=== PATIENT | male | born 1960 | race Two or more races ===

== ENCOUNTER 2017-04-07 15:37 | Inpatient (IN) | payer SELFPAY ==
[~2017-04-07] VITALS: Ht 165.1 cm; Wt 78.7 kg
[2017-04-07] MEDS ORDERED: SODIUM CHLORIDE 0.9% 1,000 ML IVB ONE (15:40)
[2017-04-07 16:29] LABS: Basophils # (auto) 0 uL; Basophils % (auto) 0.5 % (0.0-2.0); Eosinophils # (auto) 0 uL; Eosinophils % (auto) 0.2 % (0.0-7.0); Hematocrit 45.6 % (41.0-53.0); Hemoglobin 15.2 g/dL (13.5-17.5); Lymphocytes # (auto) 3.2 uL; Mean Corpuscular Hemoglobin 31.9 pg (28.0-32.0); Mean Corpuscular Hgb Conc. 33.4 g/dL (32.0-36.0); Mean Corpuscular Volume 95.6 fL (80.0-100.0); Mean Platelet Volume 10.3 fL (6.9-10.8); Monocytes # (auto) 0.3 uL; Monocytes % (auto) 2.8 % (0.0-12.0); Neutrophils # (auto) 6.4 uL; Neutrophils % (auto) 64.5 % (37.0-80.0); Nucleated Red Blood Cells % 0.2 %; Platelet Count (auto) 170 10^3/uL (140-450); Red Cell Distribution Width 13.2 % (11.8-14.3); White Blood Cell 9.9 10^3/uL (4.4-10.8)
[2017-04-07 16:44] LABS: Albumin 3.9 g/dL (3.4-5.0); Anion Gap 19 (5-15); Aspartate Aminotransferase 22 U/L (15-37); BUN/Creatinine Ratio 10.1; Blood Urea Nitrogen 13 mg/dL (7-18); Calcium 8.1 mg/dL (8.5-10.1); Carbon Dioxide 15 mmol/L (21-32); Chloride 108 mmol/L (98-107); GFR African American 76 mL/min; GFR Non-African American 63 mL/min; Glucose 200 mg/dL (74-106); INR 1.05 (0.9-1.15); Magnesium 2.7 mg/dL (1.6-2.6); Partial Thromboplastin Time 26.1 sec (22.64-33.71); Potassium 4.4 mmol/L (3.5-5.1); Prothrombin Time 11.4 sec (9.37-12.3); Sodium 142 mmol/L (136-145)
[2017-04-07 16:47] LABS: Alkaline Phosphatase 78 U/L (45-117); Bilirubin, Total 0.2 mg/dL (0.2-1.0); Total Protein 7.5 g/dL (6.4-8.2)
[2017-04-07] MEDS ORDERED: LORazepam 2MG/ML-1ML VIAL ONE (16:52)
[2017-04-07] MEDS ORDERED: LORazepam 2MG/ML-1ML VIAL IV ONE (17:00)
[2017-04-07] MEDS ORDERED: FAMOTIDINE (10MG/ML) 2ML VL IV ONE (18:45)
[2017-04-07] MEDS ORDERED: NITROGLYCERIN 0.4 MG SL TAB SL PRN (18:45)
[2017-04-07] MEDS ORDERED: ONDANSETRON HCL 4 MG/2 ML VIAL IV PRN (18:45)
[2017-04-07] MEDS ORDERED: MORPHINE SULF INJ 2 MG/ML SYRINGE 1ML IV PRN ×2 (18:45)
[2017-04-07] MEDS ORDERED: PANTOPRAZOLE 40 MG/10 ML VIAL IV ONE (18:45)
[2017-04-07] MEDS ORDERED: LORazepam 2MG/ML-1ML VIAL IV PRN (19:00)
[2017-04-07] MEDS ORDERED: DEXTROSE (50%) 50ML SYRG IV PRN (19:00)
[2017-04-07 19:04] LABS: Urine Bilirubin Negative (Negative); Urine Blood Negative /uL (Negative); Urine Glucose 1+ mg/dL (Normal); Urine Hyaline Cast FEW /lpf (0 - 2); Urine Ketone TRACE (Negative); Urine Nitrite Negative (Negative); Urine RBC 8 /hpf (0 - 3); Urine Urobilinogen Normal (Negative)
[2017-04-07 19:06] LABS: Urine Color Straw (Yellow)
[2017-04-07] MEDS: SODIUM CHLORIDE 0.9% 1,000 ML IV SCH (19:25)
[2017-04-07 19:47] LABS: B-Type Natriuretic Peptide 82.49 pg/mL (0-100)
[2017-04-07 20:00] LABS: Temperature: 22.2 C (20.0-25.0)
[2017-04-08] MEDS: ACCU-CHEK COMFORT CURVE STRIP VI SCH ×5 (00:07→23:09)
[2017-04-08] MEDS: SODIUM CHLORIDE 0.9% 1,000 ML IV SCH ×3 (05:08→19:40)
[2017-04-08] MEDS: InsuLIN REG 1unit/0.01ml Soln (100units/ml) SC SCH ×5 (06:00→23:09)
[2017-04-08 06:27] LABS: Basophils # (auto) 0 uL; Basophils % (auto) 0.2 % (0.0-2.0); Eosinophils # (auto) 0 uL; Hematocrit 42.6 % (41.0-53.0); Hemoglobin 14.7 g/dL (13.5-17.5); Lymphocytes # (auto) 1.3 uL; Lymphocytes % (auto) 12.1 % (10.0-50.0); Mean Corpuscular Hemoglobin 31.7 pg (28.0-32.0); Mean Corpuscular Hgb Conc. 34.6 g/dL (32.0-36.0); Mean Corpuscular Volume 91.6 fL (80.0-100.0); Mean Platelet Volume 10.2 fL (6.9-10.8); Monocytes % (auto) 9.3 % (0.0-12.0); Neutrophils # (auto) 8.7 uL; Neutrophils % (auto) 78.4 % (37.0-80.0); Platelet Count (auto) 146 10^3/uL (140-450); Red Cell Distribution Width 13.3 % (11.8-14.3); White Blood Cell 11.1 10^3/uL (4.4-10.8)
[2017-04-08 06:57] LABS: BUN/Creatinine Ratio 11.1; Bilirubin, Total 0.8 mg/dL (0.2-1.0); Calcium 8.8 mg/dL (8.5-10.1); Potassium 3.4 mmol/L (3.5-5.1); Total Protein 7.5 g/dL (6.4-8.2)
[2017-04-08] MEDS: FAMOTIDINE (10MG/ML) 2ML VL IV SCH (10:23)
[2017-04-08] MEDS: PANTOPRAZOLE 40 MG/10 ML VIAL IV SCH (10:23)
[2017-04-08] MEDS ORDERED: POTASSIUM CHL 10 Meq TABLET PO ONE (13:15)
[2017-04-08 17:51] VITALS: BP 113/68
[2017-04-08 21:35] VITALS: BP 113/59
[2017-04-09] MEDS: SODIUM CHLORIDE 0.9% 1,000 ML IV SCH ×3 (04:00→22:33)
[2017-04-09 05:01] VITALS: BP 120/66
[2017-04-09] MEDS: InsuLIN REG 1unit/0.01ml Soln (100units/ml) SC SCH ×3 (05:05→17:49)
[2017-04-09] MEDS: ACCU-CHEK COMFORT CURVE STRIP VI SCH ×3 (05:06→17:50)
[2017-04-09 07:08] LABS: Basophils # (auto) 0 uL; Basophils % (auto) 0.4 % (0.0-2.0); Eosinophils # (auto) 0.1 uL; Eosinophils % (auto) 0.7 % (0.0-7.0); Hematocrit 43.1 % (41.0-53.0); Hemoglobin 14.9 g/dL (13.5-17.5); Lymphocytes # (auto) 2.5 uL; Lymphocytes % (auto) 33.2 % (10.0-50.0); Mean Corpuscular Hemoglobin 31.8 pg (28.0-32.0); Mean Corpuscular Hgb Conc. 34.5 g/dL (32.0-36.0); Mean Corpuscular Volume 92.1 fL (80.0-100.0); Mean Platelet Volume 10.4 fL (6.9-10.8); Monocytes # (auto) 0.6 uL; Monocytes % (auto) 7.7 % (0.0-12.0); Neutrophils # (auto) 4.4 uL; Nucleated Red Blood Cells % 0.1 %; Platelet Count (auto) 154 10^3/uL (140-450); Red Cell Distribution Width 13.5 % (11.8-14.3); White Blood Cell 7.6 10^3/uL (4.4-10.8)
[2017-04-09 07:14] LABS: Calcium 9.4 mg/dL (8.5-10.1); Potassium 3.4 mmol/L (3.5-5.1)
[2017-04-09 07:17] LABS: BUN/Creatinine Ratio 14.9
[2017-04-09 07:22] LABS: Total Protein 7.7 g/dL (6.4-8.2)
[2017-04-09 09:00] VITALS: BP 124/66
[2017-04-09] MEDS ORDERED: POTASSIUM CHL 10 Meq TABLET PO ONE (10:15)
[2017-04-09 10:51] LABS: Cholesterol 171 mg/dL (< 200); HDL Cholesterol 63 mg/dL (40-59); LDL Cholesterol 104 mg/dL (< 100); Triglycerides 66 mg/dL (< 150)
[2017-04-09] MEDS: ASPirin-EC 81 mg tab PO SCH (10:54)
[2017-04-09] MEDS: PANTOPRAZOLE 40 MG/10 ML VIAL IV SCH (10:54)
[2017-04-09] MEDS: FAMOTIDINE (10MG/ML) 2ML VL IV SCH (10:54)
[2017-04-09 13:00] VITALS: BP 110/68
[2017-04-09 17:00] VITALS: BP 105/67
[2017-04-09 22:10] VITALS: BP 114/70
[2017-04-09] MEDS: ATORVASTATIN 20 MG TAB PO SCH (22:30)
[2017-04-09] MEDS: PHENYTOIN SODIUM 100 MG CAP PO SCH (22:30)
[2017-04-10 05:08] VITALS: BP 115/72
[2017-04-10] MEDS: InsuLIN REG 1unit/0.01ml Soln (100units/ml) SC SCH ×4 (06:00→18:00)
[2017-04-10] MEDS: ACCU-CHEK COMFORT CURVE STRIP VI SCH ×4 (06:18→17:31)
[2017-04-10] MEDS: SODIUM CHLORIDE 0.9% 1,000 ML IV SCH ×3 (06:19→21:53)
[2017-04-10 06:30] LABS: Basophils # (auto) 0 uL; Basophils % (auto) 0.4 % (0.0-2.0); Eosinophils # (auto) 0.1 uL; Hematocrit 43.6 % (41.0-53.0); Lymphocytes % (auto) 36.6 % (10.0-50.0); Mean Corpuscular Hemoglobin 31.9 pg (28.0-32.0); Mean Corpuscular Hgb Conc. 34.4 g/dL (32.0-36.0); Mean Corpuscular Volume 92.6 fL (80.0-100.0); Mean Platelet Volume 10.4 fL (6.9-10.8); Monocytes # (auto) 0.5 uL; Monocytes % (auto) 8.4 % (0.0-12.0); Neutrophils # (auto) 2.9 uL; Neutrophils % (auto) 53.6 % (37.0-80.0); Nucleated Red Blood Cells % 0.1 %; Platelet Count (auto) 144 10^3/uL (140-450); White Blood Cell 5.4 10^3/uL (4.4-10.8)
[2017-04-10 06:58] LABS: Albumin 3.9 g/dL (3.4-5.0); BUN/Creatinine Ratio 18.2; Bilirubin, Total 0.7 mg/dL (0.2-1.0); Potassium 3.8 mmol/L (3.5-5.1); Total Protein 7.4 g/dL (6.4-8.2)
[2017-04-10 08:10] LABS: Thyroxine (T4) 6.9 ug/dL (4.5-12.0)
[2017-04-10 08:41] VITALS: BP 98/52
[2017-04-10] MEDS: FAMOTIDINE (10MG/ML) 2ML VL IV SCH (10:00)
[2017-04-10] MEDS: ASPirin-EC 81 mg tab PO SCH (12:10)
[2017-04-10] MEDS: PANTOPRAZOLE 40 MG/10 ML VIAL IV SCH (12:10)
[2017-04-10 13:00] VITALS: BP 115/67
[2017-04-10 16:58] VITALS: BP 111/60
[2017-04-10] MEDS: ATORVASTATIN 20 MG TAB PO SCH (21:48)
[2017-04-10] MEDS: PHENYTOIN SODIUM 100 MG CAP PO SCH (21:48)
[2017-04-10 22:51] VITALS: BP 120/71
[2017-04-11 05:22] VITALS: BP 112/56
[2017-04-11] MEDS: InsuLIN REG 1unit/0.01ml Soln (100units/ml) SC SCH ×3 (06:00→12:00)
[2017-04-11] MEDS: SODIUM CHLORIDE 0.9% 1,000 ML IV SCH (06:18)
[2017-04-11] MEDS: ACCU-CHEK COMFORT CURVE STRIP VI SCH ×3 (06:20→11:33)
[2017-04-11 06:28] LABS: Basophils # (auto) 0 uL; Basophils % (auto) 0.5 % (0.0-2.0); Eosinophils # (auto) 0 uL; Eosinophils % (auto) 0.8 % (0.0-7.0); Hematocrit 44.1 % (41.0-53.0); Hemoglobin 15.2 g/dL (13.5-17.5); Lymphocytes # (auto) 1.9 uL; Lymphocytes % (auto) 32.7 % (10.0-50.0); Mean Corpuscular Hemoglobin 31.7 pg (28.0-32.0); Mean Corpuscular Hgb Conc. 34.4 g/dL (32.0-36.0); Mean Corpuscular Volume 92.3 fL (80.0-100.0); Mean Platelet Volume 10.4 fL (6.9-10.8); Monocytes # (auto) 0.5 uL; Monocytes % (auto) 8.2 % (0.0-12.0); Neutrophils # (auto) 3.3 uL; Neutrophils % (auto) 57.8 % (37.0-80.0); Nucleated Red Blood Cells % 0.1 %; Platelet Count (auto) 154 10^3/uL (140-450); Red Cell Distribution Width 13.3 % (11.8-14.3); White Blood Cell 5.8 10^3/uL (4.4-10.8)
[2017-04-11 07:05] LABS: BUN/Creatinine Ratio 12.4; Bilirubin, Total 0.7 mg/dL (0.2-1.0); Calcium 9.1 mg/dL (8.5-10.1); Potassium 3.6 mmol/L (3.5-5.1); Total Protein 7.6 g/dL (6.4-8.2)
[2017-04-11 09:12] VITALS: BP 118/76
[2017-04-11] MEDS: FAMOTIDINE (10MG/ML) 2ML VL IV SCH (10:00)
[2017-04-11] MEDS: PANTOPRAZOLE 40 MG/10 ML VIAL IV SCH (10:20)
[2017-04-11] MEDS: ASPirin-EC 81 mg tab PO SCH (10:20)
[2017-04-11 14:52] VITALS: BP 126/62
[2017-04-11] MEDS ORDERED: METOPROLOL TARTRATE 50 MG TAB PO ONE (15:30)
[2017-04-11] MEDS ORDERED: metFORMIN HYDROCHLORIDE 500 MG TAB PO SCH (18:00)
[2017-04-11] MEDS ORDERED: ATORVASTATIN 20 MG TAB PO SCH (22:00)
[2017-04-12] MEDS ORDERED: METOPROLOL TARTRATE 50 MG TAB PO SCH (10:00)
[2017-04-12 11:07] LABS: Anticardiolipin IgM Antibody <9 MPL U/mL (0-12); Protein S Antigen Free 117 % (57-157); Proten S Antigen Total 77 % (60-150)
== END 2017-04-11 15:38 | disposition home or self-care (01) | DRG 101 ==
LOC: ER 15:46 → EDBD 15:47 → OVERFLOW 15:47 → TELE-EAST 04-08 17:50
PROVIDERS: ADMIT Internal Medicine; ATTEND Internal Medicine Pulmonary Disease
DX: G40.401 Other generalized epilepsy and epileptic syndromes, not intractable, with status epilepticus (principal); D68.69 Other thrombophilia; E11.21 Type 2 diabetes mellitus with diabetic nephropathy; D68.59 Other primary thrombophilia; E11.22 Type 2 diabetes mellitus with diabetic chronic kidney disease; E87.2 Acidosis; I48.92 Unspecified atrial flutter; E83.41 Hypermagnesemia; I48.91 Unspecified atrial fibrillation; E83.51 Hypocalcemia; E87.6 Hypokalemia; I12.9 Hypertensive chronic kidney disease with stage 1 through stage 4 chronic kidney disease, or unspecified chronic kidney disease; N18.2 Chronic kidney disease, stage 2 (mild); Z79.82 Long term (current) use of aspirin; Z79.899 Other long term (current) drug therapy; Z86.73 Personal history of transient ischemic attack (TIA), and cerebral infarction without residual deficits
CPT/HCPCS: 36415; 51702; 70450; 70551; 71010; 80053; 80061; 80307; 80320; 81001; 81241; 82962; 83036; 83090; 83735; 83880; 84443; 84484; 85025; 85301; 85302; 85303; 85305; 85306; 85610; 85613; 85670; 85705; 85730; 85732; 86147; 87086; 92610; 93306; 93886; 94761; 95819; 96361; 96374; C9113; G0378; J3490

== ENCOUNTER 2024-12-13 09:51 | Inpatient (IN) | payer MEDICAID, OTHER ==
[~2024-12-13] VITALS: Ht 165.1 cm; Wt 67.1 kg
--- NOTE | 2024-12-13 10:39 | ED.PDOC ---
Altered Mental Status HPI Comments 63 y/o M, brought in by neighbor, with known medical history of Parkinson's disease, DM , and HTN presents to the ED for CC of ALOC. Patient was brought in by neighbor d/t patient displaying decreased alertness sudden onset, today (12/13/24). Upon arrival to the ED, patient was visibly altered and unable to answer questions appropriately. Patient's blood sugar read low at 41 and 56 on glucometer. During exam patient is A&Ox2 to person and place only; patient is able to recall past medical history and is answering some questions appropriately. No other symptoms or modifiers are obtainable at this time. Chief Complaint: ALOC Time Seen by MD: 10:05 Primary Care Provider: UNK Reviewed Notes: Nurses Notes, Medications, Allergies Allergies: Coded Allergies: NO KNOWN ALLERGIES (Unverified , 04/07/17) Home Meds Unable to Obtain Active Prescriptions or Reported Meds Information Source: Patient, Friend Mode of Arrival: Wheelchair Severity: Moderate Timing: Hours Duration: Since onset Prehospital treatment: None Quality: Decreased Alertness Recent: None History of: CVA, Diabetes Associated Signs and Symptoms: None Past Medical History PAST MEDICAL HISTORY: CVA, DM, HTN Surgical History: Unobtainable Family History Family History: Pt Confused Social History Smoker: Unobtainable Alcohol: Unobtainable Drugs: Unobtainable Lives In: Home Unable to Obtain due to: Altered Mental Status Physical Exam General Appearance: Moderate Distress HEENT: Normal ENT Inspection, Pharynx Normal, TMs Normal Neck: Full Range of Motion, Non-Tender, Normal, Normal Inspection Respiratory: Other (Coarse breath sounds) Cardiovascular: No Edema, No JVD, No Murmur, No Gallop, Normal Peripheral Pulses, Regular Rate/Rhythm Breast Exam: Deferred Gastrointestinal: No Organomegaly, Non Tender, No Pulsatile Mass, Normal Bowel Sounds, Soft Genitalia: Deferred Pelvic: Deferred Rectal: Deferred Extremities: Decreased range of motion, Other (Despite ENT BT in the two) Musculoskeletal : Apperance: Normal Neurologic: Disoriented Cerebellar Function: NOT DONE Reflexes: NOT DONE Skin: Pallor Peripheral Pulses: 3+ Radial (R), 3+ Radial (L) Lymphatic: No Adenopathy Was a procedure done? Was a procedure done?: No Differential Diagnosis (ALOC) Differential Diagnosis: Dehydration, Hypoglycemia, Sepsis, CVA X-Ray, Labs, Meds, VS Vital Signs Date Time Temp Pulse Resp B/P (MAP) Pulse Ox O2 Delivery O2 Flow Rate FiO2 12/13/24 10:20 Room Air* 0 21 12/13/24 10:06 97.7 105 20 104/71 92 97.7 12/13/24 09:59 143 Lab Test 12/13/24 11:30 12/13/24 11:05 12/13/24 09:59 Range/Units Urine Color Pending Urine Clarity Pending Urine pH Pending Urine Specific [place] Pending Urine Protein Pending Urine Ketones Pending Urine Blood Pending Urine Nitrite Pending Urine Bilirubin Pending Urine Urobilinogen Pending Urine Leukocyte Esterase Pending Urine RBC Pending Urine Microscopic WBC Pending Urine Squamous Epithelial Cells Pending Urine Bacteria Pending Urine Glucose Pending White Blood Count 10.1 4.4-10.8 10^3/uL Red Blood Count 5.12 4.5-5.90 10^6/uL Hemoglobin 14.9 13.5-17.5 g/dL Hematocrit 45.6 41.0-53.0 % Mean Corpuscular Volume 89.2 80.0-100.0 fL Mean Corpuscular Hemoglobin 29.1 28.0-32.0 pg Mean Corpuscular Hemoglobin Concent 32.6 32.0-36.0 g/dL Red Cell Distribution Width 19.6 H 11.8-14.3 % Platelet Count 105 L 140-450 10^3/uL Mean Platelet Volume 10.7 6.9-10.8 fL Neutrophils (%) (Auto) 85.8 H 37.0-80.0 % Lymphocytes (%) (Auto) 2.8 L 10.0-50.0 % Monocytes (%) (Auto) 11.1 0.0-12.0 % Eosinophils (%) (Auto) 0.1 0.0-7.0 % Basophils (%) (Auto) 0.2 0.0-2.0 % Neutrophils # (Auto) 8.7 H 1.6-8.6 10 ^3/uL Lymphocytes # (Auto) 0.3 L 0.4-5.4 10 ^3/uL Monocytes # (Auto) 1.1 0-1.3 10 ^3/uL Eosinophils # (Auto) 0 0-0.8 10 ^3/uL Basophils # (Auto) 0 0-0.2 10 ^3/uL Nucleated Red Blood Cells 0.1 % Prothrombin Time 33.7 H 9.3-11.8 sec Prothrombin Time INR 3.61 H 0.9-1.15 Activated Partial Thromboplast Time 36.9 H 24.5-34.5 SEC Sodium Level 136 136-145 mmol/L Potassium Level 5.8 *H 3.5-5.1 mmol/L Chloride Level 103 98-107 mmol/L Carbon Dioxide Level 14 L 20-31 mmol/L Anion Gap 19 H 5-15 Blood Urea Nitrogen 56 H 9-23 mg/dL Creatinine 2.73 H 0.700-1.30 mg/dL Glomerular Filtration Rate Calc 26 >90 mL/min BUN/Creatinine Ratio 20.5 H 10.0-20.0 Serum Glucose 155 H 74-106 mg/dL Lactic Acid Level 7.2 *H 0.4-2.0 mmol/L Calcium Level 9.5 8.7-10.4 mg/dL Total Bilirubin 4.0 H 0.2-1.0 mg/dL Aspartate Amino Transferase (AST) 4520 H 13-40 U/L Alanine Aminotransferase (ALT) 2306 H 7-40 U/L Alkaline Phosphatase 81 46-116 U/L Total Protein 6.1 5.7-8.2 g/dL Albumin 4.2 3.2-4.8 g/dL POC Glucose 56 L 70-106 mg/dl Current Medications Medications (Trade) Dose Ordered Sig/Diane Route Start Time Stop Time Status Last Admin Dextrose 50 ml ONCE ONCE IV 12/13/24 10:45 12/13/24 10:46 DC 12/13/24 10:54 Sodium Chloride 1,000 ml @ 1,000 mls/hr Q1H ONCE IV 12/13/24 11:00 12/13/24 11:59 DC 12/13/24 10:53 Vancomycin HCl 250 ml @ 250 mls/hr ONCE ONCE IV 12/13/24 11:00 12/13/24 11:59 DC 12/13/24 11:18 Cefepime HCl 50 ml @ 50 mls/hr ONCE ONCE IV 12/13/24 11:15 12/13/24 12:14 DC 12/13/24 11:52 [facility] [id number] [place] [id number] Ph: [phone] DIAGNOSTIC IMAGING Diagnostic Imaging Report : [id number] Signed PATIENT: DEMETRIUS RUST ACCT: [id number] UNIT: [id number] : 1960 LOC: ER ROOM / BED: / AGE / SEX: 63 / M ADM STATUS: REG ER SERVICE 1048 ORDERING PHYSICIAN: JEFF LU MD PROCEDURE(s): CXRP - CHEST PORTABLE REASON: sob ORDER NUMBER(s): [id number], ACCESSION NUMBER(s): [id number] CHEST RADIOGRAPH Indication: sob Technique: XY CHEST PORTABLE COMPARISON: None FINDINGS: The cardiac silhouette is enlarged. The lungs demonstrate bilateral patchy airspace opacities. The pulmonary vasculature is prominent. Small bilateral pleural effusions, [id number]-swek-left. There is no pneumothorax. Left chest dual lead cardiac pacer device. IMPRESSION: Cardiomegaly with pulmonary vascular congestion and bilateral patchy airspace opacities. Small bilateral pleural effusions, myqqt-wiahvod-bysh-left. ATED BY: CARLIE RESTREPO MD DICTATED DATE/TIME: 12/13/241206 SIGNED BY: CARLIE RESTREPO MD SIGNED DATE/TIME: 12/13/241206 CC: Patient unable to answer all questions. Chronic condition. Chest x-ray reviewed does show CHF with possible pneumonia. Answers his name. Possible sepsis. Potassium is elevated. Hyperkalemia treatment. Liver profile elevated. Possibly from alcohol versus gallbladder. WBC within normal limits. Unknown whether he has a gallbladder. Workup for cholecystitis. Waiting for family. Continue to monitor. Time of 1ST Reevaluation: 10:35 Reevaluation 1ST: Unchanged Patient Education/Counseling: Diagnosis, Treatment Family Education/Counseling: No Family Present SEPSIS Sepsis Screen Date sepsis recognized/suspect: Dec 13, 2024 Time Sepsis recognized/suspect: 1000 Recent Procedure: No On Antibiotic Therapy: No Respiratory Rate >20: No Heart Rate >90: Yes Temp<36 C (96.8 F) or >38.3 C: No SBP <90 or MAP <65 mmHG: No New Acute Mental Status Change: No Is the patient on CPAP, BIPAP,: No Physician Orders Electrocardigram (12/13/24 10:06) Electrocardigram (12/13/24 11:06) Urinalysis (12/13/24 10:48) Chest Portable (12/13/24 10:48) Accucheck (12/13/24 10:48) Blood Culture (12/13/24 10:48) Notify Md If Map <65 Or Bp<90 (12/13/24 10:48) If Map<65 Start Vasopressor (12/13/24 10:48) Sepsis Reassesment After Fluid (12/13/24 11:48) Sodium Chloride 0.9% (12/13/24 11:00) Calcium Gluc 1,000mg/50ml-Ns (12/13/24 12:30) Cefepime 1gm/ 50ml (Maxipime 1gm/50ml) (12/14/24 10:00) Vital Signs Date Time Temp Pulse Resp B/P (MAP) Pulse Ox O2 Delivery O2 Flow Rate FiO2 12/13/24 10:20 Room Air* 0 21 12/13/24 10:06 97.7 105 20 104/71 92 97.7 12/13/24 09:59 143 Laboratory Tests Test 12/13/24 11:05 Lactic Acid Level 7.2 mmol/L (0.4-2.0) *H White Blood Count 10.1 10^3/uL (4.4-10.8) Medications Medications Dose Ordered Sig/Diane Route Start Time Stop Time Status Last Admin Dose Admin Cefepime HCl 50 ml @ 50 mls/hr ONCE ONCE IV 12/13/24 11:15 12/13/24 12:14 DC 12/13/24 11:52 Dextrose 50 ml ONCE ONCE IV 12/13/24 10:45 12/13/24 10:46 DC 12/13/24 10:54 Sodium Chloride 1,000 ml @ 1,000 mls/hr Q1H ONCE IV 12/13/24 11:00 12/13/24 11:59 DC 12/13/24 10:53 Vancomycin HCl 250 ml @ 250 mls/hr ONCE ONCE IV 12/13/24 11:00 12/13/24 11:59 DC 12/13/24 11:18 Departure 1 Departure Time of Disposition: 12:51 Impression: Primary Impression: Metabolic encephalopathy Additional Impressions: Sepsis Qualified Codes: A41.9 - Sepsis, unspecified organism Hyperkalemia Disposition: ADMITTED INPATIENT Admit to: ICU Condition: Guarded e-Prescriptions Unable to Obtain Active Prescriptions or Reported Meds Critical Care Note Critical Care Time?: Yes (90 min-critical care time only) Stability Stability form required: No Heart Score Heart Score: Heart Score Response (Comments) Value History Slightly Suspicious 0 EKG Normal 0 Age 45-64 1 Risk Factors >3 or Hx ASHD 2 Troponin Normal limit 0 Total 3 I personally scribed for JEFF LU MD ([email or web address]) on 12/13/24 at 10:39. Electronically submitted by Tatyana Mak ([email or web address]). I personally scribed for JEFF LU MD ([email or web address]) on 12/13/24 at 12:30. Electronically submitted by Tatyana Mak ([email or web address]). JEFF LU MD Dec 13, 2024 10:39
[2024-12-13] MEDS: SODIUM CHLORIDE 0.9% 1,000 ML IV ONE ×2 (10:53→13:02)
[2024-12-13] MEDS: DEXTROSE (50%) 50ML SYRG IV ONE ×2 (10:54→12:50)
[2024-12-13] MEDS ORDERED: VANCOMYCIN 1GM/200ML PM 200 ML IV ONE ×2 (11:00)
[2024-12-13] MEDS: VANCOMYCIN 1GM/250ML KIT 250 ML IV ONE (11:18)
[2024-12-13 11:24] LABS: Hematocrit 45.6 % (41.0-53.0); Hemoglobin 14.9 g/dL (13.5-17.5); Mean Corpuscular Hemoglobin 29.1 pg (28.0-32.0); Mean Corpuscular Volume 89.2 fL (80.0-100.0); Nucleated Red Blood Cells % 0.1 %
[2024-12-13 11:46] LABS: INR 3.61 (0.9-1.15); Partial Thromboplastin Time 36.9 SEC (24.5-34.5); Prothrombin Time 33.7 sec (9.3-11.8)
[2024-12-13 11:49] LABS: Lactic Acid w/Reflex 7.2 mmol/L (0.4-2.0)
[2024-12-13] MEDS: CEFEPIME 1GM/ 50ML 50 ML IV ONE (11:52)
--- NOTE | 2024-12-13 12:07 | DVH ---
CHEST RADIOGRAPH Indication: sob Technique: XY CHEST PORTABLE COMPARISON: None FINDINGS: The cardiac silhouette is enlarged. The lungs demonstrate bilateral patchy airspace opacities. The pu lmonary vasculature is prominent. Small bilateral pleural effusions, hequj-xdwipzl-mzvj-left. There i s no pneumothorax. Left chest dual lead cardiac pacer device. IMPRESSION: Cardiomegaly with pulmonary vascular congestion and bilateral patchy airspace opacities. Small bilateral pleural effusions, [id number]-farpiqb-njjg-left.
[2024-12-13 12:12] LABS: Albumin 4.2 g/dL (3.2-4.8); Alkaline Phosphatase 81 U/L (46-116); Anion Gap 19 (5-15); BUN/Creatinine Ratio 20.5 (10.0-20.0); Calcium 9.5 mg/dL (8.7-10.4); Chloride 103 mmol/L (98-107); Sodium 136 mmol/L (136-145); Total Protein 6.1 g/dL (5.7-8.2)
[2024-12-13 12:23] LABS: Alanine Aminotransferase 2306 U/L (7-40); Bilirubin, Total 4.0 mg/dL (0.2-1.0)
[2024-12-13 12:28] LABS: Blood Urea Nitrogen 56 mg/dL (9-23); Carbon Dioxide 14 mmol/L (20-31); Glucose 155 mg/dL (74-106); Potassium 5.8 mmol/L (3.5-5.1)
[2024-12-13] MEDS: SODIUM ZIRCONIUM CYCL 10 GM PAK PO ONE ×2 (12:49→20:56)
[2024-12-13] MEDS: FUROSEMIDE 20 MG/2 ML VIAL IV ONE (12:49)
[2024-12-13] MEDS: SODIUM BICARB 8.4% 50Meq/50ml SYR INJ IV ONE (12:50)
[2024-12-13] MEDS: InsuLIN REG 1unit/0.01ml Soln (100units/ml) IV ONE (12:52)
[2024-12-13 12:54] LABS: Urine Protein, UAD 1+ (Negative)
[2024-12-13] MEDS: CALCIUM GLUC 1,000mg/50ml-NS 50 ML IV ONE (12:59)
--- NOTE | 2024-12-13 13:42 | DVH ---
CT HEAD WITHOUT CONTRAST Indication: cva EXAM DATE: 12/13/2024 01:10 PM COMPARISON: None TECHNIQUE: CT of the head without intravenous contrast. RADIATION DOSE: CTDIvol: 64.4 mGy, DLP: 1140 mGy*cm FINDINGS: There is no intracranial hemorrhage. There is no extra-axial fluid, mass, mass effect or midline shif t. The ventricles are midline and normal in size. Basilar cisterns are patent. Xpna-hp-lefsgvsk periv entricular and subcortical white matter chronic microvascular ischemic changes. Left frontal, pariet al and temporal encephalomalacia most pronounced in the left temporal lobe. Imio-jr-maycixhi global c erebral volume loss. Old bilateral batista radiata infarcts. Right frontotemporal scalp, right facial region soft tissue emphysema. Right facial region delusion. Imaged portion of the orbits are unremarkable. IMPRESSION: No intracranial hemorrhage or mass effect. Cerebral encephalomalacia as described most pronounced within the left temporal lobe. Right frontal scalp, right facial region soft tissue emphysema. Correlate for traumatic and other et iologies. Right facial region contusion.
--- NOTE | 2024-12-13 13:56 | DVH ---
Exam: CT CT AB PEL WO CON-NO ORAL OR IV History: livergallbladder Comparison Study: None Technique: Multidetector spiral CT of the abdomen was performed from lung bases to pubic symphysis. Imaging was performed without IV contrast. Axial, coronal and sagittal multiplanar reformats were ob tained from the axial data set by the technologist. Radiation Dose : 1. Abdomen/Pelvis: CTDIvol 16.4 mGy, DLP 3.35 mGy*cm. Findings: Evaluation of solid organs is limited due to lack of intravenous contrast use. Lung Bases: Right lower lobe pneumonia. Moderate right pleural effusion Liver: The liver is normal in size. No focal lesions. Gallbladder and Biliary Tree: Unremarkable Spleen: Unremarkable Pancreas: The pancreas is grossly normal in appearance. Adrenal Glands: Unremarkable Kidneys: Kidneys are grossly normal without calculi or hydronephrosis. Bladder: Sears catheter in place . Soft tissue density is seen in the left posterior bladder measuri ng up to 3.1 cm Bowel: The stomach is grossly normal in appearance. Small bowel and colon are normal in caliber and d istribution. The appendix is not visualized; however, no secondary findings of acute appendicitis id entified. Ascites: Trace abdominopelvic ascites. Lymphadenopathy: No mesenteric, retroperitoneal or periportal lymphadenopathy. Abdominal Wall and Mesentery: Unremarkable. Vasculature: The visualized abdominal aorta is normal in size and caliber. Evaluation of abdominal a nd pelvic vessels is limited due to lack of intravenous contrast. Pelvic Organs: Unremarkable Musculoskeletal: No aggressive focal bony lesions, acute fractures or dislocation. IMPRESSION: 1. Right lower lobe pneumonia. 2. Moderate right pleural effusion 3. Soft tissue density is seen in the left posterior bladder measuring 3.1 cm, possibly reflecting he matoma or mass. Consider correlation with CT urogram. Radiation optimization: All CT scans at this facility use at least one of these dose optimization bonita hniques: automated exposure control mA and/or kV adjustment per patient size (includes targeted exam s where dose is matched to clinical indication) or iterative reconstruction.
[2024-12-13] MEDS: AMIODARONE BOLUS KIT 100 ML IV ONE (14:37)
[2024-12-13] MEDS: AMIODARONE 360mg/200mL PREMIX 200 ML IV ONE (14:54)
[2024-12-13] MEDS ORDERED: SODIUM CHLORIDE 0.9% 1,000 ML IV SCH (19:15)
[2024-12-13] MEDS ORDERED: VANCOMYCIN PER PHARMACY 0 MG IV SCH (19:15)
[2024-12-13] MEDS ORDERED: ONDANSETRON HCL 4 MG/2 ML VIAL IV PRN (19:15)
[2024-12-13] MEDS ORDERED: MORPHINE SULFATE INJ 2 MG/ml SYRG IV PRN (19:15)
[2024-12-13] MEDS ORDERED: NITROGLYCERIN 0.4 MG SL TAB SL PRN (19:15)
[2024-12-13] MEDS ORDERED: ACETAMINOPHEN 325 MG TAB PO PRN (19:15)
[2024-12-13] MEDS ORDERED: DEXTROSE (50%) 50ML SYRG IV PRN (19:30)
[2024-12-13] MEDS ORDERED: METOPROLOL TARTRATE 1MG/1ML-5ML VIAL IV PRN (19:45)
--- NOTE | 2024-12-13 19:56 | DVHHP2 ---
History of Present Illness History of Present Illness 63-year-old male brought in by a neighbor with a past history of hypertension, CVA, type 2 diabetes, hypertension for altered level of consciousness. Patient is alert x2 upon arrival to the emergency room blood sugar read low. Patient is unable to answer any questions. Review of Systems Other unable to obtain Allergies: Coded Allergies: NO KNOWN ALLERGIES (Unverified , 04/07/17) Medications Current Medications Medications Dose Ordered Sig/Diane Route Start Time Stop Time Status Last Admin Dose Admin Cefepime HCl 50 ml @ 12.5 mls/hr DAILY IV 12/14/24 10:00 Acetaminophen/ Hydrocodone Bitart 1 tab Q4HP PRN PO 12/13/24 19:15 Ondansetron HCl 4 mg Q4HP PRN IV 12/13/24 19:15 Enoxaparin Sodium 40 mg DAILY SC 12/14/24 10:00 UNV Acetaminophen 650 mg Q6HP PRN PO 12/13/24 19:15 Nitroglycerin 0.4 mg Q5MINP PRN SL 12/13/24 19:15 Morphine Sulfate 2 mg Q30M PRN IV 12/13/24 19:15 Piperacillin Sod/ Tazobactam Sod 100 ml @ 25 mls/hr Q12H IV 12/13/24 22:00 Vancomycin HCl 0 ml @ 0 mls/hr UD IV 12/13/24 19:15 UNV Albuterol 2.5 mg Q4HPRN PRN NEB 12/13/24 19:30 Ipratropium [place] 0.5 mg Q4HWA NEB 12/13/24 22:00 Diagnostic Test (Pha) 1 strip ACHS 12/13/24 22:00 Insulin Human Regular ACHS SC 12/13/24 22:00 Dextrose 50 ml UD PRN IV 12/13/24 19:30 Carbidopa/Levodopa 1 tab TID PO 12/13/24 22:00 Sodium Chloride 1,000 ml @ 50 mls/hr Q20H IV 12/13/24 19:30 Lactulose 30 ml Q8HR PO 12/13/24 22:00 Metoprolol Tartrate 2.5 mg Q6HPRN PRN IV 12/13/24 19:45 UNV Exam Vital Signs Vital Signs Date Time Temp Pulse Resp B/P (MAP) Pulse Ox O2 Delivery O2 Flow Rate FiO2 12/13/24 18:00 133 92/64 (73) 12/13/24 16:00 18 98 12/13/24 12:00 98.2 98.2 12/13/24 10:20 Room Air* 0 21 General Appearance: Alert, Oriented X3, Cooperative Respiratory: Clear to auscultation, Normal air movement Cardiovascular: Regular rate, Normal S1, Normal S2, No murmurs Abdominal: Normal bowel sounds, Soft, No tenderness, No hepatospenomegaly Labs/Xrays Labs Test 12/13/24 19:15 12/13/24 13:31 12/13/24 12:46 12/13/24 11:30 Range/Units Lactic Acid Level 2.5 *H 0.4-2.0 mmol/L POC Glucose 133 H 70-106 mg/dl Urine Color Dark-yellow Yellow Urine Clarity Ex.turbid Clear Urine pH 5.5 5.0-9.0 Urine Specific [place] 1.018 1.001-1.035 Urine Protein 1+ H Negative Urine Ketones 1+ H Negative Urine Blood 3+ H Negative /uL Urine Nitrite Negative Negative Urine Bilirubin Negative Negative Urine Urobilinogen 2 H Negative mg/dL Urine Leukocyte Esterase Negative Negative /uL Urine RBC 171 0 - 3 /hpf Urine Microscopic WBC 58 H 0-3 /HPF Urine Squamous Epithelial Cells Few <5 /hpf Urine Bacteria Few H None Seen /hpf Urine Hyaline Casts Mod 0 - 2 /lpf Urine Mucus Few None Seen Urine Sperm Present None Seen /hpf Urine Glucose Normal Normal mg/dL Test 12/13/24 11:05 Range/Units White Blood Count 10.1 4.4-10.8 10^3/uL Red Blood Count 5.12 4.5-5.90 10^6/uL Hemoglobin 14.9 13.5-17.5 g/dL Hematocrit 45.6 41.0-53.0 % Mean Corpuscular Volume 89.2 80.0-100.0 fL Mean Corpuscular Hemoglobin 29.1 28.0-32.0 pg Mean Corpuscular Hemoglobin Concent 32.6 32.0-36.0 g/dL Red Cell Distribution Width 19.6 H 11.8-14.3 % Platelet Count 105 L 140-450 10^3/uL Mean Platelet Volume 10.7 6.9-10.8 fL Neutrophils (%) (Auto) 85.8 H 37.0-80.0 % Lymphocytes (%) (Auto) 2.8 L 10.0-50.0 % Monocytes (%) (Auto) 11.1 0.0-12.0 % Eosinophils (%) (Auto) 0.1 0.0-7.0 % Basophils (%) (Auto) 0.2 0.0-2.0 % Neutrophils # (Auto) 8.7 H 1.6-8.6 10 ^3/uL Lymphocytes # (Auto) 0.3 L 0.4-5.4 10 ^3/uL Monocytes # (Auto) 1.1 0-1.3 10 ^3/uL Eosinophils # (Auto) 0 0-0.8 10 ^3/uL Basophils # (Auto) 0 0-0.2 10 ^3/uL Nucleated Red Blood Cells 0.1 % Prothrombin Time 33.7 H 9.3-11.8 sec Prothrombin Time INR 3.61 H 0.9-1.15 Activated Partial Thromboplast Time 36.9 H 24.5-34.5 SEC Sodium Level 136 136-145 mmol/L Chloride Level 103 98-107 mmol/L Carbon Dioxide Level 14 L 20-31 mmol/L Anion Gap 19 H 5-15 Blood Urea Nitrogen 56 H 9-23 mg/dL Creatinine 2.73 H 0.700-1.30 mg/dL Glomerular Filtration Rate Calc 26 >90 mL/min BUN/Creatinine Ratio 20.5 H 10.0-20.0 Serum Glucose 155 H 74-106 mg/dL Calcium Level 9.5 8.7-10.4 mg/dL Total Bilirubin 4.0 H 0.2-1.0 mg/dL Aspartate Amino Transferase (AST) 4520 H 13-40 U/L Alanine Aminotransferase (ALT) 2306 H 7-40 U/L Alkaline Phosphatase 81 46-116 U/L Total Protein 6.1 5.7-8.2 g/dL Albumin 4.2 3.2-4.8 g/dL SEPSIS Sepsis Screen Date sepsis recognized/suspect: Dec 13, 2024 Time Sepsis recognized/suspect: 1000 Recent Procedure: No On Antibiotic Therapy: No Respiratory Rate >20: No Heart Rate >90: Yes Temp<36 C (96.8 F) or >38.3 C: No SBP <90 or MAP <65 mmHG: No New Acute Mental Status Change: No Is the patient on CPAP, BIPAP,: No Physician Orders Ct Ab Pel Wo Con-No Oral Or Iv (12/13/24 12:53) Head Without Contrast (12/13/24 12:53) *Dr. [facility]err[facility] (12/13/24 12:54) Amiodarone 360mg/200ml Premix (Nexterone (12/13/24 14:45) Admit (12/13/24 19:05) Allergies (12/13/24 19:05) Code Status (12/13/24 19:05) 2 Gm Sodium Diet (12/14/24 Breakfast) Hydrocodone-Acet 5/325mg Tab ([place] 5/32 (12/13/24 19:15) Ondansetron Hcl (Zofran) (12/13/24 19:15) Condition: Fair (12/13/24 19:05) Acetaminophen Tablet (Tylenol Tablet) (12/13/24 19:15) Nitroglycerin Sublingual (Ntrostat Subli (12/13/24 19:15) Morphine Sulfate Injection (12/13/24 19:15) Stat Ekg For Chest Pain (12/13/24 19:05) Notify Md Of Changes From Base (12/13/24 19:05) Cost Reduction Engineer For 24 Hours (12/13/24 19:05) Emergency Dysrhythmia Protocol (12/13/24 19:05) Rhythm Strips Once Every Shift (12/13/24 19:05) Oxygen By Nasal Cannula (12/13/24 19:05) Acute Hepatitis Panel (12/13/24 19:05) Ammonia (12/13/24 19:05) Respiratory Culture W/ Gs (12/13/24 19:09) *Consult / (12/13/24 19:09) Piperacillin-Tazob 3.375gm (Zosyn 3.375g (12/13/24 22:00) Vancomycin Per Pharmacy (12/13/24 19:15) * Neurology Consult (12/13/24 19:10) *Consult Dr. Mary De Jesus (12/13/24 19:11) Phytonadione (Vitamin K) (12/13/24 19:15) * Cardiology Consult (12/13/24 19:13) *Consult Dr. Knapp (12/13/24 19:13) Potassium (12/13/24 19:14) Complete Blood Count (12/14/24 05:00) Comprehensive Metabolic Panel (12/14/24 05:00) Albuterol Medneb (Ventolin Medneb) (12/13/24 19:30) Ipratropium Medneb (Atrovent Medneb) (12/13/24 22:00) Urine Bacterial Culture (12/13/24 19:17) Drug Screen (12/13/24 19:17) Glucose Blood (Accu-Chek Comfort Curve T (12/13/24 22:00) Insulin R (Human) (Insulin R) (12/13/24 22:00) Dextrose 50% Syringe (12/13/24 19:30) Carbidopa W Levodopa 25/100mg (Sinemet 2 (12/13/24 22:00) B-Type Natriuretic Peptide (12/13/24 19:21) Echo 2d Mode Cardiac Dop (12/13/24 19:21) Sodium Chloride 0.9% (12/13/24 19:30) Lactulose Oral (12/13/24 22:00) Metoprolol Inj (Lopressor) (12/13/24 19:45) Vital Signs Date Time Temp Pulse Resp B/P (MAP) Pulse Ox O2 Delivery O2 Flow Rate FiO2 12/13/24 18:00 133 92/64 (73) 12/13/24 16:00 113 18 90/66 (74) 98 12/13/24 14:00 129 17 107/85 (92) 98 12/13/24 12:49 110/86 12/13/24 12:01 138 12/13/24 12:00 98.2 136 17 112/83 (93) 94 98.2 Laboratory Tests Test 12/13/24 11:05 12/13/24 13:31 Lactic Acid Level 7.2 mmol/L (0.4-2.0) *H 2.5 mmol/L (0.4-2.0) *H White Blood Count 10.1 10^3/uL (4.4-10.8) Medications Medications Dose Ordered Sig/Diane Route Start Time Stop Time Status Last Admin Dose Admin Amiodarone HCl 100 ml @ 600 mls/hr ONCE ONCE IV 12/13/24 14:45 12/13/24 14:54 DC 12/13/24 14:37 600 MLS/HR Calcium Gluconate/ Sodium Chloride 50 ml @ 120 mls/hr ONCE ONCE IV 12/13/24 12:30 12/13/24 12:54 DC 12/13/24 12:59 120 MLS/HR Cefepime HCl 50 ml @ 50 mls/hr ONCE ONCE IV 12/13/24 11:15 12/13/24 12:14 DC 12/13/24 11:52 50 MLS/HR Dextrose 50 ml ONCE ONCE IV 12/13/24 10:45 12/13/24 10:46 DC 12/13/24 10:54 50 ML Dextrose 50 ml ONCE ONCE IV 12/13/24 12:30 12/13/24 12:32 DC 12/13/24 12:50 50 ML Furosemide 20 mg ONCE ONCE IV 12/13/24 12:30 12/13/24 12:32 DC 12/13/24 12:49 20 MG Insulin Human Regular 10 units ONCE ONCE IV 12/13/24 12:30 12/13/24 12:32 DC 12/13/24 12:52 10 UNITS Sodium Bicarbonate 50 ml ONCE ONCE IV 12/13/24 12:30 12/13/24 12:32 DC 12/13/24 12:50 50 ML Sodium Chloride 1,000 ml @ 150 mls/hr Q6H40M ONCE IV 12/13/24 11:00 12/13/24 17:39 DC 12/13/24 13:02 150 MLS/HR Sodium Chloride 1,000 ml @ 1,000 mls/hr Q1H ONCE IV 12/13/24 11:00 12/13/24 11:59 DC 12/13/24 10:53 1,000 MLS/HR Vancomycin HCl 250 ml @ 250 mls/hr ONCE ONCE IV 12/13/24 11:00 12/13/24 11:59 DC 12/13/24 11:18 250 MLS/HR Zirconium Oxide 10 gm ONCE ONCE PO 12/13/24 12:30 12/13/24 12:32 DC 12/13/24 12:49 10 GM Assessment/Plan Assessment/Plan Acute metabolic encephalopathy Assessment: Patient presents with ALOC, brought in by a neighbor. Blood glucose levels in the emergency room were critically low at 41 and 56 mg/dL, indicating severe hypoglycemia. Patient is alert times 2 but unable to answer questions for review of systems. The ALOC is likely multifactorial, potentially due to hypoglycemia, acute kidney injury (JEFFERY), and possible acute hepatitis. Plan: - Obtain ammonia level - Consult neurology for acute metabolic encephalopathy - Start IV fluids - Initiate insulin sliding scale for diabetes management Acute Kidney Injury (JEFFERY) Assessment: Patient presents with JEFFERY, likely due to vasomotor nephropathy. Laboratory findings show hyperkalemia (potassium 5.8 mEq/L), elevated creatinine (2.73 mg/dL), and BUN (56 mg/dL). Plan: - Hold blood pressure medications - Continue IV fluid administration - Monitor renal function and electrolytes Acute Hepatitis Assessment: Patient shows signs of acute hepatitis with significantly elevated liver enzymes (AST 4520 U/L, ALT 2306 U/L) and elevated INR (3.61). Plan: - Check ammonia level - Monitor liver function tests - Hold anticoagulation due to elevated INR Right Lower Lobe Pneumonia with Right Pleural Effusion Assessment: CT abdomen revealed moderate right pleural effusion and right lower lobe pneumonia. The pneumonia is likely gram-negative or gram-positive in origin. Plan: - Start vancomycin and Zosyn (piperacillin/tazobactam) - Obtain sputum culture - Consult pulmonary for possible thoracentesis Acute Cystitis with Hematuria Assessment: Patient presents with acute cystitis accompanied by hematuria. Plan: - Start IV antibiotics Type 2 Diabetes Mellitus Assessment: Patient has a history of type 2 diabetes and presented with severe hypoglycemia (blood glucose 41 and 56 mg/dL) in the emergency room. Plan: - Initiate insulin sliding scale Hypertension Assessment: Patient has a history of hypertension. Plan: - Hold blood pressure medications at this time Parkinson's Disease Assessment: Patient has a known history of Parkinson's disease. Plan: - Continue home medications for Parkinson's disease History of Stroke Assessment: Patient has a history of stroke. Plan: - Monitor neurological status Possible Atrial Fibrillation with Rapid Ventricular Response (AFib with RVR) Assessment: Patient has possible atrial fibrillation with rapid ventricular response. INR is elevated at 3.61. Plan: - Hold anticoagulation due to elevated INR - Monitor cardiac rhythm -Consult cardiology Hyperkalemia Assessment: Patient presents with significant hyperkalemia (potassium 5.8 mEq/L). Plan: - Implement hyperkalemia protocol - Consult nephrology - Monitor electrolyte levels closely Pacemaker in place -cardiology consult Plan discussed with: Other (rn) My Orders Orders - OLVIN BAI Procedure Category Date Status Time Admit ADMIT 12/13/24 Transmitted 19:05 Allergies ANI 12/13/24 In Process 19:05 Code Status CODE 12/13/24 Transmitted 19:05 2 Gm Sodium Diet DIET 12/14/24 Transmitted Breakfast Hydrocodone-Acet PHA 12/13/24 In Process 5/325mg Tab ([place] 19:15 Ondansetron Hcl PHA 12/13/24 In Process (Zofran) 19:15 Condition: Fair ANI 12/13/24 In Process 19:05 Acetaminophen Tablet PHA 12/13/24 In Process (Tylenol Tablet) 19:15 Nitroglycerin PHA 12/13/24 In Process Sublingual (Ntrostat 19:15 Morphine Sulfate PHA 12/13/24 In Process Injection 19:15 Stat Ekg For Chest ANI 12/13/24 In Process Pain 19:05 Notify Md Of Changes ANI 12/13/24 In Process From Base 19:05 Cost Reduction Engineer For ANI 12/13/24 In Process 24 Hours 19:05 Emergency Dysrhythmia ANI 12/13/24 In Process Protocol 19:05 Rhythm Strips Once ANI 12/13/24 In Process Every Shift 19:05 Oxygen By Nasal RT 12/13/24 Transmitted Cannula 19:05 Acute Hepatitis Panel LAB 12/13/24 In Process 19:05 Ammonia LAB 12/13/24 In Process 19:05 Respiratory Culture EMELY 12/13/24 Logged W/ Gs 19:09 *Consult CONS 12/13/24 Transmitted / 19:09 Piperacillin-Tazob PHA 12/13/24 In Process 3.375gm (Zosyn 3.375g 22:00 Vancomycin Per PHA 12/13/24 Pending Pharmacy 19:15 * Neurology Consult CONS 12/13/24 Transmitted 19:10 *Consult Dr. Hernandez CONS 12/13/24 Transmitted [place] 19:11 Phytonadione (Vitamin PHA 12/13/24 Pending K) 19:15 * Cardiology Consult CONS 12/13/24 Transmitted 19:13 *Consult Dr. Knapp CONS 12/13/24 Transmitted 19:13 Potassium LAB 12/13/24 In Process 19:14 Complete Blood Count LAB 12/14/24 Verified 05:00 Comprehensive LAB 12/14/24 Verified Metabolic Panel 05:00 Albuterol Medneb PHA 12/13/24 In Process (Ventolin Medneb) 19:30 Ipratropium Medneb PHA 12/13/24 In Process (Atrovent Medneb) 22:00 Urine Bacterial EMELY 12/13/24 In Process Culture 19:17 Drug Screen LAB 12/13/24 In Process 19:17 Glucose Blood PHA 12/13/24 In Process (Accu-Chek Comfort 22:00 Insulin R (Human) PHA 12/13/24 In Process (Insulin R) 22:00 Dextrose 50% Syringe PHA 12/13/24 In Process 19:30 Carbidopa W Levodopa PHA 12/13/24 In Process 25/100mg (Sinemet 2 22:00 B-Type Natriuretic LAB 12/13/24 In Process Peptide 19:21 Echo 2d Mode Cardiac US 12/13/24 Logged DOP 19:21 Sodium Chloride 0.9% PHA 12/13/24 In Process 19:30 Lactulose Oral PHA 12/13/24 In Process 22:00 Metoprolol Inj PHA 12/13/24 Logged (Lopressor) 19:45 Date of Service: Dec 13, 2024 Billing Provider: MANGO SALDANA MD Common Visit Codes: 38856-[id number] INP/OBS CARE (MOD) OLVIN BAI SYSTEM ADMINISTRATION MANAGER Dec 13, 2024 19:56
[2024-12-13] MEDS: SODIUM CHLORIDE 0.9% 1,000 ML IV SCH (19:58)
[2024-12-13] MEDS: PIPERACILLIN-TAZOB 3.375GM 100 ML IV SCH (20:22)
[2024-12-13] MEDS: InsuLIN REG 1unit/0.01ml Soln (100units/ml) SC SCH (20:26)
[2024-12-13 20:46] LABS: Amphetamine Screen, Urine Neg (NEGATIVE); Barbiturate Scree,Urine Neg (NEGATIVE); Benzodiazephine Screen, Urine Neg (NEGATIVE); Cannabinoid Screen, Urine Neg (NEGATIVE); Cocaine Screen, Urine Neg (NEGATIVE); Opiate Scree,Urine Neg (NEGATIVE); Phencyclidine Screen, Urine Neg (NEGATIVE)
[2024-12-13] MEDS: SODIUM CHLORIDE 0.9% 500 ML IV ONE (20:56)
[2024-12-13] MEDS: ACCU-CHEK COMFORT CURVE STRIP VI SCH (21:53)
[2024-12-13] MEDS ORDERED: IPRATROPIUM BROM 0.5 MG/2.5ML INH SOL NEB SCH (22:00)
[2024-12-13] MEDS: LACTULOSE 20Gm/30ML SOLN PO SCH (22:04)
[2024-12-13] MEDS: CARBIDOPA W LEVODOPA 25/100mg TABLET PO SCH (22:05)
[2024-12-14 01:46] VITALS: BP 102/71; PULSE 121; RESP 20; TEMP 97.9; O2SAT 97
[2024-12-14] MEDS: AMIODARONE 360mg/200mL PREMIX 200 ML IV SCH (02:45)
[2024-12-14 05:17] LABS: Hematocrit 44.6 % (41.0-53.0); Hemoglobin 15.1 g/dL (13.5-17.5); Mean Corpuscular Hemoglobin 29.4 pg (28.0-32.0); Mean Corpuscular Volume 86.7 fL (80.0-100.0); Nucleated Red Blood Cells % 0.1 %
[2024-12-14 05:23] LABS: Albumin 3.5 g/dL (3.2-4.8); Alkaline Phosphatase 76 U/L (46-116); Anion Gap 17 (5-15); BUN/Creatinine Ratio 30.5 (10.0-20.0); Chloride 106 mmol/L (98-107); Potassium 5.0 mmol/L (3.5-5.1); Sodium 139 mmol/L (136-145)
[2024-12-14 05:35] LABS: Alanine Aminotransferase 2598 U/L (7-40); Bilirubin, Total 3.1 mg/dL (0.2-1.0); Calcium 8.2 mg/dL (8.7-10.4); Carbon Dioxide 16 mmol/L (20-31); Glucose 135 mg/dL (74-106); Total Protein 5.3 g/dL (5.7-8.2)
[2024-12-14 05:37] LABS: Blood Urea Nitrogen 80 mg/dL (9-23)
[2024-12-14 06:09] VITALS: O2SAT 95
[2024-12-14] MEDS ORDERED: PHYTONADIONE (VIT K)10 MG/ML 1ML VIAL SUBCUT ONE (07:45)
[2024-12-14] MEDS: PHYTONADIONE (VIT K)10 MG/ML 1ML VIAL SUBCUT ONE (07:52)
[2024-12-14 08:30] VITALS: PULSE 123; RESP 20; O2SAT 96
[2024-12-14 08:36] LABS: INR 3.81 (0.9-1.15); Prothrombin Time 35.4 sec (9.3-11.8)
[2024-12-14] MEDS: SODIUM CHLORIDE 0.9% 1,000 ML IV ONE (09:48)
[2024-12-14] MEDS ORDERED: ENOXAPARIN SOD 40 MG/0.4 ML SYRINGE SC SCH (10:00)
[2024-12-14] MEDS ORDERED: CEFEPIME 1GM/ 50ML 50 ML IV SCH (10:00)
[2024-12-14] MEDS: NOREPINEPHRINE 8 MG/250ML KIT 250 ML IV SCH (10:00)
--- NOTE | 2024-12-14 10:05 | DVHINCON2 ---
Date of service: Dec 14, [address] Obrien Reason for Consultation JEFFERY History of Present Illness 63 YEAR OLD MALE unable to obtain history because he is alerted. In chart there is referral for eval from [facility] due to sudden onset leg swelling and afib RVR. In ER patient alerted somnolent. Labs show abnormal renal function. He was in Afib RVR. Nephrology called for JEFFERY management Allergies: Coded Allergies: NO KNOWN ALLERGIES (Unverified , 04/07/17) Home Meds Unable to Obtain Active Prescriptions or Reported Meds Current Medications Current Medications Medications (Trade) Dose Ordered Sig/Diane Route PRN Reason Start Time Stop Time Status Last Admin Cefepime HCl 50 ml @ 12.5 mls/hr DAILY IV 12/14/24 10:00 Hold Acetaminophen/ Hydrocodone Bitart ([place] 5/325MG Tab) 1 tab Q4HP PRN PO MODERATE PAIN (4-6 PAIN SCALE) 12/13/24 19:15 Ondansetron HCl (Zofran) 4 mg Q4HP PRN IV NAUSEA / VOMITING 12/13/24 19:15 Enoxaparin Sodium (Lovenox) 40 mg DAILY SC 12/14/24 10:00 UNV Acetaminophen (Tylenol Tablet) 650 mg Q6HP PRN PO PAIN SCALE 1-3 OR TEMP>100.4 12/13/24 19:15 Nitroglycerin (Ntrostat Sublingual) 0.4 mg Q5MINP PRN SL FOR CHEST PAIN 12/13/24 19:15 Morphine Sulfate 2 mg Q30M PRN IV FOR CHEST PAIN 12/13/24 19:15 Piperacillin Sod/ Tazobactam Sod 100 ml @ 25 mls/hr Q12H IV 12/13/24 22:00 12/14/24 11:45 Vancomycin HCl 0 ml @ 0 mls/hr UD IV 12/13/24 19:15 Sodium Chloride 1,000 ml @ 75 mls/hr [id number] IV 12/13/24 19:15 12/13/24 19:26 DC Albuterol (Ventolin Medneb) 2.5 mg Q4HPRN PRN NEB SHORTNESS OF BREATH 12/13/24 19:30 Ipratropium [place] (Atrovent Medneb) 0.5 mg Q4HWA NEB 12/13/24 22:00 12/13/24 20:28 DC Diagnostic Test (Pha) (Accu-Chek Comfort Curve T) 1 strip ACHS 12/13/24 22:00 12/14/24 11:45 Insulin Human Regular (InsuLIN R) ACHS SC 12/13/24 22:00 Dextrose 50 ml UD PRN IV Blood Sugar LESS THAN 60 12/13/24 19:30 Carbidopa/Levodopa (Sinemet 25/ 100MG) 1 tab TID PO 12/13/24 22:00 12/13/24 22:05 Sodium Chloride 1,000 ml @ 50 mls/hr Q20H IV 12/13/24 19:30 12/14/24 09:56 DC 12/13/24 19:58 Lactulose 30 ml Q8HR PO 12/13/24 22:00 12/13/24 22:04 Metoprolol Tartrate (Lopressor) 2.5 mg Q6HPRN PRN IV HEART RATE GREATER THAN 140 12/13/24 19:45 Hold Ipratropium [place] (Atrovent Medneb) 0.5 mg Q4HPRN PRN NEB SHORTNESS OF BREATH 12/13/24 22:00 Norepinephrine Bitartrate 250 ml @ 3.75 mls/hr Q24H IV 12/14/24 10:00 Family History: Patient reports no known family medical history. Review of Systems unable to obtain due to AMS H&P Exam Vital Signs/I&O Vital Sign Date Time Temp Pulse Resp B/P (MAP) Pulse Ox O2 Delivery O2 Flow Rate FiO2 12/14/24 11:44 103/83 12/14/24 10:45 98.2 134 10 98 98.2 12/14/24 06:09 Room Air 0.0 12/14/24 06:09 21 Intake and Output 12/13/24 12/14/24 19:00 07:00 Intake Total 416.64 ml Balance 416.64 ml Intake IV Total 416.64 ml Physical Exam elderly male lethargic not in respiratory distress afib , irregular irregular 1+ ankle edema [place] b/l rales Labs/Diagnostic Data Labs/Diagnostic Data Laboratory Tests Test 12/14/24 10:29 12/14/24 10:05 12/14/24 09:59 12/14/24 06:38 Range/Units Troponin I High Sensitivity 65 *H </=54 ng/L Random Vancomycin Level < 3.0 L 5-10 ug/mL Blood Gas Specimen Type Arterial Blood Gas Sample Site Right radial Blood Gas Patient Temperature 37.0 Arterial Blood Date Drawn [id number] Arterial Blood pH 7.439 7.350-7.450 Arterial Blood Partial Pressure CO2 24.5 L 35.0-48.0 mmHg Arterial Blood Partial Pressure O2 79.8 L 83.0-108.0 mmHg Arterial Blood HCO3 16.2 L 21.0-28.0 mmol/L Arterial Blood Oxygen Saturation 94.6 94.0-98.0 % Arterial Blood Base Excess -5.9 L -2.0-3.0 mmol/L Arterial Blood Oxyhemoglobin 93.4 L 94.0-98.0 % Arterial Blood Carboxyhemoglobin 0.7 0.5-1.5 % Arterial Blood Methemoglobin 0.6 0.0-1.5 % Marcus Test Yes Blood Gas Total Hemoglobin 15.10 13.5-17.5 g/dL Blood Gas Modality Room air FiO2 % 21.0 Urine Creatinine 172.50 H 30.0-125.0 mg/dL Urine Protein/Creatinine Ratio 1.02 Urine Total Protein 175.6 H 1-14 mg/dL POC Glucose 138 H 70-106 mg/dl Test 12/14/24 04:51 12/13/24 19:15 12/13/24 13:31 12/13/24 12:46 Range/Units White Blood Count 9.7 4.4-10.8 10^3/uL Red Blood Count 5.15 4.5-5.90 10^6/uL Hemoglobin 15.1 13.5-17.5 g/dL Hematocrit 44.6 41.0-53.0 % Mean Corpuscular Volume 86.7 80.0-100.0 fL Mean Corpuscular Hemoglobin 29.4 28.0-32.0 pg Mean Corpuscular Hemoglobin Concent 33.9 32.0-36.0 g/dL Red Cell Distribution Width 19.0 H 11.8-14.3 % Platelet Count 77 L 140-450 10^3/uL Mean Platelet Volume 10.8 6.9-10.8 fL Neutrophils (%) (Auto) 87.4 H 37.0-80.0 % Lymphocytes (%) (Auto) 3.2 L 10.0-50.0 % Monocytes (%) (Auto) 9.3 0.0-12.0 % Eosinophils (%) (Auto) 0.0 0.0-7.0 % Basophils (%) (Auto) 0.1 0.0-2.0 % Neutrophils # (Auto) 8.4 1.6-8.6 10 ^3/uL Lymphocytes # (Auto) 0.3 L 0.4-5.4 10 ^3/uL Monocytes # (Auto) 0.9 0-1.3 10 ^3/uL Eosinophils # (Auto) 0 0-0.8 10 ^3/uL Basophils # (Auto) 0 0-0.2 10 ^3/uL Nucleated Red Blood Cells 0.1 % Prothrombin Time 35.4 H 9.3-11.8 sec Prothrombin Time INR 3.81 H 0.9-1.15 D-Dimer, Quantitative 21.40 H 0.0-0.49 mg/L FEU Sodium Level 139 136-145 mmol/L Potassium Level 5.0 5.8 *H 3.5-5.1 mmol/L Chloride Level 106 98-107 mmol/L Carbon Dioxide Level 16 L 20-31 mmol/L Anion Gap 17 H 5-15 Blood Urea Nitrogen 80 #*H 9-23 mg/dL Creatinine 2.62 H 0.700-1.30 mg/dL Glomerular Filtration Rate Calc 27 >90 mL/min BUN/Creatinine Ratio 30.5 H 10.0-20.0 Serum Glucose 135 H 74-106 mg/dL Calcium Level 8.2 L 8.7-10.4 mg/dL Phosphorus Level 6.7 H 2.4-5.1 mg/dL Total Bilirubin 3.1 H 0.2-1.0 mg/dL Aspartate Amino Transferase (AST) 4549 H 13-40 U/L Alanine Aminotransferase (ALT) 2598 H 7-40 U/L Alkaline Phosphatase 76 46-116 U/L Troponin I High Sensitivity 191 *H </=54 ng/L Total Protein 5.3 L 5.7-8.2 g/dL Albumin 3.5 3.2-4.8 g/dL Ammonia 32 11-32 umol/L Hepatitis A IgM Antibody Negative Hepatitis B Surface Antigen Negative Negative Hepatitis B Core IgM Antibody Negative Negative Hepatitis C Antibody Negative Negative Lactic Acid Level 2.5 *H 0.4-2.0 mmol/L POC Glucose 133 H 70-106 mg/dl Test 12/13/24 11:30 12/13/24 11:05 12/13/24 09:59 Range/Units Urine Color Dark-yellow Yellow Urine Clarity Ex.turbid Clear Urine pH 5.5 5.0-9.0 Urine Specific [place] 1.018 1.001-1.035 Urine Protein 1+ H Negative Urine Ketones 1+ H Negative Urine Blood 3+ H Negative /uL Urine Nitrite Negative Negative Urine Bilirubin Negative Negative Urine Urobilinogen 2 H Negative mg/dL Urine Leukocyte Esterase Negative Negative /uL Urine RBC 171 0 - 3 /hpf Urine Microscopic WBC 58 H 0-3 /HPF Urine Squamous Epithelial Cells Few <5 /hpf Urine Bacteria Few H None Seen /hpf Urine Hyaline Casts Mod 0 - 2 /lpf Urine Mucus Few None Seen Urine Sperm Present None Seen /hpf Urine Glucose Normal Normal mg/dL Urine Opiates Screen Neg NEGATIVE Urine Fentanyl Screen Neg NEGATIVE Urine Barbiturates Screen Neg NEGATIVE Urine Phencyclidine Screen Neg NEGATIVE Urine Amphetamines Screen Neg NEGATIVE Urine Benzodiazepines Screen Neg NEGATIVE Urine Cocaine Screen Neg NEGATIVE Urine Cannabinoids Screen Neg NEGATIVE White Blood Count 10.1 4.4-10.8 10^3/uL Red Blood Count 5.12 4.5-5.90 10^6/uL Hemoglobin 14.9 13.5-17.5 g/dL Hematocrit 45.6 41.0-53.0 % Mean Corpuscular Volume 89.2 80.0-100.0 fL Mean Corpuscular Hemoglobin 29.1 28.0-32.0 pg Mean Corpuscular Hemoglobin Concent 32.6 32.0-36.0 g/dL Red Cell Distribution Width 19.6 H 11.8-14.3 % Platelet Count 105 L 140-450 10^3/uL Mean Platelet Volume 10.7 6.9-10.8 fL Neutrophils (%) (Auto) 85.8 H 37.0-80.0 % Lymphocytes (%) (Auto) 2.8 L 10.0-50.0 % Monocytes (%) (Auto) 11.1 0.0-12.0 % Eosinophils (%) (Auto) 0.1 0.0-7.0 % Basophils (%) (Auto) 0.2 0.0-2.0 % Neutrophils # (Auto) 8.7 H 1.6-8.6 10 ^3/uL Lymphocytes # (Auto) 0.3 L 0.4-5.4 10 ^3/uL Monocytes # (Auto) 1.1 0-1.3 10 ^3/uL Eosinophils # (Auto) 0 0-0.8 10 ^3/uL Basophils # (Auto) 0 0-0.2 10 ^3/uL Nucleated Red Blood Cells 0.1 % Prothrombin Time 33.7 H 9.3-11.8 sec Prothrombin Time INR 3.61 H 0.9-1.15 Activated Partial Thromboplast Time 36.9 H 24.5-34.5 SEC Sodium Level 136 136-145 mmol/L Potassium Level 5.8 *H 3.5-5.1 mmol/L Chloride Level 103 98-107 mmol/L Carbon Dioxide Level 14 L 20-31 mmol/L Anion Gap 19 H 5-15 Blood Urea Nitrogen 56 H 9-23 mg/dL Creatinine 2.73 H 0.700-1.30 mg/dL Glomerular Filtration Rate Calc 26 >90 mL/min BUN/Creatinine Ratio 20.5 H 10.0-20.0 Serum Glucose 155 H 74-106 mg/dL Lactic Acid Level 7.2 *H 0.4-2.0 mmol/L Calcium Level 9.5 8.7-10.4 mg/dL Total Bilirubin 4.0 H 0.2-1.0 mg/dL Aspartate Amino Transferase (AST) 4520 H 13-40 U/L Alanine Aminotransferase (ALT) 2306 H 7-40 U/L Alkaline Phosphatase 81 46-116 U/L B-Type Natriuretic Peptide 2031.22 0-100 pg/mL Total Protein 6.1 5.7-8.2 g/dL Albumin 4.2 3.2-4.8 g/dL POC Glucose 56 L 70-106 mg/dl Assessment 63 year male presented with b/l leg swelling but was admitted for renal failure and altered mental state No bacground information available on admission outside hx Parkinsonism and afib Acute kidney injury ckd unspecified hypotension & afib RVR metabolic acidosis CHF proteinuria metabolic acidosis AMS bladder mass on CT elevated AST/ALT bilirubin thrombocytopenia elevated INR Keep MAP > 65, levophed PRN albumin ,lasix IV cardiology rate control GI eval for high transaminates and elebated INR low PLTs has bladder mass on CT , Urology f/u. [place] in place rec keep in place for I/O sodium bicarbonate IV seriologies guarded prognosis due to multiple medical conditions care time 55 mins critically ill Plan discussed with: Other MELI CASSIDY MD Dec 14, 2024 10:05
[2024-12-14 10:09] LABS: Base Excess -5.9 mmol/L (-2.0-3.0)
--- NOTE | 2024-12-14 10:14 | ECG ---
[facility] Test Date: 2024-12-14 Test Time: 09:19:17 Pat Name: DEMETRIUS ARGUELLOADONAYDepartment: [facility] ED Room: [address] [place] [address] Gender: M [employer] Officer: CELESTINA : 1960 Requested By: JEFF LU Order Number: [id number] Reading MD: Jesus Morris Measurements Intervals [place] Rate: 118 P: 0 AL: 0 QRS: 157 QRSD: 82 T: 0 QT: 394 QTc: 553 Interpretive Statements Atrial fibrillation Ventricular premature complex Left posterior fascicular block Low voltage, extremity leads Consider anterior infarct Prolonged QT interval Electronically Signed On 12-14-2024 23:02:26 PDT by Jesus Morris Please click the below link to view image of tracing.
[2024-12-14 10:22] LABS: Hepatitis B Surface Antigen Negative (Negative); Hepatitis C Antibody Negative (Negative)
--- NOTE | 2024-12-14 10:22 | DVHINCON2 ---
Date of service: Dec 14, [address] Cardona Reason for Consultation bladder mass History of Present Illness History Source: RN Notes, Old Records Exam Limitations: Clinical condition HPI 63 yo male PMH seizures, AFIB, pacemaker, HTN and CVA brought in for ALOC. During prior admission at [facility] (2019) he was found to have a mass in the bladder. No known follow up. CT here today shows similar findings. There is also air within the bladder. pt is seen in ER bed 7. He is sleeping soundly. clayton with clear urine Home Meds Unable to Obtain Active Prescriptions or Reported Meds Past Medical History Cardiac: AFIB, HTN Central Nervous System: CVA Renal/: CKD Patient Family History: Patient reports no known family medical history. Review of Systems Comments unable to obtain H&P Exam Vital Signs Vital Signs Date Time Temp Pulse Resp B/P (MAP) Pulse Ox O2 Delivery O2 Flow Rate FiO2 12/14/24 09:00 118 15 93/69 (77) 97 12/14/24 07:45 97.9 97.9 12/14/24 06:09 Room Air 0.0 12/14/24 06:09 21 General Appeara: Well developed, Well nourished, Normal Appearance Pulmonary/Respiratory: Normal inspection Cardiovascular/Chest: Tachycardia Abdominal Exam: Soft Skin Exam: Normal inspection, Normal color, Warm/dry Labs/Xrays [place] [address] Ph: [phone] DIAGNOSTIC IMAGING Diagnostic Imaging Report : [id number] Signed PATIENT: DEMETRIUS RUST ACCT: [id number] UNIT: [id number] : 1960 LOC: ER ROOM / BED: / AGE / SEX: 63 / M ADM STATUS: REG ER SERVICE 1253 ORDERING PHYSICIAN: JEFF LU MD PROCEDURE(s): ABPL - CT AB PEL WO CON-NO ORAL OR IV REASON: livergallbladder ORDER NUMBER(s): [id number], ACCESSION NUMBER(s): [id number] Exam: CT CT AB PEL WO CON-NO ORAL OR IV History: livergallbladder Comparison Study: None Technique: Multidetector spiral CT of the abdomen was performed from lung bases to pubic symphysis. Imaging was performed without IV contrast. Axial, coronal and sagittal multiplanar reformats were obtained from the axial data set by the technologist. Radiation Dose : 1. Abdomen/Pelvis: CTDIvol 16.4 mGy, DLP 3.35 mGy*cm. Findings: Evaluation of solid organs is limited due to lack of intravenous contrast use. Lung Bases: Right lower lobe pneumonia. Moderate right pleural effusion Liver: The liver is normal in size. No focal lesions. Gallbladder and Biliary Tree: Unremarkable Spleen: Unremarkable Pancreas: The pancreas is grossly normal in appearance. Adrenal Glands: Unremarkable Kidneys: Kidneys are grossly normal without calculi or hydronephrosis. Bladder: Clayton catheter in place . Soft tissue density is seen in the left posterior bladder measuring up to 3.1 cm Bowel: The stomach is grossly normal in appearance. Small bowel and colon are normal in caliber and distribution. The appendix is not visualized; however, no secondary findings of acute appendicitis identified. Ascites: Trace abdominopelvic ascites. Lymphadenopathy: No mesenteric, retroperitoneal or periportal lymphadenopathy. Abdominal Wall and Mesentery: Unremarkable. Vasculature: The visualized abdominal aorta is normal in size and caliber. Evaluation of abdominal and pelvic vessels is limited due to lack of intravenous contrast. Pelvic Organs: Unremarkable Musculoskeletal: No aggressive focal bony lesions, acute fractures or dislocation. IMPRESSION: 1. Right lower lobe pneumonia. 2. Moderate right pleural effusion 3. Soft tissue density is seen in the left posterior bladder measuring 3.1 cm, possibly reflecting hematoma or mass. Consider correlation with CT urogram. Radiation optimization: All CT scans at this facility use at least one of these dose optimization techniques: automated exposure control mA and/or kV adjustment per patient size (includes targeted exams where dose is matched to clinical indication) or iterative reconstruction. ATED BY: AMBREEN SAM MD DICTATED DATE/TIME: 12/13/24 1356 SIGNED BY: AMBREEN SAM MD SIGNED DATE/TIME: 12/13/24 1350 CC: Labs Test 12/14/24 06:38 12/14/24 04:51 12/13/24 19:15 12/13/24 13:31 Range/Units POC Glucose 138 H 70-106 mg/dl White Blood Count 9.7 4.4-10.8 10^3/uL Red Blood Count 5.15 4.5-5.90 10^6/uL Hemoglobin 15.1 13.5-17.5 g/dL Hematocrit 44.6 41.0-53.0 % Mean Corpuscular Volume 86.7 80.0-100.0 fL Mean Corpuscular Hemoglobin 29.4 28.0-32.0 pg Mean Corpuscular Hemoglobin Concent 33.9 32.0-36.0 g/dL Red Cell Distribution Width 19.0 H 11.8-14.3 % Platelet Count 77 L 140-450 10^3/uL Mean Platelet Volume 10.8 6.9-10.8 fL Neutrophils (%) (Auto) 87.4 H 37.0-80.0 % Lymphocytes (%) (Auto) 3.2 L 10.0-50.0 % Monocytes (%) (Auto) 9.3 0.0-12.0 % Eosinophils (%) (Auto) 0.0 0.0-7.0 % Basophils (%) (Auto) 0.1 0.0-2.0 % Neutrophils # (Auto) 8.4 1.6-8.6 10 ^3/uL Lymphocytes # (Auto) 0.3 L 0.4-5.4 10 ^3/uL Monocytes # (Auto) 0.9 0-1.3 10 ^3/uL Eosinophils # (Auto) 0 0-0.8 10 ^3/uL Basophils # (Auto) 0 0-0.2 10 ^3/uL Nucleated Red Blood Cells 0.1 % Prothrombin Time 35.4 H 9.3-11.8 sec Prothrombin Time INR 3.81 H 0.9-1.15 Sodium Level 139 136-145 mmol/L Potassium Level 5.0 3.5-5.1 mmol/L Chloride Level 106 98-107 mmol/L Carbon Dioxide Level 16 L 20-31 mmol/L Anion Gap 17 H 5-15 Blood Urea Nitrogen 80 #*H 9-23 mg/dL Creatinine 2.62 H 0.700-1.30 mg/dL Glomerular Filtration Rate Calc 27 >90 mL/min BUN/Creatinine Ratio 30.5 H 10.0-20.0 Serum Glucose 135 H 74-106 mg/dL Calcium Level 8.2 L 8.7-10.4 mg/dL Total Bilirubin 3.1 H 0.2-1.0 mg/dL Aspartate Amino Transferase (AST) 4549 H 13-40 U/L Alanine Aminotransferase (ALT) 2598 H 7-40 U/L Alkaline Phosphatase 76 46-116 U/L Total Protein 5.3 L 5.7-8.2 g/dL Albumin 3.5 3.2-4.8 g/dL Ammonia 32 11-32 umol/L Lactic Acid Level 2.5 *H 0.4-2.0 mmol/L Test 12/13/24 11:30 12/13/24 11:05 Range/Units Urine Color Dark-yellow Yellow Urine Clarity Ex.turbid Clear Urine pH 5.5 5.0-9.0 Urine Specific [place] 1.018 1.001-1.035 Urine Protein 1+ H Negative Urine Ketones 1+ H Negative Urine Blood 3+ H Negative /uL Urine Nitrite Negative Negative Urine Bilirubin Negative Negative Urine Urobilinogen 2 H Negative mg/dL Urine Leukocyte Esterase Negative Negative /uL Urine RBC 171 0 - 3 /hpf Urine Microscopic WBC 58 H 0-3 /HPF Urine Squamous Epithelial Cells Few <5 /hpf Urine Bacteria Few H None Seen /hpf Urine Hyaline Casts Mod 0 - 2 /lpf Urine Mucus Few None Seen Urine Sperm Present None Seen /hpf Urine Glucose Normal Normal mg/dL Urine Opiates Screen Neg NEGATIVE Urine Fentanyl Screen Neg NEGATIVE Urine Barbiturates Screen Neg NEGATIVE Urine Phencyclidine Screen Neg NEGATIVE Urine Amphetamines Screen Neg NEGATIVE Urine Benzodiazepines Screen Neg NEGATIVE Urine Cocaine Screen Neg NEGATIVE Urine Cannabinoids Screen Neg NEGATIVE Activated Partial Thromboplast Time 36.9 H 24.5-34.5 SEC B-Type Natriuretic Peptide 2031.22 0-100 pg/mL Assessment/Plan Problem List: (1) Hepatic dysfunction (2) Emphysematous cystitis (3) Bladder mass (4) Hematuria (5) Acute kidney injury superimposed on CKD (6) Coagulopathy (7) Altered mental status (8) Hypoglycemia (9) Diabetes (10) HTN (hypertension) (11) Hyperkalemia (12) Sepsis (13) Metabolic encephalopathy Plan clayton catheter to gravity drainage urine culture broad spectrum IV abx medical stabilization - correct coagulopathy, optimize platelets prior to any intervention CT urogram not recommended at this time due to elevated creatinine/low GFR outpatient cystoscopy and TURBT nephrology consult Plan discussed with: XIAO Cha NP Dec 14, 2024 10:22
[2024-12-14] MEDS: ALBUMIN 25% 100 ML IV ONE (10:27)
[2024-12-14 10:34] LABS: Protein, Urine 175.6 mg/dL (1-14)
--- NOTE | 2024-12-14 10:34 | DVHINCON2 ---
Date of service: Dec 14, 2024 History of Present Illness HPI Patient is a 63-year-old gentleman who originally was brought by the neighbor for altered level of consciousness. Patient is poor historian and noncommunicative and can not provide information. Information was obtained by reviewing the chart and communicating with staff. Reportedly, the patient's blood sugar was 41/56 on arrival and the patient was managed for metabolic encephalopathy. There is no report of chest pain. Cardiology is involved for cardiac aspects of care. It seems that since arrival, the patient was in atrial fibrillation and has been kept on amiodarone drip by the primary team. Patient does have a pacemaker implanted to the left side of the chest also. There is no previous information in the chart. I reached out to the available contact numbers on the patient's face sheet and also reviewed outside records available in [facility]. Contact numbers are disconnected/mistaken or no response. It seems that the patient has history of old atrial fibrillation. Patient's outside medications are not available to review. It seems that the patient does have history of old CVA/seizure disorder/Parkinson's disease/ diabetes and hypertension. There is question about previous history of bladder mass. Home Meds Unable to Obtain Active Prescriptions or Reported Meds Past Medical History Others Reported past medical history includes hypertension, diabetes mellitus, old history of CVA, parkinsonism, seizure disorder, atrial fib and also history of pacemaker (Biotronik: review of the its image) implantation. Patient Family History: Patient reports no known family medical history. Review of Systems All Other Systems Patient is confused and cannot provide SH/FH/EDEN... H&P Exam Vital Signs Vital Signs Date Time Temp Pulse Resp B/P (MAP) Pulse Ox O2 Delivery O2 Flow Rate FiO2 12/14/24 09:00 118 15 93/69 (77) 97 12/14/24 07:45 97.9 97.9 12/14/24 06:09 Room Air 0.0 12/14/24 06:09 21 Mouth: Normal Inspection Pulmonary/Respiratory: Rhonci Cardiovascular/Chest: Edema (right more than left), Systolic murmur, Irregularly irregular Peripheral Pulses: 2+ carotid (R), 2+ carotid (L), 2+ femoral (R), 2+ femoral (L) Labs/Xrays Labs Test 12/14/24 10:05 12/14/24 09:59 12/14/24 06:38 12/14/24 04:51 Range/Units Blood Gas Specimen Type Arterial Blood Gas Sample Site Right radial Blood Gas Patient Temperature 37.0 Arterial Blood Date Drawn [id number] Arterial Blood pH 7.439 7.350-7.450 Arterial Blood Partial Pressure CO2 24.5 L 35.0-48.0 mmHg Arterial Blood Partial Pressure O2 79.8 L 83.0-108.0 mmHg Arterial Blood HCO3 16.2 L 21.0-28.0 mmol/L Arterial Blood Oxygen Saturation 94.6 94.0-98.0 % Arterial Blood Base Excess -5.9 L -2.0-3.0 mmol/L Arterial Blood Oxyhemoglobin 93.4 L 94.0-98.0 % Arterial Blood Carboxyhemoglobin 0.7 0.5-1.5 % Arterial Blood Methemoglobin 0.6 0.0-1.5 % Marcus Test Yes Blood Gas Total Hemoglobin 15.10 13.5-17.5 g/dL Blood Gas Modality Room air FiO2 % 21.0 POC Glucose 138 H 70-106 mg/dl White Blood Count 9.7 4.4-10.8 10^3/uL Red Blood Count 5.15 4.5-5.90 10^6/uL Hemoglobin 15.1 13.5-17.5 g/dL Hematocrit 44.6 41.0-53.0 % Mean Corpuscular Volume 86.7 80.0-100.0 fL Mean Corpuscular Hemoglobin 29.4 28.0-32.0 pg Mean Corpuscular Hemoglobin Concent 33.9 32.0-36.0 g/dL Red Cell Distribution Width 19.0 H 11.8-14.3 % Platelet Count 77 L 140-450 10^3/uL Mean Platelet Volume 10.8 6.9-10.8 fL Neutrophils (%) (Auto) 87.4 H 37.0-80.0 % Lymphocytes (%) (Auto) 3.2 L 10.0-50.0 % Monocytes (%) (Auto) 9.3 0.0-12.0 % Eosinophils (%) (Auto) 0.0 0.0-7.0 % Basophils (%) (Auto) 0.1 0.0-2.0 % Neutrophils # (Auto) 8.4 1.6-8.6 10 ^3/uL Lymphocytes # (Auto) 0.3 L 0.4-5.4 10 ^3/uL Monocytes # (Auto) 0.9 0-1.3 10 ^3/uL Eosinophils # (Auto) 0 0-0.8 10 ^3/uL Basophils # (Auto) 0 0-0.2 10 ^3/uL Nucleated Red Blood Cells 0.1 % Prothrombin Time 35.4 H 9.3-11.8 sec Prothrombin Time INR 3.81 H 0.9-1.15 Sodium Level 139 136-145 mmol/L Potassium Level 5.0 3.5-5.1 mmol/L Chloride Level 106 98-107 mmol/L Carbon Dioxide Level 16 L 20-31 mmol/L Anion Gap 17 H 5-15 Blood Urea Nitrogen 80 #*H 9-23 mg/dL Creatinine 2.62 H 0.700-1.30 mg/dL Glomerular Filtration Rate Calc 27 >90 mL/min BUN/Creatinine Ratio 30.5 H 10.0-20.0 Serum Glucose 135 H 74-106 mg/dL Calcium Level 8.2 L 8.7-10.4 mg/dL Total Bilirubin 3.1 H 0.2-1.0 mg/dL Aspartate Amino Transferase (AST) 4549 H 13-40 U/L Alanine Aminotransferase (ALT) 2598 H 7-40 U/L Alkaline Phosphatase 76 46-116 U/L Troponin I High Sensitivity 191 *H </=54 ng/L Total Protein 5.3 L 5.7-8.2 g/dL Albumin 3.5 3.2-4.8 g/dL Test 12/13/24 19:15 12/13/24 13:31 12/13/24 11:30 12/13/24 11:05 Range/Units Ammonia 32 11-32 umol/L Lactic Acid Level 2.5 *H 0.4-2.0 mmol/L Urine Color Dark-yellow Yellow Urine Clarity Ex.turbid Clear Urine pH 5.5 5.0-9.0 Urine Specific [place] 1.018 1.001-1.035 Urine Protein 1+ H Negative Urine Ketones 1+ H Negative Urine Blood 3+ H Negative /uL Urine Nitrite Negative Negative Urine Bilirubin Negative Negative Urine Urobilinogen 2 H Negative mg/dL Urine Leukocyte Esterase Negative Negative /uL Urine RBC 171 0 - 3 /hpf Urine Microscopic WBC 58 H 0-3 /HPF Urine Squamous Epithelial Cells Few <5 /hpf Urine Bacteria Few H None Seen /hpf Urine Hyaline Casts Mod 0 - 2 /lpf Urine Mucus Few None Seen Urine Sperm Present None Seen /hpf Urine Glucose Normal Normal mg/dL Urine Opiates Screen Neg NEGATIVE Urine Fentanyl Screen Neg NEGATIVE Urine Barbiturates Screen Neg NEGATIVE Urine Phencyclidine Screen Neg NEGATIVE Urine Amphetamines Screen Neg NEGATIVE Urine Benzodiazepines Screen Neg NEGATIVE Urine Cocaine Screen Neg NEGATIVE Urine Cannabinoids Screen Neg NEGATIVE Activated Partial Thromboplast Time 36.9 H 24.5-34.5 SEC B-Type Natriuretic Peptide 2031.22 0-100 pg/mL Assessment/Plan Plan Patient is a 63-year-old gentleman who originally was brought by the neighbor for altered level of consciousness. Patient is poor historian and noncommunicative and can not provide information. Information was obtained by reviewing the chart and communicating with staff. Reportedly, the patient's blood sugar was 41/56 on arrival and the patient was managed for metabolic encephalopathy. There is no report of chest pain. Cardiology is involved for cardiac aspects of care. It seems that since arrival, the patient was in atrial fibrillation and has been kept on amiodarone drip by the primary team. Patient does have a pacemaker implanted to the left side of the chest also. There is no previous information in the chart. I reached out to the available contact numbers on the patient's face sheet and also reviewed outside records available in [facility]. Contact numbers are disconnected/mistaken or no response. It seems that the patient has history of old atrial fibrillation. P atient's outside medications are not available to review. It seems that the patient does have history of old CVA/seizure disorder/Parkinson's disease/diabetes and hypertension. There is question about previous history of bladder mass. Noncommunicative. Lying flat in bed. No gross JVD. Mucosa is pink. No carotid bruit. Lung examination reveals scattered rhonchi. There is no rales. Cardiac: Irregular, no thrill. Systolic murmur 2/6 in the apex is heard. Abdomen is soft. Right upper and lower extremities are edematous. Patient is uncooperative and can not be fully examined Reported past medical history includes hypertension, diabetes mellitus, old history of CVA, parkinsonism, seizure disorder, atrial fib and also history of pacemaker (Biotronik: review of the its image) implantation. WBC: 10.1 -9.7 with shift to the left Creatinine: 2.73 - 2.62 Potassium: 5.8 - 5.8 - 5.0 Lactic acid: 7.2 - 2.5 AST/ALT: 4520/2306 - 4549/2598 BNP: 2031.22 Ammonia: 32 BNP: 1.22 Trop (high sensitive): 191 Urine toxicology: Nonrevealing Chest x-ray revealed: IMPRESSION: Cardiomegaly with pulmonary vascular con gestion and bilateral patchy airspace opacities. Small bilateral pleural effusions, [id number]-left. CT of the abdomen and pelvis reported: IMPRESSION: 1. Right lower lobe pneumonia. 2. Moderate right pleural effusion 3. Soft tissue density is seen in the left posterior bladder measuring 3.1 cm, possibly reflecting hematoma or mass. Consider correlation with CT urogram. CT of the head reported: IMPRESSION: No intracranial hemorrhage or mass effect. Cerebral encephalomalacia as described most pronounced within the left temporal lobe. Right frontal scalp, right facial region soft tissue emphysema. Correlate for traumatic and other etiologies. Right facial region contusion. EKG revealed atrial fibrillation with RVR Tele reveals atrial fibrillation with RVR Patient is a 63-year-old gentleman who was brought by neighbor reportedly for altered level of consciousness. On arrival, the patient was hypoglycemic. LFTs have been abnormal. Lactic acid on arrival was elevated. Kidney function was not normal and the patient had shift to the left in leukocyte count. CT of the head questioned soft tissue problem and questionable trauma? Presentation is more in favor of metabolic problems. It seems that the patient does have history of atrial fibrillation and also pacemaker implantation from before. Detailed information of previous cardiac history is not available. It is unknown if patient has been compliant with medications and the type of m edications. Minimal increase in troponin most likely reflects demand physiology. Serial troponin is justified. Patient does have right-sided extremity edema. Could this be reflective of old CVA and hemiparesis or can not be DVTs?. Encephalopathy, metabolic? Multiorgan involvement Acute renal failure Abnormal LFT Atrial fibrillation with RVR Status post pacemaker implantation (Biotronik? ) Right-sided edema Bladder mass UTI? Pneumonia Right pleural effusion Cardiac suggestion for management: Fluid resuscitation Follow-up electrolytes and kidney function tests and correct abnormalities Amiodarone drip can be justified Repeat CT of the head If no active bleeding, heparin drip (full anticoagulation) can be justified Echocardiogram Serial troponin Request for interrogation of the Biotronik pacemaker Venous Doppler of upper and lower extremities D-dimer Neurology evaluation Urology evaluation Pulmonary evaluation GI evaluation for abdominal LFT Treatment of pneumonia/UTI as per primary team/Pulmonary Attempt to get prior medical records and information Further evaluation and management depends on the above and clinical course Thank you for consultation A total of 75 minutes was spent reviewing the patient record, examining the patient, making a diagnostic and therapeutic plan, discussing this plan with medical personnel, following up on diagnostic studies and following the patient for clinical stability excluding any and all procedures. At least 50% of this time was spent in direct, sojq-oq-sjel contact. Thank you for allowing me to participate in this patient's care. Further recommendations will depend on patient's clinical course. Please do not hesitate to contact me if you have any questions or concerns. This medical document was created using electronic medical record system with [employer] computerized dictation system. Although this document has been carefully reviewed, there may still be some phonetic and typographical errors. These areas are purely typographical due to the imperfection of the software programs, and do not reflect any compromise in the patient's medical care. Plan discussed with: Other (nurse) JAMES CULLEN MD Dec 14, 2024 10:34
[2024-12-14] MEDS: SODIUM BICARB 8.4% 50Meq/50ml SYR Vial IV ONE (10:42)
--- NOTE | 2024-12-14 11:43 | DVH ---
Bilateral lower extremity venous duplex Clinical History: edema Comparison: None Findings: Duplex Doppler evaluation of the deep venous systems of both lower extremities from the common femora l veins to the popliteal veins including color Doppler and spectral/pulsed waveform analysis was perf ormed. RIGHT SIDE: The common femoral vein demonstrates appropriate compressibility and waveform variability. There is compressibility/patency of the great saphenous vein at the proximal thigh. The femoral vein demonstrates appropriate compressibility and waveform variability. The deep femoral vein demonstrates appropriate compressibility and waveform variability. The popliteal vein demonstrates appropriate compressibility and waveform variability. There is normal compressibility at the tibioperoneal trunk. LEFT SIDE: The common femoral vein demonstrates appropriate compressibility and waveform variability. There is compressibility/patency of the great saphenous vein at the proximal thigh. The femoral vein demonstrates appropriate compressibility and waveform variability. The deep femoral vein demonstrates appropriate compressibility and waveform variability. The popliteal vein demonstrates appropriate compressibility and waveform variability. There is normal compressibility at the tibioperoneal trunk. IMPRESSION: No right or left femoropopliteal venous thrombosis. 5cm right lower extremity bakers cyst. END IMPRESSION: If clinical concern/symptoms persist or worsen, short-interval follow-up study is suggested.
[2024-12-14] MEDS: FUROSEMIDE 100 MG/10ML VIAL IV ONE (11:44)
--- NOTE | 2024-12-14 12:21 | DVH ---
EXAM: CT HEAD WITHOUT CONTRAST INDICATION: change in aloc EXAM DATE: 12/14/2024 10:43 AM COMPARISON: CT HEAD WITHOUT CONTRAST on DOS: 12/13/24 TECHNIQUE: CT of the head without intravenous contrast. Radiation Dose Information: CTDI volume is 25 mGy. Dose-length product is 250 mGy*cm FINDINGS: There is no evidence of acute intracranial hemorrhage, extra-axial collection, mass effect, midline s hift, herniation or hydrocephalus. The ventricles, sulci and cisterns are age appropriate. The koenig-w jared differentiation is intact. The visualized paranasal sinuses and mastoid air cells are clear. The surrounding soft tissues and osseous structures are unremarkable. Left frontal, parietal and temporal encephalomalacia most pronounced in the left temporal lobe. Mild- to-moderate global cerebral volume loss. IMPRESSION: No evidence of acute intracranial hemorrhage, mass effect or hydrocephalus. Left frontal, parietal and temporal encephalomalacia most pronounced in the left temporal lobe. Mild- to-moderate global cerebral volume loss. END IMPRESSION:
--- NOTE | 2024-12-14 13:16 | DVH ---
Indication: doctor's request Technique: CT axial images of the chest are obtained without contrast. Coronal and sagittal reformats were obtained. Radiation Dose Information: CTDI volume is 17.3 mGy. Dose-length product is 2075 mGy*cm Comparison: None FINDINGS: There is limited interpretation of the abdomen and pelvis without administration of intravenous contr ast. The trachea is patent. No pneumothorax. Moderate right and small left pleural effusions. Right upper, middle and lower lobe airspace consolidation, ground-glass disease most pronounced within the right lower lobe. Left lower lobe consolidation/atelectasis. Heart enlarged. Coronary artery calcification disease. Fluid within the superior pericardial recess. Upper abdomen demonstrates small amount of ascites fluid. Mesenteric edema. Gallbladder hyperdensity /sludge. Gastric wall thickening. Colonic diverticula. Soft tissue edema/anasarca. Left chest dual lead cardiac pacing device. IMPRESSION: Limited evaluation without contrast. Moderate right and small left pleural effusions. Bilateral consolidation/ atelectasis and ground-glass disease, vhlvw-aagiknw-urod-left which can be s econdary to combination of infection, edema, hypoventilatory changes. Upper abdomen demonstrates small amount of ascites fluid, Mesenteric edema. Gallbladder hyperdensity/ sludge which can be further characterized with abdominal ultrasound. Colonic diverticular disease. Cardiomegaly, coronary artery calcification disease. Other findings as described
[2024-12-14] MEDS: VANCOMYCIN 1GM/250ML KIT 250 ML IV ONE (13:19)
[2024-12-14 14:19] LABS: INR 3.75 (0.9-1.15); Prothrombin Time 34.9 sec (9.3-11.8)
[2024-12-14] MEDS: HEPARIN DRIP/D5W 100UNITS/ML 250 ML IV SCH ×2 (15:41→23:45)
--- NOTE | 2024-12-14 15:44 | DVHPN2 ---
Progress Note - Dictate Date Seen: Dec 14, 2024 Medical Necessity Reason Pt with a Central, PICC or Fol: No vital signs Vital Sign Date Time Temp Pulse Resp B/P (MAP) Pulse Ox O2 Delivery O2 Flow Rate FiO2 12/14/24 13:30 98.8 121 15 101/81 (88) 92 98.8 12/14/24 08:30 Room Air* 0 21 Total Intake and Output 12/13/24 12/13/24 12/14/24 14:59 22:59 06:59 Intake Total 366.64 ml Balance 366.64 ml medications Current Medications Medications Dose Ordered Sig/Diane Route Start Time Stop Time Status Last Admin Dose Admin Cefepime HCl 50 ml @ 12.5 mls/hr DAILY IV 12/14/24 10:00 Hold Acetaminophen/ Hydrocodone Bitart 1 tab Q4HP PRN PO 12/13/24 19:15 Ondansetron HCl 4 mg Q4HP PRN IV 12/13/24 19:15 Enoxaparin Sodium 40 mg DAILY SC 12/14/24 10:00 UNV Acetaminophen 650 mg Q6HP PRN PO 12/13/24 19:15 Nitroglycerin 0.4 mg Q5MINP PRN SL 12/13/24 19:15 Morphine Sulfate 2 mg Q30M PRN IV 12/13/24 19:15 Piperacillin Sod/ Tazobactam Sod 100 ml @ 25 mls/hr Q12H IV 12/13/24 22:00 12/14/24 11:45 25 MLS/HR Vancomycin HCl 0 ml @ 0 mls/hr UD IV 12/13/24 19:15 Albuterol 2.5 mg Q4HPRN PRN NEB 12/13/24 19:30 Diagnostic Test (Pha) 1 strip ACHS 12/13/24 22:00 12/14/24 11:45 1 STRIP Insulin Human Regular ACHS SC 12/13/24 22:00 Dextrose 50 ml UD PRN IV 12/13/24 19:30 Carbidopa/Levodopa 1 tab TID PO 12/13/24 22:00 12/13/24 22:05 1 TAB Lactulose 30 ml Q8HR PO 12/13/24 22:00 12/13/24 22:04 30 ML Metoprolol Tartrate 2.5 mg Q6HPRN PRN IV 12/13/24 19:45 Hold Ipratropium [place] 0.5 mg Q4HPRN PRN NEB 12/13/24 22:00 Norepinephrine Bitartrate 250 ml @ 3.75 mls/hr Q24H IV 12/14/24 10:00 Heparin Sodium/ Dextrose 250 ml @ 9 mls/hr Q24H IV 12/14/24 14:30 objective General Appearance: alert, no distress HEENT: EOMI, PERRLA, normal external inspect of ears, no icterus, no nasal drainage Neck: no carotid bruit, no jugular venous distention (JVD), no lymphadenopathy Chest: normal thorax Respiratory: clear to auscultation, normal air movement Cardiovascular: regular rate and rhythm, no diastolic murmur, no jugular venous distention (JVD), no rub, no systolic murmur Abdominal: soft, no hepatomegaly, no mass, no splenomegaly, no tenderness Genitourinary: grossly normal external Musculoskeletal: no joint tenderness, no swelling Extremities: normal pulses, no calf tenderness, no clubbing, no cyanosis, no edema Skin: no bruising, no jaundice, no rash Neurological: alert, No focal deficit laboratory and microbiology Laboratory Tests 12/14/24 04:51 Test 12/14/24 04:51 Range/Units Serum Glucose 135 H 74-106 mg/dL Problem List Acute metabolic encephalopathy Assessment: Patient presents with ALOC, brought in by a neighbor. Blood glucose levels in the emergency room were critically low at 41 and 56 mg/dL, indicating severe hypoglycemia. Patient is alert times 2 but unable to answer questions for review of systems. The ALOC is likely multifactorial, potentially due to hypoglycemia, acute kidney injury (JEFFERY), and possible acute hepatitis. Plan: - Obtain ammonia level - Consult neurology for acute metabolic encephalopathy - Start IV fluids - Initiate insulin sliding scale for diabetes management Acute Kidney Injury (JEFFERY) Assessment: Patient presents with JEFFERY, likely due to vasomotor nephropathy. Laboratory findings show hyperkalemia (potassium 5.8 mEq/L), elevated creatinine (2.73 mg/dL), and BUN (56 mg/dL). Plan: - Hold blood pressure medications - Continue IV fluid administration - Monitor renal function and electrolytes Acute Hepatitis Assessment: Patient shows signs of acute hepatitis with significantly elevated liver enzymes (AST 4520 U/L, ALT 2306 U/L) and elevated INR (3.61). Plan: - Check ammonia level - Monitor liver function tests - Hold anticoagulation due to elevated INR Right Lower Lobe Pneumonia with Right Pleural Effusion Assessment: CT abdomen revealed moderate right pleural effusion and right lower lobe pneumonia. The pneumonia is likely gram-negative or gram-positive in origin. Plan: - Start vancomycin and Zosyn (piperacillin/tazobactam) - Obtain sputum culture - Consult pulmonary for possible thoracentesis Acute Cystitis with Hematuria Assessment: Patient presents with acute cystitis accompanied by hematuria. Plan: - Start IV antibiotics Type 2 Diabetes Mellitus Assessment: Patient has a history of type 2 diabetes and presented with severe hypoglycemia (blood glucose 41 and 56 mg/dL) in the emergency room. Plan: - Initiate insulin sliding scale Hypertension Assessment: Patient has a history of hypertension. Plan: - Hold blood pressure medications at this time Parkinson's Disease Assessment: Patient has a known history of Parkinson's disease. Plan: - Continue home medications for Parkinson's disease History of Stroke Assessment: Patient has a history of stroke. Plan: - Monitor neurological status Possible Atrial Fibrillation with Rapid Ventricular Response (AFib with RVR) Assessment: Patient has possible atrial fibrillation with rapid ventricular response. INR is elevated at 3.61. Plan: - Hold anticoagulation due to elevated INR - Monitor cardiac rhythm -Consult cardiology Hyperkalemia Assessment: Patient presents with significant hyperkalemia (potassium 5.8 mEq/L). Plan: - Implement hyperkalemia protocol - Consult nephrology - Monitor electrolyte levels closely Pacemaker in place -cardiology consult Assessment/Plan Subjective: Patient is awake and alert. Objective: Patient was admitted for metabolic encephalopathy related to sepsis and pneumonia. Patient has possible JEFFERY; Nephrology has been consulted. Repeat labs have been ordered. CT imaging shows possible cystitis. Hyperkalemia has resolved. GI has been consulted for hepatitis; ammonia levels are normal. Patient was seen by Urology for bladder mass; urogram is unable to be performed at this time due to JEFFERY. Plan: Continue antibiotics with vancomycin and Zosyn. GI recommendations appreciated. Continue antibiotics for sepsis. Monitor neurostatus and monitor I&O. Plan discussed with: Patient, Other JOHN GREWAL NP Dec 14, 2024 15:44
--- NOTE | 2024-12-14 16:15 | CONS ---
Pharmacy Clinical Information: HEPARIN PER PHARMACY SPOKE TO LETTY Martin REGARDING new heparin drip order CURRENT aPTT: 43.2 on 12/14/24 at 13:52 Per LETTY aMrtin: aware low platelet count (77) and okayed to start heparin drip BOLUS: no per MD (Per LETTY Martin) Initial heparin drip rate: 900 units/hr Date and time heparin drip started at 1541 on 12/14/2024 Next aPTT: 12/14/2024 at 2145 LETTY Martin READ BACK NEW DOSE: 900 UNITS/HR ESSENCE Toth Dec 14, 2024 16:15
--- NOTE | 2024-12-14 18:12 | DVHINCON2 ---
Date of service: Dec 13, [address] yadav Reason for Consultation resp failure History of Present Illness HPI pt is a 63 yo male, multiple problems, DM, HTN, h/o CVA, presented with altered mental status and hypoxemia. Seen in ER. CXR shows bilateral infiltrates and pulm congestion. ABG on 15 lpm NRB pH 7.44, c02=24, P02=79 Home Meds Unable to Obtain Active Prescriptions or Reported Meds Past Medical History Cardiac: HTN Pulmonary: No pertinent Hx, Pneumonia Central Nervous System: CVA GI: No pertinent Hx Hemotology/Oncology: No pertinent Hx Hepatobiliary: No pertinent Hx Psychiatric: No pertinent Hx Musculoskeletal: No pertinent Hx Rheumotologic: No pertinent Hx Infectious Disease: No peritnent Hx ENT: No pertinent Hx Renal/: No pertinent Hx Endocrine: No pertinent Hx Dermatology: No pertinent Hx Others Reported past medical history includes hypertension, diabetes mellitus, old history of CVA, parkinsonism, seizure disorder, atrial fib and also history of pacemaker (Biotronik: review of the its image) implantation. Past Surgical History: No pertinent Hx Patient Family History: Patient reports no known family medical history. Review of Systems Comments altered H&P Exam Vital Signs Vital Signs Date Time Temp Pulse Resp B/P (MAP) Pulse Ox O2 Delivery O2 Flow Rate FiO2 12/14/24 17:15 98.4 112 20 125/79 (94) 96 98.4 12/14/24 08:30 Room Air* 0 21 General Appeara: Normal Appearance Head Exam: Normal inspection Neck Exam: Normal inspection, Non-tender, Normal alignment Eye Exam: bilateral eye Normal inspection, bilateral eye PERRL, bilateral eye EOMI Ear Exam: bilateral ear Auricle normal, bilateral ear Canal normal, bilateral ear TM normal Nasal Exam: Normal inspection Mouth: Normal Inspection Pulmonary/Respiratory: Normal inspection, Normal breath sounds, Chest non- tender Cardiovascular/Chest: Normal inspection Peripheral Pulses: 4+ carotid (R), 4+ carotid (L) Labs/Xrays Labs Test 12/14/24 17:11 12/14/24 13:52 12/14/24 10:29 12/14/24 10:05 Range/Units POC Glucose 130 H 70-106 mg/dl Prothrombin Time 34.9 H 9.3-11.8 sec Prothrombin Time INR 3.75 H 0.9-1.15 Activated Partial Thromboplast Time 43.2 H 24.5-34.5 SEC Troponin I High Sensitivity 156 *H </=54 ng/L Random Vancomycin Level < 3.0 L 5-10 ug/mL Blood Gas Specimen Type Arterial Blood Gas Sample Site Right radial Blood Gas Patient Temperature 37.0 Arterial Blood Date Drawn [id number] Arterial Blood pH 7.439 7.350-7.450 Arterial Blood Partial Pressure CO2 24.5 L 35.0-48.0 mmHg Arterial Blood Partial Pressure O2 79.8 L 83.0-108.0 mmHg Arterial Blood HCO3 16.2 L 21.0-28.0 mmol/L Arterial Blood Oxygen Saturation 94.6 94.0-98.0 % Arterial Blood Base Excess -5.9 L -2.0-3.0 mmol/L Arterial Blood Oxyhemoglobin 93.4 L 94.0-98.0 % Arterial Blood Carboxyhemoglobin 0.7 0.5-1.5 % Arterial Blood Methemoglobin 0.6 0.0-1.5 % Marcus Test Yes Blood Gas Total Hemoglobin 15.10 13.5-17.5 g/dL Blood Gas Modality Room air FiO2 % 21.0 Test 12/14/24 09:59 12/14/24 04:51 12/13/24 19:15 12/13/24 13:31 Range/Units Urine Creatinine 172.50 H 30.0-125.0 mg/dL Urine Protein/Creatinine Ratio 1.02 Urine Total Protein 175.6 H 1-14 mg/dL White Blood Count 9.7 4.4-10.8 10^3/uL Red Blood Count 5.15 4.5-5.90 10^6/uL Hemoglobin 15.1 13.5-17.5 g/dL Hematocrit 44.6 41.0-53.0 % Mean Corpuscular Volume 86.7 80.0-100.0 fL Mean Corpuscular Hemoglobin 29.4 28.0-32.0 pg Mean Corpuscular Hemoglobin Concent 33.9 32.0-36.0 g/dL Red Cell Distribution Width 19.0 H 11.8-14.3 % Platelet Count 77 L 140-450 10^3/uL Mean Platelet Volume 10.8 6.9-10.8 fL Neutrophils (%) (Auto) 87.4 H 37.0-80.0 % Lymphocytes (%) (Auto) 3.2 L 10.0-50.0 % Monocytes (%) (Auto) 9.3 0.0-12.0 % Eosinophils (%) (Auto) 0.0 0.0-7.0 % Basophils (%) (Auto) 0.1 0.0-2.0 % Neutrophils # (Auto) 8.4 1.6-8.6 10 ^3/uL Lymphocytes # (Auto) 0.3 L 0.4-5.4 10 ^3/uL Monocytes # (Auto) 0.9 0-1.3 10 ^3/uL Eosinophils # (Auto) 0 0-0.8 10 ^3/uL Basophils # (Auto) 0 0-0.2 10 ^3/uL Nucleated Red Blood Cells 0.1 % D-Dimer, Quantitative 21.40 H 0.0-0.49 mg/L FEU Sodium Level 139 136-145 mmol/L Potassium Level 5.0 3.5-5.1 mmol/L Chloride Level 106 98-107 mmol/L Carbon Dioxide Level 16 L 20-31 mmol/L Anion Gap 17 H 5-15 Blood Urea Nitrogen 80 #*H 9-23 mg/dL Creatinine 2.62 H 0.700-1.30 mg/dL Glomerular Filtration Rate Calc 27 >90 mL/min BUN/Creatinine Ratio 30.5 H 10.0-20.0 Serum Glucose 135 H 74-106 mg/dL Calcium Level 8.2 L 8.7-10.4 mg/dL Phosphorus Level 6.7 H 2.4-5.1 mg/dL Total Bilirubin 3.1 H 0.2-1.0 mg/dL Aspartate Amino Transferase (AST) 4549 H 13-40 U/L Alanine Aminotransferase (ALT) 2598 H 7-40 U/L Alkaline Phosphatase 76 46-116 U/L Ammonia 32 11-32 umol/L Hepatitis A IgM Antibody Negative Hepatitis B Surface Antigen Negative Negative Hepatitis B Core IgM Antibody Negative Negative Hepatitis C Antibody Negative Negative Lactic Acid Level 2.5 *H 0.4-2.0 mmol/L Test 12/13/24 11:30 12/13/24 11:05 Range/Units Urine Color Dark-yellow Yellow Urine Clarity Ex.turbid Clear Urine pH 5.5 5.0-9.0 Urine Specific [place] 1.018 1.001-1.035 Urine Protein 1+ H Negative Urine Ketones 1+ H Negative Urine Blood 3+ H Negative /uL Urine Nitrite Negative Negative Urine Bilirubin Negative Negative Urine Urobilinogen 2 H Negative mg/dL Urine Leukocyte Esterase Negative Negative /uL Urine RBC 171 0 - 3 /hpf Urine Microscopic WBC 58 H 0-3 /HPF Urine Squamous Epithelial Cells Few <5 /hpf Urine Bacteria Few H None Seen /hpf Urine Hyaline Casts Mod 0 - 2 /lpf Urine Mucus Few None Seen Urine Sperm Present None Seen /hpf Urine Glucose Normal Normal mg/dL Urine Opiates Screen Neg NEGATIVE Urine Fentanyl Screen Neg NEGATIVE Urine Barbiturates Screen Neg NEGATIVE Urine Phencyclidine Screen Neg NEGATIVE Urine Amphetamines Screen Neg NEGATIVE Urine Benzodiazepines Screen Neg NEGATIVE Urine Cocaine Screen Neg NEGATIVE Urine Cannabinoids Screen Neg NEGATIVE B-Type Natriuretic Peptide 2031.22 0-100 pg/mL Microbiology Date/Time Source Procedure Growth Status 12/13/24 11:30 Urine - [place] Urine Culture - Preliminary Resulted 12/13/24 11:05 Blood Blood Culture - Preliminary NO GROWTH AFTER 24 HOURS OF INCUBATION. Resulted Assessment/Plan Plan acute hypoxemic resp failure pneumonia pulmonary congestion elevated troponins JEFFERY liver injury CT chest pl effusion atelectases congestion management plan abx for pneumonia obt cx bronchodilators continue work up for altered mental status Plan discussed with: Other (rn) PAOLA AQUINO MD Dec 14, 2024 18:12
--- NOTE | 2024-12-14 18:15 | DVHPN2 ---
Progress Note - Dictate Date Seen: Dec 14, 2024 Has the PT tested + for MRSA If YES, has PT been informed?: No Medical Necessity Reason Pt with a Central, PICC or Fol: No vital signs Vital Sign Date Time Temp Pulse Resp B/P (MAP) Pulse Ox O2 Delivery O2 Flow Rate FiO2 12/14/24 17:15 98.4 112 20 125/79 (94) 96 98.4 12/14/24 08:30 Room Air* 0 21 Total Intake and Output 12/13/24 12/13/24 12/14/24 15:00 23:00 07:00 Intake Total 416.64 ml Balance 416.64 ml medications Current Medications Medications Dose Ordered Sig/Diane Route Start Time Stop Time Status Last Admin Dose Admin Acetaminophen/ Hydrocodone Bitart 1 tab Q4HP PRN PO 12/13/24 19:15 Ondansetron HCl 4 mg Q4HP PRN IV 12/13/24 19:15 Enoxaparin Sodium 40 mg DAILY SC 12/14/24 10:00 UNV Acetaminophen 650 mg Q6HP PRN PO 12/13/24 19:15 Nitroglycerin 0.4 mg Q5MINP PRN SL 12/13/24 19:15 Morphine Sulfate 2 mg Q30M PRN IV 12/13/24 19:15 Piperacillin Sod/ Tazobactam Sod 100 ml @ 25 mls/hr Q12H IV 12/13/24 22:00 12/14/24 11:45 25 MLS/HR Vancomycin HCl 0 ml @ 0 mls/hr UD IV 12/13/24 19:15 Albuterol 2.5 mg Q4HPRN PRN NEB 12/13/24 19:30 Diagnostic Test (Pha) 1 strip ACHS 12/13/24 22:00 12/14/24 17:10 1 STRIP Insulin Human Regular ACHS SC 12/13/24 22:00 Dextrose 50 ml UD PRN IV 12/13/24 19:30 Carbidopa/Levodopa 1 tab TID PO 12/13/24 22:00 12/13/24 22:05 1 TAB Lactulose 30 ml Q8HR PO 12/13/24 22:00 12/13/24 22:04 30 ML Metoprolol Tartrate 2.5 mg Q6HPRN PRN IV 12/13/24 19:45 Hold Ipratropium [place] 0.5 mg Q4HPRN PRN NEB 12/13/24 22:00 Norepinephrine Bitartrate 250 ml @ 3.75 mls/hr Q24H IV 12/14/24 10:00 Heparin Sodium/ Dextrose 250 ml @ 9 mls/hr Q24H IV 12/14/24 14:30 12/14/24 15:41 9 MLS/HR Furosemide 60 mg DAILY IV 12/15/24 10:00 laboratory and microbiology Laboratory Tests 12/14/24 04:51 Test 12/14/24 04:51 Range/Units Serum Glucose 135 H 74-106 mg/dL Assessment/Plan pneumonia pl effusions CHF JEFFERY acute liver injury elevated d-dimer (21) CT head: extensive encephalomalacia management plan iv heparin drip US legs neg've cont abx aspiration precautions AST/ALT elevated ?rhabdo Plan discussed with: Other (rn) PAOLA AQUINO MD Dec 14, 2024 18:15
[2024-12-14 18:19] VITALS: PULSE 120; RESP 12; O2SAT 96
[2024-12-14] MEDS: IPRATROPIUM BROM 0.5 MG/2.5ML INH SOL NEB PRN (18:19)
[2024-12-14 18:27] VITALS: PULSE 132; RESP 16; O2SAT 94
[2024-12-14] MEDS: ALBUTEROL SULF 2.5 MG/0.5ML(0.5%) NEB SOLN NEB PRN (19:12)
[2024-12-14 19:30] VITALS: PULSE 106; RESP 14; O2SAT 96
[2024-12-14 23:22] LABS: INR 3.52 (0.9-1.15); Prothrombin Time 32.9 sec (9.3-11.8)
[2024-12-14 23:25] LABS: Partial Thromboplastin Time 78.1 SEC (24.5-34.5)
[2024-12-15] VITALS (94 sets, daily range): BP systolic 72–152; BP diastolic 28–98; PULSE 83–244; RESP 10–24; TEMP 97.5–98.4; O2SAT 92–100
[2024-12-15 06:03] LABS: Potassium 3.6 mmol/L (3.5-5.1)
[2024-12-15 06:04] LABS: Anion Gap 13 (5-15); Carbon Dioxide 27 mmol/L (20-31)
[2024-12-15 06:09] LABS: BUN/Creatinine Ratio 40.7 (10.0-20.0)
[2024-12-15 06:10] LABS: Blood Urea Nitrogen 77 mg/dL (9-23); Calcium 8.4 mg/dL (8.7-10.4); Chloride 108 mmol/L (98-107); Glucose 114 mg/dL (74-106); Sodium 148 mmol/L (136-145)
--- NOTE | 2024-12-15 07:33 | DVHPN2 ---
Progress Note - Dictate Date Seen: Dec 15, 2024 Has the PT tested + for MRSA If YES, has PT been informed?: No Medical Necessity Reason Pt with a Central, PICC or Fol: No vital signs Vital Sign Date Time Temp Pulse Resp B/P (MAP) Pulse Ox O2 Delivery O2 Flow Rate FiO2 12/15/24 06:41 100 Room Air 0.0 12/15/24 06:41 21 12/15/24 06:30 124 19 152/98 (116) 12/15/24 04:00 97.7 97.7 Total Intake and Output 12/14/24 12/14/24 12/15/24 15:00 23:00 07:00 Intake Total 208.28 ml 202.62 ml 285.28 ml Output Total 2500 ml 2000 ml 1100 ml Balance -2291.72 ml -1797.38 ml -814.72 ml medications Current Medications Medications Dose Ordered Sig/Diane Route Start Time Stop Time Status Last Admin Dose Admin Acetaminophen/ Hydrocodone Bitart 1 tab Q4HP PRN PO 12/13/24 19:15 Ondansetron HCl 4 mg Q4HP PRN IV 12/13/24 19:15 Enoxaparin Sodium 40 mg DAILY SC 12/14/24 10:00 UNV Acetaminophen 650 mg Q6HP PRN PO 12/13/24 19:15 Nitroglycerin 0.4 mg Q5MINP PRN SL 12/13/24 19:15 Morphine Sulfate 2 mg Q30M PRN IV 12/13/24 19:15 Piperacillin Sod/ Tazobactam Sod 100 ml @ 25 mls/hr Q12H IV 12/13/24 22:00 12/14/24 22:00 25 MLS/HR Vancomycin HCl 0 ml @ 0 mls/hr UD IV 12/13/24 19:15 Albuterol 2.5 mg Q4HPRN PRN NEB 12/13/24 19:30 Diagnostic Test (Pha) 1 strip ACHS 12/13/24 22:00 12/15/24 06:08 1 STRIP Insulin Human Regular ACHS SC 12/13/24 22:00 Dextrose 50 ml UD PRN IV 12/13/24 19:30 Carbidopa/Levodopa 1 tab TID PO 12/13/24 22:00 12/15/24 06:04 1 TAB Lactulose 30 ml Q8HR PO 12/13/24 22:00 12/15/24 06:04 30 ML Metoprolol Tartrate 2.5 mg Q6HPRN PRN IV 12/13/24 19:45 Hold Ipratropium [place] 0.5 mg Q4HPRN PRN NEB 12/13/24 22:00 12/14/24 18:19 0.5 MG Norepinephrine Bitartrate 250 ml @ 3.75 mls/hr Q24H IV 12/14/24 10:00 Furosemide 60 mg DAILY IV 12/15/24 10:00 Heparin Sodium/ Dextrose 250 ml @ 7 mls/hr Q24H IV 12/14/24 23:45 12/14/24 23:45 7 MLS/HR laboratory and microbiology Laboratory Tests 12/15/24 04:50 12/14/24 04:51 Test 12/15/24 04:50 Range/Units Serum Glucose 114 H 74-106 mg/dL Assessment/Plan Patient is a 63-year-old gentleman who originally was brought by the neighbor for altered level of consciousness. Patient is poor historian and noncommunicative and can not provide information. Information was obtained by reviewing the chart and communicating with staff. Reportedly, the patient's blood sugar was 41/56 on arrival and the patient was managed for metabolic encephalopathy. There is no report of chest pain. Cardiology is involved for cardiac aspects of care. It seems that since arrival, the patient was in atrial fibrillation and has been kept on amiodarone drip by the primary team. Patient does have a pacemaker implanted to the left side of the chest also. There is no previous information in the chart. I reached out to the available contact numbers on the patient's face sheet and also reviewed outside records available in [facility]. Contact numbers are disconnected/mistaken or no response. It seems that the patient has history of old atrial fibrillation. Patient's outside medications are not available to review. It seems that the patient does have history of old CVA/seizure disorder/Parkinson's disease/diabetes and hypertension. There is question about previous history of bladder mass. Noncommunicative. Lying flat in bed. No gross JVD. Mucosa is pink. No carotid bruit. Lung examination reveals scattered rhonchi. There is no rales. Cardiac: Irregular, no thrill. Systolic murmur 2/6 in the apex is heard. Abdomen is soft. Right upper and lower extremities are edematous. Patient is uncooperative and can not be fully examined Reported past medical history includes hypertension, diabetes mellitus, old history of CVA, parkinsonism, seizure disorder, atrial fib and also history of pacemaker (Biotronik: review of the its image) implantation. WBC: 10.1 -9.7 with shift to the left Creatinine: 2.73 - 2.62 - 1.89 Potassium: 5.8 - 5.8 - 5.0 - 3.6 Lactic acid: 7.2 - 2.5 AST/ALT: 4520/2306 - 4549/2598 BNP: 2031.22 Ammonia: 32 BNP: 2031.22 Trop (high sensitive): 191 - 65 - 156 D-Dimer: 21.40 Urine toxicology: Nonrevealing Chest x-ray revealed: IMPRESSION: Cardiomegaly with pulmonary vascular congestion and bilateral patchy airspace opacities. Small bilateral pleural effusions, eytcp-reifnys-qrmr-left. CT of the abdomen and pelvis reported: IMPRESSION: 1. Right lower lobe pneumonia. 2. Moderate right pleural effusion 3. Soft tissue density is seen in the left posterior bladder measuring 3.1 cm, possibly reflecting hematoma or mass. Consider correlation with CT urogram. CT of the head reported: IMPRESSION: No intracranial hemorrhage or mass effect. Cerebral encephalomalacia as described most pronounced within the left temporal lobe. Right frontal scalp, right facial region soft tissue emphysema. Correlate for traumatic and other etiologies. Right facial region contusion. Repeat CT of head revealed: MPRESSION: No evidence of acute intracranial hemorrhage, mass effect or hydrocephalus. Left frontal, parietal and temporal encephalomalacia most pronounced in the left temporal lobe. Sdow-pu-uwbbypky global cerebral volume loss. CT of chest without contrast: There is limited interpretation of the abdomen and pelvis without administration of intravenous contrast. The trachea is patent. No pneumothorax. Moderate right and small left pleural effusions. Right upper, middle and lower lobe airspace consolidation, ground-glass disease most pronounced within the right lower lobe. Left lower lobe consolidation/atelectasis. Heart enlarged. Coronary artery calcification disease. Fluid within the superior pericardial recess. Upper abdomen demonstrates small amount of ascites fluid. Mesenteric edema. Gallbladder hyperdensity/sludge. Gastric wall thickening. Colonic diverticula. Soft tissue edema/anasarca. Left chest dual lead cardiac pacing device. IMPRESSION: Limited evaluation without contrast. Moderate right and small left pleural effusions. Bilateral consolidation/ atelectasis and ground-glass disease, ezubr-pcpotac-gphz-left which can be secondary to combination of infection, edema, hypoventilatory changes. Upper abdomen demonstrates small amount of ascites fluid, Mesenteric edema. Gallbladder hyperdensity/ sludge which can be further characterized with abdominal ultrasound. Colonic diverticular disease. Cardiomegaly, coronary artery calcification disease. Other findings as described Venous duplex of lower ext revealed: IMPRESSION: No right or left femoropopliteal venous thrombosis. 5cm right lower extremity bakers cyst. END IMPRESSION: If clinical concern/symptoms persist or worsen, short-interval follow-up study is suggested. EKG revealed atrial fibrillation with RVR Tele reveals atrial fibrillation with RVR Echocardiogram revealed: Dilated 4 chambers were seen. Left ventricle: Left ventricle was dilated with significantly reduced systolic function. LVEF was around 5%. Diffuse hypokinesis of left ventricle was seen. 1.5 x 1.1 x 0.9 hyperechoic mass in the LV apex compatible with thrombus was seen. Right ventricle was dilated with reduced systolic function. Both atria were dilated. Pacing wire was seen in right-sided chambers. Aortic valve was trileaflet. There was no aortic stenosis/insufficiency. There was nqgc-vr-ihioxkpr mitral and tricuspid regurgitation. Pulmonary valve was not well visualized. IVC was dilated. Right ventricular systolic pressure was assessed at around 45 mm Hg. There was no pericardial effusion. Compatible with end-stage systolic heart failure/cardiomyopathy with LV apex thrombus. Assay Depot/Surf Air PM INTERROGATION: Battery: Remaining capacity to AMRIT: 36%; Battery voltage: 2.96 volts; DDDR:60/130; Sensing: A 0.5/V8.7 mV; Lead impedance: A400/V450 Ohms; A pace: 16%; V pace: 14%; AT/AF burden: 61% Patient is a 63-year-old gentleman who was brought by neighbor reportedly for altered level of consciousness. On arrival, the patient was hypoglycemic. LFTs have been abnormal. Lactic acid on arrival was elevated. Kidney function was not normal and the patient had shift to the left in leukocyte count. CT of the head questioned soft tissue problem and questionable trauma? Presentation is more in favor of metabolic problems. It seems that the patient does have history of atrial fibrillation and also pacemaker implantation from before. Detailed information of previous cardiac history is not available. It is unknown if patient has been compliant with medications and the type of medications. Minimal increase in troponin most likely reflects demand physiology. Serial troponin is justified. Patient does have right-sided extremity edema. Could this be reflective of old CVA and hemiparesis or can not be DVTs?. Being followed by Nephrology, Urology and Pulmonary. Echo is in favor of advanced end stage systolic heart failure / Cardiomyopathy with LV thrombus. We have not been to get any outside previous records yet. Encephalopathy, metabolic? Multiorgan involvement Acute renal failure Abnormal LFT Atrial fibrillation with RVR Status post pacemaker implantation (Biotronik? ) Right-sided edema Bladder mass UTI? Pneumonia Right pleural effusion Abnormal D-dimer Pneumonia Systolic heart failure Acute on chronic systolic heart failure Cardiomyopathy LV thrombus Cardiac suggestion for management: Fluid resuscitation Follow-up electrolytes and kidney function tests and correct abnormalities Amiodarone drip can be justified Heparin drip V/Q scan Serial troponin GDMT for systolic CHF when stable Life Vest, if patient can manage it Neurology follow up Pulmonary follow up GI evaluation for abdominal LFT Treatment of pneumonia/UTI as per primary team/Pulmonary Attempt to get prior medical records and information Further evaluation and management depends on the above and clinical course A total of 75 minutes was spent reviewing the patient record, examining the patient, making a diagnostic and therapeutic plan, discussing this plan with medical personnel, following up on diagnostic studies and following the patient for clinical stability excluding any and all procedures. At least 50% of this time was spent in direct, qute-os-ssuc contact. Thank you for allowing me to participate in this patient's care. Further recommendations will depend on patient's clinical course. Please do not hesitate to contact me if you have any questions or concerns. This medical document was created using electronic medical record system with [employer] computerized dictation system. Although this document has been carefully reviewed, there may still be some phonetic and typographical errors. These areas are purely typographical due to the imperfection of the software programs, and do not reflect any compromise in the patient's medical care. Plan discussed with: Other (nurse) JAMES CULLEN MD Dec 15, 2024 07:33
--- NOTE | 2024-12-15 07:43 | DVHSR ---
APPROVED REPORT EXAM: Two-dimensional and M-mode echocardiogram with Doppler and color Doppler. Blood Pressure: 96/58 mmHg INDICATION CHF RISK FACTORS Height: 65, Weight: 141 DIMENSIONS LVDd5.3 (3.8-5.7cm)LA (2D) (1.9-4.0cm)Aortic Root3.0 (2.0-3.7cm) LVDs5.2 (2.5-4.0cm)LA (MM) (1.9-4.0cm)Aortic Cusp Exc0.9 (1.5-2.0cm) EF (%) 5.0 (55-70%)Rt. Atrium (1.9-4.0cm)Asc. Aorta cm IVSd0.9 (0.7-1.1cm)RV (D) (1.8-2.4cm) PWd1.0 (0.7-1.1cm) Mitral Valve MitralMitral Stenosis E wave0.80m/sMV Mean GR.mmHg A wavem/sMV Peak GR.51mmHg E/A ratio0.02D MVAcm2 Aortic Valve Aortic ValveAortic Stenosis V10.44m/Bonny Mean GR.2mmHg V20.97m/Bonny Peak GR.4mmHg LVOT Diameter1.9 (1.8-2.4cm)Doppler AVA1.29cm2 Tricuspid Valve TR Velocity2.35m/s [id number] Conclusion Dilated 4 chambers were seen. Left ventricle: Left ventricle was dilated with significantly reduced systolic function. LVEF was a round 5%. Diffuse hypokinesis of left ventricle was seen. 1.5 x 1.1 x 0.9 hyperechoic mass in the L V apex compatible with thrombus was seen. Right ventricle was dilated with reduced systolic function. Both atria were dilated. Pacing wire wa s seen in right-sided chambers. Aortic valve was trileaflet. There was no aortic stenosis/insufficiency. There was ojnr-qz-lrwnvqnf mitral and tricuspid regurgitation. Pulmonary valve was not well visualized. IVC was dilated. Right ventricular systolic pressure was assessed at around 45 mm Hg. There was no pericardial effusion. Compatible with end-stage systolic heart failure/cardiomyopathy with LV apex thrombus.
[2024-12-15 07:50] LABS: INR 2.8 (0.9-1.15); Prothrombin Time 26.8 sec (9.3-11.8)
[2024-12-15 07:55] LABS: Partial Thromboplastin Time 75.8 SEC (24.5-34.5)
[2024-12-15 08:07] LABS: Immunoglobulin A 104 mg/dL (61-437); Immunoglobulin G, Serum 258 mg/dL (603-1613); Immunoglobulin M 12 mg/dL (20-172)
--- NOTE | 2024-12-15 08:50 | CONS ---
Pharmacy Clinical Information: HEPARIN DRIP, ACS PROTOCOL @0708 APTT 75.8 9ROUNDED TO 76) - NO BOLUS, DECREASE HEPARIN DRIP RATE TO 500 UNITS/HR NEXT APTT DRAW SCHEDULED @1500 PER RX PROTOCOL CONFIRMED AND READ BACK WITH MILLIE NEWELL PHARMACIST Dec 15, 2024 08:50
--- NOTE | 2024-12-15 09:03 | DVHPN2 ---
Progress Note - Dictate Date Seen: Dec 15, 2024 Has the PT tested + for MRSA If YES, has PT been informed?: No Medical Necessity Reason Pt with a Central, PICC or Fol: No vital signs Vital Sign Date Time Temp Pulse Resp B/P (MAP) Pulse Ox O2 Delivery O2 Flow Rate FiO2 12/15/24 06:41 100 Room Air 0.0 12/15/24 06:41 21 12/15/24 06:30 124 19 152/98 (116) 12/15/24 04:00 97.7 97.7 Total Intake and Output 12/14/24 12/14/24 12/15/24 15:00 23:00 07:00 Intake Total 208.28 ml 202.62 ml 308.94 ml Output Total 2500 ml 2000 ml 1100 ml Balance -2291.72 ml -1797.38 ml -791.06 ml medications Current Medications Medications Dose Ordered Sig/Diane Route Start Time Stop Time Status Last Admin Dose Admin Acetaminophen/ Hydrocodone Bitart 1 tab Q4HP PRN PO 12/13/24 19:15 Ondansetron HCl 4 mg Q4HP PRN IV 12/13/24 19:15 Enoxaparin Sodium 40 mg DAILY SC 12/14/24 10:00 UNV Acetaminophen 650 mg Q6HP PRN PO 12/13/24 19:15 Nitroglycerin 0.4 mg Q5MINP PRN SL 12/13/24 19:15 Morphine Sulfate 2 mg Q30M PRN IV 12/13/24 19:15 Piperacillin Sod/ Tazobactam Sod 100 ml @ 25 mls/hr Q12H IV 12/13/24 22:00 12/14/24 22:00 25 MLS/HR Vancomycin HCl 0 ml @ 0 mls/hr UD IV 12/13/24 19:15 Albuterol 2.5 mg Q4HPRN PRN NEB 12/13/24 19:30 Diagnostic Test (Pha) 1 strip ACHS 12/13/24 22:00 12/15/24 06:08 1 STRIP Insulin Human Regular ACHS SC 12/13/24 22:00 Dextrose 50 ml UD PRN IV 12/13/24 19:30 Carbidopa/Levodopa 1 tab TID PO 12/13/24 22:00 12/15/24 06:04 1 TAB Lactulose 30 ml Q8HR PO 12/13/24 22:00 12/15/24 06:04 30 ML Metoprolol Tartrate 2.5 mg Q6HPRN PRN IV 12/13/24 19:45 Hold Ipratropium Ophiem 0.5 mg Q4HPRN PRN NEB 12/13/24 22:00 12/14/24 18:19 0.5 MG Norepinephrine Bitartrate 250 ml @ 3.75 mls/hr Q24H IV 12/14/24 10:00 Furosemide 60 mg DAILY IV 12/15/24 10:00 Amlodipine Besylate 2.5 mg DAILY PO 12/15/24 10:00 Heparin Sodium/ Dextrose 250 ml @ 5 mls/hr Q24H IV 12/15/24 09:00 objective General Appearance: alert, no distress HEENT: EOMI, PERRLA, normal external inspect of ears, no icterus, no nasal drainage Neck: no carotid bruit, no jugular venous distention (JVD), no lymphadenopathy Chest: normal thorax Respiratory: clear to auscultation, normal air movement Cardiovascular: regular rate and rhythm, no diastolic murmur, no jugular venous distention (JVD), no rub, no systolic murmur Abdominal: soft, no hepatomegaly, no mass, no splenomegaly, no tenderness Genitourinary: grossly normal external Musculoskeletal: no joint tenderness, no swelling Extremities: normal pulses, no calf tenderness, no clubbing, no cyanosis, no edema Skin: no bruising, no jaundice, no rash Neurological: alert, No focal deficit laboratory and microbiology Laboratory Tests 12/15/24 04:50 12/14/24 04:51 Test 12/15/24 04:50 Range/Units Serum Glucose 114 H 74-106 mg/dL Problem List Acute metabolic encephalopathy Assessment: Patient presents with ALOC, brought in by a neighbor. Blood glucose levels in the emergency room were critically low at 41 and 56 mg/dL, indicating severe hypoglycemia. Patient is alert times 2 but unable to answer questions for review of systems. The ALOC is likely multifactorial, potentially due to hypoglycemia, acute kidney injury (JEFFERY), and possible acute hepatitis. Plan: - Obtain ammonia level - Consult neurology for acute metabolic encephalopathy - Start IV fluids - Initiate insulin sliding scale for diabetes management Acute Kidney Injury (JEFFERY) Assessment: Patient presents with JEFFERY, likely due to vasomotor nephropathy. Laboratory findings show hyperkalemia (potassium 5.8 mEq/L), elevated creatinine (2.73 mg/dL), and BUN (56 mg/dL). Plan: - Hold blood pressure medications - Continue IV fluid administration - Monitor renal function and electrolytes Right Lower Lobe Pneumonia with Right Pleural Effusion Assessment: CT abdomen revealed moderate right pleural effusion and right lower lobe pneumonia. The pneumonia is likely gram-negative or gram-positive in origin. Plan: - Start vancomycin and Zosyn (piperacillin/tazobactam) - Obtain sputum culture - Consult pulmonary for possible thoracentesis Acute Cystitis with Hematuria Assessment: Patient presents with acute cystitis accompanied by hematuria. Plan: - Start IV antibiotics Type 2 Diabetes Mellitus Assessment: Patient has a history of type 2 diabetes and presented with severe hypoglycemia (blood glucose 41 and 56 mg/dL) in the emergency room. Plan: - Initiate insulin sliding scale Hypertension Assessment: Patient has a history of hypertension. Plan: - Hold blood pressure medications at this time Parkinson's Disease Assessment: Patient has a known history of Parkinson's disease. Plan: - Continue home medications for Parkinson's disease History of Stroke Assessment: Patient has a history of stroke. Plan: - Monitor neurological status Atrial Fibrillation with Rapid Ventricular Response (AFib with RVR) Assessment: Patient has possible atrial fibrillation with rapid ventricular response. INR is elevated at 3.61. Plan: - Monitor cardiac rhythm -Consult cardiology -Heparin drip Hyperkalemia Assessment: Patient presents with significant hyperkalemia (potassium 5.8 mEq/L). Plan: - Implement hyperkalemia protocol - Consult nephrology - Monitor electrolyte levels closely Pacemaker in place -cardiology consult Ischemic cardiomyopathy -cardiology consult -monitor EKG Left ventricular thrombus - cardiology consult - heparin drip Assessment/Plan Subjective: Patient is awake however lethargic. Objective: Patient was admitted for ALOC most likely metabolic and hepatic encephalopathy. Acute hepatitis panel is negative. Patient does have history of EtOH and liver cirrhosis. Patient has some tremors noted to left upper extremity. He does have a history of Parkinson's. Patient is currently in A-fib with RVR. Cardiology is managing currently on amiodarone drip. Patient has right lower lobe pneumonia. Currently on antibiotics and breathing treatments as needed. Plan: Continue current treatment. Patient does have thrombocytopenia. Monitor for any signs or symptoms of bleeding. Patient's EF is 5%. Please monitor on EKG. Patient has a history of chronic multifocal CVA. Patient's CT imaging shows extensive encephalomalacia. Patient is being worked up for possible Alzheimer's. Monitor neurostatus. Repeat chest x-ray in a.m. Plan discussed with: Patient, Other JOHN GREWAL NP Dec 15, 2024 09:03
--- NOTE | 2024-12-15 09:06 | DVHINCON2 ---
Date of service: Dec 15, [address] Cain Patel Reason for Consultation ALOC History of Present Illness Mr. Miller is a 63 years old right-handed gentleman with a history of hypertension, diabetes, the patient came to the hospital on this is 12/13/24 for ALOC. The patient at this time is awake, oriented to person, possibly to the place as well, reasonable social skills, but is not able to provide history, I saw him on 04/09/2017 for seizure The history is obtained from his son, Luisito. His son Does not know what happened, but the patient did not feel good in the lasts a few days, and then was said to be mentally altered before he was taken to the hospital He had possibly sleepy strokes with the 1st one in 2015, all caused right-sided weakness, his son is not aware of the seizure symptoms, he presumed grand mal seizure. the patient is supposed to but was not on secondary stroke prevention treatment Coincidentally after his 1st stroke in 2015, the patient is has mild Parkinson's symptoms, his son's not able further specify. Since [id number], the symptoms are more obvious. On 12/15/2024, he has soft voice, diminished facial expression, blinking, intermittent resting tremor in the left arm and the leg. His son/clear his Parkinson's medication, according to our record, he was supposed to be on Sinemet 25/100 mg two tablets t.i.d. Coincidentally after the 1st stroke in 2015, the patient has had progressive memory difficulty According my consult reports dated 04/09/2017, the patient has had new onset seizure at home, and two more on route to the emergency room. The patient has had postictal confusion. The son can not give more details about his seizure history, the patient was on seizure medication until 2021 when he stopped was decided to discontinue His son is not aware of liver problems on him [phone], Hepatitis pattern, 12/13/24: Negative UDS, 12/14/2023: Negative Urinalysis, 12/13/2024: WBC: 15, urine leukocyte esterase: Negative CBC, 12/14/2024: Hypoxia, compensated metabolic acidosis WBC/HB/PLT/MCV, 12/13/2024: 10.1/40.9/105/89.2 PT/INR/PTT, 12/14/24: 34.9/3.75/. 32.9/3.52/78.1. 12/15/2024: 26.8/2.8/75.8 BUN/CR, 12/13/2024: 56/2.73, 12/15/2024: 77/1 Glucose, 12/13/2024: 56., 133, Troponin one high sensitivity, 12/14/2024: 191, 65, 156, 12/15/2024: 106 TBI/AST/ALT/AP, 12/13/2024, 07/4519/98044/81 Ammonia, 12/13/2024: 32 TG/CH OL/LDL/HDL, 04/09/17: 66/171/104/63 Echocardiogram, 04/08/17: Unremarkable Carotid Doppler, 03/2017: Unremarkable CT, 04/07/17: No intracranial hemorrhage. Left temporal lobe non-hemorrhagic infarct of indeterminate chronicity. Chronic lacunar infarct right frontal white matter. CT head, 12/14/2024: No evidence of acute intracranial hemorrhage, mass effect or hydrocephalus. Left frontal, parietal and temporal encephalomalacia most pronounced in the left temporal lobe. [id number] global cerebral volume lo ss. CT chest/abdomen/pelvis, 12/14/2023: 1. Right lower lobe pneumonia. 2. Moderate right pleural effusion 3. Soft tissue density is seen in the left posterior bladder measuring 3.1 cm, possibly reflecting hematoma or mass. Consider correlation with CT urogram MRI head 04/09/2017: 1. No evidence of acute infarct. 2. Chronic infarct with laminar necrosis involving the superior left temporal lobe and small portion of the inferior left parietal lobe. 3. Small focus of chronic lacunar infarct in the right centrum semiovale. 4. Mild diffuse volume loss. Past Medical History Diabetes, hypertension Past Surgical History Pacemaker insertion in 2018 Family History: Patient reports no known family medical history. Family History He is an orphan Social History No history of tobacco smoke, alcohol or drug abuse Allergies: Coded Allergies: NO KNOWN ALLERGIES (Unverified , 04/07/17) Home Meds Unable to Obtain Active Prescriptions or Reported Meds Current Medications Current Medications Medications (Trade) Dose Ordered Sig/Diane Route PRN Reason Start Time Stop Time Status Last Admin Cefepime HCl 50 ml @ 12.5 mls/hr DAILY IV 12/14/24 10:00 12/14/24 16:09 DC Enoxaparin Sodium (Lovenox) 40 mg DAILY SC 12/14/24 10:00 UNV Norepinephrine Bitartrate 250 ml @ 3.75 mls/hr Q24H IV 12/14/24 10:00 Heparin Sodium/ Dextrose 250 ml @ 9 mls/hr Q24H IV 12/14/24 14:30 12/14/24 23:37 DC 12/14/24 15:41 Furosemide (Lasix Injection) 60 mg DAILY IV 12/15/24 10:00 Heparin Sodium/ Dextrose 250 ml @ 7 mls/hr Q24H IV 12/14/24 23:45 12/15/24 08:48 DC 12/14/24 23:45 Amlodipine Besylate (Norvasc Tablet) 2.5 mg DAILY PO 12/15/24 10:00 UNV Heparin Sodium/ Dextrose 250 ml @ 5 mls/hr Q24H IV 12/15/24 09:00 Review of Systems As above, the other systems are negative Vital Signs Vital Signs Date Time Temp Pulse Resp B/P (MAP) Pulse Ox O2 Delivery O2 Flow Rate FiO2 12/15/24 06:41 100 Room Air 0.0 12/15/24 06:41 21 12/15/24 06:30 124 19 152/98 (116) 12/15/24 04:00 97.7 97.7 Physical Exam GENERAL EXAM: General: the patient is well developed and nourished. No acute distress. HEENT: Normocephalic, neck is supple, no carotid bruits. No mass. RESPIRATORY: Normal respiratory effort with symmetrical lung expansion. Lungs clear to auscultation. CARDIOVASCULAR: Regular rate and rhythm with no murmurs. S1, S2. ABDOMEN: Soft, nontender, normal bowel sound NEUROLOGICAL: MENTAL STATUS: Subjective SPEECH, LANGUAGE, HIGHER CORTICAL FUNCTION: no aphasia. The voice is very soft CRANIAL NERVES: #2: Intact visual hercules to confrontation. The optic discs were sharp. #3,4,6: Pupils are equal, round and reactive. EOMs full and conjugate. No nystagmus. #5: Facial sensation intact in all three divisions bilaterally. Mandibular strength intact. #7: Facial muscles symmetrical and strength intact. Diminished facial expression #8: Hearing grossly normal to voice. #9,10: Uvula and soft palate rise in the midline. Swallow and voice are normal. #11: Trapezius and sternomastoid strength intact bilaterally. #12: Tongue midline. No fasciculations or atrophy. SENSATION: Sensation to touch and pinprick is normal. MOTOR: Normal tone in the upper and lower extremity. Normal muscle bulk. No fasciculations. Intermittent resting tremor in the left arm and leg REFLEXES: Deep tendon reflexes normal and symmetrical. No pathological reflexes. CEREBELLAR/COORDINATION: Finger to nose are normal bilaterally. GAIT/STATION: deferred. Labs/Diagnostic Data Labs Test 12/15/24 07:08 12/15/24 06:07 12/15/24 04:50 12/14/24 10:29 Range/Units Prothrombin Time 26.8 H 9.3-11.8 sec Prothrombin Time INR 2.80 H 0.9-1.15 Activated Partial Thromboplast Time 75.8 *H 24.5-34.5 SEC POC Glucose 126 H 70-106 mg/dl Sodium Level 148 #H 136-145 mmol/L Potassium Level 3.6 3.5-5.1 mmol/L Chloride Level 108 H 98-107 mmol/L Carbon Dioxide Level 27 # 20-31 mmol/L Anion Gap 13 5-15 Blood Urea Nitrogen 77 H 9-23 mg/dL Creatinine 1.89 H 0.700-1.30 mg/dL Glomerular Filtration Rate Calc 40 >90 mL/min BUN/Creatinine Ratio 40.7 H 10.0-20.0 Serum Glucose 114 H 74-106 mg/dL Calcium Level 8.4 L 8.7-10.4 mg/dL Random Vancomycin Level 14.0 H 5-10 ug/mL Serum Immunoglobulin G 258 L 603-1613 mg/dL Immunoglobulin A 104 61-437 mg/dL Immunoglobulin M 12 L 20-172 mg/dL Anti-Nuclear Antibody Comment Comment . Complement C3 16 L 82-167 mg/dL Complement C4 <2 L 12-38 mg/dL Test 12/14/24 10:05 12/14/24 09:59 12/14/24 04:51 12/13/24 19:15 Range/Units Blood Gas Specimen Type Arterial Blood Gas Sample Site Right radial Blood Gas Patient Temperature 37.0 Arterial Blood Date Drawn [id number] Arterial Blood pH 7.439 7.350-7.450 Arterial Blood Partial Pressure CO2 24.5 L 35.0-48.0 mmHg Arterial Blood Partial Pressure O2 79.8 L 83.0-108.0 mmHg Arterial Blood HCO3 16.2 L 21.0-28.0 mmol/L Arterial Blood Oxygen Saturation 94.6 94.0-98.0 % Arterial Blood Base Excess -5.9 L -2.0-3.0 mmol/L Arterial Blood Oxyhemoglobin 93.4 L 94.0-98.0 % Arterial Blood Carboxyhemoglobin 0.7 0.5-1.5 % Arterial Blood Methemoglobin 0.6 0.0-1.5 % Marcus Test Yes Blood Gas Total Hemoglobin 15.10 13.5-17.5 g/dL Blood Gas Modality Room air FiO2 % 21.0 Urine Creatinine 172.50 H 30.0-125.0 mg/dL Urine Protein/Creatinine Ratio 1.02 Urine Total Protein 175.6 H 1-14 mg/dL White Blood Count 9.7 4.4-10.8 10^3/uL Red Blood Count 5.15 4.5-5.90 10^6/uL Hemoglobin 15.1 13.5-17.5 g/dL Hematocrit 44.6 41.0-53.0 % Mean Corpuscular Volume 86.7 80.0-100.0 fL Mean Corpuscular Hemoglobin 29.4 28.0-32.0 pg Mean Corpuscular Hemoglobin Concent 33.9 32.0-36.0 g/dL Red Cell Distribution Width 19.0 H 11.8-14.3 % Platelet Count 77 L 140-450 10^3/uL Mean Platelet Volume 10.8 6.9-10.8 fL Neutrophils (%) (Auto) 87.4 H 37.0-80.0 % Lymphocytes (%) (Auto) 3.2 L 10.0-50.0 % Monocytes (%) (Auto) 9.3 0.0-12.0 % Eosinophils (%) (Auto) 0.0 0.0-7.0 % Basophils (%) (Auto) 0.1 0.0-2.0 % Neutrophils # (Auto) 8.4 1.6-8.6 10 ^3/uL Lymphocytes # (Auto) 0.3 L 0.4-5.4 10 ^3/uL Monocytes # (Auto) 0.9 0-1.3 10 ^3/uL Eosinophils # (Auto) 0 0-0.8 10 ^3/uL Basophils # (Auto) 0 0-0.2 10 ^3/uL Nucleated Red Blood Cells 0.1 % D-Dimer, Quantitative 21.40 H 0.0-0.49 mg/L FEU Phosphorus Level 6.7 H 2.4-5.1 mg/dL Ammonia 32 11-32 umol/L Hepatitis A IgM Antibody Negative Hepatitis B Surface Antigen Negative Negative Hepatitis B Core IgM Antibody Negative Negative Hepatitis C Antibody Negative Negative Test 12/13/24 13:31 12/13/24 11:30 12/13/24 11:05 Range/Units Lactic Acid Level 2.5 *H 0.4-2.0 mmol/L Urine Color Dark-yellow Yellow Urine Clarity Ex.turbid Clear Urine pH 5.5 5.0-9.0 Urine Specific [place] 1.018 1.001-1.035 Urine Protein 1+ H Negative Urine Ketones 1+ H Negative Urine Blood 3+ H Negative /uL Urine Nitrite Negative Negative Urine Bilirubin Negative Negative Urine Urobilinogen 2 H Negative mg/dL Urine Leukocyte Esterase Negative Negative /uL Urine RBC 171 0 - 3 /hpf Urine Microscopic WBC 58 H 0-3 /HPF Urine Squamous Epithelial Cells Few <5 /hpf Urine Bacteria Few H None Seen /hpf Urine Hyaline Casts Mod 0 - 2 /lpf Urine Mucus Few None Seen Urine Sperm Present None Seen /hpf Urine Glucose Normal Normal mg/dL Urine Opiates Screen Neg NEGATIVE Urine Fentanyl Screen Neg NEGATIVE Urine Barbiturates Screen Neg NEGATIVE Urine Phencyclidine Screen Neg NEGATIVE Urine Amphetamines Screen Neg NEGATIVE Urine Benzodiazepines Screen Neg NEGATIVE Urine Cocaine Screen Neg NEGATIVE Urine Cannabinoids Screen Neg NEGATIVE B-Type Natriuretic Peptide 2031.22 0-100 pg/mL Microbiology Date/Time Source Procedure Growth Status 12/13/24 11:30 Urine - [place] Urine Culture - Preliminary Resulted 12/13/24 11:05 Blood Blood Culture - Preliminary NO GROWTH AFTER 24 HOURS OF INCUBATION. Resulted Assessment Altered mental status Metabolic encephalopathy ? Hepatic encephalopathy Subclinical seizure Chronic multiple strokes Parkinson's disease Cognitive dysfunction Vascular dementia Rule out Alzheimer disease Liver failure Coagulopathy Elevated troponin one/heart attack Plan/Recommendation Monitoring Supportive treatment Telemetry Vitamin B12, folic acid, TSH, FT4 EEG Lipid profile Sinemet 25/100 mg t.i.d. for now Lorazepam 2 mg IV every hour when necessary seizure Keppra 500 mg b.i.d. Cardiology on case GI specialist on case More recommendation per clinical course Plan discussed with: Chad Christine QUANWEI MD Dec 15, 2024 09:06
[2024-12-15] MEDS: HEPARIN DRIP/D5W 100UNITS/ML 250 ML IV SCH ×2 (09:21→17:26)
[2024-12-15 09:37] LABS: Potassium 3.6 mmol/L (3.5-5.1)
[2024-12-15 09:39] LABS: Anion Gap 14 (5-15); Calcium 8.9 mg/dL (8.7-10.4); Carbon Dioxide 25 mmol/L (20-31)
--- NOTE | 2024-12-15 09:43 | DVHNC2 ---
Procedure - [facility] PM INTERROGATION: Battery: Remaining capacity to AMRIT: 36% Battery voltage: 2.96 volts DDDR:60/130 Sensing: A 0.5/V8.7 mV Lead impedance: A400/V450 Ohms A pace: 16% V pace: 14% AT/AF burden: 61% JAMES CULLEN MD Dec 15, 2024 09:43
[2024-12-15 10:03] LABS: Chloride 108 mmol/L (98-107); Glucose 127 mg/dL (74-106); Sodium 147 mmol/L (136-145)
[2024-12-15 10:04] LABS: BUN/Creatinine Ratio 29.8 (10.0-20.0); Blood Urea Nitrogen 50 mg/dL (9-23)
[2024-12-15] MEDS: FUROSEMIDE 100 MG/10ML VIAL IV SCH (10:27)
[2024-12-15] MEDS ORDERED: LORazepam 2MG/ML-1ML VIAL IV PRN (10:30)
--- NOTE | 2024-12-15 10:30 | DVHPN2 ---
Progress Note Date Seen: Dec 15, 2024 Has the PT tested + for MRSA If YES, has PT been informed?: No Medical Necessity Reason Pt with a Central, PICC or Fol: Yes The following are medically ne: [place] Catheter Reason for clayton catheter: Bladder Retention/Obstruc, Strict I&O Subjective Changes from previous H/P or p: No Changes Review of Systems: Deferred Objective vital signs Vital Sign Date Time Temp Pulse Resp B/P (MAP) Pulse Ox O2 Delivery O2 Flow Rate FiO2 12/15/24 10:00 99/60 12/15/24 08:00 20 100 Room Air* 0 21 12/15/24 08:00 149 12/15/24 04:00 97.7 97.7 Total Intake and Output 12/14/24 12/14/24 12/15/24 15:00 23:00 07:00 Intake Total 208.28 ml 202.62 ml 308.94 ml Output Total 2500 ml 2000 ml 1100 ml Balance -2291.72 ml -1797.38 ml -791.06 ml medications Current Medications Medications Dose Ordered Sig/Diane Route Start Time Stop Time Status Last Admin Dose Admin Acetaminophen/ Hydrocodone Bitart 1 tab Q4HP PRN PO 12/13/24 19:15 Ondansetron HCl 4 mg Q4HP PRN IV 12/13/24 19:15 Enoxaparin Sodium 40 mg DAILY SC 12/14/24 10:00 UNV Acetaminophen 650 mg Q6HP PRN PO 12/13/24 19:15 Nitroglycerin 0.4 mg Q5MINP PRN SL 12/13/24 19:15 Morphine Sulfate 2 mg Q30M PRN IV 12/13/24 19:15 Piperacillin Sod/ Tazobactam Sod 100 ml @ 25 mls/hr Q12H IV 12/13/24 22:00 12/14/24 22:00 25 MLS/HR Vancomycin HCl 0 ml @ 0 mls/hr UD IV 12/13/24 19:15 Albuterol 2.5 mg Q4HPRN PRN NEB 12/13/24 19:30 Diagnostic Test (Pha) 1 strip ACHS 12/13/24 22:00 12/15/24 06:08 1 STRIP Insulin Human Regular ACHS SC 12/13/24 22:00 Dextrose 50 ml UD PRN IV 12/13/24 19:30 Carbidopa/Levodopa 1 tab TID PO 12/13/24 22:00 12/15/24 06:04 1 TAB Lactulose 30 ml Q8HR PO 12/13/24 22:00 12/15/24 06:04 30 ML Metoprolol Tartrate 2.5 mg Q6HPRN PRN IV 12/13/24 19:45 Hold Ipratropium [place] 0.5 mg Q4HPRN PRN NEB 12/13/24 22:00 12/14/24 18:19 0.5 MG Norepinephrine Bitartrate 250 ml @ 3.75 mls/hr Q24H IV 12/14/24 10:00 Furosemide 60 mg DAILY IV 12/15/24 10:00 Amlodipine Besylate 2.5 mg DAILY PO 12/15/24 10:00 Heparin Sodium/ Dextrose 250 ml @ 5 mls/hr Q24H IV 12/15/24 09:00 12/15/24 09:21 5 MLS/HR Examination: GENERAL:Abnormal, CVS:Abnormal, NEURO:Abnormal laboratory and microbiology Laboratory Tests 12/15/24 09:10 12/14/24 04:51 Test 12/15/24 09:10 Range/Units Serum Glucose 127 H 74-106 mg/dL Microbiology Date/Time Source Procedure Growth Status 12/13/24 11:30 Urine - [place] Urine Culture - Preliminary Resulted 12/13/24 11:05 Blood Blood Culture - Preliminary NO GROWTH AFTER 24 HOURS OF INCUBATION. Resulted Problem List/Assessment/Plan Problem List/Assessment/Plan 63 year male presented with b/l leg swelling but was admitted for renal failure and altered mental state No background information available on admission outside hx Parkinsonism/ CVA and afib Acute kidney injury ckd unspecified hypotension & afib RVR CHF EF < 10% proteinuria AMS baseline unknown bladder mass on CT elevated AST/ALT bilirubin thrombocytopenia elevated INR Nonverbal and lethargic Keep MAP > 65, levophed PRN lasix IV still hypervolemic cardiology rate control GI eval Urology rec outpatient f/u for bladder mass Obtain outpatient information from family about patient's baseline mental state Neurology guarded prognosis due to multiple medical conditions critically ill, critical care time 35 minutes Plan discussed with: Other (Leg) My Orders My Orders Orders - MELI CASSIDY MD Procedure Category Date Status Time Furosemide Injection PHA 12/15/24 In Process (Lasix Injection) 10:00 Critical Care Time (mins): 40 MELI CASSIDY MD Dec 15, 2024 10:30
[2024-12-15 11:14] LABS: Albumin 3.7 g/dL (3.2-4.8); Alkaline Phosphatase 81.0 U/L (46-116)
[2024-12-15 11:15] LABS: Alanine Aminotransferase 961.0 U/L (7-40); Bilirubin, Direct 2.0 mg/dL (<0.3); Bilirubin, Total 3.8 mg/dL (0.2-1.0); Total Protein 5.6 g/dL (5.7-8.2)
--- NOTE | 2024-12-15 14:14 | DVH ---
NUCLEAR MEDICINE VENTILATION/PERFUSION LUNG SCAN. INDICATION: PULMONARY EMBOLISM COMPARISON: CT CHEST WITHOUT CONTRAST on DOS: 12/14/24, XY CHEST PORTABLE on DOS: 12/13/24 TECHNIQUE: Following intravenous demonstration of 4.5 millicuries of technetium 99m MAA, and inhala tion of 6.2 mCi of xenon 133 scintigrams were obtained in multiple projections of the lungs. FINDINGS: There is normal uptake of radionuclide on both the ventilation and perfusion portions of the examinat ion. No mismatched perfusion defects are demonstrated. Uptake is normally homogeneous. IMPRESSION: 1. Low probability for PE.
[2024-12-15 15:50] LABS: Free T4 (Free Thyroxine) 0.73 ng/dL (0.89-1.76)
[2024-12-15 16:08] LABS: INR 2.4 (0.9-1.15); Partial Thromboplastin Time 46.7 SEC (24.5-34.5); Prothrombin Time 23.3 sec (9.3-11.8)
--- NOTE | 2024-12-15 16:50 | CONS ---
Pharmacy Clinical Information: HEPARIN DRIP, ACS PROTOCOL @15:15 APTT 46.7 - NO BOLUS, INCREASE HEPARIN DRIP RATE TO 700 UNITS/HR NEXT APTT DRAW SCHEDULED @2100 PER RX PROTOCOL CONFIRMED AND READ BACK [facility] Dec 15, 2024 16:50
--- NOTE | 2024-12-15 17:35 | DVHPN2 ---
Progress Note - Dictate Date Seen: Dec 15, 2024 Has the PT tested + for MRSA If YES, has PT been informed?: No Medical Necessity Reason Pt with a Central, PICC or Fol: Yes The following are medically ne: Clayton Catheter Reason for clayton catheter: Bladder Retention/Obstruc, Strict I&O vital signs Vital Sign Date Time Temp Pulse Resp B/P (MAP) Pulse Ox O2 Delivery O2 Flow Rate FiO2 12/15/24 16:30 93 11 85/67 (73) 100 12/15/24 16:00 Room Air* 0 21 12/15/24 10:45 98.4 98.4 Total Intake and Output 12/14/24 12/14/24 12/15/24 15:00 23:00 07:00 Intake Total 208.28 ml 202.62 ml 308.94 ml Output Total 2500 ml 2000 ml 1100 ml Balance -2291.72 ml -1797.38 ml -791.06 ml medications Current Medications Medications Dose Ordered Sig/Diane Route Start Time Stop Time Status Last Admin Dose Admin Acetaminophen/ Hydrocodone Bitart 1 tab Q4HP PRN PO 12/13/24 19:15 Ondansetron HCl 4 mg Q4HP PRN IV 12/13/24 19:15 Enoxaparin Sodium 40 mg DAILY SC 12/14/24 10:00 UNV Acetaminophen 650 mg Q6HP PRN PO 12/13/24 19:15 Nitroglycerin 0.4 mg Q5MINP PRN SL 12/13/24 19:15 Morphine Sulfate 2 mg Q30M PRN IV 12/13/24 19:15 Piperacillin Sod/ Tazobactam Sod 100 ml @ 25 mls/hr Q12H IV 12/13/24 22:00 12/15/24 10:27 25 MLS/HR Vancomycin HCl 0 ml @ 0 mls/hr UD IV 12/13/24 19:15 Albuterol 2.5 mg Q4HPRN PRN NEB 12/13/24 19:30 Diagnostic Test (Pha) 1 strip ACHS 12/13/24 22:00 12/15/24 10:31 1 STRIP Insulin Human Regular ACHS SC 12/13/24 22:00 Dextrose 50 ml UD PRN IV 12/13/24 19:30 Carbidopa/Levodopa 1 tab TID PO 12/13/24 22:00 12/15/24 06:04 1 TAB Lactulose 30 ml Q8HR PO 12/13/24 22:00 12/15/24 06:04 30 ML Metoprolol Tartrate 2.5 mg Q6HPRN PRN IV 12/13/24 19:45 Hold Ipratropium [place] 0.5 mg Q4HPRN PRN NEB 12/13/24 22:00 12/14/24 18:19 0.5 MG Norepinephrine Bitartrate 250 ml @ 3.75 mls/hr Q24H IV 12/14/24 10:00 Furosemide 60 mg DAILY IV 12/15/24 10:00 12/15/24 10:27 60 MG Amlodipine Besylate 2.5 mg DAILY PO 12/15/24 10:00 12/15/24 10:29 2.5 MG Lorazepam 1 mg Q5MINP PRN IV 12/15/24 10:30 Levetiracetam 500 mg BID PO 12/15/24 22:00 Heparin Sodium/ Dextrose 250 ml @ 7 mls/hr Q24H IV 12/15/24 17:00 Phenylephrine HCl 80 mg/Sodium Chloride 250 ml @ 7.5 mls/hr Q24H IV 12/15/24 17:00 laboratory and microbiology Laboratory Tests 12/15/24 09:10 12/14/24 04:51 Test 12/15/24 09:10 Range/Units Serum Glucose 127 H 74-106 mg/dL Assessment/Plan pneumonia pl effusions CHF JEFFERY acute liver injury elevated d-dimer (21) patient seen and examined events low oxygen requirements on room air no distress labs and imaging reviewed management plan iv heparin drip US legs neg've cont abx aspiration precautions echo report reviewed severe cardiomyopathy, ef 10% f/u cardiology Plan discussed with: Patient PAOLA AQUINO MD Dec 15, 2024 17:35
[2024-12-15] MEDS: VANCOMYCIN 750MG KIT 100 ML IV ONE (17:36)
--- NOTE | 2024-12-15 17:38 | DVHCONRES ---
Date Seen: Dec 15, 2024 Resident Creating Document: TATIANA MÁRQUEZ RESIDENT Referring Physician OLVIN BAI Reason for Consultation Elevated LFTs History of Present Illness 61-year-old male with complex medical history (hypertension, diabetes mellitus t ype 2, CKD, atrial fibrillation with pacemaker, CHF with EF 5%, CVA, Parkinsonism, seizure disorder) admitted with altered mental status in the setting of severe hypoglycemia (blood glucose 4156 mg/dL). GI consulted for markedly elevated liver enzymes and hyperbilirubinemia. * Patient is lethargic, sluggish to arouse, * On arousal, demonstrates shaking/tremor involving the left side. * No GI bleeding reported. * Currently on broad-spectrum antibiotics (Vancomycin, Zosyn) for pneumonia/UTI per primary team. Interval Progress: * AST/ALT remain markedly elevated but downtrending: AST peaked at 4549 now 1517; ALT peaked 2598 now 961. * Bilirubin elevated: total 3.8, direct 2.0. * ALP normal at 81. * INR elevated (2.8); PT 26.8; APTT 75.8; platelets 77 (coagulopathy + thrombocytopenia). * Renal dysfunction: BUN 50, Cr 1.68 (down from 2.7). * ABG: pH 7.439, Breezy? 24.5 (low), HCO? 16.2 (low), Lisa? 79.8 (low) ? compensated metabolic acidosis with hypoxemia. * Cardiac: troponins downtrending (160 ? 82 ? 73). BNP >2000. * Hepatitis viral panel negative; GENOVEVA pending. * Ammonia 32 Past Medical History HTN, DM2, CKD, CHF (EF ~5%), CVA, Parkinsonism, seizures, Afib with pacemaker. Past Surgical History Pacemaker. Family History: Patient reports no known family medical history. Social History Son unaware of alcohol use; no known liver disease. No reported IVDU. Allergies: Coded Allergies: NO KNOWN ALLERGIES (Unverified , 04/07/17) Home Meds Unable to Obtain Active Prescriptions or Reported Meds Current Medications Current Medications Medications (Trade) Dose Ordered Sig/Diane Route PRN Reason Start Time Stop Time Status Last Admin Furosemide (Lasix Injection) 60 mg DAILY IV 12/15/24 10:00 12/15/24 10:27 Heparin Sodium/ Dextrose 250 ml @ 7 mls/hr Q24H IV 12/14/24 23:45 12/15/24 08:48 DC 12/14/24 23:45 Amlodipine Besylate (Norvasc Tablet) 2.5 mg DAILY PO 12/15/24 10:00 12/15/24 10:29 Heparin Sodium/ Dextrose 250 ml @ 5 mls/hr Q24H IV 12/15/24 09:00 12/15/24 16:55 DC 12/15/24 09:21 Lorazepam (Ativan Inj) 1 mg Q5MINP PRN IV SEIZURES 12/15/24 10:30 Levetiracetam (Keppra Tablet) 500 mg BID PO 12/15/24 22:00 Heparin Sodium/ Dextrose 250 ml @ 7 mls/hr Q24H IV 12/15/24 17:00 Phenylephrine HCl 80 mg/Sodium Chloride 250 ml @ 7.5 mls/hr Q24H IV 12/15/24 17:00 Review of Systems * Unable to obtain full ROS due to mental status. * No overt GI bleed reported. * No vomiting, hematemesis, or abdominal pain communicated. Vital Signs Vital Signs Date Time Temp Pulse Resp B/P (MAP) Pulse Ox O2 Delivery O2 Flow Rate FiO2 12/15/24 16:30 93 11 85/67 (73) 100 12/15/24 16:00 Room Air* 0 21 12/15/24 10:45 98.4 98.4 Physical Exam * General: Lethargic, sluggish to arouse. * HEENT: No icterus noted, but bilirubin elevated. * Abdomen: Soft, nondistended, no tenderness, no guarding. No hepatosplenomegaly palpated. Trace ascites reported on imaging. * Skin: No spider angiomas or caput medusae. Labs/Diagnostic Data Labs Test 12/15/24 15:15 12/15/24 13:14 12/15/24 10:31 12/15/24 09:10 Range/Units Prothrombin Time 23.3 H 9.3-11.8 sec Prothrombin Time INR 2.40 H 0.9-1.15 Activated Partial Thromboplast Time 46.7 H 24.5-34.5 SEC Vitamin B12 Level > 2000 H 211-911 pg/mL Folic Acid 20.43 >5.38 ng/mL Free Thyroxine (T4) Calculated 0.73 L 0.89-1.76 ng/dL Troponin I High Sensitivity 73 *H </=54 ng/L POC Glucose 131 H 70-106 mg/dl Sodium Level 147 H 136-145 mmol/L Potassium Level 3.6 3.5-5.1 mmol/L Chloride Level 108 H 98-107 mmol/L Carbon Dioxide Level 25 20-31 mmol/L Anion Gap 14 5-15 Blood Urea Nitrogen 50 #H 9-23 mg/dL Creatinine 1.68 H 0.700-1.30 mg/dL Glomerular Filtration Rate Calc 46 >90 mL/min BUN/Creatinine Ratio 29.8 H 10.0-20.0 Serum Glucose 127 H 74-106 mg/dL Calcium Level 8.9 8.7-10.4 mg/dL Thyroid Stimulating Hormone (TSH) 4.34 0.55-4.78 uIU/mL Test 12/15/24 04:50 12/14/24 10:29 12/14/24 10:05 12/14/24 09:59 Range/Units Total Bilirubin 3.8 H 0.2-1.0 mg/dL Direct Bilirubin 2.0 H <0.3 mg/dL Aspartate Amino Transferase (AST) 1517 H 13-40 U/L Alanine Aminotransferase (ALT) 961 H 7-40 U/L Alkaline Phosphatase 81 46-116 U/L Total Protein 5.6 L 5.7-8.2 g/dL Albumin 3.7 3.2-4.8 g/dL Random Vancomycin Level 14.0 H 5-10 ug/mL Serum Immunoglobulin G 258 L 603-1613 mg/dL Immunoglobulin A 104 61-437 mg/dL Immunoglobulin M 12 L 20-172 mg/dL Anti-Nuclear Antibody Comment Comment . Complement C3 16 L 82-167 mg/dL Complement C4 <2 L 12-38 mg/dL Blood Gas Specimen Type Arterial Blood Gas Sample Site Right radial Blood Gas Patient Temperature 37.0 Arterial Blood Date Drawn [id number] Arterial Blood pH 7.439 7.350-7.450 Arterial Blood Partial Pressure CO2 24.5 L 35.0-48.0 mmHg Arterial Blood Partial Pressure O2 79.8 L 83.0-108.0 mmHg Arterial Blood HCO3 16.2 L 21.0-28.0 mmol/L Arterial Blood Oxygen Saturation 94.6 94.0-98.0 % Arterial Blood Base Excess -5.9 L -2.0-3.0 mmol/L Arterial Blood Oxyhemoglobin 93.4 L 94.0-98.0 % Arterial Blood Carboxyhemoglobin 0.7 0.5-1.5 % Arterial Blood Methemoglobin 0.6 0.0-1.5 % Marcus Test Yes Blood Gas Total Hemoglobin 15.10 13.5-17.5 g/dL Blood Gas Modality Room air FiO2 % 21.0 Urine Creatinine 172.50 H 30.0-125.0 mg/dL Urine Protein/Creatinine Ratio 1.02 Urine Total Protein 175.6 H 1-14 mg/dL Test 12/14/24 04:51 12/13/24 19:15 12/13/24 13:31 12/13/24 11:30 Range/Units White Blood Count 9.7 4.4-10.8 10^3/uL Red Blood Count 5.15 4.5-5.90 10^6/uL Hemoglobin 15.1 13.5-17.5 g/dL Hematocrit 44.6 41.0-53.0 % Mean Corpuscular Volume 86.7 80.0-100.0 fL Mean Corpuscular Hemoglobin 29.4 28.0-32.0 pg Mean Corpuscular Hemoglobin Concent 33.9 32.0-36.0 g/dL Red Cell Distribution Width 19.0 H 11.8-14.3 % Platelet Count 77 L 140-450 10^3/uL Mean Platelet Volume 10.8 6.9-10.8 fL Neutrophils (%) (Auto) 87.4 H 37.0-80.0 % Lymphocytes (%) (Auto) 3.2 L 10.0-50.0 % Monocytes (%) (Auto) 9.3 0.0-12.0 % Eosinophils (%) (Auto) 0.0 0.0-7.0 % Basophils (%) (Auto) 0.1 0.0-2.0 % Neutrophils # (Auto) 8.4 1.6-8.6 10 ^3/uL Lymphocytes # (Auto) 0.3 L 0.4-5.4 10 ^3/uL Monocytes # (Auto) 0.9 0-1.3 10 ^3/uL Eosinophils # (Auto) 0 0-0.8 10 ^3/uL Basophils # (Auto) 0 0-0.2 10 ^3/uL Nucleated Red Blood Cells 0.1 % D-Dimer, Quantitative 21.40 H 0.0-0.49 mg/L FEU Phosphorus Level 6.7 H 2.4-5.1 mg/dL Ammonia 32 11-32 umol/L Hepatitis A IgM Antibody Negative Hepatitis B Surface Antigen Negative Negative Hepatitis B Core IgM Antibody Negative Negative Hepatitis C Antibody Negative Negative Lactic Acid Level 2.5 *H 0.4-2.0 mmol/L Urine Color Dark-yellow Yellow Urine Clarity Ex.turbid Clear Urine pH 5.5 5.0-9.0 Urine Specific [place] 1.018 1.001-1.035 Urine Protein 1+ H Negative Urine Ketones 1+ H Negative Urine Blood 3+ H Negative /uL Urine Nitrite Negative Negative Urine Bilirubin Negative Negative Urine Urobilinogen 2 H Negative mg/dL Urine Leukocyte Esterase Negative Negative /uL Urine RBC 171 0 - 3 /hpf Urine Microscopic WBC 58 H 0-3 /HPF Urine Squamous Epithelial Cells Few <5 /hpf Urine Bacteria Few H None Seen /hpf Urine Hyaline Casts Mod 0 - 2 /lpf Urine Mucus Few None Seen Urine Sperm Present None Seen /hpf Urine Glucose Normal Normal mg/dL Urine Opiates Screen Neg NEGATIVE Urine Fentanyl Screen Neg NEGATIVE Urine Barbiturates Screen Neg NEGATIVE Urine Phencyclidine Screen Neg NEGATIVE Urine Amphetamines Screen Neg NEGATIVE Urine Benzodiazepines Screen Neg NEGATIVE Urine Cocaine Screen Neg NEGATIVE Urine Cannabinoids Screen Neg NEGATIVE Test 12/13/24 11:05 Range/Units B-Type Natriuretic Peptide 2031.22 0-100 pg/mL Microbiology Date/Time Source Procedure Growth Status 12/15/24 01:00 Nose MRSA Screen - Final Complete 12/13/24 11:30 Urine - [place] Urine Culture - Preliminary Resulted 12/13/24 11:05 Blood Blood Culture - Preliminary NO GROWTH AFTER 48 HOURS OF INCUBATION. Resulted Assessment Assessment 1. Severe acute hepatocellular injury (ischemic/hypoxic hepatitis, shock liver) * Marked but downtrending AST/ALT. * Hyperbilirubinemia (total 3.8, direct 2.0). * Normal ALP ? hepatocellular injury pattern. * Negative hepatitis panel. * GENOVEVA pending (rule out autoimmune hepatitis). * Likely multifactorial: hypoperfusion from CHF (EF 5%), hypoxia, sepsis. 2. Coagulopathy and Thrombocytopenia * INR 2.8, APTT 75.8, platelets 77. * Likely from acute hepatic dysfunction + critical illness. * No active GI bleed. 3. Risk of Hepatic Encephalopathy * Altered mental status primarily multifactorial (hypoglycemia, metabolic encephalopathy, CHF, seizure). * Ammonia normal, but patient remains at risk. GI Plan Hepatic * Supportive management for ischemic hepatitis. * Avoid hepatotoxic drugs * Continue daily trending of CMP, LFTs, INR/PTT. * Pending autoimmune hepatitis panel (GENOVEVA, ASMA, IgG). * Consider abdominal US with Doppler if worsening (rule out vascular thrombosis, Budd-Chiari). Coagulation * Transfuse platelets/FFP only if bleeding or invasive procedure needed. * Daily CBC and coagulation profile. GI Bleed Prophylaxis * IV PPI daily. * Monitor for melena, hematemesis, hematochezia. Encephalopathy * Monitor ammonia. * Lactulose if patient develops worsening encephalopathy or ammonia elevation. * Rifaximin can be considered if persistent encephalopathy. Nutrition 2gm Na diet Case discussed in detail with the attending physician, including the clinical presentation, diagnostic workup, and comprehensive management plan. Plan discussed with: Other (RN) TATIANA MÁRQUEZ RESIDENT Dec 15, 2024 17:38
[2024-12-15] MEDS: PHENYLEPHRINE INJ 80 MG in SODIUM CHL 0.9% 242 ML IV SCH (20:32)
[2024-12-15] MEDS: levETIRAcetam 500 MG TAB PO SCH (22:19)
[2024-12-15 23:54] LABS: INR 2.18 (0.9-1.15); Partial Thromboplastin Time 44.8 SEC (24.5-34.5); Prothrombin Time 21.4 sec (9.3-11.8)
[2024-12-16] VITALS (98 sets, daily range): BP systolic 80–119; BP diastolic 49–87; PULSE 50–238; RESP 8–22; TEMP 98.1–99.1; O2SAT 92–100
[2024-12-16] MEDS: HEPARIN DRIP/D5W 100UNITS/ML 250 ML IV SCH ×2 (00:53→21:45)
[2024-12-16 05:27] LABS: Chloride 98 mmol/L (98-107); Sodium 145 mmol/L (136-145)
[2024-12-16 05:28] LABS: Anion Gap 16 (5-15); Carbon Dioxide 31 mmol/L (20-31)
[2024-12-16 05:34] LABS: BUN/Creatinine Ratio 29.8 (10.0-20.0)
[2024-12-16 05:35] LABS: Hematocrit 48.3 % (41.0-53.0); Hemoglobin 16.3 g/dL (13.5-17.5); Mean Corpuscular Hemoglobin 29.4 pg (28.0-32.0); Mean Corpuscular Volume 87.1 fL (80.0-100.0); Nucleated Red Blood Cells % 0.2 %
[2024-12-16 05:37] LABS: Potassium 3.0 mmol/L (3.5-5.1)
[2024-12-16 05:38] LABS: Blood Urea Nitrogen 39 mg/dL (9-23); Calcium 8.3 mg/dL (8.7-10.4); Glucose 407 mg/dL (74-106)
--- NOTE | 2024-12-16 06:23 | DVHPN2 ---
Progress Note - Dictate Date Seen: Dec 16, 2024 Has the PT tested + for MRSA If YES, has PT been informed?: No Medical Necessity Reason Pt with a Central, PICC or Fol: Yes The following are medically ne: Clayton Catheter Reason for clayton catheter: Bladder Retention/Obstruc, Strict I&O vital signs Vital Sign Date Time Temp Pulse Resp B/P (MAP) Pulse Ox O2 Delivery O2 Flow Rate FiO2 12/16/24 06:00 110 12/16/24 06:00 18 100 Room Air* 0 21 12/16/24 05:15 101/76 (84) 12/16/24 03:15 98.6 98.6 Total Intake and Output 12/15/24 12/15/24 12/16/24 15:00 23:00 07:00 Intake Total 270.28 ml 267.78 ml 284.96 ml Output Total 3800 ml 1200 ml Balance 270.28 ml -3532.22 ml -915.04 ml medications Current Medications Medications Dose Ordered Sig/Diane Route Start Time Stop Time Status Last Admin Dose Admin Acetaminophen/ Hydrocodone Bitart 1 tab Q4HP PRN PO 12/13/24 19:15 Ondansetron HCl 4 mg Q4HP PRN IV 12/13/24 19:15 Enoxaparin Sodium 40 mg DAILY SC 12/14/24 10:00 UNV Acetaminophen 650 mg Q6HP PRN PO 12/13/24 19:15 Nitroglycerin 0.4 mg Q5MINP PRN SL 12/13/24 19:15 Morphine Sulfate 2 mg Q30M PRN IV 12/13/24 19:15 Piperacillin Sod/ Tazobactam Sod 100 ml @ 25 mls/hr Q12H IV 12/13/24 22:00 12/15/24 22:24 25 MLS/HR Vancomycin HCl 0 ml @ 0 mls/hr UD IV 12/13/24 19:15 Albuterol 2.5 mg Q4HPRN PRN NEB 12/13/24 19:30 Diagnostic Test (Pha) 1 strip ACHS 12/13/24 22:00 12/16/24 05:51 1 STRIP Insulin Human Regular ACHS SC 12/13/24 22:00 Dextrose 50 ml UD PRN IV 12/13/24 19:30 Carbidopa/Levodopa 1 tab TID PO 12/13/24 22:00 8/19/25 22:19 1 TAB Lactulose 30 ml Q8HR PO 12/13/24 22:00 12/15/24 06:04 30 ML Metoprolol Tartrate 2.5 mg Q6HPRN PRN IV 12/13/24 19:45 Hold Ipratropium [place] 0.5 mg Q4HPRN PRN NEB 12/13/24 22:00 12/14/24 18:19 0.5 MG Norepinephrine Bitartrate 250 ml @ 3.75 mls/hr Q24H IV 12/14/24 10:00 Furosemide 60 mg DAILY IV 12/15/24 10:00 12/15/24 10:27 60 MG Amlodipine Besylate 2.5 mg DAILY PO 12/15/24 10:00 12/15/24 10:29 2.5 MG Lorazepam 1 mg Q5MINP PRN IV 12/15/24 10:30 Levetiracetam 500 mg BID PO 12/15/24 22:00 12/15/24 22:19 500 MG Phenylephrine HCl 80 mg/Sodium Chloride 250 ml @ 7.5 mls/hr Q24H IV 12/15/24 17:00 12/15/24 22:03 7.5 MLS/HR Heparin Sodium/ Dextrose 250 ml @ 9 mls/hr Q24H IV 12/16/24 00:15 12/16/24 00:53 9 MLS/HR laboratory and microbiology Laboratory Tests 12/16/24 04:56 Test 12/16/24 04:56 Range/Units Serum Glucose 407 #*H 74-106 mg/dL Assessment/Plan Patient is a 63-year-old gentleman who originally was brought by the neighbor for altered level of consciousness. Patient is poor historian and noncommunicative and can not provide information. Information was obtained by reviewing the chart and communicating with staff. Reportedly, the patient's blood sugar was 41/56 on arrival and the patient was managed for metabolic encephalopathy. There is no report of chest pain. Cardiology is involved for cardiac aspects of care. It seems that since arrival, the patient was in atrial fibrillation and has been kept on amiodarone drip by the primary team. Patient does have a pacemaker implanted to the left side of the chest also. There is no previous information in the chart. I reached out to the available contact numbers on the patient's face sheet and also reviewed outside records available in [facility]. Contact numbers are disconnected/mistaken or no response. It seems that the patient has history of old atrial fibrillation. Patient's outside medications are not available to review. It seems that the patient does have history of old CVA/seizure disorder/Parkinson's disease/diabetes and hypertension. There is question about previous history of bladder mass. Noncommunicative. Lying flat in bed. No gross JVD. Mucosa is pink. No carotid bruit. Lung examination reveals scattered rhonchi. There is no rales. Cardiac: Irregular, no thrill. Systolic murmur 2/6 in the apex is heard. Abdomen is soft. Right upper and lower extremities are edematous. Patient is uncooperative and can not be fully examined Reported past medical history includes hypertension, diabetes mellitus, old history of CVA, parkinsonism, seizure disorder, atrial fib and also history of pacemaker (Biotronik: review of the its image) implantation. Patient non- compliant with medication and follow ups (as per son) WBC: 10.1 (with shift to the left) - 9.7 - 8.6 Creatinine: 2.73 - 2.62 - 1.89 - 1.68 - 1.31 Potassium: 5.8 - 5.8 - 5.0 - 3.6 - 3.6 - 3.0 Lactic acid: 7.2 - 2.5 AST/ALT: 4520/2306 - 4549/2598 - 1517/961 BNP: 2031.22 Ammonia: 32 BNP: 2031.22 Trop (high sensitive): 191 - 65 - 156 - 106 - 82 - 73 D-Dimer: 21.40 CK: 1448 TSH: 4.34 Urine toxicology: Nonrevealing Chest x-ray revealed: IMPRESSION: Cardiomegaly with pulmonary vascular congestion and bilateral patchy airspace opacities. Small bilateral pleural effusions, [id number]-[id number]-left. CT of the abdomen and pelvis reported: IMPRESSION: 1. Right lower lobe pneumonia. 2. Moderate right pleural effusion 3. Soft tissue density is seen in the left posterior bladder measuring 3.1 cm, possibly reflecting hematoma or mass. Consider correlation with CT urogram. CT of the head reported: IMPRESSION: No intracranial hemorrhage or mass effect. Cerebral encephalomalacia as described most pronounced within the left temporal lobe. Right frontal scalp, right facial region soft tissue emphysema. Correlate for traumatic and other etiologies. Right facial region contusion. Repeat CT of head revealed: MPRESSION: No evidence of acute intracranial hemorrhage, mass effect or hydrocephalus. Left frontal, parietal and temporal encephalomalacia most pronounced in the left temporal lobe. Jxfn-yd-hkiazkvd global cerebral volume loss. CT of chest without contrast: There is limited interpretation of the abdomen and pelvis without administration of intravenous contrast. The trachea is patent. No pneumothorax. Moderate right and small left pleural effusions. Right upper, middle and lower lobe airspace consolidation, ground-glass disease most pronounced within the right lower lobe. Left lower lobe consolidation/atelectasis. Heart enlarged. Coronary artery calcification disease. Fluid within the superior pericardial recess. Upper abdomen demonstrates small amount of ascites fluid. Mesenteric edema. Gallbladder hyperdensity/sludge. Gastric wall thickening. Colonic diverticula. Soft tissue edema/anasarca. Left chest dual lead cardiac pacing device. IMPRESSION: Limited evaluation without contrast. Moderate right and small left pleural effusions. Bilateral consolidation/ atelectasis and ground-glass disease, omdky-hzklegt-decr-left which can be secondary to combination of infection, edema, hypoventilatory changes. Upper abdomen demonstrates small amount of ascites fluid, Mesenteric edema. Gallbladder hyperdensity/ sludge which can be further characterized with abdominal ultrasound. Colonic diverticular disease. Cardiomegaly, coronary artery calcification disease. Other findings as described Venous duplex of lower ext revealed: IMPRESSION: No right or left femoropopliteal venous thrombosis. 5cm right lower extremity bakers cyst. END IMPRESSION: If clinical concern/symptoms persist or worsen, short-interval follow-up study is suggested. V/Q scan reported: IMPRESSION: 1. Low probability for PE. EKG revealed atrial fibrillation with RVR Tele reveals atrial fibrillation with RVR Echocardiogram revealed: Dilated 4 chambers were seen. Left ventricle: Left ventricle was dilated with significantly reduced systolic function. LVEF was around 5%. Diffuse hypokinesis of left ventricle was seen. 1.5 x 1.1 x 0.9 hyperechoic mass in the LV apex compatible with thrombus was seen. Right ventricle was dilated with reduced systolic function. Both atria were dilated. Pacing wire was seen in right-sided chambers. Aortic valve was trileaflet. There was no aortic stenosis/insufficiency. There was [id number] mitral and tricuspid regurgitation. Pulmonary valve was not well visualized. IVC was dilated. Right ventricular systolic pressure was assessed at around 45 mm Hg. There was no pericardial effusion. Compatible with end-stage systolic heart failure/cardiomyopathy with LV apex thrombus. [employer] PM INTERROGATION: Battery: Remaining capacity to AMRIT: 36%; Battery voltage: 2.96 volts; DDDR:60/130; Sensing: A 0.5/V8.7 mV; Lead impedance: A400/V450 Ohms; A pace: 16%; V pace: 14%; AT/AF burden: 61% Patient is a 63-year-old gentleman who was brought by neighbor reportedly for altered level of consciousness. On arrival, the patient was hypoglycemic. LFTs have been abnormal. Lactic acid on arrival was elevated. Kidney function was not normal and the patient had shift to the left in leukocyte count. CT of the head questioned soft tissue problem and questionable trauma? Presentation is more in favor of metabolic problems. It seems that the patient does have history of atrial fibrillation and also pacemaker implantation from before. Detailed information of previous cardiac history is not available. It is unknown if patient has been compliant with medications and the type of medications. Minimal increase in troponin most likely reflects demand physiology. Serial troponin is justified. Patient does have right-sided extremity edema. Could this be reflective of old CVA and hemiparesis or can not be DVTs?. Being followed by Nephrology, Urology and Pulmonary. Echo is in favor of advanced end stage systolic heart failure / Cardiomyopathy with LV thrombus. We have not been to get any outside previous records yet. Is seen and being followed by Neurology / Pulmonology / GI / Nephrology. I could talk to son ([phone]) who provided more information. 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 Patient is not compliant with medications as outpatient. Only goes to some clinic infrequently. Does have poor baseline functional status. Encephalopathy, metabolic? Multiorgan involvement Acute renal failure Abnormal LFT Atrial fibrillation with RVR Status post pacemaker implantation (Biotronik? ) Right-sided edema Bladder mass UTI? Pneumonia Right pleural effusion Abnormal D-dimer Pneumonia Systolic heart failure Acute on chronic systolic heart failure Cardiomyopathy LV thrombus Cardiac suggestion for management: Fluid resuscitation Follow-up electrolytes and kidney function tests and correct abnormalities Amiodarone drip can be justified Heparin drip Pressure support to keep MAP above 60 GDMT for systolic CHF when stable Life Vest, when patient becomes more alert and if he can manage it Neurology follow up Pulmonary follow up GI follow up Treatment of pneumonia/UTI as per primary team/Pulmonary Attempt to get prior medical records and information Further evaluation and management depends on the above and clinical course A total of 75 minutes was spent reviewing the patient record, examining the patient, making a diagnostic and therapeutic plan, discussing this plan with medical personnel, following up on diagnostic studies and following the patient for clinical stability excluding any and all procedures. At least 50% of this time was spent in direct, [id number] contact. Thank you for allowing me to participate in this patient's care. Further recommendations will depend on patient's clinical course. Please do not hesitate to contact me if you have any questions or concerns. This medical document was created using electronic medical record system with [employer] computerized dictation system. Although this document has been carefully reviewed, there may still be some phonetic and typographical errors. These areas are purely typographical due to the imperfection of the software programs, and do not reflect any compromise in the patient's medical care. Plan discussed with: Son (on the phone ([phone])), Other (nurse) JAMES CULLEN MD Dec 16, 2024 06:23
[2024-12-16] MEDS: POTASSIUM CHL 20MEQ/100ML 100 ML IV ONE ×2 (06:53→08:52)
[2024-12-16 07:14] LABS: INR 2.15 (0.9-1.15); Prothrombin Time 21.1 sec (9.3-11.8)
[2024-12-16 07:23] LABS: Partial Thromboplastin Time 83.7 SEC (24.5-34.5)
--- NOTE | 2024-12-16 09:05 | DVHPN2 ---
Progress Note - Dictate Date Seen: Dec 16, 2024 Has the PT tested + for MRSA If YES, has PT been informed?: No Medical Necessity Reason Pt with a Central, PICC or Fol: Yes The following are medically ne: Clayton Catheter Reason for clayton catheter: Bladder Retention/Obstruc, Strict I&O Subjective Mr. Miller is a 63 years old right-handed gentleman with a history of hypertension, diabetes, the patient came to the hospital on this is 12/13/24 for ALOC. I saw him on 04/09/2017 for seizure I have seen and examined patient last evening and this morning, I have talked to his nurses, due to dysphagia, his Parkinson's med he is on hold, he is to have NG tube I see almost continuous subtle tremors in the chin, and neck, I see mild intermittent resting tremors in the left arm and leg He is responsive to verbal stimuli, he follows some of my verbal commands. The history is obtained from his son, Luisito. His son Does not know what happened, but the patient did not feel good in the lasts a few days, and then was said to be mentally altered before he was taken to the hospital He had 2 strokes with the 1st one in 2015, both caused right-sided weakness, he is supposed to but was not on secondary stroke prevention treatment Coincidentally after his 1st stroke in 2015, the patient is has mild Parkinson's symptoms, his son's not able further specify. Since [id number], the symptoms are more obvious. Her my observation on 12/15/2024, he has soft voice, diminished facial expression, blinking, intermittent resting tremor in the left arm and the leg. His son does not know his Parkinson's medication, according to our record, he was supposed to be on Sinemet 25/100 mg two tablets t.i.d. Coincidentally after the 1st stroke in 2015, the patient has had progressive memory difficulty His son is not aware of his seizure symptoms, he presumed grand mal seizure. According my consult report dated 04/09/2017, the patient had new onset seizure at home, and two more on route to the emergency room. The patient had postictal confusion. The son can not give more details about his seizure history, the patient was on seizure medication until 2021 when he decided to stopped taking His son is not aware of liver problems on him Hepatitis pattern, 12/13/24: Negative UDS, 12/14/2023: Negative Urinalysis, 12/13/2024: WBC: 15, urine leukocyte esterase: Negative CBC, 12/14/2024: Hypoxia, compensated metabolic acidosis WBC/HB/PLT/MCV, 12/13/2024: 10.1/40.9/105/89.2 PT/INR/PTT, 12/14/24: 34.9/3.75/. 32.9/3.52/78.1. 12/15/2024: 26.8/2.8/75.8 BUN/CR, 12/13/2024: 56/2.73, 12/15/2024: 77/1 Glucose, 12/13/2024: 56., 133,, 12/15/2024: 127, 12/16/2024: 407 Troponin one high sensitivity, 12/14/2024: 191, 65, 156, 12/15/2024: 106 TBI/AST/ALT/AP, 12/13/2024, 07/4519/08357/81 Ammonia, 12/13/2024: 32 TG/CH OL/LDL/HDL, 04/09/17: 66/171/104/63 Vitamin B12, 12/15/24: 2000 Folate, 12/15/2024: 20.43 TSH, 12/15/2024: 4.34 FT4, 12/16/2023: 0.73 Echocardiogram, 04/08/17: Unremarkable Carotid Doppler, 03/2017: Unremarkable CT, 04/07/17: No intracranial hemorrhage. Left temporal lobe non-hemorrhagic infarct of indeterminate chronicity. Chronic lacunar infarct right frontal white matter. CT head, 12/14/2024: No evidence of acute intracranial hemorrhage, mass effect or hydrocephalus. Left frontal, parietal and temporal encephalomalacia most pronounced in the left temporal lobe. [id number] global cerebral volume loss. CT chest/abdomen/pelvis, 12/14/2023: 1. Right lower lobe pneumonia. 2. Moderate right pleural effusion 3. Soft tissue density is seen in the left posterior bladder measuring 3.1 cm, possibly reflecting hematoma or mass. Consider correlation with CT urogram MRI head 04/09/2017: 1. No evidence of acute infarct. 2. Chronic infarct with laminar necrosis involving the superior left temporal lobe and small portion of the inferior left parietal lobe. 3. Small focus of chronic lacunar infarct in the right centrum semiovale. 4. Mild diffuse volume loss. vital signs Vital Sign Date Time Temp Pulse Resp B/P (MAP) Pulse Ox O2 Delivery O2 Flow Rate FiO2 12/16/24 06:45 112 13 110/72 (85) 100 12/16/24 06:15 Room Air 12/16/24 06:15 0 21 21 12/16/24 03:15 98.6 98.6 Total Intake and Output 12/15/24 12/15/24 12/16/24 15:00 23:00 07:00 Intake Total 270.28 ml 267.78 ml 342.28 ml Output Total 3800 ml 1200 ml Balance 270.28 ml -3532.22 ml -857.72 ml medications Current Medications Medications Dose Ordered Sig/Diane Route Start Time Stop Time Status Last Admin Dose Admin Acetaminophen/ Hydrocodone Bitart 1 tab Q4HP PRN PO 12/13/24 19:15 Ondansetron HCl 4 mg Q4HP PRN IV 12/13/24 19:15 Enoxaparin Sodium 40 mg DAILY SC 12/14/24 10:00 UNV Acetaminophen 650 mg Q6HP PRN PO 12/13/24 19:15 Nitroglycerin 0.4 mg Q5MINP PRN SL 12/13/24 19:15 Morphine Sulfate 2 mg Q30M PRN IV 12/13/24 19:15 Piperacillin Sod/ Tazobactam Sod 100 ml @ 25 mls/hr Q12H IV 12/13/24 22:00 12/15/24 22:24 25 MLS/HR Vancomycin HCl 0 ml @ 0 mls/hr UD IV 12/13/24 19:15 Albuterol 2.5 mg Q4HPRN PRN NEB 12/13/24 19:30 Diagnostic Test (Pha) 1 strip ACHS 12/13/24 22:00 12/16/24 05:51 1 STRIP Insulin Human Regular ACHS SC 12/13/24 22:00 Dextrose 50 ml UD PRN IV 12/13/24 19:30 Carbidopa/Levodopa 1 tab TID PO 12/13/24 22:00 12/15/24 22:19 1 TAB Lactulose 30 ml Q8HR PO 12/13/24 22:00 12/15/24 06:04 30 ML Metoprolol Tartrate 2.5 mg Q6HPRN PRN IV 12/13/24 19:45 Hold Ipratropium [place] 0.5 mg Q4HPRN PRN NEB 12/13/24 22:00 12/14/24 18:19 0.5 MG Norepinephrine Bitartrate 250 ml @ 3.75 mls/hr Q24H IV 12/14/24 10:00 Amlodipine Besylate 2.5 mg DAILY PO 12/15/24 10:00 12/15/24 10:29 2.5 MG Lorazepam 1 mg Q5MINP PRN IV 12/15/24 10:30 Levetiracetam 500 mg BID PO 12/15/24 22:00 12/15/24 22:19 500 MG Phenylephrine HCl 80 mg/Sodium Chloride 250 ml @ 7.5 mls/hr Q24H IV 12/15/24 17:00 12/15/24 22:03 7.5 MLS/HR Heparin Sodium/ Dextrose 250 ml @ 9 mls/hr Q24H IV 12/16/24 00:15 12/16/24 00:53 9 MLS/HR Furosemide 40 mg DAILY IV 12/16/24 10:00 objective General: the patient is well developed and nourished. No acute distress. MENTAL STATUS: Subjective SPEECH, LANGUAGE, HIGHER CORTICAL FUNCTION: Subjective CRANIAL NERVES: Pupils are equal, round and reactive. EOMs full and conjugate. No nystagmus. Facial sensation intact in all three divisions bilaterally. Mandibular strength intact. Facial muscles symmetrical and strength intact. Diminished facial expression SENSATION: Sensation to touch and pinprick is normal. MOTOR: Normal tone in the upper and lower extremity. Normal muscle bulk. No fasciculations. Intermittent resting tremor in the left arm and leg REFLEXES: Deep tendon reflexes normal and symmetrical. No pathological reflexes. CEREBELLAR/COORDINATION: Deferred GAIT/STATION: deferred. laboratory and microbiology Laboratory Tests 12/16/24 04:56 Test 12/16/24 04:56 Range/Units Serum Glucose 407 #*H 74-106 mg/dL Problem List Altered mental status Metabolic encephalopathy ? Hepatic encephalopathy Subclinical seizure Chronic multiple strokes Parkinson's disease Cognitive dysfunction Vascular dementia Rule out Alzheimer disease Liver failure Coagulopathy Elevated troponin I/heart attack Assessment/Plan Monitoring Supportive treatment Telemetry Lipid profile Sinemet 100 mg t.i.d. for now Lorazepam 2 mg IV every hour when necessary seizure Keppra 500 mg b.i.d. Cardiology on case GI specialist on case More recommendation per clinical course Progress, poor This medical document was created using an electronic medical record system with [employer] dictation system. Although this document has been carefully reviewed, there may still be some phonetic and typographical errors. These areas are purely typographical due to imperfections of the software programs, and do not reflect any compromise in the patient's medical care. Prognosis poor Plan discussed with: Other Critical Care Time(min): 35 MARTÍN OWEN MD Dec 16, 2024 09:05
[2024-12-16] MEDS: FUROSEMIDE 40 MG/4 ML VIAL IV SCH (10:09)
--- NOTE | 2024-12-16 10:46 | DVH ---
CHEST RADIOGRAPH Indication:VERIFY NGTUBE PLACEMENT Technique: Single frontal view of the chest was obtained Comparison: none FINDINGS: Lines and Tubes: NG tube tip in the stomach. Left-sided pacemaker. Lungs: Unchanged right basilar opacity. Pleura: No effusion. No pneumothorax. Cardiomediastinal contours: Unremarkable Bones: No acute osseous abnormality. IMPRESSION: NG tube tip in the stomach.
[2024-12-16] MEDS ORDERED: DEXTROSE (50%) 50ML SYRG IV PRN (12:00)
--- NOTE | 2024-12-16 12:17 | ECG ---
[facility] Test Date: 2024-12-13 Test Time: 09:59:16 Pat Name: DEMETRIUS RUSTDepartment: ED Room: 0266 A Gender: M Grand Scribe: FAITH : 1960 Requested By: JEFF LU Order Number: [id number] Reading MD: Jesus Morris Measurements Intervals [place] Rate: 143 P: 0 DE: 0 QRS: 181 QRSD: 100 T: 13 QT: 308 QTc: 475 Interpretive Statements Atrial fibrillation Right axis deviation Low voltage, extremity leads Consider anterior infarct Electronically Signed On 12-16-2024 22:24:57 PDT by Jesus Morris Please click the below link to view image of tracing.
--- NOTE | 2024-12-16 13:00 | DVHPN2 ---
Progress Note Date Seen: Dec 16, 2024 Has the PT tested + for MRSA If YES, has PT been informed?: No Medical Necessity Reason Pt with a Central, PICC or Fol: Yes The following are medically ne: Clayton Catheter Reason for clayton catheter: Bladder Retention/Obstruc, Strict I&O Subjective Changes from previous H/P or p: No Changes Review of Systems: Deferred Objective vital signs Vital Sign Date Time Temp Pulse Resp B/P (MAP) Pulse Ox O2 Delivery O2 Flow Rate FiO2 12/16/24 11:45 238 14 101/80 (87) 100 12/16/24 10:00 Room Air* 0 21 12/16/24 08:00 99.1 99.1 Total Intake and Output 12/15/24 12/15/24 12/16/24 15:00 23:00 07:00 Intake Total 270.28 ml 267.78 ml 342.28 ml Output Total 3800 ml 1200 ml Balance 270.28 ml -3532.22 ml -857.72 ml medications Current Medications Medications Dose Ordered Sig/Diane Route Start Time Stop Time Status Last Admin Dose Admin Acetaminophen/ Hydrocodone Bitart 1 tab Q4HP PRN PO 12/13/24 19:15 Ondansetron HCl 4 mg Q4HP PRN IV 12/13/24 19:15 Enoxaparin Sodium 40 mg DAILY SC 12/14/24 10:00 UNV Acetaminophen 650 mg Q6HP PRN PO 12/13/24 19:15 Nitroglycerin 0.4 mg Q5MINP PRN SL 12/13/24 19:15 Morphine Sulfate 2 mg Q30M PRN IV 12/13/24 19:15 Piperacillin Sod/ Tazobactam Sod 100 ml @ 25 mls/hr Q12H IV 12/13/24 22:00 12/16/24 10:10 25 MLS/HR Vancomycin HCl 0 ml @ 0 mls/hr UD IV 12/13/24 19:15 Albuterol 2.5 mg Q4HPRN PRN NEB 12/13/24 19:30 Diagnostic Test (Pha) 1 strip ACHS 12/13/24 22:00 12/16/24 11:30 1 STRIP Insulin Human Regular ACHS SC 12/13/24 22:00 Dextrose 50 ml UD PRN IV 12/13/24 19:30 Carbidopa/Levodopa 1 tab TID PO 12/13/24 22:00 12/15/24 22:19 1 TAB Lactulose 30 ml Q8HR PO 12/13/24 22:00 12/15/24 06:04 30 ML Metoprolol Tartrate 2.5 mg Q6HPRN PRN IV 12/13/24 19:45 Hold Ipratropium [place] 0.5 mg Q4HPRN PRN NEB 12/13/24 22:00 12/14/24 18:19 0.5 MG Norepinephrine Bitartrate 250 ml @ 3.75 mls/hr Q24H IV 12/14/24 10:00 Amlodipine Besylate 2.5 mg DAILY PO 12/15/24 10:00 12/15/24 10:29 2.5 MG Lorazepam 1 mg Q5MINP PRN IV 12/15/24 10:30 Levetiracetam 500 mg BID PO 12/15/24 22:00 12/16/24 10:10 500 MG Phenylephrine HCl 80 mg/Sodium Chloride 250 ml @ 7.5 mls/hr Q24H IV 12/15/24 17:00 12/15/24 22:03 7.5 MLS/HR Heparin Sodium/ Dextrose 250 ml @ 9 mls/hr Q24H IV 12/16/24 00:15 12/16/24 00:53 9 MLS/HR Furosemide 40 mg DAILY IV 12/16/24 10:00 12/16/24 10:09 40 MG Examination: GENERAL:Abnormal, LUNGS:Abnormal, CVS:Abnormal laboratory and microbiology Laboratory Tests 12/16/24 04:56 Test 12/16/24 04:56 Range/Units Serum Glucose 407 #*H 74-106 mg/dL Microbiology Date/Time Source Procedure Growth Status 12/15/24 01:00 Nose MRSA Screen - Final Complete 12/13/24 11:30 Urine - [place] Urine Culture - Final Complete 12/13/24 11:05 Blood Blood Culture - Preliminary NO GROWTH AFTER 72 HOURS OF INCUBATION. Resulted Problem List/Assessment/Plan Problem List/Assessment/Plan 63 year male presented with b/l leg swelling but was admitted for renal failure and altered mental state No background information available on admission outside hx Parkinsonism/ CVA and afib Acute kidney injury suspect cardiorenal syndrome ckd unspecified hypotension & afib RVR CHF EF < 10% proteinuria AMS baseline unknown/ parkinsonism ? bladder mass on CT elevated AST/ALT bilirubin thrombocytopenia elevated INR High Dimer V/Q neg for PE renal function has improved to acceptable limits GFR now > 60% Nonverbal and lethargic Keep MAP > 65, levophed PRN lasix IV still hypervolemic, reduced dose to 40mg IV daily cardiology rate control GI eval Urology rec outpatient f/u for bladder mass Obtain outpatient information from family about patient's baseline mental state Neurology guarded prognosis due to multiple medical conditions critically ill, critical care time 35 minutes Plan discussed with: Other My Orders My Orders Orders - MELI CASSIDY MD Procedure Category Date Status Time Furosemide Injection PHA 12/16/24 In Process (Lasix Injection) 10:00 Dietary Evaluation Review Comments: Nutrition Recommendation: 1) Advance to CCHO 60gm + cardiac diet as medically feasible 2) If feeding tube is placed, consider TF Glucerna 1.2Cal @ 60ml/hr (goal) TF @ goal volume provides 1728 kcal (100% energy needs), 86 gm protein (100% protein needs), 1159 ml free water. 3) Water flush 100ml Q4H if allowed, adjust PRN 4) TPN if NPO >7 days 5) Monitor NPO status, lab values, wt trend, I/O Expected Outcomes/Goals: To meet >75% estimated needs Lab values to improve Fu 2-3 days MELI CASSIDY MD Dec 16, 2024 13:00
--- NOTE | 2024-12-16 13:30 | DVHPN2 ---
Progress Note - Dictate Date Seen: Dec 16, 2024 Has the PT tested + for MRSA If YES, has PT been informed?: No Medical Necessity Reason Pt with a Central, PICC or Fol: Yes The following are medically ne: Clayton Catheter Reason for clayton catheter: Bladder Retention/Obstruc, Strict I&O vital signs Vital Sign Date Time Temp Pulse Resp B/P (MAP) Pulse Ox O2 Delivery O2 Flow Rate FiO2 12/16/24 13:00 87 11 102/79 (87) 100 12/16/24 12:00 98.6 98.6 12/16/24 12:00 Room Air* 0 21 Total Intake and Output 12/15/24 12/15/24 12/16/24 15:00 23:00 07:00 Intake Total 270.28 ml 267.78 ml 342.28 ml Output Total 3800 ml 1200 ml Balance 270.28 ml -3532.22 ml -857.72 ml medications Current Medications Medications Dose Ordered Sig/Diane Route Start Time Stop Time Status Last Admin Dose Admin Acetaminophen/ Hydrocodone Bitart 1 tab Q4HP PRN PO 12/13/24 19:15 Ondansetron HCl 4 mg Q4HP PRN IV 12/13/24 19:15 Enoxaparin Sodium 40 mg DAILY SC 12/14/24 10:00 UNV Acetaminophen 650 mg Q6HP PRN PO 12/13/24 19:15 Nitroglycerin 0.4 mg Q5MINP PRN SL 12/13/24 19:15 Morphine Sulfate 2 mg Q30M PRN IV 12/13/24 19:15 Piperacillin Sod/ Tazobactam Sod 100 ml @ 25 mls/hr Q12H IV 12/13/24 22:00 12/16/24 10:10 25 MLS/HR Vancomycin HCl 0 ml @ 0 mls/hr UD IV 12/13/24 19:15 Albuterol 2.5 mg Q4HPRN PRN NEB 12/13/24 19:30 Diagnostic Test (Pha) 1 strip ACHS 12/13/24 22:00 12/16/24 11:30 1 STRIP Insulin Human Regular ACHS SC 12/13/24 22:00 Dextrose 50 ml UD PRN IV 12/13/24 19:30 Carbidopa/Levodopa 1 tab TID PO 12/13/24 22:00 12/15/24 22:19 1 TAB Lactulose 30 ml Q8HR PO 12/13/24 22:00 12/15/24 06:04 30 ML Metoprolol Tartrate 2.5 mg Q6HPRN PRN IV 12/13/24 19:45 Hold Ipratropium [place] 0.5 mg Q4HPRN PRN NEB 12/13/24 22:00 12/14/24 18:19 0.5 MG Norepinephrine Bitartrate 250 ml @ 3.75 mls/hr Q24H IV 12/14/24 10:00 Amlodipine Besylate 2.5 mg DAILY PO 12/15/24 10:00 12/15/24 10:29 2.5 MG Lorazepam 1 mg Q5MINP PRN IV 12/15/24 10:30 Levetiracetam 500 mg BID PO 12/15/24 22:00 12/16/24 10:10 500 MG Phenylephrine HCl 80 mg/Sodium Chloride 250 ml @ 7.5 mls/hr Q24H IV 12/15/24 17:00 12/15/24 22:03 7.5 MLS/HR Heparin Sodium/ Dextrose 250 ml @ 9 mls/hr Q24H IV 12/16/24 00:15 12/16/24 00:53 9 MLS/HR Furosemide 40 mg DAILY IV 12/16/24 10:00 12/16/24 10:09 40 MG objective General Appearance: alert, no distress HEENT: EOMI, PERRLA, normal external inspect of ears, no icterus, no nasal drainage Neck: no carotid bruit, no jugular venous distention (JVD), no lymphadenopathy Chest: normal thorax Respiratory: clear to auscultation, normal air movement Cardiovascular: regular rate and rhythm, no diastolic murmur, no jugular venous distention (JVD), no rub, no systolic murmur Abdominal: soft, no hepatomegaly, no mass, no splenomegaly, no tenderness Genitourinary: grossly normal external Musculoskeletal: no joint tenderness, no swelling Extremities: normal pulses, no calf tenderness, no clubbing, no cyanosis, no edema Skin: no bruising, no jaundice, no rash Neurological: alert, No focal deficit laboratory and microbiology Laboratory Tests 12/16/24 04:56 Test 12/16/24 04:56 Range/Units Serum Glucose 407 #*H 74-106 mg/dL Problem List Acute metabolic encephalopathy Assessment: Patient presents with ALOC, brought in by a neighbor. Blood glucose levels in the emergency room were critically low at 41 and 56 mg/dL, indicating severe hypoglycemia. Patient is alert times 2 but unable to answer questions for review of systems. The ALOC is likely multifactorial, potentially due to hypoglycemia, acute kidney injury (JEFFERY), and possible acute hepatitis. Plan: - Obtain ammonia level - Consult neurology for acute metabolic encephalopathy - Start IV fluids - Initiate insulin sliding scale for diabetes management Acute Kidney Injury (JEFFERY) Assessment: Patient presents with JEFFERY, likely due to vasomotor nephropathy. Laboratory findings show hyperkalemia (potassium 5.8 mEq/L), elevated creatinine (2.73 mg/dL), and BUN (56 mg/dL). Plan: - Hold blood pressure medications - Continue IV fluid administration - Monitor renal function and electrolytes Right Lower Lobe Pneumonia with Right Pleural Effusion Assessment: CT abdomen revealed moderate right pleural effusion and right lower lobe pneumonia. The pneumonia is likely gram-negative or gram-positive in origin. Plan: - Start vancomycin and Zosyn (piperacillin/tazobactam) - Obtain sputum culture - Consult pulmonary for possible thoracentesis Acute Cystitis with Hematuria Assessment: Patient presents with acute cystitis accompanied by hematuria. Plan: - Start IV antibiotics Type 2 Diabetes Mellitus Assessment: Patient has a history of type 2 diabetes and presented with severe hypoglycemia (blood glucose 41 and 56 mg/dL) in the emergency room. Plan: - Initiate insulin sliding scale Hypertension Assessment: Patient has a history of hypertension. Plan: - Hold blood pressure medications at this time Parkinson's Disease Assessment: Patient has a known history of Parkinson's disease. Plan: - Continue home medications for Parkinson's disease History of Stroke Assessment: Patient has a history of stroke. Plan: - Monitor neurological status Atrial Fibrillation with Rapid Ventricular Response (AFib with RVR) Assessment: Patient has possible atrial fibrillation with rapid ventricular response. INR is elevated at 3.61. Plan: - Monitor cardiac rhythm -Consult cardiology -Heparin drip Hyperkalemia Assessment: Patient presents with significant hyperkalemia (potassium 5.8 mEq/L). Plan: - Implement hyperkalemia protocol - Consult nephrology - Monitor electrolyte levels closely Pacemaker in place -cardiology consult Ischemic cardiomyopathy -cardiology consult -monitor EKG Left ventricular thrombus - cardiology consult - heparin drip Assessment/Plan Subjective: Patient is not awake or alert. Objective: Patient has metabolic hepatic encephalopathy. According to his son, patient does not drink and has never had alcohol in the past. Patient was admitted for encephalopathy and also has ischemic cardiomyopathy with left ventricular thrombus; EF is estimated at 510%. Patient had elevated D-dimer, but V/Q scan was negative for PE. Patient has a bladder mass; per Urology, outpatient follow- up is planned. Patient has a history of multiple CVAs (6 years ago). Imaging was negative for acute CVA. Patient also has Parkinsons disease. Per son, patient has limited function of the left upper extremity. Son is interested in learning about hospice and possible discharge to home with hospice. Plan: Consult Hospice for evaluation. Continue current treatment. Begin discharge planning for possible home hospice services. Dietary Evaluation Review Comments: Nutrition Recommendation: 1) Advance to [facility] 60gm + cardiac diet as medically feasible 2) If feeding tube is placed, consider TF Glucerna 1.2Cal @ 60ml/hr (goal) TF @ goal volume provides 1728 kcal (100% energy needs), 86 gm protein (100% protein needs), 1159 ml free water. 3) Water flush 100ml Q4H if allowed, adjust PRN 4) TPN if NPO >7 days 5) Monitor NPO status, lab values, wt trend, I/O Expected Outcomes/Goals: To meet >75% estimated needs Lab values to improve Fu 2-3 days Plan discussed with: Patient, Other JOHN GREWAL ACCOUNTING LECTURER Dec 16, 2024 13:30
[2024-12-16 13:49] LABS: INR 1.9 (0.9-1.15); Partial Thromboplastin Time 64.5 SEC (24.5-34.5); Prothrombin Time 18.9 sec (9.3-11.8)
[2024-12-16] MEDS: VANCOMYCIN 1GM/250ML KIT 250 ML IV ONE (14:28)
--- NOTE | 2024-12-16 14:34 | CONS ---
Pharmacy Clinical Information: HEPARIN DRIP, DVT PROTOCOL @13:17 APTT 64.5 - NO BOLUS / NO CHANGE NEXT APTT DRAW SCHEDULED @1930 PER RX PROTOCOL CONFIRMED AND READ BACK WITH [facility] RES[facility] Dec 16, 2024 14:34
[2024-12-16] MEDS ORDERED: Glucerna 1.2 Cal 1Liter BOTTLE GT SCH (14:45)
--- NOTE | 2024-12-16 16:25 | DVHPN2 ---
Progress Note Date Seen: Dec 16, 2024 Resident Creating Document: TATIANA MÁRQUEZ RESIDENT Has the PT tested + for MRSA If YES, has PT been informed?: No Medical Necessity Reason Pt with a Central, PICC or Fol: Yes The following are medically ne: Clayton Catheter Reason for clayton catheter: Bladder Retention/Obstruc, Strict I&O Subjective Review of Systems TODAY'S PROGRESS- Patient remains lethargic and sluggish to arouse but is hemodynamically stable. Started on Glucerna tube feedings via enteral route Continue on broad-spectrum antibiotics for pneumonia/UTI per primary team. No evidence of GI bleeding, hematemesis or melena reported WBC count normal, hemoglobin stable at 16.3, platelets at 81 K improved from 77 yesterday. Creatinine improved to 1.31 Coags-PT is 21.1 high, INR 2.15 high, APTT is 83.7 high but improving from yesterday. Liver panel-trending down, AST ALT improving. Ammonia-stable we will monitor it closely. Hepatitis panel negative GENOVEVA-pending Objective vital signs Vital Sign Date Time Temp Pulse Resp B/P (MAP) Pulse Ox O2 Delivery O2 Flow Rate FiO2 12/16/24 14:15 89 10 106/69 (81) 100 12/16/24 12:00 98.6 98.6 12/16/24 12:00 Room Air* 0 21 Total Intake and Output 12/15/24 12/15/24 12/16/24 15:00 23:00 07:00 Intake Total 270.28 ml 267.78 ml 342.28 ml Output Total 3800 ml 1200 ml Balance 270.28 ml -3532.22 ml -857.72 ml medications Current Medications Medications Dose Ordered Sig/Diane Route Start Time Stop Time Status Last Admin Dose Admin Acetaminophen/ Hydrocodone Bitart 1 tab Q4HP PRN PO 12/13/24 19:15 Ondansetron HCl 4 mg Q4HP PRN IV 12/13/24 19:15 Enoxaparin Sodium 40 mg DAILY SC 12/14/24 10:00 UNV Acetaminophen 650 mg Q6HP PRN PO 12/13/24 19:15 Nitroglycerin 0.4 mg Q5MINP PRN SL 12/13/24 19:15 Morphine Sulfate 2 mg Q30M PRN IV 12/13/24 19:15 Piperacillin Sod/ Tazobactam Sod 100 ml @ 25 mls/hr Q12H IV 12/13/24 22:00 12/16/24 10:10 25 MLS/HR Vancomycin HCl 0 ml @ 0 mls/hr UD IV 12/13/24 19:15 Albuterol 2.5 mg Q4HPRN PRN NEB 12/13/24 19:30 Diagnostic Test (Pha) 1 strip ACHS 12/13/24 22:00 12/16/24 11:30 1 STRIP Insulin Human Regular ACHS SC 12/13/24 22:00 Dextrose 50 ml UD PRN IV 12/13/24 19:30 Carbidopa/Levodopa 1 tab TID PO 12/13/24 22:00 12/16/24 14:13 1 TAB Lactulose 30 ml Q8HR PO 12/13/24 22:00 12/16/24 14:13 30 ML Metoprolol Tartrate 2.5 mg Q6HPRN PRN IV 12/13/24 19:45 Hold Ipratropium [place] 0.5 mg Q4HPRN PRN NEB 12/13/24 22:00 12/14/24 18:19 0.5 MG Norepinephrine Bitartrate 250 ml @ 3.75 mls/hr Q24H IV 12/14/24 10:00 Amlodipine Besylate 2.5 mg DAILY PO 12/15/24 10:00 12/15/24 10:29 2.5 MG Lorazepam 1 mg Q5MINP PRN IV 12/15/24 10:30 Levetiracetam 500 mg BID PO 12/15/24 22:00 12/16/24 10:10 500 MG Phenylephrine HCl 80 mg/Sodium Chloride 250 ml @ 7.5 mls/hr Q24H IV 12/15/24 17:00 12/15/24 22:03 7.5 MLS/HR Heparin Sodium/ Dextrose 250 ml @ 9 mls/hr Q24H IV 12/16/24 00:15 12/16/24 00:53 9 MLS/HR Furosemide 40 mg DAILY IV 12/16/24 10:00 12/16/24 10:09 40 MG Enteral Nutritional Formula 1,000 ml 70ML/HR GT 12/16/24 14:45 Examination General: Lethargic, sluggish to arouse. * HEENT: No icterus noted, but bilirubin elevated. * Abdomen: Soft, nondistended, no tenderness, no guarding. No hepatosplenomegaly palpated. Trace ascites reported on imaging. laboratory and microbiology Laboratory Tests 12/16/24 04:56 Test 12/16/24 04:56 Range/Units Serum Glucose 407 #*H 74-106 mg/dL Microbiology Date/Time Source Procedure Growth Status 12/15/24 01:00 Nose MRSA Screen - Final Complete 12/13/24 11:30 Urine - [place] Urine Culture - Final Complete 12/13/24 11:05 Blood Blood Culture - Preliminary NO GROWTH AFTER 72 HOURS OF INCUBATION. Resulted Problem List/Assessment/Plan Problem List/Assessment/Plan Assessment Assessment 1. Severe acute hepatocellular injury (ischemic/hypoxic hepatitis, shock liver) * Marked but downtrending AST/ALT. * Hyperbilirubinemia (total 3.8, direct 2.0). * Normal ALP ? hepatocellular injury pattern. * Negative hepatitis panel. * GENOVEVA pending (rule out autoimmune hepatitis). * Likely multifactorial: hypoperfusion from CHF (EF 5%), hypoxia, sepsis. 2. Coagulopathy and Thrombocytopenia * INR 2.8, APTT 75.8, platelets 77. * Likely from acute hepatic dysfunction + critical illness. * No active GI bleed. 3. Risk of Hepatic Encephalopathy * Altered mental status primarily multifactorial (hypoglycemia, metabolic encephalopathy, CHF, seizure). * Ammonia normal, but patient remains at risk. GI Plan Hepatic * Supportive management for ischemic hepatitis. * Avoid hepatotoxic drugs -limit amiodarone if possible. * Continue daily trending of CMP, LFTs, INR/PTT. * Pending autoimmune hepatitis panel (GENOVEVA, ASMA, IgG). * Consider abdominal US with Doppler if worsening (rule out vascular thrombosis, Budd-Chiari). Coagulation * Transfuse platelets/FFP only if bleeding or invasive procedure needed. * Daily CBC and coagulation profile. GI Bleed Prophylaxis * IV PPI daily. * Monitor for melena, hematemesis, hematochezia. Encephalopathy * Monitor ammonia. * Lactulose if patient develops worsening encephalopathy or ammonia elevation. * Rifaximin can be considered if persistent encephalopathy. Nutrition Continue Glucerna tube feedings via enteral route, monitor tolerance. Case discussed in detail with the attending physician, including the clinical presentation, diagnostic workup, and comprehensive management plan. Plan discussed with: Other (RN) My Orders My Orders Orders - TATIANA MÁRQUEZ RESIDENT Procedure Category Date Status Time Comprehensive LAB 12/16/24 Logged Metabolic Panel 13:04 Comprehensive LAB 12/17/24 Verified Metabolic Panel 04:00 Ammonia LAB 12/17/24 Verified 04:00 Dietary Evaluation Review Comments: Nutrition Recommendation: 1) Advance to [facility] 60gm + cardiac diet as medically feasible 2) If feeding tube is placed, consider TF Glucerna 1.2Cal @ 60ml/hr (goal) TF @ goal volume provides 1728 kcal (100% energy needs), 86 gm protein (100% protein needs), 1159 ml free water. 3) Water flush 100ml Q4H if allowed, adjust PRN 4) TPN if NPO >7 days 5) Monitor NPO status, lab values, wt trend, I/O Expected Outcomes/Goals: To meet >75% estimated needs Lab values to improve Fu 2-3 days TATIANA MÁRQUEZ RESIDENT Dec 16, 2024 16:25
[2024-12-16] MEDS ORDERED: ACCU-CHEK COMFORT CURVE STRIP VI SCH (17:00)
[2024-12-16] MEDS ORDERED: InsuLIN REG 1unit/0.01ml Soln (100units/ml) SC SCH ×2 (17:00→22:00)
--- NOTE | 2024-12-16 17:30 | DVHPN2 ---
Progress Note - Dictate Date Seen: Dec 16, 2024 Has the PT tested + for MRSA If YES, has PT been informed?: No Medical Necessity Reason Pt with a Central, PICC or Fol: Yes The following are medically ne: Clayton Catheter Reason for clayton catheter: Bladder Retention/Obstruc, Strict I&O vital signs Vital Sign Date Time Temp Pulse Resp B/P (MAP) Pulse Ox O2 Delivery O2 Flow Rate FiO2 12/16/24 14:15 89 10 106/69 (81) 100 12/16/24 12:00 98.6 98.6 12/16/24 12:00 Room Air* 0 21 Total Intake and Output 12/15/24 12/15/24 12/16/24 14:59 22:59 06:59 Intake Total 272.28 ml 258.28 ml 340.28 ml Output Total 3800 ml 1200 ml Balance 272.28 ml -3541.72 ml -859.72 ml medications Current Medications Medications Dose Ordered Sig/Diane Route Start Time Stop Time Status Last Admin Dose Admin Acetaminophen/ Hydrocodone Bitart 1 tab Q4HP PRN PO 12/13/24 19:15 Ondansetron HCl 4 mg Q4HP PRN IV 12/13/24 19:15 Enoxaparin Sodium 40 mg DAILY SC 12/14/24 10:00 UNV Acetaminophen 650 mg Q6HP PRN PO 12/13/24 19:15 Nitroglycerin 0.4 mg Q5MINP PRN SL 12/13/24 19:15 Morphine Sulfate 2 mg Q30M PRN IV 12/13/24 19:15 Piperacillin Sod/ Tazobactam Sod 100 ml @ 25 mls/hr Q12H IV 12/13/24 22:00 12/16/24 10:10 25 MLS/HR Vancomycin HCl 0 ml @ 0 mls/hr UD IV 12/13/24 19:15 Albuterol 2.5 mg Q4HPRN PRN NEB 12/13/24 19:30 Diagnostic Test (Pha) 1 strip ACHS 12/13/24 22:00 12/16/24 16:38 1 STRIP Insulin Human Regular ACHS SC 12/13/24 22:00 12/16/24 16:38 3 UNITS Dextrose 50 ml UD PRN IV 12/13/24 19:30 Carbidopa/Levodopa 1 tab TID PO 12/13/24 22:00 12/16/24 14:13 1 TAB Lactulose 30 ml Q8HR PO 12/13/24 22:00 12/16/24 14:13 30 ML Metoprolol Tartrate 2.5 mg Q6HPRN PRN IV 12/13/24 19:45 Hold Ipratropium [place] 0.5 mg Q4HPRN PRN NEB 12/13/24 22:00 12/14/24 18:19 0.5 MG Norepinephrine Bitartrate 250 ml @ 3.75 mls/hr Q24H IV 12/14/24 10:00 Amlodipine Besylate 2.5 mg DAILY PO 12/15/24 10:00 12/15/24 10:29 2.5 MG Lorazepam 1 mg Q5MINP PRN IV 12/15/24 10:30 Levetiracetam 500 mg BID PO 12/15/24 22:00 12/16/24 10:10 500 MG Phenylephrine HCl 80 mg/Sodium Chloride 250 ml @ 7.5 mls/hr Q24H IV 12/15/24 17:00 12/15/24 22:03 7.5 MLS/HR Heparin Sodium/ Dextrose 250 ml @ 9 mls/hr Q24H IV 12/16/24 00:15 12/16/24 00:53 9 MLS/HR Furosemide 40 mg DAILY IV 12/16/24 10:00 12/16/24 10:09 40 MG Enteral Nutritional Formula 1,000 ml 70ML/HR GT 12/16/24 14:45 laboratory and microbiology Laboratory Tests 12/16/24 04:56 Test 12/16/24 04:56 Range/Units Serum Glucose 407 #*H 74-106 mg/dL Assessment/Plan pneumonia pl effusions CHF JEFFERY acute liver injury elevated d-dimer (21) patient seen and examined events low oxygen requirements on room air persistent altered ng tube remains in place labs and imaging reviewed management plan iv heparin drip US legs neg've cont abx aspiration precautions echo report reviewed severe cardiomyopathy, ef 10% f/u cardiology Dietary Evaluation Review Comments: Nutrition Recommendation: 1) Advance to [facility] 60gm + cardiac diet as medically feasible 2) If feeding tube is placed, consider TF Glucerna 1.2Cal @ 60ml/hr (goal) TF @ goal volume provides 1728 kcal (100% energy needs), 86 gm protein (100% protein needs), 1159 ml free water. 3) Water flush 100ml Q4H if allowed, adjust PRN 4) TPN if NPO >7 days 5) Monitor NPO status, lab values, wt trend, I/O Expected Outcomes/Goals: To meet >75% estimated needs Lab values to improve Fu 2-3 days Plan discussed with: Other (Rn) PAOLA AQUINO MD Dec 16, 2024 17:30
[2024-12-16 20:24] LABS: INR 1.89 (0.9-1.15); Partial Thromboplastin Time 69.8 SEC (24.5-34.5); Prothrombin Time 18.8 sec (9.3-11.8)
[2024-12-16 20:36] LABS: Albumin 3.4 g/dL (3.2-4.8); Alkaline Phosphatase 81 U/L (46-116); Anion Gap 10 (5-15); BUN/Creatinine Ratio 29.8 (10.0-20.0); Calcium 9.0 mg/dL (8.7-10.4); Chloride 107 mmol/L (98-107)
[2024-12-16 20:40] LABS: Alanine Aminotransferase 311 U/L (7-40); Bilirubin, Total 3.8 mg/dL (0.2-1.0); Blood Urea Nitrogen 34 mg/dL (9-23); Carbon Dioxide 33 mmol/L (20-31); Glucose 125 mg/dL (74-106); Potassium 3.4 mmol/L (3.5-5.1); Sodium 150 mmol/L (136-145); Total Protein 5.4 g/dL (5.7-8.2)
[2024-12-17] VITALS (103 sets, daily range): BP systolic 77–147; BP diastolic 44–88; PULSE 82–232; RESP 8–26; TEMP 97.4–99.7; O2SAT 89–100
[2024-12-17 02:45] LABS: INR 1.76 (0.9-1.15); Partial Thromboplastin Time 66.3 SEC (24.5-34.5); Prothrombin Time 17.6 sec (9.3-11.8)
[2024-12-17 05:21] LABS: Hematocrit 56.5 % (41.0-53.0); Hemoglobin 18.5 g/dL (13.5-17.5); Mean Corpuscular Hemoglobin 28.9 pg (28.0-32.0); Mean Corpuscular Volume 88.1 fL (80.0-100.0); Nucleated Red Blood Cells % 0.3 %
[2024-12-17 05:53] LABS: Albumin 3.6 g/dL (3.2-4.8); Alkaline Phosphatase 90 U/L (46-116); Anion Gap 12 (5-15); BUN/Creatinine Ratio 36.9 (10.0-20.0); Calcium 9.2 mg/dL (8.7-10.4); Chloride 105 mmol/L (98-107); Potassium 3.8 mmol/L (3.5-5.1); Total Protein 5.9 g/dL (5.7-8.2)
[2024-12-17 06:08] LABS: Alanine Aminotransferase 545 U/L (7-40); Bilirubin, Total 3.9 mg/dL (0.2-1.0); Blood Urea Nitrogen 48 mg/dL (9-23); Carbon Dioxide 33 mmol/L (20-31); Glucose 107 mg/dL (74-106); Sodium 150 mmol/L (136-145)
--- NOTE | 2024-12-17 07:37 | DVHPN2 ---
Progress Note - Dictate Date Seen: Dec 17, 2024 Has the PT tested + for MRSA If YES, has PT been informed?: No Medical Necessity Reason Pt with a Central, PICC or Fol: Yes The following are medically ne: Clayton Catheter Reason for clayton catheter: Bladder Retention/Obstruc, Strict I&O vital signs Vital Sign Date Time Temp Pulse Resp B/P (MAP) Pulse Ox O2 Delivery O2 Flow Rate FiO2 12/17/24 06:45 107 11 93/74 (80) 95 12/17/24 06:02 Room Air* 0 21 12/17/24 04:00 99.1 99.1 Total Intake and Output 12/16/24 12/16/24 12/17/24 15:00 23:00 07:00 Intake Total 327.933 ml 299.093 ml 395.32 ml Output Total 1800 ml 700 ml Balance 327.933 ml -1500.907 ml -304.68 ml medications Current Medications Medications Dose Ordered Sig/Diane Route Start Time Stop Time Status Last Admin Dose Admin Acetaminophen/ Hydrocodone Bitart 1 tab Q4HP PRN PO 12/13/24 19:15 Ondansetron HCl 4 mg Q4HP PRN IV 12/13/24 19:15 Enoxaparin Sodium 40 mg DAILY SC 12/14/24 10:00 UNV Acetaminophen 650 mg Q6HP PRN PO 12/13/24 19:15 Nitroglycerin 0.4 mg Q5MINP PRN SL 12/13/24 19:15 Morphine Sulfate 2 mg Q30M PRN IV 12/13/24 19:15 Piperacillin Sod/ Tazobactam Sod 100 ml @ 25 mls/hr Q12H IV 12/13/24 22:00 12/16/24 21:44 25 MLS/HR Vancomycin HCl 0 ml @ 0 mls/hr UD IV 12/13/24 19:15 Albuterol 2.5 mg Q4HPRN PRN NEB 12/13/24 19:30 12/16/24 18:38 2.5 MG Diagnostic Test (Pha) 1 strip ACHS 12/13/24 22:00 12/17/24 06:59 1 STRIP Insulin Human Regular ACHS SC 12/13/24 22:00 12/16/24 16:38 3 UNITS Dextrose 50 ml UD PRN IV 12/13/24 19:30 Carbidopa/Levodopa 1 tab TID PO 12/13/24 22:00 12/17/24 05:44 1 TAB Lactulose 30 ml Q8HR PO 12/13/24 22:00 12/17/24 05:44 30 ML Metoprolol Tartrate 2.5 mg Q6HPRN PRN IV 12/13/24 19:45 Hold Ipratropium [place] 0.5 mg Q4HPRN PRN NEB 12/13/24 22:00 12/16/24 18:38 0.5 MG Norepinephrine Bitartrate 250 ml @ 3.75 mls/hr Q24H IV 12/14/24 10:00 Amlodipine Besylate 2.5 mg DAILY PO 12/15/24 10:00 12/15/24 10:29 2.5 MG Lorazepam 1 mg Q5MINP PRN IV 12/15/24 10:30 Levetiracetam 500 mg BID PO 12/15/24 22:00 12/16/24 21:44 500 MG Phenylephrine HCl 80 mg/Sodium Chloride 250 ml @ 7.5 mls/hr Q24H IV 12/15/24 17:00 12/17/24 05:37 12.188 MLS/HR Furosemide 40 mg DAILY IV 12/16/24 10:00 12/16/24 10:09 40 MG Enteral Nutritional Formula 1,000 ml 70ML/HR GT 12/16/24 14:45 Heparin Sodium/ Dextrose 250 ml @ 7 mls/hr Q24H IV 12/16/24 21:45 laboratory and microbiology Laboratory Tests 12/17/24 04:57 Test 12/17/24 04:57 Range/Units Serum Glucose 107 H 74-106 mg/dL Assessment/Plan Patient is a 63-year-old gentleman who originally was brought by the neighbor for altered level of consciousness. Patient is poor historian and noncommunicative and can not provide information. Information was obtained by reviewing the chart and communicating with staff. Reportedly, the patient's blood sugar was 41/56 on arrival and the patient was managed for metabolic encephalopathy. There is no report of chest pain. Cardiology is involved for cardiac aspects of care. It seems that since arrival, the patient was in atrial fibrillation and has been kept on amiodarone drip by the primary team. Patient does have a pacemaker implanted to the left side of the chest also. There is no previous information in the chart. I reached out to the available contact numbers on the patient's face sheet and also reviewed outside records available in [facility]. Contact numbers are disconnected/mistaken or no response. It seems that the patient has history of old atrial fibrillation. Patient's outside medications are not available to review. It seems that the patient does have history of old CVA/seizure disorder/Parkinson's disease/diabetes and hypertension. There is question about previous history of bladder mass. Noncommunicative. Lying flat in bed. No gross JVD. Mucosa is pink. No carotid bruit. Lung examination reveals scattered rhonchi. There is no rales. Cardiac: Irregular, no thrill. Systolic murmur 2/6 in the apex is heard. Abdomen is soft. Right upper and lower extremities are edematous. Patient is uncooperative and can not be fully examined Reported past medical history includes hypertension, diabetes mellitus, old history of CVA, parkinsonism, seizure disorder, atrial fib and also history of pacemaker (Biotronik: review of the its image) implantation. Patient non- compliant with medication and follow ups (as per son) WBC: 10.1 (with shift to the left) - 9.7 - 8.6 - 9.4 Creatinine: 2.73 - 2.62 - 1.89 - 1.68 - 1.31 - 1.14 - 1.30 Potassium: 5.8 - 5.8 - 5.0 - 3.6 - 3.6 - 3.0 - 3.4 - 3.8 Lactic acid: 7.2 - 2.5 AST/ALT: 4520/2306 - 4549/2598 - 1517/961 - 740/311 - 794/545 BNP: 2031.22 Ammonia: 32 BNP: 2031.22 Trop (high sensitive): 191 - 65 - 156 - 106 - 82 - 73 D-Dimer: 21.40 CK: 1448 TSH: 4.34 Urine toxicology: Nonrevealing Chest x-ray revealed: IMPRESSION: Cardiomegaly with pulmonary vascular congestion and bilateral patchy airspace opacities. Small bilateral pleural effusions, auxso-mulxukb-wury-left. Repeat chest xry revealed: IMPRESSION: NG tube tip in the stomach. CT of the abdomen and pelvis reported: IMPRESSION: 1. Right lower lobe pneumonia. 2. Moderate right pleural effusion 3. Soft tissue density is seen in the left posterior bladder measuring 3.1 cm, possibly reflecting hematoma or mass. Consider correlation with CT urogram. CT of the head reported: IMPRESSION: No intracranial hemorrhage or mass effect. Cerebral encephalomalacia as described most pronounced within the left temporal lobe. Right frontal scalp, right facial region soft tissue emphysema. Correlate for traumatic and other etiologies. Right facial region contusion. Repeat CT of head revealed: MPRESSION: No evidence of acute intracranial hemorrhage, mass effect or hydrocephalus. Left frontal, parietal and temporal encephalomalacia most pronounced in the left temporal lobe. Ntxx-jr-pgptircy global cerebral volume loss. CT of chest without contrast: There is limited interpretation of the abdomen and pelvis without administration of intravenous contrast. The trachea is patent. No pneumothorax. Moderate right and small left pleural effusions. Right upper, middle and lower lobe airspace consolidation, ground-glass disease most pronounced within the right lower lobe. Left lower lobe consolidation/atelectasis. Heart enlarged. Coronary artery calcification disease. Fluid within the superior pericardial recess. Upper abdomen demonstrates small amount of ascites fluid. Mesenteric edema. Gallbladder hyperdensity/sludge. Gastric wall thickening. Colonic diverticula. Soft tissue edema/anasarca. Left chest dual lead cardiac pacing device. IMPRESSION: Limited evaluation without contrast. Moderate right and small left pleural effusions. Bilateral consolidation/ atelectasis and ground-glass disease, sljjk-jklbazy-kxtx-left which can be secondary to combination of infection, edema, hypoventilatory changes. Upper abdomen demonstrates small amount of ascites fluid, Mesenteric edema. Gallbladder hyperdensity/ sludge which can be further characterized with abdominal ultrasound. Colonic diverticular disease. Cardiomegaly, coronary artery calcification disease. Other findings as described Venous duplex of lower ext revealed: IMPRESSION: No right or left femoropopliteal venous thrombosis. 5cm right lower extremity bakers cyst. END IMPRESSION: If clinical concern/symptoms persist or worsen, short-interval follow-up study is suggested. V/Q scan reported: IMPRESSION: 1. Low probability for PE. EKG revealed atrial fibrillation with RVR Tele reveals atrial fibrillation with RVR Echocardiogram revealed: Dilated 4 chambers were seen. Left ventricle: Left ventricle was dilated with significantly reduced systolic function. LVEF was around 5%. Diffuse hypokinesis of left ventricle was seen. 1.5 x 1.1 x 0.9 hyperechoic mass in the LV apex compatible with thrombus was seen. Right ventricle was dilated with reduced systolic function. Both atria were dilated. Pacing wire was seen in right-sided chambers. Aortic valve was trileaflet. There was no aortic stenosis/insufficiency. There was ypus-tp-eluftutp mitral and tricuspid regurgitation. Pulmonary valve was not well visualized. IVC was dilated. Right ventricular systolic pressure was assessed at around 45 mm Hg. There was no pericardial effusion. Compatible with end-stage systolic heart failure/cardiomyopathy with LV apex thrombus. [employer]/Cellectis PM INTERROGATION: Battery: Remaining capacity to AMRIT: 36%; Battery voltage: 2.96 volts; DDDR:60/130; Sensing: A 0.5/V8.7 mV; Lead impedance: A400/V450 Ohms; A pace: 16%; V pace: 14%; AT/AF burden: 61% Patient is a 63-year-old gentleman who was brought by neighbor reportedly for altered level of consciousness. On arrival, the patient was hypoglycemic. LFTs have been abnormal. Lactic acid on arrival was elevated. Kidney function was not normal and the patient had shift to the left in leukocyte count. CT of the head questioned soft tissue problem and questionable trauma? Presentation is more in favor of metabolic problems. It seems that the patient does have history of atrial fibrillation and also pacemaker implantation from before. Detailed information of previous cardiac history is not available. It is unknown if patient has been compliant with medications and the type of medications. Minimal increase in troponin most likely reflects demand physiology. Serial troponin is justified. Patient does have right-sided extremity edema. Could this be reflective of old CVA and hemiparesis or can not be DVTs?. Being followed by Nephrology, Urology and Pulmonary. Echo is in favor of advanced end stage systolic heart failure / Cardiomyopathy with LV thrombus. We have not been to get any outside previous records yet. Is seen and being followed by Neurology / Pulmonology / GI / Nephrology. I could talk to son ([phone]) who provided more information. Patient does not follow with any transport analyst for years. Patient is not compliant with medications as outpatient. Only goes to some clinic infrequently. Does have poor baseline functional status. Encephalopathy, metabolic? Multiorgan involvement Acute renal failure Abnormal LFT Atrial fibrillation with RVR Status post pacemaker implantation (Biotronik? ) Right-sided edema Bladder mass UTI? Pneumonia Right pleural effusion Abnormal D-dimer Pneumonia Systolic heart failure Acute on chronic systolic heart failure Cardiomyopathy LV thrombus Cardiac suggestion for management: Fluid resuscitation Follow-up electrolytes and kidney function tests and correct abnormalities Amiodarone drip can be justified Heparin drip Pressure support to keep MAP above 60 GDMT for systolic CHF when stable Life Vest, when patient becomes more alert and if he can manage it Neurology follow up Pulmonary follow up GI follow up Treatment of pneumonia/UTI as per primary team/Pulmonary Attempt to get prior medical records and information Further evaluation and management depends on the above and clinical course A total of 75 minutes was spent reviewing the patient record, examining the patient, making a diagnostic and therapeutic plan, discussing this plan with medical personnel, following up on diagnostic studies and following the patient for clinical stability excluding any and all procedures. At least 50% of this time was spent in direct, [id number]-[id number] contact. Thank you for allowing me to participate in this patient's care. Further recommendations will depend on patient's clinical course. Please do not hesitate to contact me if you have any questions or concerns. This medical document was created using electronic medical record system with [employer] computerized dictation system. Although this document has been carefully reviewed, there may still be some phonetic and typographical errors. These areas are purely typographical due to the imperfection of the software programs, and do not reflect any compromise in the patient's medical care. Dietary Evaluation Review Comments: Nutrition Recommendation: 1) Advance to [facility] 60gm + cardiac diet as medically feasible 2) If feeding tube is placed, consider TF Glucerna 1.2Cal @ 60ml/hr (goal) TF @ goal volume provides 1728 kcal (100% energy needs), 86 gm protein (100% protein needs), 1159 ml free water. 3) Water flush 100ml Q4H if allowed, adjust PRN 4) TPN if NPO >7 days 5) Monitor NPO status, lab values, wt trend, I/O Expected Outcomes/Goals: To meet >75% estimated needs Lab values to improve Fu 2-3 days Plan discussed with: Other (nurse) JAMES CULLEN MD Dec 17, 2024 07:37
--- NOTE | 2024-12-17 09:49 | DVHPN2 ---
Progress Note - Dictate Date Seen: Dec 17, 2024 Has the PT tested + for MRSA If YES, has PT been informed?: No Medical Necessity Reason Pt with a Central, PICC or Fol: Yes The following are medically ne: Clayton Catheter Reason for clayton catheter: Bladder Retention/Obstruc, Strict I&O vital signs Vital Sign Date Time Temp Pulse Resp B/P (MAP) Pulse Ox O2 Delivery O2 Flow Rate FiO2 12/17/24 06:45 107 11 93/74 (80) 95 12/17/24 06:02 Room Air* 0 21 12/17/24 04:00 99.1 99.1 Total Intake and Output 12/16/24 12/16/24 12/17/24 15:00 23:00 07:00 Intake Total 327.933 ml 299.093 ml 395.32 ml Output Total 1800 ml 700 ml Balance 327.933 ml -1500.907 ml -304.68 ml medications Current Medications Medications Dose Ordered Sig/Diane Route Start Time Stop Time Status Last Admin Dose Admin Acetaminophen/ Hydrocodone Bitart 1 tab Q4HP PRN PO 12/13/24 19:15 Ondansetron HCl 4 mg Q4HP PRN IV 12/13/24 19:15 Enoxaparin Sodium 40 mg DAILY SC 12/14/24 10:00 UNV Acetaminophen 650 mg Q6HP PRN PO 12/13/24 19:15 Nitroglycerin 0.4 mg Q5MINP PRN SL 12/13/24 19:15 Morphine Sulfate 2 mg Q30M PRN IV 12/13/24 19:15 Piperacillin Sod/ Tazobactam Sod 100 ml @ 25 mls/hr Q12H IV 12/13/24 22:00 12/16/24 21:44 25 MLS/HR Vancomycin HCl 0 ml @ 0 mls/hr UD IV 12/13/24 19:15 Albuterol 2.5 mg Q4HPRN PRN NEB 12/13/24 19:30 12/16/24 18:38 2.5 MG Diagnostic Test (Pha) 1 strip ACHS 12/13/24 22:00 12/17/24 06:59 1 STRIP Insulin Human Regular ACHS SC 12/13/24 22:00 12/16/24 16:38 3 UNITS Dextrose 50 ml UD PRN IV 12/13/24 19:30 Carbidopa/Levodopa 1 tab TID PO 12/13/24 22:00 12/17/24 05:44 1 TAB Lactulose 30 ml Q8HR PO 12/13/24 22:00 12/17/24 05:44 30 ML Metoprolol Tartrate 2.5 mg Q6HPRN PRN IV 12/13/24 19:45 Hold Ipratropium [place] 0.5 mg Q4HPRN PRN NEB 12/13/24 22:00 12/16/24 18:38 0.5 MG Norepinephrine Bitartrate 250 ml @ 3.75 mls/hr Q24H IV 12/14/24 10:00 Amlodipine Besylate 2.5 mg DAILY PO 12/15/24 10:00 12/15/24 10:29 2.5 MG Lorazepam 1 mg Q5MINP PRN IV 12/15/24 10:30 Levetiracetam 500 mg BID PO 12/15/24 22:00 12/16/24 21:44 500 MG Phenylephrine HCl 80 mg/Sodium Chloride 250 ml @ 7.5 mls/hr Q24H IV 12/15/24 17:00 12/17/24 05:37 12.188 MLS/HR Furosemide 40 mg DAILY IV 12/16/24 10:00 12/16/24 10:09 40 MG Enteral Nutritional Formula 1,000 ml 70ML/HR GT 12/16/24 14:45 Heparin Sodium/ Dextrose 250 ml @ 7 mls/hr Q24H IV 12/16/24 21:45 objective General Appearance: no distress HEENT: EOMI, PERRLA, normal external inspect of ears, no icterus, no nasal drainage Neck: no carotid bruit, no jugular venous distention (JVD), no lymphadenopathy Chest: normal thorax Respiratory: clear to auscultation, normal air movement Cardiovascular: regular rate and rhythm, no diastolic murmur, no jugular venous distention (JVD), no rub, no systolic murmur Abdominal: soft, no hepatomegaly, no mass, no splenomegaly, no tenderness Genitourinary: grossly normal external Musculoskeletal: no joint tenderness, no swelling Extremities: normal pulses, no calf tenderness, no clubbing, no cyanosis, no edema Skin: no bruising, no jaundice, no rash Neurological: No focal deficit laboratory and microbiology Laboratory Tests 12/17/24 04:57 Test 12/17/24 04:57 Range/Units Serum Glucose 107 H 74-106 mg/dL Problem List Acute metabolic encephalopathy Assessment: Patient presents with ALOC, brought in by a neighbor. Blood glucose levels in the emergency room were critically low at 41 and 56 mg/dL, indicating severe hypoglycemia. Patient is alert times 2 but unable to answer questions for review of systems. The ALOC is likely multifactorial, potentially due to hypoglycemia, acute kidney injury (JEFFERY), and possible acute hepatitis. Plan: - Obtain ammonia level - Consult neurology for acute metabolic encephalopathy - Start IV fluids - Initiate insulin sliding scale for diabetes management Acute Kidney Injury (JEFFERY) Assessment: Patient presents with JEFFERY, likely due to vasomotor nephropathy. Laboratory findings show hyperkalemia (potassium 5.8 mEq/L), elevated creatinine (2.73 mg/dL), and BUN (56 mg/dL). Plan: - Hold blood pressure medications - Continue IV fluid administration - Monitor renal function and electrolytes Right Lower Lobe Pneumonia with Right Pleural Effusion Assessment: CT abdomen revealed moderate right pleural effusion and right lower lobe pneumonia. The pneumonia is likely gram-negative or gram-positive in origin. Plan: - Start vancomycin and Zosyn (piperacillin/tazobactam) - Obtain sputum culture - Consult pulmonary for possible thoracentesis Acute Cystitis with Hematuria Assessment: Patient presents with acute cystitis accompanied by hematuria. Plan: - Start IV antibiotics Type 2 Diabetes Mellitus Assessment: Patient has a history of type 2 diabetes and presented with severe hypoglycemia (blood glucose 41 and 56 mg/dL) in the emergency room. Plan: - Initiate insulin sliding scale Hypertension Assessment: Patient has a history of hypertension. Plan: - Hold blood pressure medications at this time Parkinson's Disease Assessment: Patient has a known history of Parkinson's disease. Plan: - Continue home medications for Parkinson's disease History of Stroke Assessment: Patient has a history of stroke. Plan: - Monitor neurological status Atrial Fibrillation with Rapid Ventricular Response (AFib with RVR) Assessment: Patient has possible atrial fibrillation with rapid ventricular response. INR is elevated at 3.61. Plan: - Monitor cardiac rhythm -Consult cardiology -Heparin drip Hyperkalemia Assessment: Patient presents with significant hyperkalemia (potassium 5.8 mEq/L). Plan: - Implement hyperkalemia protocol - Consult nephrology - Monitor electrolyte levels closely Pacemaker in place -cardiology consult Ischemic cardiomyopathy -cardiology consult -monitor EKG Left ventricular thrombus - cardiology consult - heparin drip Assessment/Plan Subjective Patient is not awake or alert. Objective I updated patients son on the phone. Patient was admitted for acute metabolic and hepatic encephalopathy. Patient had an elevated D-dimer. VQ scan was negative. Patient had A-fib with RVR. Patient has had a history of multiple strokes. According to patient's son, his mentation has severely declined 2 years ago. Patient has acute hypoxic respiratory failure from pneumonia. Patient also has abnormal LFTs. Liver failure most likely related to heart failure. Patient's EF is estimated at 5%. Patient was also found to have a bladder mass. Patient was seen by urology. They will follow-up outpatient. No history of EtOH abuse. Patient does have a history of Parkinson's and has chronic left-sided tremors. Patient has coagulopathy and thrombocytopenia related to liver failure. Patient is an NSTEMI. Per cardiology patient will need a LifeVest. I did discuss goals of care with patient's son. He was requesting more information about hospice. Plan Continue current treatment. human services worker for evaluation of possible placement with hospice. Dietary Evaluation Review Comments: Nutrition Recommendation: 1) [facility] + cardiac diet as medically feasible 2) If feeding tube is placed, consider TF Glucerna 1.2Cal @ 60ml/hr (goal) TF @ goal volume provides 1728 kcal (100% energy needs), 86 gm protein (100% protein needs), 1159 ml free water. 3) Water flush 100ml Q4H if allowed, adjust PRN 4) TPN if NPO >7 days 5) Monitor NPO status, lab values, wt trend, I/O Expected Outcomes/Goals: To meet >75% estimated needs Lab values to improve Fu 2-3 days Plan discussed with: JOHN Cavazos NP Dec 17, 2024 09:49
--- NOTE | 2024-12-17 10:25 | DVHPN2 ---
Progress Note - Dictate Date Seen: Dec 17, 2024 Has the PT tested + for MRSA If YES, has PT been informed?: No Medical Necessity Reason Pt with a Central, PICC or Fol: Yes The following are medically ne: Clayton Catheter Reason for clayton catheter: Bladder Retention/Obstruc, Strict I&O Subjective Mr. Miller is a 63 years old right-handed gentleman with a history of hypertension, diabetes, the patient came to the hospital on this is 12/13/24 for ALOC. I saw him on 04/09/2017 for seizure I have seen and examined patient last evening and this morning, I have talked to his nurses. He had NG tube inserted today, and the Sinemet resumed He is awake, he speak with very soft voice, he is oriented to person, place, he has intermittent resting tremor in the chin, left arm and leg Hepatitis pattern, 12/13/24: Negative UDS, 12/14/2023: Negative Urinalysis, 12/13/2024: WBC: 15, urine leukocyte esterase: Negative CBC, 12/14/2024: Hypoxia, compensated metabolic acidosis WBC/HB/PLT/MCV, 12/13/2024: 10.1/40.9/105/89.2 PT/INR/PTT, 12/14/24: 34.9/3.75/. 32.9/3.52/78.1. 12/15/2024: 26.8/2.8/75.8 BUN/CR, 12/13/2024: 56/2.73, 12/15/2024: 77/1 Glucose, 12/13/2024: 56., 133,, 12/15/2024: 127, 12/16/2024: 407 Troponin one high sensitivity, 12/14/2024: 191, 65, 156, 12/15/2024: 106 TBI/AST/ALT/AP, 12/13/2024, 07/4519/32669/81 Ammonia, 12/13/2024: 32 TG/CH OL/LDL/HDL, 04/09/17: 66/171/104/63 Vitamin B12, 12/15/24: 2000 Folate, 12/15/2024: 20.43 TSH, 12/15/2024: 4.34 FT4, 12/16/2023: 0.73 Echocardiogram, 04/08/17: Unremarkable Carotid Doppler, 03/2017: Unremarkable CT, 04/07/17: No intracranial hemorrhage. Left temporal lobe non-hemorrhagic infarct of indeterminate chronicity. Chronic lacunar infarct right frontal white matter. CT head, 12/14/2024: No evidence of acute intracranial hemorrhage, mass effect or hydrocephalus. Left frontal, parietal and temporal encephalomalacia most pronounced in the left temporal lobe. Gcml-ut-yaypahnn global cerebral volume loss. CT chest/abdomen/pelvis, 12/14/2023: 1. Right lower lobe pneumonia. 2. Moderate right pleural effusion 3. Soft tissue density is seen in the left posterior bladder measuring 3.1 cm, possibly reflecting hematoma or mass. Consider correlation with CT urogram MRI head 04/09/2017: 1. No evidence of acute infarct. 2. Chronic infarct with laminar necrosis involving the superior left temporal lobe and small portion of the inferior left parietal lobe. 3. Small focus of chronic lacunar infarct in the right centrum semiovale. 4. Mild diffuse volume loss. vital signs Vital Sign Date Time Temp Pulse Resp B/P (MAP) Pulse Ox O2 Delivery O2 Flow Rate FiO2 12/17/24 09:58 122/74 12/17/24 06:45 107 11 95 12/17/24 06:02 Room Air* 0 21 12/17/24 04:00 99.1 99.1 Total Intake and Output 12/16/24 12/16/24 12/17/24 15:00 23:00 07:00 Intake Total 327.933 ml 299.093 ml 395.32 ml Output Total 1800 ml 700 ml Balance 327.933 ml -1500.907 ml -304.68 ml medications Current Medications Medications Dose Ordered Sig/Diane Route Start Time Stop Time Status Last Admin Dose Admin Acetaminophen/ Hydrocodone Bitart 1 tab Q4HP PRN PO 12/13/24 19:15 Ondansetron HCl 4 mg Q4HP PRN IV 12/13/24 19:15 Enoxaparin Sodium 40 mg DAILY SC 12/14/24 10:00 UNV Acetaminophen 650 mg Q6HP PRN PO 12/13/24 19:15 Nitroglycerin 0.4 mg Q5MINP PRN SL 12/13/24 19:15 Morphine Sulfate 2 mg Q30M PRN IV 12/13/24 19:15 Piperacillin Sod/ Tazobactam Sod 100 ml @ 25 mls/hr Q12H IV 12/13/24 22:00 12/17/24 09:58 25 MLS/HR Vancomycin HCl 0 ml @ 0 mls/hr UD IV 12/13/24 19:15 Albuterol 2.5 mg Q4HPRN PRN NEB 12/13/24 19:30 12/16/24 18:38 2.5 MG Diagnostic Test (Pha) 1 strip ACHS 12/13/24 22:00 12/17/24 06:59 1 STRIP Insulin Human Regular ACHS SC 12/13/24 22:00 12/16/24 16:38 3 UNITS Dextrose 50 ml UD PRN IV 12/13/24 19:30 Carbidopa/Levodopa 1 tab TID PO 12/13/24 22:00 12/17/24 05:44 1 TAB Lactulose 30 ml Q8HR PO 12/13/24 22:00 12/17/24 05:44 30 ML Metoprolol Tartrate 2.5 mg Q6HPRN PRN IV 12/13/24 19:45 Hold Ipratropium [place] 0.5 mg Q4HPRN PRN NEB 12/13/24 22:00 12/16/24 18:38 0.5 MG Norepinephrine Bitartrate 250 ml @ 3.75 mls/hr Q24H IV 12/14/24 10:00 Amlodipine Besylate 2.5 mg DAILY PO 12/15/24 10:00 12/15/24 10:29 2.5 MG Lorazepam 1 mg Q5MINP PRN IV 12/15/24 10:30 Levetiracetam 500 mg BID PO 12/15/24 22:00 12/17/24 09:58 500 MG Phenylephrine HCl 80 mg/Sodium Chloride 250 ml @ 7.5 mls/hr Q24H IV 12/15/24 17:00 12/17/24 05:37 12.188 MLS/HR Furosemide 40 mg DAILY IV 12/16/24 10:00 12/17/24 09:58 40 MG Enteral Nutritional Formula 1,000 ml 70ML/HR GT 12/16/24 14:45 Heparin Sodium/ Dextrose 250 ml @ 7 mls/hr Q24H IV 12/16/24 21:45 objective General: the patient is well developed and nourished. No acute distress. MENTAL STATUS: Subjective SPEECH, LANGUAGE, HIGHER CORTICAL FUNCTION: Subjective CRANIAL NERVES: Pupils are equal, round and reactive. EOMs full and conjugate. No nystagmus. Facial sensation intact in all three divisions bilaterally. Mandibular strength intact. Facial muscles symmetrical and strength intact. Diminished facial expression SENSATION: Sensation to touch and pinprick is normal. MOTOR: Normal tone in the upper and lower extremity. Normal muscle bulk. No fasciculations. Intermittent resting tremor in the left arm and leg REFLEXES: Deep tendon reflexes normal and symmetrical. No pathological reflexes. CEREBELLAR/COORDINATION: Deferred GAIT/STATION: deferred. laboratory and microbiology Laboratory Tests 12/17/24 04:57 Test 12/17/24 04:57 Range/Units Serum Glucose 107 H 74-106 mg/dL Problem List Altered mental status Metabolic encephalopathy ? Hepatic encephalopathy Subclinical seizure Chronic multiple strokes Parkinson's disease Cognitive dysfunction Vascular dementia Rule out Alzheimer disease Liver failure Coagulopathy Elevated troponin I/heart attack Assessment/Plan Monitoring Supportive treatment Telemetry Lipid profile Sinemet 25/100 mg Qid Lorazepam 2 mg IV every hour when necessary seizure Keppra 500 mg b.i.d. Cardiology on case GI specialist on case More recommendation per clinical course This medical document was created using an electronic medical record system with [employer] dictation system. Although this document has been carefully reviewed, there may still be some phonetic and typographical errors. These areas are purely typographical due to imperfections of the software programs, and do not reflect any compromise in the patient's medical care. Prognosis poor Dietary Evaluation Review Comments: Nutrition Recommendation: 1) Advance to [facility] 60gm + cardiac diet as medically feasible 2) If feeding tube is placed, consider TF Glucerna 1.2Cal @ 60ml/hr (goal) TF @ goal volume provides 1728 kcal (100% energy needs), 86 gm protein (100% protein needs), 1159 ml free water. 3) Water flush 100ml Q4H if allowed, adjust PRN 4) TPN if NPO >7 days 5) Monitor NPO status, lab values, wt trend, I/O Expected Outcomes/Goals: To meet >75% estimated needs Lab values to improve Fu 2-3 days Plan discussed with: Other MARTÍN OWEN MD Dec 17, 2024 10:25
[2024-12-17] MEDS: CARBIDOPA W LEVODOPA 25/100mg TABLET PO SCH (10:30)
[2024-12-17] MEDS: VANCOMYCIN 1.25GM/250ML 250 ML IV ONE (13:25)
[2024-12-17] MEDS: D5W 5% 1,000 ML IV SCH (14:00)
--- NOTE | 2024-12-17 14:05 | DVHPN2 ---
Progress Note Date Seen: Dec 17, 2024 Has the PT tested + for MRSA If YES, has PT been informed?: No Medical Necessity Reason Pt with a Central, PICC or Fol: Yes The following are medically ne: [place] Catheter Reason for clayton catheter: Bladder Retention/Obstruc, Strict I&O Subjective Review of Systems: NEURO:Abnormal Objective vital signs Vital Sign Date Time Temp Pulse Resp B/P (MAP) Pulse Ox O2 Delivery O2 Flow Rate FiO2 12/17/24 11:15 84 12 101/66 (78) 97 12/17/24 10:00 Room Air* 1 N/A Nasal Cannula* 12/17/24 08:00 99.7 99.7 Total Intake and Output 12/16/24 12/16/24 12/17/24 15:00 23:00 07:00 Intake Total 327.933 ml 299.093 ml 426.48 ml Output Total 1800 ml 700 ml Balance 327.933 ml -1500.907 ml -273.52 ml medications Current Medications Medications Dose Ordered Sig/Diane Route Start Time Stop Time Status Last Admin Dose Admin Acetaminophen/ Hydrocodone Bitart 1 tab Q4HP PRN PO 12/13/24 19:15 Ondansetron HCl 4 mg Q4HP PRN IV 12/13/24 19:15 Enoxaparin Sodium 40 mg DAILY SC 12/14/24 10:00 UNV Acetaminophen 650 mg Q6HP PRN PO 12/13/24 19:15 Nitroglycerin 0.4 mg Q5MINP PRN SL 12/13/24 19:15 Morphine Sulfate 2 mg Q30M PRN IV 12/13/24 19:15 Piperacillin Sod/ Tazobactam Sod 100 ml @ 25 mls/hr Q12H IV 12/13/24 22:00 12/17/24 09:58 25 MLS/HR Vancomycin HCl 0 ml @ 0 mls/hr UD IV 12/13/24 19:15 Albuterol 2.5 mg Q4HPRN PRN NEB 12/13/24 19:30 12/16/24 18:38 2.5 MG Diagnostic Test (Pha) 1 strip ACHS 12/13/24 22:00 12/17/24 11:30 1 STRIP Insulin Human Regular ACHS SC 12/13/24 22:00 12/16/24 16:38 3 UNITS Dextrose 50 ml UD PRN IV 12/13/24 19:30 Lactulose 30 ml Q8HR PO 12/13/24 22:00 12/17/24 05:44 30 ML Metoprolol Tartrate 2.5 mg Q6HPRN PRN IV 12/13/24 19:45 Hold Ipratropium [place] 0.5 mg Q4HPRN PRN NEB 12/13/24 22:00 12/16/24 18:38 0.5 MG Norepinephrine Bitartrate 250 ml @ 3.75 mls/hr Q24H IV 12/14/24 10:00 Amlodipine Besylate 2.5 mg DAILY PO 12/15/24 10:00 12/15/24 10:29 2.5 MG Lorazepam 1 mg Q5MINP PRN IV 12/15/24 10:30 Levetiracetam 500 mg BID PO 12/15/24 22:00 12/17/24 09:58 500 MG Phenylephrine HCl 80 mg/Sodium Chloride 250 ml @ 7.5 mls/hr Q24H IV 12/15/24 17:00 12/17/24 05:37 12.188 MLS/HR Furosemide 40 mg DAILY IV 12/16/24 10:00 12/17/24 09:58 40 MG Enteral Nutritional Formula 1,000 ml 70ML/HR GT 12/16/24 14:45 Heparin Sodium/ Dextrose 250 ml @ 7 mls/hr Q24H IV 12/16/24 21:45 12/17/24 12:49 7 MLS/HR Carbidopa/Levodopa 1 tab QID PO 12/17/24 10:30 12/17/24 12:00 1 TAB Examination: GENERAL:Abnormal, CVS:Abnormal, NEURO:Abnormal laboratory and microbiology Laboratory Tests 12/17/24 04:57 Test 12/17/24 04:57 Range/Units Serum Glucose 107 H 74-106 mg/dL Microbiology Date/Time Source Procedure Growth Status 12/15/24 01:00 Nose MRSA Screen - Final Complete 12/13/24 11:30 Urine - [place] Urine Culture - Final Complete 12/13/24 11:05 Blood Blood Culture - Preliminary NO GROWTH AFTER 72 HOURS OF INCUBATION. Resulted Problem List/Assessment/Plan Problem List/Assessment/Plan 63 year male presented with b/l leg swelling but was admitted for renal failure and altered mental state No background information available on admission outside hx Parkinsonism/ CVA and afib Acute kidney injury suspect cardiorenal syndrome ckd unspecified hypotension & afib RVR CHF EF < 10% proteinuria AMS baseline unknown/ parkinsonism ? bladder mass on CT elevated AST/ALT bilirubin thrombocytopenia elevated INR High Dimer V/Q neg for PE hypernatremia renal function has improved to acceptable limits GFR now > 60% left sided resting tremor noted today, neurology notified reports is chronic condition Keep MAP > 65, levophed PRN reduce lasix dose start free water cardiology rate control GI eval Urology rec outpatient f/u for bladder mass Neurology guarded prognosis due to multiple medical conditions critically ill, critical care time 35 minutes Plan discussed with: Other My Orders My Orders Orders - MELI CASSIDY MD Procedure Category Date Status Time Communication Order ORDERS 12/16/24 Transmitted 14:52 Dietary Evaluation Review Comments: Nutrition Recommendation: 1) Advance to [facility] 60gm + cardiac diet as medically feasible 2) If feeding tube is placed, consider TF Glucerna 1.2Cal @ 60ml/hr (goal) TF @ goal volume provides 1728 kcal (100% energy needs), 86 gm protein (100% protein needs), 1159 ml free water. 3) Water flush 100ml Q4H if allowed, adjust PRN 4) TPN if NPO >7 days 5) Monitor NPO status, lab values, wt trend, I/O Expected Outcomes/Goals: To meet >75% estimated needs Lab values to improve Fu 2-3 days Critical Care Time (mins): 33 MELI CASSIDY MD Dec 17, 2024 14:05
--- NOTE | 2024-12-17 14:26 | DVHPN2 ---
Progress Note - Dictate Date Seen: Dec 17, 2024 Has the PT tested + for MRSA If YES, has PT been informed?: No Medical Necessity Reason Pt with a Central, PICC or Fol: Yes The following are medically ne: Clayton Catheter Reason for clayton catheter: Bladder Retention/Obstruc, Strict I&O vital signs Vital Sign Date Time Temp Pulse Resp B/P (MAP) Pulse Ox O2 Delivery O2 Flow Rate FiO2 12/17/24 11:15 84 12 101/66 (78) 97 12/17/24 10:00 Room Air* 1 N/A Nasal Cannula* 12/17/24 08:00 99.7 99.7 Total Intake and Output 12/16/24 12/16/24 12/17/24 15:00 23:00 07:00 Intake Total 327.933 ml 299.093 ml 426.48 ml Output Total 1800 ml 700 ml Balance 327.933 ml -1500.907 ml -273.52 ml medications Current Medications Medications Dose Ordered Sig/Diane Route Start Time Stop Time Status Last Admin Dose Admin Acetaminophen/ Hydrocodone Bitart 1 tab Q4HP PRN PO 12/13/24 19:15 Ondansetron HCl 4 mg Q4HP PRN IV 12/13/24 19:15 Enoxaparin Sodium 40 mg DAILY SC 12/14/24 10:00 UNV Acetaminophen 650 mg Q6HP PRN PO 12/13/24 19:15 Nitroglycerin 0.4 mg Q5MINP PRN SL 12/13/24 19:15 Morphine Sulfate 2 mg Q30M PRN IV 12/13/24 19:15 Piperacillin Sod/ Tazobactam Sod 100 ml @ 25 mls/hr Q12H IV 12/13/24 22:00 12/17/24 09:58 25 MLS/HR Vancomycin HCl 0 ml @ 0 mls/hr UD IV 12/13/24 19:15 Albuterol 2.5 mg Q4HPRN PRN NEB 12/13/24 19:30 12/16/24 18:38 2.5 MG Diagnostic Test (Pha) 1 strip ACHS 12/13/24 22:00 12/17/24 11:30 1 STRIP Insulin Human Regular ACHS SC 12/13/24 22:00 12/16/24 16:38 3 UNITS Dextrose 50 ml UD PRN IV 12/13/24 19:30 Lactulose 30 ml Q8HR PO 12/13/24 22:00 12/17/24 05:44 30 ML Metoprolol Tartrate 2.5 mg Q6HPRN PRN IV 12/13/24 19:45 Hold Ipratropium [place] 0.5 mg Q4HPRN PRN NEB 12/13/24 22:00 12/16/24 18:38 0.5 MG Norepinephrine Bitartrate 250 ml @ 3.75 mls/hr Q24H IV 12/14/24 10:00 Amlodipine Besylate 2.5 mg DAILY PO 12/15/24 10:00 12/15/24 10:29 2.5 MG Lorazepam 1 mg Q5MINP PRN IV 12/15/24 10:30 Levetiracetam 500 mg BID PO 12/15/24 22:00 12/17/24 09:58 500 MG Phenylephrine HCl 80 mg/Sodium Chloride 250 ml @ 7.5 mls/hr Q24H IV 12/15/24 17:00 12/17/24 05:37 12.188 MLS/HR Enteral Nutritional Formula 1,000 ml 70ML/HR GT 12/16/24 14:45 Heparin Sodium/ Dextrose 250 ml @ 7 mls/hr Q24H IV 12/16/24 21:45 12/17/24 12:49 7 MLS/HR Carbidopa/Levodopa 1 tab QID PO 12/17/24 10:30 12/17/24 12:00 1 TAB Furosemide 20 mg DAILY IV 12/18/24 10:00 UNV Dextrose 1,000 ml @ 50 mls/hr Q20H IV 12/17/24 14:00 UNV laboratory and microbiology Laboratory Tests 12/17/24 04:57 Test 12/17/24 04:57 Range/Units Serum Glucose 107 H 74-106 mg/dL Assessment/Plan pneumonia pl effusions CHF JEFFERY acute liver injury elevated d-dimer (21) patient seen and examined events low oxygen requirements on room air persistently altered ng tube remains in place on heparin drip labs and imaging reviewed management plan cont abx aspiration precautions echo report reviewed severe cardiomyopathy, ef 10% f/u cardiology very poor prognosis family discussion pending regarding goals of care Dietary Evaluation Review Comments: Nutrition Recommendation: 1) Advance to [facility] [place] 60gm + cardiac diet as medically feasible 2) If feeding tube is placed, consider TF Glucerna 1.2Cal @ 60ml/hr (goal) TF @ goal volume provides 1728 kcal (100% energy needs), 86 gm protein (100% protein needs), 1159 ml free water. 3) Water flush 100ml Q4H if allowed, adjust PRN 4) TPN if NPO >7 days 5) Monitor NPO status, lab values, wt trend, I/O Expected Outcomes/Goals: To meet >75% estimated needs Lab values to improve Fu 2-3 days Plan discussed with: Other (Rn) PAOLA AQUINO MD Dec 17, 2024 14:26
--- NOTE | 2024-12-17 18:15 | DVHPN2 ---
Progress Note Date Seen: Dec 17, 2024 Resident Creating Document: TATIANA MÁRQUEZ RESIDENT Has the PT tested + for MRSA If YES, has PT been informed?: No Medical Necessity Reason Pt with a Central, PICC or Fol: Yes The following are medically ne: Clayton Catheter Reason for clayton catheter: Bladder Retention/Obstruc, Strict I&O Subjective Review of Systems 61-year-old male with history of HTN, DM2, CKD, CHF with EF <10%, atrial fibrillation with pacemaker, prior CVA, Parkinsonism, and seizure disorder. Admitted with altered mental status and hypoglycemia. GI following for markedly elevated liver enzymes, hyperbilirubinemia, and coagulopathy. Todays Interval Events / Progress: * Patient remains lethargic, non-verbal, dependent for care. * Failed swallow evaluation, therefore oral intake is unsafe. * Receiving NG tube feeds with Glucerna as primary nutrition. * No abdominal pain, vomiting, hematemesis, melena, or hematochezia noted. * Antibiotics (Zosyn, Vancomycin) continue for pneumonia/UTI per primary team. Laboratory Updates (today): * RBC 6.41 (high), Hemoglobin 18.5 (high), Hematocrit 56.5 (high) ? consistent with hemoconcentration/polycythemia, likely secondary to dehydration/critical illness. * WBC 9.4 (stable, within normal range). * LFTs trending down: AST 794, ALT 545 (down from peak >4500/2500). * Alkaline Phosphatase 90 (normal). * Ammonia <10 (low, not suggestive of hepatic encephalopathy). * INR previously elevated, continues to be monitored. * Hepatitis panel negative, GENOVEVA pending. Objective vital signs Vital Sign Date Time Temp Pulse Resp B/P (MAP) Pulse Ox O2 Delivery O2 Flow Rate FiO2 12/17/24 17:45 104 12 114/68 (83) 97 12/17/24 16:01 99.7 99.7 12/17/24 16:00 Room Air* 1 N/A Nasal Cannula* Total Intake and Output 12/16/24 12/16/24 12/17/24 15:00 23:00 07:00 Intake Total 327.933 ml 299.093 ml 426.48 ml Output Total 1800 ml 700 ml Balance 327.933 ml -1500.907 ml -273.52 ml medications Current Medications Medications Dose Ordered Sig/Diane Route Start Time Stop Time Status Last Admin Dose Admin Acetaminophen/ Hydrocodone Bitart 1 tab Q4HP PRN PO 12/13/24 19:15 Ondansetron HCl 4 mg Q4HP PRN IV 12/13/24 19:15 Enoxaparin Sodium 40 mg DAILY SC 12/14/24 10:00 UNV Acetaminophen 650 mg Q6HP PRN PO 12/13/24 19:15 Nitroglycerin 0.4 mg Q5MINP PRN SL 12/13/24 19:15 Morphine Sulfate 2 mg Q30M PRN IV 12/13/24 19:15 Piperacillin Sod/ Tazobactam Sod 100 ml @ 25 mls/hr Q12H IV 12/13/24 22:00 12/17/24 09:58 25 MLS/HR Vancomycin HCl 0 ml @ 0 mls/hr UD IV 12/13/24 19:15 Albuterol 2.5 mg Q4HPRN PRN NEB 12/13/24 19:30 12/16/24 18:38 2.5 MG Diagnostic Test (Pha) 1 strip ACHS 12/13/24 22:00 12/17/24 16:42 1 STRIP Insulin Human Regular ACHS SC 12/13/24 22:00 12/17/24 16:43 2 UNITS Dextrose 50 ml UD PRN IV 12/13/24 19:30 Lactulose 30 ml Q8HR PO 12/13/24 22:00 12/17/24 14:00 30 ML Metoprolol Tartrate 2.5 mg Q6HPRN PRN IV 12/13/24 19:45 Hold Ipratropium [place] 0.5 mg Q4HPRN PRN NEB 12/13/24 22:00 12/16/24 18:38 0.5 MG Norepinephrine Bitartrate 250 ml @ 3.75 mls/hr Q24H IV 12/14/24 10:00 Amlodipine Besylate 2.5 mg DAILY PO 12/15/24 10:00 12/15/24 10:29 2.5 MG Lorazepam 1 mg Q5MINP PRN IV 12/15/24 10:30 Levetiracetam 500 mg BID PO 12/15/24 22:00 12/17/24 09:58 500 MG Phenylephrine HCl 80 mg/Sodium Chloride 250 ml @ 7.5 mls/hr Q24H IV 12/15/24 17:00 12/17/24 05:37 12.188 MLS/HR Enteral Nutritional Formula 1,000 ml 70ML/HR GT 12/16/24 14:45 Heparin Sodium/ Dextrose 250 ml @ 7 mls/hr Q24H IV 12/16/24 21:45 12/17/24 12:49 7 MLS/HR Carbidopa/Levodopa 1 tab QID PO 12/17/24 10:30 12/17/24 17:52 1 TAB Furosemide 20 mg DAILY IV 12/18/24 10:00 Dextrose 1,000 ml @ 50 mls/hr Q20H IV 12/17/24 14:00 12/17/24 14:00 50 MLS/HR Examination * General: Lethargic, arousable to stimuli, * Abdomen: Soft, nondistended, non-tender. No palpable hepatosplenomegaly. No guarding or rebound. laboratory and microbiology Laboratory Tests 12/17/24 04:57 Test 12/17/24 04:57 Range/Units Serum Glucose 107 H 74-106 mg/dL Microbiology Date/Time Source Procedure Growth Status 12/15/24 01:00 Nose MRSA Screen - Final Complete 12/13/24 11:30 Urine - [place] Urine Culture - Final Complete 12/13/24 11:05 Blood Blood Culture - Preliminary NO GROWTH AFTER 72 HOURS OF INCUBATION. Resulted Problem List/Assessment/Plan Problem List/Assessment/Plan Assessment Assessment 1. Severe acute hepatocellular injury (ischemic/hypoxic hepatitis, shock liver) * Marked but downtrending AST/ALT. * Hyperbilirubinemia (total 3.8, direct 2.0). * Normal ALP ? hepatocellular injury pattern. * Negative hepatitis panel. * GENOVEVA pending (rule out autoimmune hepatitis). * Likely multifactorial: hypoperfusion from CHF (EF 5%), hypoxia, sepsis. 2. Coagulopathy and Thrombocytopenia * INR 2.8, APTT 75.8, platelets 77. * Likely from acute hepatic dysfunction + critical illness. * No active GI bleed. 3. Risk of Hepatic Encephalopathy * Altered mental status primarily multifactorial (hypoglycemia, metabolic encephalopathy, CHF, seizure). * Ammonia normal, but patient remains at risk. GI Plan Hepatic * Supportive management for ischemic hepatitis. * Avoid hepatotoxic drugs -limit amiodarone if possible. * Continue daily trending of CMP, LFTs, INR/PTT. * Pending autoimmune hepatitis panel (GENOVEVA, ASMA, IgG). * Consider abdominal US with Doppler if worsening (rule out vascular thrombosis, Budd-Chiari). Coagulation * Transfuse platelets/FFP only if bleeding or invasive procedure needed. * Daily CBC and coagulation profile. GI Bleed Prophylaxis * IV PPI daily. * Monitor for melena, hematemesis, hematochezia. Encephalopathy * Monitor ammonia. * Lactulose if patient develops worsening encephalopathy or ammonia elevation. * Rifaximin can be considered if persistent encephalopathy. Nutrition Continue Glucerna tube feedings via enteral route, monitor tolerance. Case discussed in detail with the attending physician, including the clinical presentation, diagnostic workup, and comprehensive management plan. Plan discussed with: Other (RN) My Orders My Orders Orders - TATIANA MÁRQUEZ RESIDENT Procedure Category Date Status Time Comprehensive LAB 12/18/24 Verified Metabolic Panel 04:00 Dietary Evaluation Review Comments: Nutrition Recommendation: 1) [facility] + cardiac diet as medically feasible 2) If feeding tube is placed, consider TF Glucerna 1.2Cal @ 60ml/hr (goal) TF @ goal volume provides 1728 kcal (100% energy needs), 86 gm protein (100% protein needs), 1159 ml free water. 3) Water flush 100ml Q4H if allowed, adjust PRN 4) TPN if NPO >7 days 5) Monitor NPO status, lab values, wt trend, I/O Expected Outcomes/Goals: To meet >75% estimated needs Lab values to improve Fu 2-3 days TATIANA MÁRQUEZ RESIDENT Dec 17, 2024 18:15
--- NOTE | 2024-12-17 23:34 | DVHEEG2 ---
Neurology EEG Procedural Note Procedural Note EXAM DATE: 12/17/24 REFERRING DOCTOR: Dr. Packer TECHNIQUE: Eighteen channels of EEG, 2 channels of EOG, and 1 channel of EKG were recorded using the International 10/20 system. CLINICAL DATA: The patient was referred for an EEG evaluation for the evidence of seizure disorder. MEDICATIONS: See the chart BACKGROUND ACTIVITY: The record showed diffuse low amplitude theta activity over both hemispheres, that was reactive to external stimuli ACTIVATION: Hyperventilation: Not done Photic Stimulation: Not done Sleep: Not seen IMPRESSION: This is a mildly abnormal EEG, this EEG is seen in mild cerebral dysfunction due to metabolic/hypoxic encephalopathy or medication effect, please correlate clinically The EKG channel showed a regular heart rate of 66 per minute . [place] [address] MARTÍN OWEN MD Dec 17, 2024 23:34
[2024-12-18] VITALS (101 sets, daily range): BP systolic 83–129; BP diastolic 48–86; PULSE 81–139; RESP 11–23; TEMP 97.8–98.9; O2SAT 94–98
--- NOTE | 2024-12-18 06:13 | DVHPN2 ---
Progress Note - Dictate Date Seen: Dec 18, 2024 Has the PT tested + for MRSA If YES, has PT been informed?: No Medical Necessity Reason Pt with a Central, PICC or Fol: Yes The following are medically ne: Clayton Catheter Reason for clayton catheter: Bladder Retention/Obstruc, Strict I&O vital signs Vital Sign Date Time Temp Pulse Resp B/P (MAP) Pulse Ox O2 Delivery O2 Flow Rate FiO2 12/18/24 06:03 12 97 Nasal Cannula* 1 24 12/18/24 06:03 97 12/18/24 03:00 105/75 (85) 12/17/24 22:45 98.1 98.1 Total Intake and Output 12/17/24 12/17/24 12/18/24 15:00 23:00 07:00 Intake Total 385.219 ml 1109.28 ml 480.46 ml Output Total 1200 ml Balance 385.219 ml -90.72 ml 480.46 ml medications Current Medications Medications Dose Ordered Sig/Diane Route Start Time Stop Time Status Last Admin Dose Admin Acetaminophen/ Hydrocodone Bitart 1 tab Q4HP PRN PO 12/13/24 19:15 Ondansetron HCl 4 mg Q4HP PRN IV 12/13/24 19:15 Enoxaparin Sodium 40 mg DAILY SC 12/14/24 10:00 UNV Acetaminophen 650 mg Q6HP PRN PO 12/13/24 19:15 Nitroglycerin 0.4 mg Q5MINP PRN SL 12/13/24 19:15 Morphine Sulfate 2 mg Q30M PRN IV 12/13/24 19:15 Piperacillin Sod/ Tazobactam Sod 100 ml @ 25 mls/hr Q12H IV 12/13/24 22:00 12/17/24 21:41 25 MLS/HR Vancomycin HCl 0 ml @ 0 mls/hr UD IV 12/13/24 19:15 Albuterol 2.5 mg Q4HPRN PRN NEB 12/13/24 19:30 12/16/24 18:38 2.5 MG Diagnostic Test (Pha) 1 strip ACHS 12/13/24 22:00 12/17/24 21:41 1 STRIP Insulin Human Regular ACHS SC 12/13/24 22:00 12/17/24 16:43 2 UNITS Dextrose 50 ml UD PRN IV 12/13/24 19:30 Lactulose 30 ml Q8HR PO 12/13/24 22:00 12/18/24 05:49 30 ML Metoprolol Tartrate 2.5 mg Q6HPRN PRN IV 12/13/24 19:45 Hold Ipratropium [place] 0.5 mg Q4HPRN PRN NEB 12/13/24 22:00 12/16/24 18:38 0.5 MG Norepinephrine Bitartrate 250 ml @ 3.75 mls/hr Q24H IV 12/14/24 10:00 Amlodipine Besylate 2.5 mg DAILY PO 12/15/24 10:00 12/15/24 10:29 2.5 MG Lorazepam 1 mg Q5MINP PRN IV 12/15/24 10:30 Levetiracetam 500 mg BID PO 12/15/24 22:00 12/17/24 21:41 500 MG Phenylephrine HCl 80 mg/Sodium Chloride 250 ml @ 7.5 mls/hr Q24H IV 12/15/24 17:00 12/17/24 05:37 12.188 MLS/HR Enteral Nutritional Formula 1,000 ml 70ML/HR GT 12/16/24 14:45 Heparin Sodium/ Dextrose 250 ml @ 7 mls/hr Q24H IV 12/16/24 21:45 12/17/24 12:49 7 MLS/HR Carbidopa/Levodopa 1 tab QID PO 12/17/24 10:30 12/18/24 05:49 1 TAB Furosemide 20 mg DAILY IV 12/18/24 10:00 Dextrose 1,000 ml @ 50 mls/hr Q20H IV 12/17/24 14:00 12/17/24 14:00 50 MLS/HR laboratory and microbiology Test 12/18/24 05:37 Range/Units Serum Glucose Pending Assessment/Plan Still in [facility] (ICU). Still non-communicative. Patient is a 63-year-old gentleman who originally was brought by the neighbor for altered level of consciousness. Patient is poor historian and noncommunicative and can not provide information. Information was obtained by reviewing the chart and communicating with staff. Reportedly, the patient's blood sugar was 41/56 on arrival and the patient was managed for metabolic encephalopathy. There is no report of chest pain. Cardiology is involved for cardiac aspects of care. It seems that since arrival, the patient was in atrial fibrillation and has been kept on amiodarone drip by the primary team. Patient does have a pacemaker implanted to the left side of the chest also. There is no previous information in the chart. I reached out to the available contact numbers on the patient's face sheet and also reviewed outside records available in [facility]. Contact numbers are disconnected/mistaken or no response. It seems that the patient has history of old atrial fibrillation. Patient's outside medications are not available to review. It seems that the patient does have history of old CVA/seizure disorder/Parkinson's disease/diabetes and hypertension. There is question about previous history of bladder mass. Noncommunicative. Lying flat in bed. No gross JVD. Mucosa is pink. No carotid bruit. Lung examination reveals scattered rhonchi. There is no rales. Cardiac: Irregular, no thrill. Systolic murmur 2/6 in the apex is heard. Abdomen is soft. Right upper and lower extremities are edematous. Patient is uncooperative and can not be fully examined Reported past medical history includes hypertension, diabetes mellitus, old history of CVA, parkinsonism, seizure disorder, atrial fib and also history of pacemaker (Biotronik: review of the its image) implantation. Patient non- compliant with medication and follow ups (as per son) WBC: 10.1 (with shift to the left) - 9.7 - 8.6 - 9.4 today's pending Creatinine: 2.73 - 2.62 - 1.89 - 1.68 - 1.31 - 1.14 - 1.30 today's pending Potassium: 5.8 - 5.8 - 5.0 - 3.6 - 3.6 - 3.0 - 3.4 - 3.8 today's pending Lactic acid: 7.2 - 2.5 AST/ALT: 4520/2306 - 4549/2598 - 1517/961 - 740/311 - 794/545 today's pending BNP: 2030. Ammonia: 32 BNP: 2030. Trop (high sensitive): 191 - 65 - 156 - 106 - 82 - 73 D-Dimer: 21.40 CK: 1448 TSH: 4.34 Urine toxicology: Nonrevealing Chest x-ray revealed: IMPRESSION: Cardiomegaly with pulmonary vascular congestion and bilateral patchy airspace opacities. Small bilateral pleural effusions, [id number]-left. Repeat chest xry revealed: IMPRESSION: NG tube tip in the stomach. CT of the abdomen and pelvis reported: IMPRESSION: 1. Right lower lobe pneumonia. 2. Moderate right pleural effusion 3. Soft tissue density is seen in the left posterior bladder measuring 3.1 cm, possibly reflecting hematoma or mass. Consider correlation with CT urogram. CT of the head reported: IMPRESSION: No intracranial hemorrhage or mass effect. Cerebral encephalomalacia as described most pronounced within the left temporal lobe. Right frontal scalp, right facial region soft tissue emphysema. Correlate for traumatic and other etiologies. Right facial region contusion. Repeat CT of head revealed: MPRESSION: No evidence of acute intracranial hemorrhage, mass effect or hydrocephalus. Left frontal, parietal and temporal encephalomalacia most pronounced in the left temporal lobe. Dzht-nf-[id number] global cerebral volume loss. CT of chest without contrast: There is limited interpretation of the abdomen and pelvis without administration of intravenous contrast. The trachea is patent. No pneumothorax. Moderate right and small left pleural effusions. Right upper, middle and lower lobe airspace consolidation, ground-glass disease most pronounced within the right lower lobe. Left lower lobe consolidation/atelectasis. Heart enlarged. Coronary artery calcification disease. Fluid within the superior pericardial recess. Upper abdomen demonstrates small amount of ascites fluid. Mesenteric edema. Gallbladder hyperdensity/sludge. Gastric wall thickening. Colonic diverticula. Soft tissue edema/anasarca. Left chest dual lead cardiac pacing device. IMPRESSION: Limited evaluation without contrast. Moderate right and small left pleural effusions. Bilateral consolidation/ atelectasis and ground-glass disease, eokih-vvrakqz-ozgi-left which can be secondary to combination of infection, edema, hypoventilatory changes. Upper abdomen demonstrates small amount of ascites fluid, Mesenteric edema. Gallbladder hyperdensity/ sludge which can be further characterized with abdominal ultrasound. Colonic diverticular disease. Cardiomegaly, coronary artery calcification disease. Other findings as described Venous duplex of lower ext revealed: IMPRESSION: No right or left femoropopliteal venous thrombosis. 5cm right lower extremity bakers cyst. END IMPRESSION: If clinical concern/symptoms persist or worsen, short-interval follow-up study is suggested. V/Q scan reported: IMPRESSION: 1. Low probability for PE. EKG revealed atrial fibrillation with RVR Tele reveals atrial fibrillation with RVR Echocardiogram revealed: Dilated 4 chambers were seen. Left ventricle: Left ventricle was dilated with significantly reduced systolic function. LVEF was around 5%. Diffuse hypokinesis of left ventricle was seen. 1.5 x 1.1 x 0.9 hyperechoic mass in the LV apex compatible with thrombus was seen. Right ventricle was dilated with reduced systolic function. Both atria were dilated. Pacing wire was seen in right-sided chambers. Aortic valve was trileaflet. There was no aortic stenosis/insufficiency. There was gvjo-wf-ilqrkjje mitral and tricuspid regurgitation. Pulmonary valve was not well visualized. IVC was dilated. Right ventricular systolic pressure was assessed at around 45 mm Hg. There was no pericardial effusion. Compatible with end-stage systolic heart failure/cardiomyopathy with LV apex thrombus. [employer] PM INTERROGATION: Battery: Remaining capacity to AMRIT: 36%; Battery voltage: 2.96 volts; DDDR:60/130; Sensing: A 0.5/V8.7 mV; Lead impedance: A400/V450 Ohms; A pace: 16%; V pace: 14%; AT/AF burden: 61% Patient is a 63-year-old gentleman who was brought by neighbor reportedly for altered level of consciousness. On arrival, the patient was hypoglycemic. LFTs have been abnormal. Lactic acid on arrival was elevated. Kidney function was not normal and the patient had shift to the left in leukocyte count. CT of the head questioned soft tissue problem and questionable trauma? Presentation is more in favor of metabolic problems. It seems that the patient does have history of atrial fibrillation and also pacemaker implantation from before. Detailed information of previous cardiac history is not available. It is unknown if patient has been compliant with medications and the type of medi cations. Minimal increase in troponin most likely reflects demand physiology. Serial troponin is justified. Patient does have right-sided extremity edema. Could this be reflective of old CVA and hemiparesis or can not be DVTs?. Being followed by Nephrology, Urology and Pulmonary. Echo is in favor of advanced end stage systolic heart failure / Cardiomyopathy with LV thrombus. We have not been to get any outside previous records yet. Is seen and being followed by Neurology / Pulmonology / GI / Nephrology. I could talk to son ([phone]) who provided more information. 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 Penny ent is not compliant with medications as outpatient. Only goes to some clinic infrequently. Does have poor baseline functional status. Encephalopathy, metabolic? Multiorgan involvement Acute renal failure Abnormal LFT Atrial fibrillation with RVR Status post pacemaker implantation (Biotronik? ) Right-sided edema Bladder mass UTI? Pneumonia Right pleural effusion Abnormal D-dimer Pneumonia Systolic heart failure Acute on chronic systolic heart failure Cardiomyopathy LV thrombus Cardiac suggestion for management: Fluid resuscitation Follow-up electrolytes and kidney function tests and correct abnormalities Amiodarone drip can be justified Heparin drip (full anticoagulation: recognizing LV thrombus) Pressure support to keep MAP above 60 GDMT for systolic CHF when stable Life Vest, when patient becomes more alert and if he can manage it Neurology follow up Pulmonary follow up GI follow up Treatment of pneumonia/UTI as per primary team/Pulmonary Attempt to get prior medical records and information Further evaluation and management depends on the above and clinical course A total of 75 minutes was spent reviewing the patient record, examining the patient, making a diagnostic and therapeutic plan, discussing this plan with medical personnel, following up on diagnostic studies and following the patient for clinical stability excluding any and all procedures. At least 50% of this time was spent in direct, [id number] contact. Thank you for allowing me to participate in this patient's care. Further recommendations will depend on patient's clinical course. Please do not hesitate to contact me if you have any questions or concerns. This medical document was created using electronic medical record system with [employer] computerized dictation system. Although this document has been carefully reviewed, there may still be some phonetic and typographical errors. These areas are purely typographical due to the imperfection of the software programs, and do not reflect any compromise in the patient's medical care. Dietary Evaluation Review Comments: Nutrition Recommendation: 1) Advance to [facility] 60gm + cardiac diet as medically feasible 2) If feeding tube is placed, consider TF Glucerna 1.2Cal @ 60ml/hr (goal) TF @ goal volume provides 1728 kcal (100% energy needs), 86 gm protein (100% protein needs), 1159 ml free water. 3) Water flush 100ml Q4H if allowed, adjust PRN 4) TPN if NPO >7 days 5) Monitor NPO status, lab values, wt trend, I/O Expected Outcomes/Goals: To meet >75% estimated needs Lab values to improve Fu 2-3 days Plan discussed with: Other (nurse) JAMES CULLEN MD Dec 18, 2024 06:13
[2024-12-18 06:24] LABS: Alkaline Phosphatase 101 U/L (46-116); Anion Gap 8 (5-15); BUN/Creatinine Ratio 24.6 (10.0-20.0); Calcium 8.9 mg/dL (8.7-10.4); Chloride 104 mmol/L (98-107)
[2024-12-18 06:28] LABS: Hematocrit 51.5 % (41.0-53.0); Hemoglobin 16.9 g/dL (13.5-17.5); Mean Corpuscular Hemoglobin 28.9 pg (28.0-32.0); Mean Corpuscular Volume 87.9 fL (80.0-100.0); Nucleated Red Blood Cells % 0.3 %
[2024-12-18 06:37] LABS: Alanine Aminotransferase 626 U/L (7-40); Albumin 3.2 g/dL (3.2-4.8); Bilirubin, Total 2.8 mg/dL (0.2-1.0); Blood Urea Nitrogen 30 mg/dL (9-23); Carbon Dioxide 33 mmol/L (20-31); Glucose 127 mg/dL (74-106); Potassium 3.1 mmol/L (3.5-5.1); Sodium 145 mmol/L (136-145); Total Protein 5.5 g/dL (5.7-8.2)
[2024-12-18 06:51] LABS: INR 1.54 (0.9-1.15); Prothrombin Time 15.6 sec (9.3-11.8)
[2024-12-18 07:03] LABS: Partial Thromboplastin Time 78.0 SEC (24.5-34.5)
--- NOTE | 2024-12-18 08:46 | CONS ---
Pharmacy Clinical Information: DECREASE HEPARIN DRIP RATE TO 500 UNITS/HR PER APTT OF 78.0 NEXT APTT DRAW SCHEDULED FOR 1300 PER RX PROTOCOL LETTY BARRIENTOS CONFIRMED AND READ BACK Nessa Mccullough PHARMACIST Dec 18, 2024 08:46
[2024-12-18] MEDS: HEPARIN DRIP/D5W 100UNITS/ML 250 ML IV SCH (08:48)
[2024-12-18] MEDS: FUROSEMIDE 40 MG/4 ML VIAL IV SCH (09:14)
[2024-12-18] MEDS: POTASSIUM CHL 20MEQ/100ML 100 ML IV SCH (09:15)
[2024-12-18] MEDS: VANCOMYCIN 750MG KIT 100 ML IV SCH (10:15)
--- NOTE | 2024-12-18 10:32 | DVHPN2 ---
Progress Note Date Seen: Dec 18, 2024 Has the PT tested + for MRSA If YES, has PT been informed?: No Medical Necessity Reason Pt with a Central, PICC or Fol: Yes The following are medically ne: Clayton Catheter Reason for clayton catheter: Bladder Retention/Obstruc, Strict I&O Subjective Patient reports: No new complaints Other Systems: Patient seen and examined by myself today in follow-up Objective vital signs Vital Sign Date Time Temp Pulse Resp B/P (MAP) Pulse Ox O2 Delivery O2 Flow Rate FiO2 12/18/24 10:16 104 20 120/80 (93) 96 12/18/24 10:00 Nasal Cannula 1.0 12/18/24 10:00 24 12/18/24 08:15 98.9 98.9 Total Intake and Output 12/17/24 12/17/24 12/18/24 14:59 22:59 06:59 Intake Total 335.219 ml 1109.28 ml 1182.78 ml Output Total 1200 ml 550 ml Balance 335.219 ml -90.72 ml 632.78 ml medications Current Medications Medications Dose Ordered Sig/Diane Route Start Time Stop Time Status Last Admin Dose Admin Acetaminophen/ Hydrocodone Bitart 1 tab Q4HP PRN PO 12/13/24 19:15 Ondansetron HCl 4 mg Q4HP PRN IV 12/13/24 19:15 Enoxaparin Sodium 40 mg DAILY SC 12/14/24 10:00 UNV Acetaminophen 650 mg Q6HP PRN PO 12/13/24 19:15 Nitroglycerin 0.4 mg Q5MINP PRN SL 12/13/24 19:15 Morphine Sulfate 2 mg Q30M PRN IV 12/13/24 19:15 Piperacillin Sod/ Tazobactam Sod 100 ml @ 25 mls/hr Q12H IV 12/13/24 22:00 12/18/24 09:14 25 MLS/HR Vancomycin HCl 0 ml @ 0 mls/hr UD IV 12/13/24 19:15 Albuterol 2.5 mg Q4HPRN PRN NEB 12/13/24 19:30 12/16/24 18:38 2.5 MG Diagnostic Test (Pha) 1 strip ACHS 12/13/24 22:00 12/18/24 07:00 1 STRIP Insulin Human Regular ACHS SC 12/13/24 22:00 12/17/24 16:43 2 UNITS Dextrose 50 ml UD PRN IV 12/13/24 19:30 Lactulose 30 ml Q8HR PO 12/13/24 22:00 12/18/24 05:49 30 ML Metoprolol Tartrate 2.5 mg Q6HPRN PRN IV 12/13/24 19:45 Hold Ipratropium [place] 0.5 mg Q4HPRN PRN NEB 12/13/24 22:00 12/16/24 18:38 0.5 MG Norepinephrine Bitartrate 250 ml @ 3.75 mls/hr Q24H IV 12/14/24 10:00 Amlodipine Besylate 2.5 mg DAILY PO 12/15/24 10:00 12/15/24 10:29 2.5 MG Lorazepam 1 mg Q5MINP PRN IV 12/15/24 10:30 Levetiracetam 500 mg BID PO 12/15/24 22:00 12/18/24 09:15 500 MG Phenylephrine HCl 80 mg/Sodium Chloride 250 ml @ 7.5 mls/hr Q24H IV 12/15/24 17:00 12/17/24 05:37 12.188 MLS/HR Enteral Nutritional Formula 1,000 ml 70ML/HR GT 12/16/24 14:45 Carbidopa/Levodopa 1 tab QID PO 12/17/24 10:30 12/18/24 05:49 1 TAB Furosemide 20 mg DAILY IV 12/18/24 10:00 12/18/24 09:14 20 MG Dextrose 1,000 ml @ 50 mls/hr Q20H IV 12/17/24 14:00 12/17/24 14:00 50 MLS/HR Heparin Sodium/ Dextrose 250 ml @ 5 mls/hr Q24H IV 12/18/24 08:45 12/18/24 08:48 5 MLS/HR Potassium Chloride 100 ml @ 50 mls/hr Q2H IV 12/18/24 09:00 12/18/24 14:59 12/18/24 09:15 50 MLS/HR Vancomycin HCl 100 ml @ 100 mls/hr Q18H IV 12/18/24 10:15 Examination: LUNGS:Normal, CVS:Normal, MSK:Normal laboratory and microbiology Laboratory Tests 12/18/24 05:37 Test 12/18/24 05:37 Range/Units Serum Glucose 127 H 74-106 mg/dL Microbiology Date/Time Source Procedure Growth Status 12/15/24 01:00 Nose MRSA Screen - Final Complete 12/13/24 11:30 Urine - [place] Urine Culture - Final Complete 12/13/24 11:05 Blood Blood Culture - Preliminary NO GROWTH AFTER 72 HOURS OF INCUBATION. Resulted Problem List/Assessment/Plan Problem List/Assessment/Plan Acute kidney injury superimposed Chronic Kidney Disease secondary hemodynamic mediated Cardiorenal syndrome AFib with RVR CHF EF < 10% proteinuria AMS baseline unknown/ parkinsonism ? bladder mass on CT elevated AST/ALT bilirubin thrombocytopenia elevated INR High Dimer V/Q neg for PE hypernatremia Hypokalemia Recommendation Kidney function is improving Increased urine output Strict I&Os I agree with diuresis KCL replacement We will continue to follow Plan discussed with: Patient Dietary Evaluation Review Comments: Nutrition Recommendation: 1) Advance to CCHO 60gm + cardiac diet as medically feasible 2) If feeding tube is placed, consider TF Glucerna 1.2Cal @ 60ml/hr (goal) TF @ goal volume provides 1728 kcal (100% energy needs), 86 gm protein (100% protein needs), 1159 ml free water. 3) Water flush 100ml Q4H if allowed, adjust PRN 4) TPN if NPO >7 days 5) Monitor NPO status, lab values, wt trend, I/O Expected Outcomes/Goals: To meet >75% estimated needs Lab values to improve Fu 2-3 days TUSHAR SEGUNDO MD Dec 18, 2024 10:32
[2024-12-18 12:08] LABS: Protein, Urine 12.3 mg/dL (1-14)
[2024-12-18 12:21] LABS: Urine Protein, UAD Negative (Negative)
[2024-12-18] MEDS ORDERED: ACETAMINOPHEN 325 MG TAB PO PRN (12:45)
[2024-12-18] MEDS: HYDROcodone-ACET 5/325MG TAB PO PRN (12:58)
--- NOTE | 2024-12-18 13:12 | DVHDS2 ---
Discharge Summary Date of Admission Dec 13, 2024 at 19:05 Date of Discharge: Dec 18, 2024 Labs/Diagnostic Data: Laboratory Results Test 12/18/24 12:59 12/18/24 11:42 12/18/24 11:30 12/18/24 05:37 POC Glucose 116 mg/dl (70-106) Urine Color Yellow (Yellow) Urine Clarity Clear (Clear) Urine pH 5.5 (5.0-9.0) Urine Specific [place] 1.018 (1.001-1.035) Urine Protein Negative (Negative) Urine Ketones Negative (Negative) Urine Blood 2+ /uL (Negative) Urine Nitrite Negative (Negative) Urine Bilirubin Negative (Negative) Urine Urobilinogen 2 mg/dL (Negative) Urine Leukocyte Esterase Trace /uL (Negative) Urine RBC 16 /hpf (0 - 3) Urine Microscopic WBC 30 /HPF (0-3) Urine Squamous Epithelial Cells Few /hpf (<5) Urine Bacteria None seen /hpf (None Seen) Urine Mucus Few (None Seen) Urine Creatinine 46.13 mg/dL (30.0-125.0) Urine Protein/Creatinine Ratio 0.27 Urine Sodium 25 mmol/L (40-220) Urine Glucose Normal mg/dL (Normal) Urine Total Protein 12.3 mg/dL (1-14) White Blood Count 8.4 10^3/uL (4.4-10.8) Red Blood Count 5.86 10^6/uL (4.5-5.90) Hemoglobin 16.9 g/dL (13.5-17.5) Hematocrit 51.5 % (41.0-53.0) Mean Corpuscular Volume 87.9 fL (80.0-100.0) Mean Corpuscular Hemoglobin 28.9 pg (28.0-32.0) Mean Corpuscular Hemoglobin Concent 32.8 g/dL (32.0-36.0) Red Cell Distribution Width 19.7 % (11.8-14.3) Platelet Count 89 10^3/uL (140-450) Mean Platelet Volume 10.9 fL (6.9-10.8) Neutrophils (%) (Auto) 81.5 % (37.0-80.0) Lymphocytes (%) (Auto) 5.9 % (10.0-50.0) Monocytes (%) (Auto) 12.3 % (0.0-12.0) Eosinophils (%) (Auto) 0.1 % (0.0-7.0) Basophils (%) (Auto) 0.2 % (0.0-2.0) Neutrophils # (Auto) 6.9 10 ^3/uL (1.6-8.6) Lymphocytes # (Auto) 0.5 10 ^3/uL (0.4-5.4) Monocytes # (Auto) 1.0 10 ^3/uL (0-1.3) Eosinophils # (Auto) 0 10 ^3/uL (0-0.8) Basophils # (Auto) 0 10 ^3/uL (0-0.2) Nucleated Red Blood Cells 0.3 % Prothrombin Time 15.6 sec (9.3-11.8) Prothrombin Time INR 1.54 (0.9-1.15) Activated Partial Thromboplast Time 78.0 SEC (24.5-34.5) Sodium Level 145 mmol/L (136-145) Potassium Level 3.1 mmol/L (3.5-5.1) Chloride Level 104 mmol/L (98-107) Carbon Dioxide Level 33 mmol/L (20-31) Anion Gap 8 (5-15) Blood Urea Nitrogen 30 mg/dL (9-23) Creatinine 1.22 mg/dL (0.700-1.30) Glomerular Filtration Rate Calc 67 mL/min (>90) BUN/Creatinine Ratio 24.6 (10.0-20.0) Serum Glucose 127 mg/dL (74-106) Calcium Level 8.9 mg/dL (8.7-10.4) Total Bilirubin 2.8 mg/dL (0.2-1.0) Aspartate Amino Transferase (AST) 512 U/L (13-40) Alanine Aminotransferase (ALT) 626 U/L (7-40) Alkaline Phosphatase 101 U/L (46-116) Total Protein 5.5 g/dL (5.7-8.2) Albumin 3.2 g/dL (3.2-4.8) Random Vancomycin Level 14.2 ug/mL (5-10) Test 12/17/24 14:56 12/17/24 04:57 12/15/24 15:15 12/15/24 13:14 Ammonia < 10 umol/L (11-32) Vitamin B12 Level > 2000 pg/mL (211-911) Folic Acid 20.43 ng/mL (>5.38) Free Thyroxine (T4) Calculated 0.73 ng/dL (0.89-1.76) Creatine Kinase 1448 U/L (46-171) Troponin I High Sensitivity 73 ng/L (</=54) Test 12/15/24 09:10 12/15/24 04:50 12/14/24 10:29 12/14/24 10:05 Thyroid Stimulating Hormone (TSH) 4.34 uIU/mL (0.55-4.78) Direct Bilirubin 2.0 mg/dL (<0.3) Serum Immunoglobulin G 258 mg/dL (603-1613) Immunoglobulin A 104 mg/dL (61-437) Immunoglobulin M 12 mg/dL (20-172) Serum Immunofixation Comment (.) Anti-Nuclear Antibody Comment Comment (.) Cytoplasmic ANCA (c-ANCA) Antibody <1:20 titer (Neg:<1:20) Atypical p-ANCA <1:20 titer (Neg:<1:20) Perinuclear ANCA (p-ANCA) Antibody <1:20 titer (Neg:<1:20) Anti-Parietal Cell Antibody 0.8 Units (0.0-20.0) Complement C3 16 mg/dL (82-167) Complement C4 <2 mg/dL (12-38) Blood Gas Specimen Type Arterial Blood Gas Sample Site Right radial Blood Gas Patient Temperature 37.0 Arterial Blood Date Drawn [id number] Arterial Blood pH 7.439 (7.350-7.450) Arterial Blood Partial Pressure CO2 24.5 mmHg (35.0-48.0) Arterial Blood Partial Pressure O2 79.8 mmHg (83.0-108.0) Arterial Blood HCO3 16.2 mmol/L (21.0-28.0) Arterial Blood Oxygen Saturation 94.6 % (94.0-98.0) Arterial Blood Base Excess -5.9 mmol/L (-2.0-3.0) Arterial Blood Oxyhemoglobin 93.4 % (94.0-98.0) Arterial Blood Carboxyhemoglobin 0.7 % (0.5-1.5) Arterial Blood Methemoglobin 0.6 % (0.0-1.5) Marcus Test Yes Blood Gas Total Hemoglobin 15.10 g/dL (13.5-17.5) Blood Gas Modality Room air FiO2 % 21.0 Test 12/14/24 04:51 12/13/24 19:15 12/13/24 13:31 12/13/24 11:30 D-Dimer, Quantitative 21.40 mg/L FEU (0.0-0.49) Phosphorus Level 6.7 mg/dL (2.4-5.1) Hepatitis A IgM Antibody Negative Hepatitis B Surface Antigen Negative (Negative) Hepatitis B Core IgM Antibody Negative (Negative) Hepatitis C Antibody Negative (Negative) Lactic Acid Level 2.5 mmol/L (0.4-2.0) Urine Hyaline Casts Mod /lpf (0 - 2) Urine Sperm Present /hpf (None Seen) Urine Opiates Screen Neg (NEGATIVE) Urine Fentanyl Screen Neg (NEGATIVE) Urine Barbiturates Screen Neg (NEGATIVE) Urine Phencyclidine Screen Neg (NEGATIVE) Urine Amphetamines Screen Neg (NEGATIVE) Urine Benzodiazepines Screen Neg (NEGATIVE) Urine Cocaine Screen Neg (NEGATIVE) Urine Cannabinoids Screen Neg (NEGATIVE) Test 12/13/24 11:05 B-Type Natriuretic Peptide 2031.22 pg/mL (0-100) Other Laboratory Tests 12/18/24 05:37 Brief Hx & Hospital Course: 63-year-old male brought in by a neighbor with a past history of hypertension, CVA, type 2 diabetes, hypertension for altered level of consciousness. Patient is alert x2 upon arrival to the emergency room blood sugar read low. Patient is unable to answer any questions. Patient was admitted on December 13, 2024, for metabolic and hepatic encephalopathy and was found to have liver failure. He also had cardiomyopathy with an estimated EF of 510%. Patient was seen and evaluated by Cardiology, and echocardiogram revealed a left ventricular thrombus. He also had cardiorenal syndrome, though renal function was noted to be improving with Nephrology follow-up. CT imaging revealed a bladder mass, and Urology recommended outpatient cystoscopy. Neurology evaluated the patient given his history of Parkinsons disease, and no left extremity tremors were noted. Patient also had an elevated D-dimer; however, V/Q scan was negative for PE. During admission, he developed A-fib with RVR and was placed on a heparin drip. Patient was also noted to have thrombocytopenia and coagulopathy, likely secondary to liver failure, which itself was most likely caused by severe heart failure. Patient has a history of multiple strokes and has been primarily bedbound. According to his son, mentation has been very poor for the past 2 years. Given multi-organ failure and poor prognosis, the family elected for hospice care. Hospice was arranged, and the patient will be discharged home on comfort measures. There were no complaints or new complaints upon discharge, all questions and concerns were answered. Patient was advised to return to the ER or call 911 if any headaches, dizziness, shortness of breath, chest pain, bleeding, fevers, or worsening of medical condition. Patient/Family was counseled about treatment plan, medications, possible side effects, patientverbalized understanding. All questions were answered to the best of my ability. The patient symptoms improved and they are okay to be DC. Condition at Discharge: Stable Final Diagnosis/Problems List Acute metabolic encephalopathy Acute Kidney Injury (JEFFERY) Right Lower Lobe Pneumonia with Right Pleural Effusion Acute Cystitis with Hematuria Type 2 Diabetes Mellitus Hypertension Parkinson's Disease History of Stroke Atrial Fibrillation with Rapid Ventricular Response (AFib with RVR) Hyperkalemia Pacemaker in place Ischemic cardiomyopathy Left ventricular thrombus Discharge Disposition: Hospice - Home Discharge Instruct/Medications Diet: See Comment Diet comment: Not alert enough to eat at this time Activity: Bed rest Follow Up/Referral: Hospice Unable to Obtain Active Prescriptions or Reported Meds Discharge Statement: "Patient was advised to return to the ER or call 911 if any headaches, dizziness, shortness of breath, chest pain, abdominal pain, bleeding, fevers, or worsening of medical condition. Patient was counseled about treatment plan, medications, possible side effects, patientverbalized understanding. All questions were answered to the best of my ability. This discharge took greater then 30 minutes in planning, reviewing documentation, counseling the patient, and discussing with other team members." ASSESSMENT ASSESSMENT Assessment Hepatic/metabolic encephalopathy Liver failure Cardiomyopathy Thrombocytopenia Coagulopathy PNA Parkinson's Cardiorenal syndrome JOHN TAI NP Dec 18, 2024 13:12
--- NOTE | 2024-12-18 15:14 | DVHPN2 ---
Progress Note Date Seen: Dec 18, 2024 Resident Creating Document: TATIANA MÁRQUEZ RESIDENT Has the PT tested + for MRSA If YES, has PT been informed?: No Medical Necessity Reason Pt with a Central, PICC or Fol: Yes The following are medically ne: Clayton Catheter Reason for clayton catheter: Bladder Retention/Obstruc, Strict I&O Subjective Review of Systems 61-year-old male with history of HTN, DM2, CKD, CHF with EF <10%, atrial fibrillation with pacemaker, prior CVA, Parkinsonism, and seizure disorder. Admitted with altered mental status and hypoglycemia. GI following for markedly elevated liver enzymes, hyperbilirubinemia, and coagulopathy. Todays Interval Events / Progress: * Patient remains lethargic, non-verbal, dependent for care. * Failed swallow evaluation, therefore oral intake is unsafe. * Receiving NG tube feeds with Glucerna as primary nutrition. * No abdominal pain, vomiting, hematemesis, melena, or hematochezia noted. * Antibiotics (Zosyn, Vancomycin) continue for pneumonia/UTI per primary team. Laboratory Updates (today): * RBC 5.86, Hemoglobin 16.9, Hematocrit 51.5 * WBC 8.4 (stable, within normal range). * LFTs trending down: AST 512, ALT 626 (down from peak >4500/2500). * Alkaline Phosphatase 90 (normal). * Ammonia <10 (low, not suggestive of hepatic encephalopathy). * INR elevated, continues to be monitored. * Hepatitis panel negative, GENOVEVA pending. TODAY THE PATIENT HAS BEEN CONVERTED TO DNR STATUS AND BEING TRANSITIONED TO HOME WITH HOME HOSPICE CARE. Objective vital signs Vital Sign Date Time Temp Pulse Resp B/P (MAP) Pulse Ox O2 Delivery O2 Flow Rate FiO2 12/18/24 13:01 93 16 111/62 (78) 98 12/18/24 12:01 98.9 98.9 12/18/24 10:00 Nasal Cannula 1.0 12/18/24 10:00 24 Total Intake and Output 12/17/24 12/17/24 12/18/24 15:00 23:00 07:00 Intake Total 385.219 ml 1109.28 ml 1114.12 ml Output Total 1200 ml 550 ml Balance 385.219 ml -90.72 ml 564.12 ml medications Current Medications Medications Dose Ordered Sig/Diane Route Start Time Stop Time Status Last Admin Dose Admin Acetaminophen/ Hydrocodone Bitart 1 tab Q4HP PRN PO 12/13/24 19:15 Hold 12/18/24 12:58 1 TAB Ondansetron HCl 4 mg Q4HP PRN IV 12/13/24 19:15 Enoxaparin Sodium 40 mg DAILY SC 12/14/24 10:00 UNV Nitroglycerin 0.4 mg Q5MINP PRN SL 12/13/24 19:15 Morphine Sulfate 2 mg Q30M PRN IV 12/13/24 19:15 Piperacillin Sod/ Tazobactam Sod 100 ml @ 25 mls/hr Q12H IV 12/13/24 22:00 12/18/24 09:14 25 MLS/HR Vancomycin HCl 0 ml @ 0 mls/hr UD IV 12/13/24 19:15 Albuterol 2.5 mg Q4HPRN PRN NEB 12/13/24 19:30 12/16/24 18:38 2.5 MG Diagnostic Test (Pha) 1 strip ACHS 12/13/24 22:00 12/18/24 11:30 1 STRIP Insulin Human Regular ACHS SC 12/13/24 22:00 12/17/24 16:43 2 UNITS Dextrose 50 ml UD PRN IV 12/13/24 19:30 Lactulose 30 ml Q8HR PO 12/13/24 22:00 12/18/24 05:49 30 ML Metoprolol Tartrate 2.5 mg Q6HPRN PRN IV 12/13/24 19:45 Hold Ipratropium [place] 0.5 mg Q4HPRN PRN NEB 12/13/24 22:00 12/16/24 18:38 0.5 MG Norepinephrine Bitartrate 250 ml @ 3.75 mls/hr Q24H IV 12/14/24 10:00 Amlodipine Besylate 2.5 mg DAILY PO 12/15/24 10:00 12/15/24 10:29 2.5 MG Lorazepam 1 mg Q5MINP PRN IV 12/15/24 10:30 Levetiracetam 500 mg BID PO 12/15/24 22:00 12/18/24 09:15 500 MG Phenylephrine HCl 80 mg/Sodium Chloride 250 ml @ 7.5 mls/hr Q24H IV 12/15/24 17:00 12/17/24 05:37 12.188 MLS/HR Enteral Nutritional Formula 1,000 ml 70ML/HR GT 12/16/24 14:45 Carbidopa/Levodopa 1 tab QID PO 12/17/24 10:30 12/18/24 12:32 1 TAB Furosemide 20 mg DAILY IV 12/18/24 10:00 12/18/24 09:14 20 MG Dextrose 1,000 ml @ 50 mls/hr Q20H IV 12/17/24 14:00 12/17/24 14:00 50 MLS/HR Heparin Sodium/ Dextrose 250 ml @ 5 mls/hr Q24H IV 12/18/24 08:45 12/18/24 08:48 5 MLS/HR Vancomycin HCl 100 ml @ 100 mls/hr Q18H IV 12/18/24 10:15 12/18/24 10:15 100 MLS/HR Acetaminophen 650 mg Q6HP PRN PO 12/18/24 12:45 Hold Examination General: Lethargic, arousable to stimuli, * Abdomen: Soft, nondistended, non-tender. No palpable hepatosplenomegaly. No guarding or rebound. laboratory and microbiology Laboratory Tests 12/18/24 05:37 Test 12/18/24 05:37 Range/Units Serum Glucose 127 H 74-106 mg/dL Microbiology Date/Time Source Procedure Growth Status 12/15/24 01:00 Nose MRSA Screen - Final Complete 12/13/24 11:30 Urine - [place] Urine Culture - Final Complete 12/13/24 11:05 Blood Blood Culture - Final NO GROWTH AFTER 5 DAYS OF INCUBATION. Complete Problem List/Assessment/Plan Problem List/Assessment/Plan Assessment Assessment 1. Severe acute hepatocellular injury (ischemic/hypoxic hepatitis, shock liver) * Marked but downtrending AST/ALT. * Hyperbilirubinemia (total 3.8, direct 2.0). * Normal ALP ? hepatocellular injury pattern. * Negative hepatitis panel. * GENOVEVA pending (rule out autoimmune hepatitis). * Likely multifactorial: hypoperfusion from CHF (EF 5%), hypoxia, sepsis. 2. Coagulopathy and Thrombocytopenia * INR 2.8, APTT 75.8, platelets 77. * Likely from acute hepatic dysfunction + critical illness. * No active GI bleed. 3. Risk of Hepatic Encephalopathy * Altered mental status primarily multifactorial (hypoglycemia, metabolic encephalopathy, CHF, seizure). * Ammonia normal, but patient remains at risk. GI Plan Hepatic * Supportive management for ischemic hepatitis. * Avoid hepatotoxic drugs -limit amiodarone if possible. * Continue daily trending of CMP, LFTs, INR/PTT. * Pending autoimmune hepatitis panel (GENOVEVA, ASMA, IgG). * Consider abdominal US with Doppler if worsening (rule out vascular thrombosis, Budd-Chiari). Coagulation * Transfuse platelets/FFP only if bleeding or invasive procedure needed. * Daily CBC and coagulation profile. GI Bleed Prophylaxis * IV PPI daily. * Monitor for melena, hematemesis, hematochezia. Encephalopathy * Monitor ammonia. * Lactulose if patient develops worsening encephalopathy or ammonia elevation. * Rifaximin can be considered if persistent encephalopathy. Nutrition Continue Glucerna tube feedings via enteral route, monitor tolerance. Case discussed in detail with the attending physician, including the clinical presentation, diagnostic workup, and comprehensive management plan. Plan discussed with: Son, Other (RN) Dietary Evaluation Review Comments: Nutrition Recommendation: 1) Advance to [facility] 60gm + cardiac diet as medically feasible 2) If feeding tube is placed, consider TF Glucerna 1.2Cal @ 60ml/hr (goal) TF @ goal volume provides 1728 kcal (100% energy needs), 86 gm protein (100% protein needs), 1159 ml free water. 3) Water flush 100ml Q4H if allowed, adjust PRN 4) TPN if NPO >7 days 5) Monitor NPO status, lab values, wt trend, I/O Expected Outcomes/Goals: To meet >75% estimated needs Lab values to improve Fu 2-3 days TATIANA MÁRQUEZ RESIDENT Dec 18, 2024 15:14
[2024-12-18 15:33] LABS: INR 1.5 (0.9-1.15); Partial Thromboplastin Time 56.3 SEC (24.5-34.5); Prothrombin Time 15.3 sec (9.3-11.8)
[2024-12-18 19:47] LABS: INR 1.48 (0.9-1.15); Partial Thromboplastin Time 55.7 SEC (24.5-34.5); Prothrombin Time 15.1 sec (9.3-11.8)
--- NOTE | 2024-12-18 23:00 | DVHPN2 ---
Progress Note - Dictate Date Seen: Dec 18, 2024 Has the PT tested + for MRSA If YES, has PT been informed?: No Medical Necessity Reason Pt with a Central, PICC or Fol: Yes The following are medically ne: Clayton Catheter Reason for clayton catheter: Bladder Retention/Obstruc, Strict I&O Subjective Patient seen and examined at bedside. Remains on supplemental oxygen Overnight events reviewed. vital signs Vital Sign Date Time Temp Pulse Resp B/P (MAP) Pulse Ox O2 Delivery O2 Flow Rate FiO2 12/18/24 22:15 99 17 120/63 (82) 98 12/18/24 22:05 Nasal Cannula* 1 24 12/18/24 20:00 98.5 98.5 Total Intake and Output 12/17/24 12/17/24 12/18/24 15:00 23:00 07:00 Intake Total 385.219 ml 1109.28 ml 1180.78 ml Output Total 1200 ml 550 ml Balance 385.219 ml -90.72 ml 630.78 ml medications Current Medications Medications Dose Ordered Sig/Diane Route Start Time Stop Time Status Last Admin Dose Admin Acetaminophen/ Hydrocodone Bitart 1 tab Q4HP PRN PO 12/13/24 19:15 Hold 12/18/24 12:58 1 TAB Ondansetron HCl 4 mg Q4HP PRN IV 12/13/24 19:15 Enoxaparin Sodium 40 mg DAILY SC 12/14/24 10:00 UNV Nitroglycerin 0.4 mg Q5MINP PRN SL 12/13/24 19:15 Morphine Sulfate 2 mg Q30M PRN IV 12/13/24 19:15 Piperacillin Sod/ Tazobactam Sod 100 ml @ 25 mls/hr Q12H IV 12/13/24 22:00 12/18/24 22:46 25 MLS/HR Vancomycin HCl 0 ml @ 0 mls/hr UD IV 12/13/24 19:15 Albuterol 2.5 mg Q4HPRN PRN NEB 12/13/24 19:30 12/16/24 18:38 2.5 MG Diagnostic Test (Pha) 1 strip ACHS 12/13/24 22:00 12/18/24 22:00 1 STRIP Insulin Human Regular ACHS SC 12/13/24 22:00 12/18/24 22:49 2 UNITS Dextrose 50 ml UD PRN IV 12/13/24 19:30 Lactulose 30 ml Q8HR PO 12/13/24 22:00 12/18/24 22:46 30 ML Metoprolol Tartrate 2.5 mg Q6HPRN PRN IV 12/13/24 19:45 Hold Ipratropium [place] 0.5 mg Q4HPRN PRN NEB 12/13/24 22:00 12/16/24 18:38 0.5 MG Norepinephrine Bitartrate 250 ml @ 3.75 mls/hr Q24H IV 12/14/24 10:00 Amlodipine Besylate 2.5 mg DAILY PO 12/15/24 10:00 12/15/24 10:29 2.5 MG Lorazepam 1 mg Q5MINP PRN IV 12/15/24 10:30 Levetiracetam 500 mg BID PO 12/15/24 22:00 12/18/24 22:46 500 MG Phenylephrine HCl 80 mg/Sodium Chloride 250 ml @ 7.5 mls/hr Q24H IV 12/15/24 17:00 12/17/24 05:37 12.188 MLS/HR Enteral Nutritional Formula 1,000 ml 70ML/HR GT 12/16/24 14:45 Carbidopa/Levodopa 1 tab QID PO 12/17/24 10:30 12/18/24 22:46 1 TAB Furosemide 20 mg DAILY IV 12/18/24 10:00 12/18/24 09:14 20 MG Dextrose 1,000 ml @ 50 mls/hr Q20H IV 12/17/24 14:00 12/18/24 17:00 50 MLS/HR Heparin Sodium/ Dextrose 250 ml @ 5 mls/hr Q24H IV 12/18/24 08:45 12/18/24 08:48 5 MLS/HR Vancomycin HCl 100 ml @ 100 mls/hr Q18H IV 12/18/24 10:15 12/18/24 10:15 100 MLS/HR Acetaminophen 650 mg Q6HP PRN PO 12/18/24 12:45 Hold objective Gen.: Patient lying in bed in no apparent distress. On supplemental oxygen. Head: Normocephalic, atraumatic. Eyes: EOMI/PERRLA. Ears: Normal hearing. Normal anatomy. Neck/trachea: Trachea midline, supple. Nose: Normal external anatomy. Mouth: Moist mucous membranes. Chest: Decreased air entry bilaterally. No wheezing or rhonchi. Cardiovascular: Positive S1, positive S2. Regular rate and rhythm. Abdomen: Positive bowel sounds in all 4 quadrants. Soft, non-tender, non- distended. : Deferred. Rectal: Deferred. Skin: Warm, dry. Intact. Extremities: 2+ radial pulses bilaterally. No lower extremity edema. Neuro: Awake, altered. No gross motor or sensory deficits. Cranial nerves II through XII intact. Gait not assessed. laboratory and microbiology Laboratory Tests 12/18/24 05:37 Test 12/18/24 05:37 Range/Units Serum Glucose 127 H 74-106 mg/dL Assessment/Plan Impression: Pneumonia Pleural effusions Atelectasis Congestive heart failure Acute kidney injury Acute liver injury Elevated D-dimer (21) Events: Patient seen and examined at bedside. Low oxygen requirements - on 1 LPM NC Taper O2 as tolerated. On amiodarone drip. On Prashant-Synephrine at 15 mcg/min for hemodynamic support Titrate to keep mean arterial pressure greater than 65 mmHg. Patient persistently altered ABG notable for metabolic alkalosis Tapered Lasix to 20 mg Continues on D5W at 50 ml/hr Abnormal LFTs- on lactulose. On antibiotics MRSA negative, sputum cx showed normal julito Urine cultures show no growth. Completed 7 days of abx - from pulmonary standpoint, recommend to discontinue. Continue bronchodilators. Continue heparin drip Monitor renal function. Monitor electrolytes. Supplement as necessary. Hypokalemia - supplement potassium Magnesium at goal. NG tube remains in place Chest x-ray notable for right basilar opacity. Labs and imaging reviewed Plan: Supplemental oxygen Titrate to keep O2 sats above 92%. On pressors for hemodynamic support Titrate to keep mean arterial pressure greater than 65 mmHg. Antibiotics Bronchodilators Head of bed elevation Aspiration precautions Echo report reviewed severe cardiomyopathy, EF 10% F/u Cardiology recommendations Monitor renal function. Monitor electrolytes. Supplement as necessary. Monitor ins and outs. Very poor prognosis Family discussion pending regarding goals of care DVT prophylaxis. Prognosis: Poor given patient's multiple co-morbidities. Condition: Critical Rest of plan per hospitalist and other consultants. A total of 35 minutes of critical care time was spent reviewing the patient record, examining the patient, making a diagnostic and therapeutic plan, discussing this plan with the medical personnel, following up on diagnostic studies and following the patient for clinical stability excluding any and all procedures. At least 50% of this time was spent in direct, [id number] contact. Thank you, BHARAT Hartmann, for allowing me to participate in this patient's care. Further recommendations will depend on the patient's clinical course. Please do not hesitate to contact me if you have any questions or concerns. This medical document was created using an electronic medical record system with [employer] dictation system. Although these documentations are being carefully reviewed, there may still be some phonetic and typographical changes. The errors are purely typographical, due to imperfection on the software program, and do not reflect any compromise in the patient's medical care. Dietary Evaluation Review Comments: Nutrition Recommendation: 1) [facility] + cardiac diet as medically feasible 2) If feeding tube is placed, consider TF Glucerna 1.2Cal @ 60ml/hr (goal) TF @ goal volume provides 1728 kcal (100% energy needs), 86 gm protein (100% protein needs), 1159 ml free water. 3) Water flush 100ml Q4H if allowed, adjust PRN 4) TPN if NPO >7 days 5) Monitor NPO status, lab values, wt trend, I/O Expected Outcomes/Goals: To meet >75% estimated needs Lab values to improve Fu 2-3 days Plan discussed with: Other (LETTY Nunez) Critical Care Time(min): 35 TRACEY KRAMER MD Dec 18, 2024 23:00
--- NOTE | 2024-12-18 23:36 | DVHPN2 ---
Progress Note - Dictate Date Seen: Dec 18, 2024 Has the PT tested + for MRSA If YES, has PT been informed?: No Medical Necessity Reason Pt with a Central, PICC or Fol: Yes The following are medically ne: Clayton Catheter Reason for clayton catheter: Bladder Retention/Obstruc, Strict I&O Subjective Mr. Miller is a 63 years old right-handed gentleman with a history of hypertension, diabetes, the patient came to the hospital on this is 12/13/24 for ALOC. I saw him on 04/09/2017 for seizure I have seen and examined patient, I have talked to his nurse. He is awake, oriented to person, place, he has intermittent tremors in the chin, left arm than leg. His voice very soft and hard to understand Hepatitis pattern, 12/13/24: Negative UDS, 12/14/2023: Negative Urinalysis, 12/13/2024: WBC: 15, urine leukocyte esterase: Negative CBC, 12/14/2024: Hypoxia, compensated metabolic acidosis WBC/HB/PLT/MCV, 12/13/2024: 10.1/40.9/105/89.2 PT/INR/PTT, 12/14/24: 34.9/3.75/. 32.9/3.52/78.1. 12/15/2024: 26.8/2.8/75.8 BUN/CR, 12/13/2024: 56/2.73, 12/15/2024: 77/1 Glucose, 12/13/2024: 56., 133,, 12/15/2024: 127, 12/16/2024: 407 Troponin one high sensitivity, 12/14/2024: 191, 65, 156, 12/15/2024: 106 TBI/AST/ALT/AP, 12/13/2024, 07/4519/59404/81 Ammonia, 12/13/2024: 32 TG/CH OL/LDL/HDL, 04/09/17: 66/171/104/63 Vitamin B12, 12/15/24: 2000 Folate, 12/15/2024: 20.43 TSH, 12/15/2024: 4.34 FT4, 12/16/2023: 0.73 Echocardiogram, 04/08/17: Unremarkable Carotid Doppler, 03/2017: Unremarkable CT, 04/07/17: No intracranial hemorrhage. Left temporal lobe non-hemorrhagic infarct of indeterminate chronicity. Chronic lacunar infarct right frontal white matter. CT head, 12/14/2024: No evidence of acute intracranial hemorrhage, mass effect or hydrocephalus. Left frontal, parietal and temporal encephalomalacia most pronounced in the left temporal lobe. [id number] global cerebral volume loss. CT chest/abdomen/pelvis, 12/14/2023: 1. Right lower lobe pneumonia. 2. Moderate right pleural effusion 3. Soft tissue density is seen in the left posterior bladder measuring 3.1 cm, possibly reflecting hematoma or mass. Consider correlation with CT urogram MRI head 04/09/2017: 1. No evidence of acute infarct. 2. Chronic infarct with laminar necrosis involving the superior left temporal lobe and small portion of the inferior left parietal lobe. 3. Small focus of chronic lacunar infarct in the right centrum semiovale. 4. Mild diffuse volume loss. vital signs Vital Sign Date Time Temp Pulse Resp B/P (MAP) Pulse Ox O2 Delivery O2 Flow Rate FiO2 12/18/24 22:15 99 17 120/63 (82) 98 12/18/24 22:05 Nasal Cannula* 1 24 12/18/24 20:00 98.5 98.5 Total Intake and Output 12/17/24 12/17/24 12/18/24 15:00 23:00 07:00 Intake Total 385.219 ml 1109.28 ml 1180.78 ml Output Total 1200 ml 550 ml Balance 385.219 ml -90.72 ml 630.78 ml medications Current Medications Medications Dose Ordered Sig/Diane Route Start Time Stop Time Status Last Admin Dose Admin Acetaminophen/ Hydrocodone Bitart 1 tab Q4HP PRN PO 12/13/24 19:15 Hold 12/18/24 12:58 1 TAB Ondansetron HCl 4 mg Q4HP PRN IV 12/13/24 19:15 Enoxaparin Sodium 40 mg DAILY SC 12/14/24 10:00 UNV Nitroglycerin 0.4 mg Q5MINP PRN SL 12/13/24 19:15 Morphine Sulfate 2 mg Q30M PRN IV 12/13/24 19:15 Piperacillin Sod/ Tazobactam Sod 100 ml @ 25 mls/hr Q12H IV 12/13/24 22:00 12/18/24 22:46 25 MLS/HR Vancomycin HCl 0 ml @ 0 mls/hr UD IV 12/13/24 19:15 Albuterol 2.5 mg Q4HPRN PRN NEB 12/13/24 19:30 12/16/24 18:38 2.5 MG Diagnostic Test (Pha) 1 strip ACHS 12/13/24 22:00 12/18/24 22:00 1 STRIP Insulin Human Regular ACHS SC 12/13/24 22:00 12/18/24 22:49 2 UNITS Dextrose 50 ml UD PRN IV 12/13/24 19:30 Lactulose 30 ml Q8HR PO 12/13/24 22:00 12/18/24 22:46 30 ML Metoprolol Tartrate 2.5 mg Q6HPRN PRN IV 12/13/24 19:45 Hold Ipratropium [place] 0.5 mg Q4HPRN PRN NEB 12/13/24 22:00 12/16/24 18:38 0.5 MG Norepinephrine Bitartrate 250 ml @ 3.75 mls/hr Q24H IV 12/14/24 10:00 Amlodipine Besylate 2.5 mg DAILY PO 12/15/24 10:00 12/15/24 10:29 2.5 MG Lorazepam 1 mg Q5MINP PRN IV 12/15/24 10:30 Levetiracetam 500 mg BID PO 12/15/24 22:00 12/18/24 22:46 500 MG Phenylephrine HCl 80 mg/Sodium Chloride 250 ml @ 7.5 mls/hr Q24H IV 12/15/24 17:00 12/17/24 05:37 12.188 MLS/HR Enteral Nutritional Formula 1,000 ml 70ML/HR GT 12/16/24 14:45 Carbidopa/Levodopa 1 tab QID PO 12/17/24 10:30 12/18/24 22:46 1 TAB Furosemide 20 mg DAILY IV 12/18/24 10:00 12/18/24 09:14 20 MG Dextrose 1,000 ml @ 50 mls/hr Q20H IV 12/17/24 14:00 12/18/24 17:00 50 MLS/HR Heparin Sodium/ Dextrose 250 ml @ 5 mls/hr Q24H IV 12/18/24 08:45 12/18/24 08:48 5 MLS/HR Vancomycin HCl 100 ml @ 100 mls/hr Q18H IV 12/18/24 10:15 12/18/24 10:15 100 MLS/HR Acetaminophen 650 mg Q6HP PRN PO 12/18/24 12:45 Hold objective General: the patient is well developed and nourished. No acute distress. MENTAL STATUS: Subjective SPEECH, LANGUAGE, HIGHER CORTICAL FUNCTION: Subjective CRANIAL NERVES: Pupils are equal, round and reactive. EOMs full and conjugate. No nystagmus. Facial sensation intact in all three divisions bilaterally. Mandibular strength intact. Facial muscles symmetrical and strength intact. Diminished facial expression SENSATION: Sensation to touch and pinprick is normal. MOTOR: Normal tone in the upper and lower extremity. Normal muscle bulk. No fasciculations. Intermittent resting tremor in the left arm and leg REFLEXES: Deep tendon reflexes normal and symmetrical. No pathological reflexes. CEREBELLAR/COORDINATION: Deferred GAIT/STATION: deferred. laboratory and microbiology Laboratory Tests 12/18/24 05:37 Test 12/18/24 05:37 Range/Units Serum Glucose 127 H 74-106 mg/dL Problem List Altered mental status Metabolic encephalopathy ? Hepatic encephalopathy Subclinical seizure Chronic multiple strokes Parkinson's disease Cognitive dysfunction Vascular dementia Rule out Alzheimer disease Liver failure Coagulopathy Elevated troponin I/heart attack Assessment/Plan Monitoring Supportive treatment Telemetry Lipid profile Increase the Sinemet to 25/100 mg q.3 hours, hold for sleeping Lorazepam 2 mg IV every hour when necessary seizure Keppra 500 mg b.i.d. Cardiology on case GI specialist on case More recommendation per clinical course This medical document was created using an electronic medical record system with [employer] dictation system. Although this document has been carefully reviewed, there may still be some phonetic and typographical errors. These areas are purely typographical due to imperfections of the software programs, and do not reflect any compromise in the patient's medical care. Prognosis poor Dietary Evaluation Review Comments: Nutrition Recommendation: 1) Advance to [facility] 60gm + cardiac diet as medically feasible 2) If feeding tube is placed, consider TF Glucerna 1.2Cal @ 60ml/hr (goal) TF @ goal volume provides 1728 kcal (100% energy needs), 86 gm protein (100% protein needs), 1159 ml free water. 3) Water flush 100ml Q4H if allowed, adjust PRN 4) TPN if NPO >7 days 5) Monitor NPO status, lab values, wt trend, I/O Expected Outcomes/Goals: To meet >75% estimated needs Lab values to improve Fu 2-3 days Plan discussed with: Other MARTÍN OWEN MD Dec 18, 2024 23:36
[2024-12-19] VITALS (68 sets, daily range): BP systolic 83–146; BP diastolic 44–117; PULSE 71–129; RESP 6–23; TEMP 98.1–99; O2SAT 96–100
[2024-12-19] MEDS ORDERED: CARBIDOPA W LEVODOPA 25/100mg TABLET PO SCH
[2024-12-19] MEDS: CARBIDOPA W LEVODOPA 25/100mg TABLET PO SCH (00:30)
[2024-12-19] MEDS: HEPARIN SODIUM (PORCINE) 5000 UNITS/ML 1ML VIAL IV ONE (02:06)
[2024-12-19] MEDS: HEPARIN DRIP/D5W 100UNITS/ML 250 ML IV SCH (02:10)
[2024-12-19] MEDS: MORPHINE SULFATE INJ 2 MG/ml SYRG IV PRN ×2 (03:24→16:15)
[2024-12-19 04:43] LABS: Hematocrit 49.2 % (41.0-53.0); Hemoglobin 16.0 g/dL (13.5-17.5); Mean Corpuscular Hemoglobin 28.7 pg (28.0-32.0); Mean Corpuscular Volume 88.1 fL (80.0-100.0); Nucleated Red Blood Cells % 0.1 %
[2024-12-19 05:37] LABS: Chloride 103 mmol/L (98-107); Potassium 4.1 mmol/L (3.5-5.1); Sodium 144 mmol/L (136-145)
[2024-12-19 05:38] LABS: Anion Gap 14 (5-15); Calcium 8.8 mg/dL (8.7-10.4); Carbon Dioxide 27 mmol/L (20-31)
[2024-12-19 05:43] LABS: BUN/Creatinine Ratio 19.7 (10.0-20.0); Blood Urea Nitrogen 25 mg/dL (9-23); Glucose 124 mg/dL (74-106)
--- NOTE | 2024-12-19 09:05 | DVHPN2 ---
Progress Note Date Seen: Dec 19, 2024 Has the PT tested + for MRSA If YES, has PT been informed?: No Medical Necessity Reason Pt with a Central, PICC or Fol: Yes The following are medically ne: Clayton Catheter Reason for clayton catheter: Bladder Retention/Obstruc, Strict I&O Subjective Patient reports: No new complaints Other Systems: Patient seen and examined by myself today Objective vital signs Vital Sign Date Time Temp Pulse Resp B/P (MAP) Pulse Ox O2 Delivery O2 Flow Rate FiO2 12/19/24 08:00 11 98 Nasal Cannula* 1 24 12/19/24 07:00 86 109/62 (78) 12/19/24 04:00 98.1 98.1 Total Intake and Output 12/18/24 12/18/24 12/19/24 15:00 23:00 07:00 Intake Total 987.971 ml 1415.784 ml 1384.559 ml Output Total 525 ml 450 ml Balance 987.971 ml 890.784 ml 934.559 ml medications Current Medications Medications Dose Ordered Sig/Diane Route Start Time Stop Time Status Last Admin Dose Admin Acetaminophen/ Hydrocodone Bitart 1 tab Q4HP PRN PO 12/13/24 19:15 Hold 12/18/24 12:58 1 TAB Ondansetron HCl 4 mg Q4HP PRN IV 12/13/24 19:15 Enoxaparin Sodium 40 mg DAILY SC 12/14/24 10:00 UNV Nitroglycerin 0.4 mg Q5MINP PRN SL 12/13/24 19:15 Morphine Sulfate 2 mg Q30M PRN IV 12/13/24 19:15 Piperacillin Sod/ Tazobactam Sod 100 ml @ 25 mls/hr Q12H IV 12/13/24 22:00 12/18/24 22:46 25 MLS/HR Vancomycin HCl 0 ml @ 0 mls/hr UD IV 12/13/24 19:15 Albuterol 2.5 mg Q4HPRN PRN NEB 12/13/24 19:30 12/16/24 18:38 2.5 MG Diagnostic Test (Pha) 1 strip ACHS 12/13/24 22:00 12/19/24 06:33 1 STRIP Insulin Human Regular ACHS SC 12/13/24 22:00 12/19/24 06:34 2 UNITS Dextrose 50 ml UD PRN IV 12/13/24 19:30 Lactulose 30 ml Q8HR PO 12/13/24 22:00 12/19/24 06:00 30 ML Metoprolol Tartrate 2.5 mg Q6HPRN PRN IV 12/13/24 19:45 Hold Ipratropium [place] 0.5 mg Q4HPRN PRN NEB 12/13/24 22:00 12/16/24 18:38 0.5 MG Norepinephrine Bitartrate 250 ml @ 3.75 mls/hr Q24H IV 12/14/24 10:00 Amlodipine Besylate 2.5 mg DAILY PO 12/15/24 10:00 12/15/24 10:29 2.5 MG Lorazepam 1 mg Q5MINP PRN IV 12/15/24 10:30 Levetiracetam 500 mg BID PO 12/15/24 22:00 12/18/24 22:46 500 MG Phenylephrine HCl 80 mg/Sodium Chloride 250 ml @ 7.5 mls/hr Q24H IV 12/15/24 17:00 12/18/24 23:46 2.813 MLS/HR Enteral Nutritional Formula 1,000 ml 70ML/HR GT 12/16/24 14:45 Furosemide 20 mg DAILY IV 12/18/24 10:00 12/18/24 09:14 20 MG Dextrose 1,000 ml @ 50 mls/hr Q20H IV 12/17/24 14:00 12/18/24 17:00 50 MLS/HR Vancomycin HCl 100 ml @ 100 mls/hr Q18H IV 12/18/24 10:15 12/19/24 04:12 100 MLS/HR Acetaminophen 650 mg Q6HP PRN PO 12/18/24 12:45 Hold Morphine Sulfate 2 mg Q4HPRN PRN IV 12/19/24 00:00 12/19/24 03:24 2 MG Carbidopa/Levodopa 1 tab Q3HR PO 12/19/24 00:30 12/19/24 03:24 1 TAB Heparin Sodium/ Dextrose 250 ml @ 8 mls/hr Q24H IV 12/19/24 02:00 12/19/24 02:10 8 MLS/HR Examination: LUNGS:Normal, CVS:Normal, MSK:Normal laboratory and microbiology Laboratory Tests 12/19/24 04:17 Test 12/19/24 04:17 Range/Units Serum Glucose 124 H 74-106 mg/dL Microbiology Date/Time Source Procedure Growth Status 12/15/24 01:00 Nose MRSA Screen - Final Complete 12/13/24 11:30 Urine - [place] Urine Culture - Final Complete 12/13/24 11:05 Blood Blood Culture - Final NO GROWTH AFTER 5 DAYS OF INCUBATION. Complete Problem List/Assessment/Plan Problem List/Assessment/Plan Acute kidney injury superimposed Chronic Kidney Disease secondary hemodynamic mediated Cardiorenal syndrome AFib with RVR CHF EF < 10% proteinuria AMS baseline unknown/ parkinsonism ? bladder mass on CT elevated AST/ALT bilirubin thrombocytopenia elevated INR High Dimer V/Q neg for PE hypernatremia Hypokalemia Recommendation Kidney function is improving Increased urine output Strict I&Os I agree with diuresis KCL replacement We will continue to follow Plan discussed with: Patient Dietary Evaluation Review Comments: Nutrition Recommendation: 1) Advance to [facility] 60gm + cardiac diet as medically feasible 2) If feeding tube is placed, consider TF Glucerna 1.2Cal @ 60ml/hr (goal) TF @ goal volume provides 1728 kcal (100% energy needs), 86 gm protein (100% protein needs), 1159 ml free water. 3) Water flush 100ml Q4H if allowed, adjust PRN 4) TPN if NPO >7 days 5) Monitor NPO status, lab values, wt trend, I/O Expected Outcomes/Goals: To meet >75% estimated needs Lab values to improve Fu 2-3 days TUSHAR SEGUNDO MD Dec 19, 2024 09:05
--- NOTE | 2024-12-19 09:35 | DVHPN2 ---
Progress Note - Dictate Date Seen: Dec 19, 2024 Has the PT tested + for MRSA If YES, has PT been informed?: No Medical Necessity Reason Pt with a Central, PICC or Fol: Yes The following are medically ne: Clayton Catheter Reason for clayton catheter: Bladder Retention/Obstruc, Strict I&O vital signs Vital Sign Date Time Temp Pulse Resp B/P (MAP) Pulse Ox O2 Delivery O2 Flow Rate FiO2 12/19/24 08:00 11 98 Nasal Cannula* 1 24 12/19/24 07:00 86 109/62 (78) 12/19/24 04:00 98.1 98.1 Total Intake and Output 12/18/24 12/18/24 12/19/24 14:59 22:59 06:59 Intake Total 995.471 ml 1312.971 ml 1559.032 ml Output Total 525 ml 450 ml Balance 995.471 ml 787.971 ml 1109.032 ml medications Current Medications Medications Dose Ordered Sig/Diane Route Start Time Stop Time Status Last Admin Dose Admin Acetaminophen/ Hydrocodone Bitart 1 tab Q4HP PRN PO 12/13/24 19:15 Hold 12/18/24 12:58 1 TAB Ondansetron HCl 4 mg Q4HP PRN IV 12/13/24 19:15 Enoxaparin Sodium 40 mg DAILY SC 12/14/24 10:00 UNV Nitroglycerin 0.4 mg Q5MINP PRN SL 12/13/24 19:15 Morphine Sulfate 2 mg Q30M PRN IV 12/13/24 19:15 Piperacillin Sod/ Tazobactam Sod 100 ml @ 25 mls/hr Q12H IV 12/13/24 22:00 12/18/24 22:46 25 MLS/HR Vancomycin HCl 0 ml @ 0 mls/hr UD IV 12/13/24 19:15 Albuterol 2.5 mg Q4HPRN PRN NEB 12/13/24 19:30 12/16/24 18:38 2.5 MG Diagnostic Test (Pha) 1 strip ACHS 12/13/24 22:00 12/19/24 06:33 1 STRIP Insulin Human Regular ACHS SC 12/13/24 22:00 12/19/24 06:34 2 UNITS Dextrose 50 ml UD PRN IV 12/13/24 19:30 Lactulose 30 ml Q8HR PO 12/13/24 22:00 12/19/24 06:00 30 ML Metoprolol Tartrate 2.5 mg Q6HPRN PRN IV 12/13/24 19:45 Hold Ipratropium [employer] 0.5 mg Q4HPRN PRN NEB 12/13/24 22:00 12/16/24 18:38 0.5 MG Norepinephrine Bitartrate 250 ml @ 3.75 mls/hr Q24H IV 12/14/24 10:00 Amlodipine Besylate 2.5 mg DAILY PO 12/15/24 10:00 12/15/24 10:29 2.5 MG Lorazepam 1 mg Q5MINP PRN IV 12/15/24 10:30 Levetiracetam 500 mg BID PO 12/15/24 22:00 12/18/24 22:46 500 MG Phenylephrine HCl 80 mg/Sodium Chloride 250 ml @ 7.5 mls/hr Q24H IV 12/15/24 17:00 12/18/24 23:46 2.813 MLS/HR Enteral Nutritional Formula 1,000 ml 70ML/HR GT 12/16/24 14:45 Furosemide 20 mg DAILY IV 12/18/24 10:00 12/18/24 09:14 20 MG Dextrose 1,000 ml @ 50 mls/hr Q20H IV 12/17/24 14:00 12/18/24 17:00 50 MLS/HR Vancomycin HCl 100 ml @ 100 mls/hr Q18H IV 12/18/24 10:15 12/19/24 04:12 100 MLS/HR Acetaminophen 650 mg Q6HP PRN PO 12/18/24 12:45 Hold Morphine Sulfate 2 mg Q4HPRN PRN IV 12/19/24 00:00 12/19/24 03:24 2 MG Carbidopa/Levodopa 1 tab Q3HR PO 12/19/24 00:30 12/19/24 03:24 1 TAB Heparin Sodium/ Dextrose 250 ml @ 8 mls/hr Q24H IV 12/19/24 02:00 12/19/24 02:10 8 MLS/HR laboratory and microbiology Laboratory Tests 12/19/24 04:17 Test 12/19/24 04:17 Range/Units Serum Glucose 124 H 74-106 mg/dL Assessment/Plan Still in [facility] (ICU). Still non-communicative. Family have decided for Hospice and comfort care only Patient is a 63-year-old gentleman who originally was brought by the neighbor for altered level of consciousness. Patient is poor historian and noncommunicative and can not provide information. Information was obtained by reviewing the chart and communicating with staff. Reportedly, the patient's blood sugar was 41/56 on arrival and the patient was managed for metabolic encephalopathy. There is no report of chest pain. Cardiology is involved for cardiac aspects of care. It seems that since arrival, the patient was in atrial fibrillation and has been kept on amiodarone drip by the primary team. Patient does have a pacemaker implanted to the left side of the chest also. There is no previous information in the chart. I reached out to the available contact numbers on the patient's face sheet and also reviewed outside records available in [facility]. Contact numbers are disconnected/mistaken or no response. It seems that the patient has history of old atrial fibrillation. Patient's outside medications are not available to review. It seems that the patient does have history of old CVA/seizure disorder/Parkinson's disease/diabetes and hypertension. There is question about previous history of bladder mass. Noncommunicative. Lying flat in bed. No gross JVD. Mucosa is pink. No carotid bruit. Lung examination reveals scattered rhonchi. There is no rales. Cardiac: Irregular, no thrill. Systolic murmur 2/6 in the apex is heard. Abdomen is soft. Right upper and lower extremities are edematous. Patient is uncooperative and can not be fully examined Reported past medical history includes hypertension, diabetes mellitus, old history of CVA, parkinsonism, seizure disorder, atrial fib and also history of pacemaker (Biotronik: review of the its image) implantation. Patient non- compliant with medication and follow ups (as per son) WBC: 10.1 (with shift to the left) - 9.7 - 8.6 - 9.4 - 8.4 - 8.7 Creatinine: 2.73 - 2.62 - 1.89 - 1.68 - 1.31 - 1.14 - 1.30 - 1.22 - 1.25 - 1.27 Potassium: 5.8 - 5.8 - 5.0 - 3.6 - 3.6 - 3.0 - 3.4 - 3.8 - 3.1 - 4.1 Lactic acid: 7.2 - 2.5 AST/ALT: 4520/2306 - 4549/2598 - 1517/961 - 740/311 - 794/545 - 512/626 BNP: 2031.22 Ammonia: 32 - <10 Trop (high sensitive): 191 - 65 - 156 - 106 - 82 - 73 D-Dimer: 21.40 CK: 1448 TSH: 4.34 Urine toxicology: Nonrevealing Chest x-ray revealed: IMPRESSION: Cardiomegaly with pulmonary vascular congestion and bilateral patchy airspace opacities. Small bilateral pleural effusions, jzjqz-igillkm-atij-left. Repeat chest xry revealed: IMPRESSION: NG tube tip in the stomach. CT of the abdomen and pelvis reported: IMPRESSION: 1. Right lower lobe pneumonia. 2. Moderate right pleural effusion 3. Soft tissue density is seen in the left posterior bladder measuring 3.1 cm, possibly reflecting hematoma or mass. Consider correlation with CT urogram. CT of the head reported: IMPRESSION: No intracranial hemorrhage or mass effect. Cerebral encephalomalacia as described most pronounced within the left temporal lobe. Right frontal scalp, right facial region soft tissue emphysema. Correlate for traumatic and other etiologies. Right facial region contusion. Repeat CT of head revealed: MPRESSION: No evidence of acute intracranial hemorrhage, mass effect or hydrocephalus. Left frontal, parietal and temporal encephalomalacia most pronounced in the left temporal lobe. Chtd-aj-ggbjjjva global cerebral volume loss. CT of chest without contrast: There is limited interpretation of the abdomen and pelvis without administration of intravenous contrast. The trachea is patent. No pneumothorax. Moderate right and small left pleural effusions. Right upper, middle and lower lobe airspace consolidation, ground-glass disease most pronounced within the right lower lobe. Left lower lobe consolidation/atelectasis. Heart enlarged. Coronary artery calcification disease. Fluid within the superior pericardial recess. Upper abdomen demonstrates small amount of ascites fluid. Mesenteric edema. Gallbladder hyperdensity/sludge. Gastric wall thickening. Colonic diverticula. Soft tissue edema/anasarca. Left chest dual lead cardiac pacing device. IMPRESSION: Limited evaluation without contrast. Moderate right and small left pleural effusions. Bilateral consolidation/ atelectasis and ground-glass disease, fwvva-zpjhyox-uhom-left which can be secondary to combination of infection, edema, hypoventilatory changes. Upper abdomen demonstrates small amount of ascites fluid, Mesenteric edema. Gallbladder hyperdensity/ sludge which can be further characterized with abdominal ultrasound. Colonic diverticular disease. Cardiomegaly, coronary artery calcification disease. Other findings as described Venous duplex of lower ext revealed: IMPRESSION: No right or left femoropopliteal venous thrombosis. 5cm right lower extremity bakers cyst. END IMPRESSION: If clinical concern/symptoms persist or worsen, short-interval follow-up study is suggested. V/Q scan reported: IMPRESSION: 1. Low probability for PE. EKG revealed atrial fibrillation with RVR Tele reveals atrial fibrillation with RVR Echocardiogram revealed: Dilated 4 chambers were seen. Left ventricle: Left ventricle was dilated with significantly reduced systolic function. LVEF was around 5%. Diffuse hypokinesis of left ventricle was seen. 1.5 x 1.1 x 0.9 hyperechoic mass in the LV apex compatible with thrombus was seen. Right ventricle was dilated with reduced systolic function. Both atria were dilated. Pacing wire was seen in right-sided chambers. Aortic valve was trileaflet. There was no aortic stenosis/insufficiency. There was pzuv-dr-myokakyi mitral and tricuspid regurgitation. Pulmonary valve was not well visualized. IVC was dilated. Right ventricular systolic pressure was assessed at around 45 mm Hg. There was no pericardial effusion. Compatible with end-stage systolic heart failure/cardiomyopathy with LV apex thrombus. [employer] PM INTERROGATION: Battery: Remaining capacity to AMRIT: 36%; Battery voltage: 2.96 volts; DDDR:60/130; Sensing: A 0.5/V8.7 mV; Lead impedance: A400/V450 Ohms; A pace: 16%; V pace: 14%; AT/AF burden: 61% Patient is a 63-year-old gentleman who was brought by neighbor reportedly for altered level of consciousness. On arrival, the patient was hypoglycemic. LFTs have been abnormal. Lactic acid on arrival was elevated. Kidney function was not normal and the patient had shift to the left in leukocyte count. CT of the head questioned soft tissue problem and questionable trauma? Presentation is more in favor of metabolic problems. It seems that the patient does have history of atrial fibrillation and also pacemaker implantation from before. Detailed information of previous cardiac history is not available. It is unknown if patient has been compliant with medications and the type of medications. Minimal increase in troponin most likely reflects demand physiology. Serial troponin is justified. Patient does have right-sided extremity edema. Could this be reflective of old CVA and hemiparesis or can not be DVTs?. Being followed by Nephrology, Urology and Pulmonary. Echo is in favor of advanced end stage systolic heart failure / Cardiomyopathy with LV thrombus. We have not been to get any outside previous records yet. Is seen and being followed by Neurology / Pulmonology / GI / Nephrology. I could talk to son ([phone]) who provided more information. 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 Patient is not compliant with medications as outpatient. Only goes to some clinic infrequently. Does have poor baseline functional status. Encephalopathy, metabolic? Multiorgan involvement Acute renal failure Abnormal LFT Atrial fibrillation with RVR Status post pacemaker implantation (Biotronik? ) Right-sided edema Bladder mass UTI? Pneumonia Right pleural effusion Abnormal D-dimer Pneumonia Systolic heart failure Acute on chronic systolic heart failure Cardiomyopathy LV thrombus Cardiac suggestion for management: Fluid resuscitation Follow-up electrolytes and kidney function tests and correct abnormalities Family has decided for Hospice and comfort care only GDMT for systolic CHF when stable Life Vest, when patient becomes more alert and if he can manage it (as patient is to be on Hospice and is on comfort care only: cancel life vest) Neurology follow up Pulmonary follow up GI follow up Treatment of pneumonia/UTI as per primary team/Pulmonary Attempt to get prior medical records and information Further evaluation and management depends on the above and clinical course A total of 75 minutes was spent reviewing the patient record, examining the patient, making a diagnostic and therapeutic plan, discussing this plan with medical personnel, following up on diagnostic studies and following the patient for clinical stability excluding any and all procedures. At least 50% of this time was spent in direct, rlmj-xt-hpar contact. Thank you for allowing me to participate in this patient's care. Further recommendations will depend on patient's clinical course. Please do not hesitate to contact me if you have any questions or concerns. This medical document was created using electronic medical record system with [employer] dictation system. Although this document has been carefully reviewed, there may still be some phonetic and typographical errors. These areas are purely typographical due to the imperfection of the software programs, and do not reflect any compromise in the patient's medical care. Dietary Evaluation Review Comments: Nutrition Recommendation: 1) [facility] + cardiac diet as medically feasible 2) If feeding tube is placed, consider TF Glucerna 1.2Cal @ 60ml/hr (goal) TF @ goal volume provides 1728 kcal (100% energy needs), 86 gm protein (100% protein needs), 1159 ml free water. 3) Water flush 100ml Q4H if allowed, adjust PRN 4) TPN if NPO >7 days 5) Monitor NPO status, lab values, wt trend, I/O Expected Outcomes/Goals: To meet >75% estimated needs Lab values to improve Fu 2-3 days Plan discussed with: Other (nurse) JAMES CULLEN MD Dec 19, 2024 09:35
[2024-12-19 11:18] LABS: INR 1.42 (0.9-1.15); Prothrombin Time 14.5 sec (9.3-11.8)
[2024-12-19 11:25] LABS: Partial Thromboplastin Time 137.3 SEC (24.5-34.5)
--- NOTE | 2024-12-19 14:49 | DVHPN2 ---
Progress Note - Dictate Date Seen: Dec 19, 2024 Has the PT tested + for MRSA If YES, has PT been informed?: No Medical Necessity Reason Pt with a Central, PICC or Fol: Yes The following are medically ne: Clayton Catheter Reason for clayton catheter: Bladder Retention/Obstruc, Strict I&O vital signs Vital Sign Date Time Temp Pulse Resp B/P (MAP) Pulse Ox O2 Delivery O2 Flow Rate FiO2 12/19/24 14:00 14 97 Nasal Cannula* 1 24 12/19/24 10:00 108/57 12/19/24 08:00 82 12/19/24 04:00 98.1 98.1 Total Intake and Output 12/18/24 12/18/24 12/19/24 15:00 23:00 07:00 Intake Total 987.971 ml 1415.784 ml 1384.559 ml Output Total 525 ml 450 ml Balance 987.971 ml 890.784 ml 934.559 ml medications Current Medications Medications Dose Ordered Sig/Daine Route Start Time Stop Time Status Last Admin Dose Admin Enoxaparin Sodium 40 mg DAILY SC 12/14/24 10:00 UNV Metoprolol Tartrate 2.5 mg Q6HPRN PRN IV 12/13/24 19:45 Hold Acetaminophen 650 mg Q6HP PRN PO 12/18/24 12:45 Hold Morphine Sulfate 1 mg Q1HP PRN IV 12/19/24 11:45 Lorazepam 0.5 mg Q6HP PRN IV 12/19/24 11:45 objective General Appearance: no distress HEENT: EOMI, PERRLA, normal external inspect of ears, no icterus, no nasal drainage Neck: no carotid bruit, no jugular venous distention (JVD), no lymphadenopathy Chest: normal thorax Respiratory: clear to auscultation, normal air movement Cardiovascular: regular rate and rhythm, no diastolic murmur, no jugular venous distention (JVD), no rub, no systolic murmur Abdominal: soft, no hepatomegaly, no mass, no splenomegaly, no tenderness Genitourinary: grossly normal external Musculoskeletal: no joint tenderness, no swelling Extremities: normal pulses, no calf tenderness, no clubbing, no cyanosis, no edema Skin: no bruising, no jaundice, no rash Neurological: No focal deficit laboratory and microbiology Laboratory Tests 12/19/24 04:17 Test 12/19/24 04:17 Range/Units Serum Glucose 124 H 74-106 mg/dL Problem List Acute metabolic encephalopathy Assessment: Patient presents with ALOC, brought in by a neighbor. Blood glucose levels in the emergency room were critically low at 41 and 56 mg/dL, indicating severe hypoglycemia. Patient is alert times 2 but unable to answer questions for review of systems. The ALOC is likely multifactorial, potentially due to hypoglycemia, acute kidney injury (JEFFERY), and possible acute hepatitis. Plan: - Obtain ammonia level - Consult neurology for acute metabolic encephalopathy - Start IV fluids - Initiate insulin sliding scale for diabetes management Acute Kidney Injury (JEFFERY) Assessment: Patient presents with JEFFERY, likely due to vasomotor nephropathy. Laboratory findings show hyperkalemia (potassium 5.8 mEq/L), elevated creatinine (2.73 mg/dL), and BUN (56 mg/dL). Plan: - Hold blood pressure medications - Continue IV fluid administration - Monitor renal function and electrolytes Right Lower Lobe Pneumonia with Right Pleural Effusion Assessment: CT abdomen revealed moderate right pleural effusion and right lower lobe pneumonia. The pneumonia is likely gram-negative or gram-positive in origin. Plan: - Start vancomycin and Zosyn (piperacillin/tazobactam) - Obtain sputum culture - Consult pulmonary for possible thoracentesis Acute Cystitis with Hematuria Assessment: Patient presents with acute cystitis accompanied by hematuria. Plan: - Start IV antibiotics Type 2 Diabetes Mellitus Assessment: Patient has a history of type 2 diabetes and presented with severe hypoglycemia (blood glucose 41 and 56 mg/dL) in the emergency room. Plan: - Initiate insulin sliding scale Hypertension Assessment: Patient has a history of hypertension. Plan: - Hold blood pressure medications at this time Parkinson's Disease Assessment: Patient has a known history of Parkinson's disease. Plan: - Continue home medications for Parkinson's disease History of Stroke Assessment: Patient has a history of stroke. Plan: - Monitor neurological status Atrial Fibrillation with Rapid Ventricular Response (AFib with RVR) Assessment: Patient has possible atrial fibrillation with rapid ventricular response. INR is elevated at 3.61. Plan: - Monitor cardiac rhythm -Consult cardiology -Heparin drip Hyperkalemia Assessment: Patient presents with significant hyperkalemia (potassium 5.8 mEq/L). Plan: - Implement hyperkalemia protocol - Consult nephrology - Monitor electrolyte levels closely Pacemaker in place -cardiology consult Ischemic cardiomyopathy -cardiology consult -monitor EKG Left ventricular thrombus - cardiology consult - heparin drip Assessment/Plan Subjective: Patient is not awake or alert. Objective: Patient was admitted for hepatic and metabolic encephalopathy and was found to have cardiomyopathy with EF of 5%. He also has liver failure, most likely secondary to heart failure, as well as cardiorenal syndrome which has slightly improved. Patient remains not awake or alert and is jaundiced. He cannot take any oral medications. Vasopressors were discontinued today. Patient also has a large ventricular thrombus. The patient is wanting hospice services; however, his son, who lives in [place], is unsure if the patient will tolerate the drive. I discussed the plan of care with Cardiology and Pulmonary, and all are in agreement for hospice. Plan: Continue off vasopressors. Stop all medications except comfort medications. Notify Middleware Consultant. Patient will be kept in the hospital for 24 hours; if he is still with us, we will then proceed with discharge planning to hospice. Dietary Evaluation Review Comments: Nutrition Recommendation: 1) Advance to [facility] 60gm + cardiac diet as medically feasible 2) If feeding tube is placed, consider TF Glucerna 1.2Cal @ 60ml/hr (goal) TF @ goal volume provides 1728 kcal (100% energy needs), 86 gm protein (100% protein needs), 1159 ml free water. 3) Water flush 100ml Q4H if allowed, adjust PRN 4) TPN if NPO >7 days 5) Monitor NPO status, lab values, wt trend, I/O Expected Outcomes/Goals: To meet >75% estimated needs Lab values to improve Fu 2-3 days Plan discussed with: Patient, Other JOHN GREWAL PUBLICATION DISTRIBUTOR Dec 19, 2024 14:48
--- NOTE | 2024-12-19 18:26 | DVHPN2 ---
Progress Note - Dictate Date Seen: Dec 19, 2024 Has the PT tested + for MRSA If YES, has PT been informed?: No Medical Necessity Reason Pt with a Central, PICC or Fol: Yes The following are medically ne: Clayton Catheter Reason for clayton catheter: Bladder Retention/Obstruc, Strict I&O Subjective Mr. Miller is a 63 years old right-handed gentleman with a history of hypertension, diabetes, the patient came to the hospital on this is 12/13/24 for ALOC. I saw him on 04/09/2017 for seizure I have seen and examined patient, I have talked to his nurse, his son in the room. When he is awake, he has tremors in the chin, neck, left arm than leg The patient is on cognitive tear only, but I discussed with his son that Sinemet is compatible with comfort care. He is lying me know if he wants the patient to continue Hepatitis pattern, 12/13/24: Negative UDS, 12/14/2023: Negative Urinalysis, 12/13/2024: WBC: 15, urine leukocyte esterase: Negative CBC, 12/14/2024: Hypoxia, compensated metabolic acidosis WBC/HB/PLT/MCV, 12/13/2024: 10.1/40.9/105/89.2 PT/INR/PTT, 12/14/24: 34.9/3.75/. 32.9/3.52/78.1. 12/15/2024: 26.8/2.8/75.8 BUN/CR, 12/13/2024: 56/2.73, 12/15/2024: 77/1 Glucose, 12/13/2024: 56., 133,, 12/15/2024: 127, 12/16/2024: 407 Troponin one high sensitivity, 12/14/2024: 191, 65, 156, 12/15/2024: 106 TBI/AST/ALT/AP, 12/13/2024, 07/4519/75325/81 Ammonia, 12/13/2024: 32 TG/CH OL/LDL/HDL, 04/09/17: 66/171/104/63 Vitamin B12, 12/15/24: 2000 Folate, 12/15/2024: 20.43 TSH, 12/15/2024: 4.34 FT4, 12/16/2023: 0.73 Echocardiogram, 04/08/17: Unremarkable Carotid Doppler, 03/2017: Unremarkable CT, 04/07/17: No intracranial hemorrhage. Left temporal lobe non-hemorrhagic infarct of indeterminate chronicity. Chronic lacunar infarct right frontal white matter. CT head, 12/14/2024: No evidence of acute intracranial hemorrhage, mass effect or hydrocephalus. Left frontal, parietal and temporal encephalomalacia most pronounced in the left temporal lobe. [id number] global cerebral volume loss. CT chest/abdomen/pelvis, 12/14/2023: 1. Right lower lobe pneumonia. 2. Moderate right pleural effusion 3. Soft tissue density is seen in the left posterior bladder measuring 3.1 cm, possibly reflecting hematoma or mass. Consider correlation with CT urogram MRI head 04/09/2017: 1. No evidence of acute infarct. 2. Chronic infarct with laminar necrosis involving the superior left temporal lobe and small portion of the inferior left parietal lobe. 3. Small focus of chronic lacunar infarct in the right centrum semiovale. 4. Mild diffuse volume loss. vital signs Vital Sign Date Time Temp Pulse Resp B/P (MAP) Pulse Ox O2 Delivery O2 Flow Rate FiO2 12/19/24 16:15 81 13 91/59 12/19/24 16:00 98 Nasal Cannula* 1 24 12/19/24 14:13 98.1 208.6 Total Intake and Output 12/18/24 12/18/24 12/19/24 15:00 23:00 07:00 Intake Total 987.971 ml 1415.784 ml 1462.032 ml Output Total 525 ml 450 ml Balance 987.971 ml 890.784 ml 1012.032 ml medications Current Medications Medications Dose Ordered Sig/Diane Route Start Time Stop Time Status Last Admin Dose Admin Enoxaparin Sodium 40 mg DAILY SC 12/14/24 10:00 UNV Metoprolol Tartrate 2.5 mg Q6HPRN PRN IV 12/13/24 19:45 Hold Acetaminophen 650 mg Q6HP PRN PO 12/18/24 12:45 Hold Morphine Sulfate 1 mg Q1HP PRN IV 12/19/24 11:45 12/19/24 16:15 1 MG Lorazepam 0.5 mg Q6HP PRN IV 12/19/24 11:45 objective General: the patient is well developed and nourished. No acute distress. MENTAL STATUS: Subjective SPEECH, LANGUAGE, HIGHER CORTICAL FUNCTION: Subjective CRANIAL NERVES: Pupils are equal, round and reactive. EOMs full and conjugate. No nystagmus. Facial sensation intact in all three divisions bilaterally. Mandibular strength intact. Facial muscles symmetrical and strength intact. Diminished facial expression SENSATION: Sensation to touch and pinprick is normal. MOTOR: Normal tone in the upper and lower extremity. Normal muscle bulk. No fasciculations. Intermittent resting tremor in the left arm and leg REFLEXES: Deep tendon reflexes normal and symmetrical. No pathological reflexes. CEREBELLAR/COORDINATION: Deferred GAIT/STATION: deferred. laboratory and microbiology Laboratory Tests 12/19/24 04:17 Test 12/19/24 04:17 Range/Units Serum Glucose 124 H 74-106 mg/dL Problem List Altered mental status Metabolic encephalopathy ? Hepatic encephalopathy Subclinical seizure Chronic multiple strokes Parkinson's disease Cognitive dysfunction Vascular dementia Rule out Alzheimer disease Liver failure Coagulopathy Elevated troponin I/heart attack Assessment/Plan Monitoring Supportive treatment Company care Okay to continue Sinemet to 25/100 mg q.3 hours, hold for sleeping, Keppra 500 mg b.i.d. from neurologic point of view This medical document was created using an electronic medical record system with [employer] computerized dictation system. Although this document has been carefully reviewed, there may still be some phonetic and typographical errors. These areas are purely typographical due to imperfections of the software programs, and do not reflect any compromise in the patient's medical care. Prognosis poor Dietary Evaluation Review Comments: Nutrition Recommendation: 1) Advance to [facility] 60gm + cardiac diet as medically feasible 2) If feeding tube is placed, consider TF Glucerna 1.2Cal @ 60ml/hr (goal) TF @ goal volume provides 1728 kcal (100% energy needs), 86 gm protein (100% protein needs), 1159 ml free water. 3) Water flush 100ml Q4H if allowed, adjust PRN 4) TPN if NPO >7 days 5) Monitor NPO status, lab values, wt trend, I/O Expected Outcomes/Goals: To meet >75% estimated needs Lab values to improve Fu 2-3 days Plan discussed with: Son, Other MARTÍN OWEN MD Dec 19, 2024 18:26
--- NOTE | 2024-12-19 18:52 | DVHPN2 ---
Progress Note - Dictate Date Seen: Dec 18, 2024 Has the PT tested + for MRSA If YES, has PT been informed?: No Medical Necessity Reason Pt with a Central, PICC or Fol: Yes The following are medically ne: Clayton Catheter Reason for clayton catheter: Bladder Retention/Obstruc, Strict I&O vital signs Vital Sign Date Time Temp Pulse Resp B/P (MAP) Pulse Ox O2 Delivery O2 Flow Rate FiO2 12/19/24 16:15 81 13 91/59 12/19/24 16:00 98 Nasal Cannula* 1 24 12/19/24 14:13 98.1 208.6 Total Intake and Output 12/18/24 12/18/24 12/19/24 14:59 22:59 06:59 Intake Total 995.471 ml 1312.971 ml 1559.032 ml Output Total 525 ml 450 ml Balance 995.471 ml 787.971 ml 1109.032 ml medications Current Medications Medications Dose Ordered Sig/Diane Route Start Time Stop Time Status Last Admin Dose Admin Enoxaparin Sodium 40 mg DAILY SC 12/14/24 10:00 UNV Metoprolol Tartrate 2.5 mg Q6HPRN PRN IV 12/13/24 19:45 Hold Acetaminophen 650 mg Q6HP PRN PO 12/18/24 12:45 Hold Morphine Sulfate 1 mg Q1HP PRN IV 12/19/24 11:45 12/19/24 16:15 1 MG Lorazepam 0.5 mg Q6HP PRN IV 12/19/24 11:45 objective General Appearance: no distress HEENT: EOMI, PERRLA, normal external inspect of ears, no icterus, no nasal drainage Neck: no carotid bruit, no jugular venous distention (JVD), no lymphadenopathy Chest: normal thorax Respiratory: clear to auscultation, normal air movement Cardiovascular: regular rate and rhythm, no diastolic murmur, no jugular venous distention (JVD), no rub, no systolic murmur Abdominal: soft, no hepatomegaly, no mass, no splenomegaly, no tenderness Genitourinary: grossly normal external Musculoskeletal: no joint tenderness, no swelling Extremities: normal pulses, no calf tenderness, no clubbing, no cyanosis, no edema Skin: no bruising, no jaundice, no rash Neurological: No focal deficit laboratory and microbiology Laboratory Tests 12/19/24 04:17 Test 12/19/24 04:17 Range/Units Serum Glucose 124 H 74-106 mg/dL Problem List Acute metabolic encephalopathy Assessment: Patient presents with ALOC, brought in by a neighbor. Blood glucose levels in the emergency room were critically low at 41 and 56 mg/dL, indicating severe hypoglycemia. Patient is alert times 2 but unable to answer questions for review of systems. The ALOC is likely multifactorial, potentially due to hypoglycemia, acute kidney injury (JEFFERY), and possible acute hepatitis. Plan: - Obtain ammonia level - Consult neurology for acute metabolic encephalopathy - Start IV fluids - Initiate insulin sliding scale for diabetes management Acute Kidney Injury (JEFFERY) Assessment: Patient presents with JEFFERY, likely due to vasomotor nephropathy. Laboratory findings show hyperkalemia (potassium 5.8 mEq/L), elevated creatinine (2.73 mg/dL), and BUN (56 mg/dL). Plan: - Hold blood pressure medications - Continue IV fluid administration - Monitor renal function and electrolytes Right Lower Lobe Pneumonia with Right Pleural Effusion Assessment: CT abdomen revealed moderate right pleural effusion and right lower lobe pneumonia. The pneumonia is likely gram-negative or gram-positive in origin. Plan: - Start vancomycin and Zosyn (piperacillin/tazobactam) - Obtain sputum culture - Consult pulmonary for possible thoracentesis Acute Cystitis with Hematuria Assessment: Patient presents with acute cystitis accompanied by hematuria. Plan: - Start IV antibiotics Type 2 Diabetes Mellitus Assessment: Patient has a history of type 2 diabetes and presented with severe hypoglycemia (blood glucose 41 and 56 mg/dL) in the emergency room. Plan: - Initiate insulin sliding scale Hypertension Assessment: Patient has a history of hypertension. Plan: - Hold blood pressure medications at this time Parkinson's Disease Assessment: Patient has a known history of Parkinson's disease. Plan: - Continue home medications for Parkinson's disease History of Stroke Assessment: Patient has a history of stroke. Plan: - Monitor neurological status Atrial Fibrillation with Rapid Ventricular Response (AFib with RVR) Assessment: Patient has possible atrial fibrillation with rapid ventricular response. INR is elevated at 3.61. Plan: - Monitor cardiac rhythm -Consult cardiology -Heparin drip Hyperkalemia Assessment: Patient presents with significant hyperkalemia (potassium 5.8 mEq/L). Plan: - Implement hyperkalemia protocol - Consult nephrology - Monitor electrolyte levels closely Pacemaker in place -cardiology consult Ischemic cardiomyopathy -cardiology consult -monitor EKG Left ventricular thrombus - cardiology consult - heparin drip Assessment/Plan Subjective Patient is not awake or alert. Objective Patient was admitted on December 13, 2024, for metabolic and hepatic encephalopathy and was found to have liver failure. He also had cardiomyopathy with an estimated EF of 510%. Patient was seen and evaluated by Cardiology, and echocardiogram revealed a left ventricular thrombus. He also had cardiorenal syndrome, though renal function was noted to be improving with Nephrology follow-up. CT imaging revealed a bladder mass, and Urology recommended outpatient cystoscopy. Neurology evaluated the patient given his history of Parkinsons disease, and no left extremity tremors were noted. Patient also had an elevated D-dimer; however, V/Q scan was negative for PE. During admission, he developed A-fib with RVR and was placed on a heparin drip. Patient was also noted to have thrombocytopenia and coagulopathy, likely secondary to liver failure, which itself was most likely caused by severe heart failure. DC held due to family deciding on possible home hospice versus shutting off all medications and being with patient at bedside. Plan Continue current treatment. 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 Dietary Evaluation Review Comments: Nutrition Recommendation: 1) Advance to [facility] 60gm + cardiac diet as medically feasible 2) If feeding tube is placed, consider TF Glucerna 1.2Cal @ 60ml/hr (goal) TF @ goal volume provides 1728 kcal (100% energy needs), 86 gm protein (100% protein needs), 1159 ml free water. 3) Water flush 100ml Q4H if allowed, adjust PRN 4) TPN if NPO >7 days 5) Monitor NPO status, lab values, wt trend, I/O Expected Outcomes/Goals: To meet >75% estimated needs Lab values to improve Fu 2-3 days Plan discussed with: Patient, Other JOHN GREWAL LEAD CASE MANAGER Dec 19, 2024 18:52
--- NOTE | 2024-12-19 23:52 | DVHPN2 ---
Progress Note - Dictate Date Seen: Dec 19, 2024 Has the PT tested + for MRSA If YES, has PT been informed?: No Medical Necessity Reason Pt with a Central, PICC or Fol: Yes The following are medically ne: Clayton Catheter Reason for clayton catheter: Bladder Retention/Obstruc, Strict I&O Subjective Patient seen and examined at bedside. Remains on supplemental oxygen Overnight events reviewed. vital signs Vital Sign Date Time Temp Pulse Resp B/P (MAP) Pulse Ox O2 Delivery O2 Flow Rate FiO2 12/19/24 22:00 88 9 106/56 (73) 97 12/19/24 22:00 Nasal Cannula* 1 24 12/19/24 20:00 98.2 98.2 Total Intake and Output 12/18/24 12/18/24 12/19/24 15:00 23:00 07:00 Intake Total 987.971 ml 1415.784 ml 1462.032 ml Output Total 525 ml 450 ml Balance 987.971 ml 890.784 ml 1012.032 ml medications Current Medications Medications Dose Ordered Sig/Diane Route Start Time Stop Time Status Last Admin Dose Admin Enoxaparin Sodium 40 mg DAILY SC 12/14/24 10:00 UNV Metoprolol Tartrate 2.5 mg Q6HPRN PRN IV 12/13/24 19:45 Hold Acetaminophen 650 mg Q6HP PRN PO 12/18/24 12:45 Hold Morphine Sulfate 1 mg Q1HP PRN IV 12/19/24 11:45 12/19/24 20:14 1 MG Lorazepam 0.5 mg Q6HP PRN IV 12/19/24 11:45 objective Gen.: Patient lying in bed in no apparent distress. On supplemental oxygen. Head: Normocephalic, atraumatic. Eyes: EOMI/PERRLA. Ears: Normal hearing. Normal anatomy. Neck/trachea: Trachea midline, supple. Nose: Normal external anatomy. Mouth: Moist mucous membranes. Chest: Decreased air entry bilaterally. No wheezing or rhonchi. Cardiovascular: Positive S1, positive S2. Regular rate and rhythm. Abdomen: Positive bowel sounds in all 4 quadrants. Soft, non-tender, non- distended. : Deferred. Rectal: Deferred. Skin: Warm, dry. Intact. Extremities: 2+ radial pulses bilaterally. No lower extremity edema. Neuro: Awake, altered. No gross motor or sensory deficits. Cranial nerves II through XII intact. Gait not assessed. laboratory and microbiology Laboratory Tests 12/19/24 04:17 Test 12/19/24 04:17 Range/Units Serum Glucose 124 H 74-106 mg/dL Assessment/Plan Impression: Pneumonia Pleural effusions Atelectasis Congestive heart failure Acute kidney injury Acute liver injury Elevated D-dimer (21) Events: Patient seen and examined at bedside. Low oxygen requirements - on 1 LPM NC Taper O2 as tolerated. Heparin drip discontinued Amiodarone drip discontinued. Tapered pressors Patient persistently altered ABG notable for metabolic alkalosis Abnormal LFTs- on lactulose. Continue antibiotics MRSA negative, sputum cx showed normal julito Urine cultures show no growth. Monitor renal function. Monitor electrolytes. Supplement as necessary. Overall poor prognosis - recommended hospice/supportive measures. Family agreed. NG tube remains in place Chest x-ray notable for right basilar opacity. Labs and imaging reviewed Plan: Supplemental oxygen Titrate to keep O2 sats above 92%. Antibiotics Bronchodilators PRN Head of bed elevation Aspiration precautions Echo report reviewed Severe cardiomyopathy, EF 10% F/u Cardiology recommendations Monitor renal function. Monitor electrolytes. Supplement as necessary. Monitor ins and outs. Very poor prognosis Goals of care discussed with family, agree with hospice/supportive measures. DVT prophylaxis. Prognosis: Poor given patient's multiple co-morbidities. Rest of plan per hospitalist and other consultants. Thank you, BHARAT Hartmann, for allowing me to participate in this patient's care. Further recommendations will depend on the patient's clinical course. Please do not hesitate to contact me if you have any questions or concerns. This medical document was created using an electronic medical record system with [employer] dictation system. Although these documentations are being carefully reviewed, there may still be some phonetic and typographical changes. The errors are purely typographical, due to imperfection on the software program, and do not reflect any compromise in the patient's medical care. Dietary Evaluation Review Comments: Nutrition Recommendation: 1) Advance to [facility] 60gm + cardiac diet as medically feasible 2) If feeding tube is placed, consider TF Glucerna 1.2Cal @ 60ml/hr (goal) TF @ goal volume provides 1728 kcal (100% energy needs), 86 gm protein (100% protein needs), 1159 ml free water. 3) Water flush 100ml Q4H if allowed, adjust PRN 4) TPN if NPO >7 days 5) Monitor NPO status, lab values, wt trend, I/O Expected Outcomes/Goals: To meet >75% estimated needs Lab values to improve Fu 2-3 days Plan discussed with: Other (LETTY Hernandez/LORNA) TRACEY KRAMER MD Dec 19, 2024 23:52
[2024-12-20] VITALS (20 sets, daily range): BP systolic 85–121; BP diastolic 41–73; PULSE 83–120; RESP 8–17; TEMP 97.6–98.7; O2SAT 95–99
--- NOTE | 2024-12-20 08:31 | DVHPN2 ---
Progress Note - Dictate Date Seen: Dec 20, 2024 Has the PT tested + for MRSA If YES, has PT been informed?: No Medical Necessity Reason Pt with a Central, PICC or Fol: Yes The following are medically ne: Clayton Catheter Reason for clayton catheter: Bladder Retention/Obstruc, Strict I&O vital signs Vital Sign Date Time Temp Pulse Resp B/P (MAP) Pulse Ox O2 Delivery O2 Flow Rate FiO2 12/20/24 07:30 87 10 99/54 12/20/24 06:00 98 Nasal Cannula* 1 24 12/20/24 04:00 97.9 97.9 Total Intake and Output 12/19/24 12/19/24 12/20/24 15:00 23:00 07:00 Intake Total 248.98 ml 220 ml 0 ml Output Total 700 ml 650 ml Balance 248.98 ml -480 ml -650 ml medications Current Medications Medications Dose Ordered Sig/Diane Route Start Time Stop Time Status Last Admin Dose Admin Enoxaparin Sodium 40 mg DAILY SC 12/14/24 10:00 UNV Metoprolol Tartrate 2.5 mg Q6HPRN PRN IV 12/13/24 19:45 Hold Acetaminophen 650 mg Q6HP PRN PO 12/18/24 12:45 Hold Morphine Sulfate 1 mg Q1HP PRN IV 12/19/24 11:45 12/20/24 06:59 1 MG Lorazepam 0.5 mg Q6HP PRN IV 12/19/24 11:45 laboratory and microbiology Laboratory Tests 12/19/24 04:17 Test 12/19/24 04:17 Range/Units Serum Glucose 124 H 74-106 mg/dL Assessment/Plan Still in [facility] (ICU). Still non-communicative. Family have decided for Hospice and comfort care only Patient is a 63-year-old gentleman who originally was brought by the neighbor for altered level of consciousness. Patient is poor historian and noncommunicative and can not provide information. Information was obtained by reviewing the chart and communicating with staff. Reportedly, the patient's blood sugar was 41/56 on arrival and the patient was managed for metabolic encephalopathy. There is no report of chest pain. Cardiology is involved for cardiac aspects of care. It seems that since arrival, the patient was in atrial fibrillation and has been kept on amiodarone drip by the primary team. Patient does have a pacemaker implanted to the left side of the chest also. There is no previous information in the chart. I reached out to the available contact numbers on the patient's face sheet and also reviewed outside records available in [facility]. Contact numbers are disconnected/mistaken or no response. It seems that the patient has history of old atrial fibrillation. Patient's outside medications are not available to review. It seems that the patient does have history of old CVA/seizure disorder/Parkinson's disease/diabetes and hypertension. There is question about previous history of bladder mass. Noncommunicative. Lying flat in bed. No gross JVD. Mucosa is pink. No carotid bruit. Lung examination reveals scattered rhonchi. There is no rales. Cardiac: Irregular, no thrill. Systolic murmur 2/6 in the apex is heard. Abdomen is soft. Right upper and lower extremities are edematous. Patient is uncooperative and can not be fully examined Reported past medical history includes hypertension, diabetes mellitus, old history of CVA, parkinsonism, seizure disorder, atrial fib and also history of pacemaker (Biotronik: review of the its image) implantation. Patient non- compliant with medication and follow ups (as per son) WBC: 10.1 (with shift to the left) - 9.7 - 8.6 - 9.4 - 8.4 - 8.7 Creatinine: 2.73 - 2.62 - 1.89 - 1.68 - 1.31 - 1.14 - 1.30 - 1.22 - 1.25 - 1.27 Potassium: 5.8 - 5.8 - 5.0 - 3.6 - 3.6 - 3.0 - 3.4 - 3.8 - 3.1 - 4.1 Lactic acid: 7.2 - 2.5 AST/ALT: 4520/2306 - 4549/2598 - 1517/961 - 740/311 - 794/545 - 512/626 BNP: 2031.22 Ammonia: 32 - <10 Trop (high sensitive): 191 - 65 - 156 - 106 - 82 - 73 D-Dimer: 21.40 CK: 1448 TSH: 4.34 Urine toxicology: Nonrevealing Chest x-ray revealed: IMPRESSION: Cardiomegaly with pulmonary vascular congestion and bilateral patchy airspace opacities. Small bilateral pleural effusions, rnfqb-cdzcqlk-[id number]-left. Repeat chest xry revealed: IMPRESSION: NG tube tip in the stomach. CT of the abdomen and pelvis reported: IMPRESSION: 1. Right lower lobe pneumonia. 2. Moderate right pleural effusion 3. Soft tissue density is seen in the left posterior bladder measuring 3.1 cm, possibly reflecting hematoma or mass. Consider correlation with CT urogram. CT of the head reported: IMPRESSION: No intracranial hemorrhage or mass effect. Cerebral encephalomalacia as described most pronounced within the left temporal lobe. Right frontal scalp, right facial region soft tissue emphysema. Correlate for traumatic and other etiologies. Right facial region contusion. Repeat CT of head revealed: MPRESSION: No evidence of acute intracranial hemorrhage, mass effect or hydrocephalus. Left frontal, parietal and temporal encephalomalacia most pronounced in the left temporal lobe. Qmrs-da-qvwyvjgd global cerebral volume loss. CT of chest without contrast: There is limited interpretation of the abdomen and pelvis without administration of intravenous contrast. The trachea is patent. No pneumothorax. Moderate right and small left pleural effusions. Right upper, middle and lower lobe airspace consolidation, ground-glass disease most pronounced within the right lower lobe. Left lower lobe consolidation/atelectasis. Heart enlarged. Coronary artery calcification disease. Fluid within the superior pericardial recess. Upper abdomen demonstrates small amount of ascites fluid. Mesenteric edema. Gallbladder hyperdensity/sludge. Gastric wall thickening. Colonic diverticula. Soft tissue edema/anasarca. Left chest dual lead cardiac pacing device. IMPRESSION: Limited evaluation without contrast. Moderate right and small left pleural effusions. Bilateral consolidation/ atelectasis and ground-glass disease, rfamv-rgullor-cssz-left which can be secondary to combination of infection, edema, hypoventilatory changes. Upper abdomen demonstrates small amount of ascites fluid, Mesenteric edema. Gallbladder hyperdensity/ sludge which can be further characterized with abdominal ultrasound. Colonic diverticular disease. Cardiomegaly, coronary artery calcification disease. Other findings as described Venous duplex of lower ext revealed: IMPRESSION: No right or left femoropopliteal venous thrombosis. 5cm right lower extremity bakers cyst. END IMPRESSION: If clinical concern/symptoms persist or worsen, short-interval follow-up study is suggested. V/Q scan reported: IMPRESSION: 1. Low probability for PE. EKG revealed atrial fibrillation with RVR Tele reveals atrial fibrillation with RVR Echocardiogram revealed: Dilated 4 chambers were seen. Left ventricle: Left ventricle was dilated with significantly reduced systolic function. LVEF was around 5%. Diffuse hypokinesis of left ventricle was seen. 1.5 x 1.1 x 0.9 hyperechoic mass in the LV apex compatible with thrombus was seen. Right ventricle was dilated with reduced systolic function. Both atria were dilated. Pacing wire was seen in right-sided chambers. Aortic valve was trileaflet. There was no aortic stenosis/insufficiency. There was dwsp-al-eqigfvwr mitral and tricuspid regurgitation. Pulmonary valve was not well visualized. IVC was dilated. Right ventricular systolic pressure was assessed at around 45 mm Hg. There was no pericardial effusion. Compatible with end-stage systolic heart failure/cardiomyopathy with LV apex thrombus. [employer] PM INTERROGATION: Battery: Remaining capacity to AMRIT: 36%; Battery voltage: 2.96 volts; DDDR:60/130; Sensing: A 0.5/V8.7 mV; Lead impedance: A400/V450 Ohms; A pace: 16%; V pace: 14%; AT/AF burden: 61% Patient is a 63-year-old gentleman who was brought by neighbor reportedly for altered level of consciousness. On arrival, the patient was hypoglycemic. LFTs have been abnormal. Lactic acid on arrival was elevated. Kidney function was not normal and the patient had shift to the left in leukocyte count. CT of the head questioned soft tissue problem and questionable trauma? Presentation is more in favor of metabolic problems. It seems that the patient does have history of atrial fibrillation and also pacemaker implantation from before. Detailed information of previous cardiac history is not available. It is unknown if patient has been compliant with medications and the type of medications. Minimal increase in troponin most likely reflects demand physiology. Serial troponin is justified. Patient does have right-sided extremity edema. Could this be reflective of old CVA and hemiparesis or can not be DVTs?. Being followed by Nephrology, Urology and Pulmonary. Echo is in favor of advanced end stage systolic heart failure / Cardiomyopathy with LV thrombus. We have not been to get any outside previous records yet. Is seen and being followed by Neurology / Pulmonology / GI / Nephrology. I could talk to son ([phone]) who provided more information. Patient does not follow with any assurance senior manager insurance for years. Patient is not compliant with medications as outpatient. Only goes to some clinic infrequently. Does have poor baseline functional status. Encephalopathy, metabolic? Multiorgan involvement Acute renal failure Abnormal LFT Atrial fibrillation with RVR Status post pacemaker implantation (Biotronik? ) Right-sided edema Bladder mass UTI? Pneumonia Right pleural effusion Abnormal D-dimer Pneumonia Systolic heart failure Acute on chronic systolic heart failure Cardiomyopathy LV thrombus Cardiac suggestion for management: Fluid resuscitation Follow-up electrolytes and kidney function tests and correct abnormalities Family has decided for Hospice and comfort care only GDMT for systolic CHF when stable Life Vest, when patient becomes more alert and if he can manage it (as patient is to be on Hospice and is on comfort care only: cancel life vest) Neurology follow up Pulmonary follow up GI follow up Treatment of pneumonia/UTI as per primary team/Pulmonary Attempt to get prior medical records and information Further evaluation and management depends on the above and clinical course A total of 75 minutes was spent reviewing the patient record, examining the patient, making a diagnostic and therapeutic plan, discussing this plan with medical personnel, following up on diagnostic studies and following the patient for clinical stability excluding any and all procedures. At least 50% of this time was spent in direct, [id number] contact. Thank you for allowing me to participate in this patient's care. Further recommendations will depend on patient's clinical course. Please do not hesitate to contact me if you have any questions or concerns. This medical document was created using electronic medical record system with [employer] computerized dictation system. Although this document has been carefully reviewed, there may still be some phonetic and typographical errors. These areas are purely typographical due to the imperfection of the software programs, and do not reflect any compromise in the patient's medical care. Dietary Evaluation Review Comments: Nutrition Recommendation: 1) Advance to [facility] 60gm + cardiac diet as medically feasible 2) If feeding tube is placed, consider TF Glucerna 1.2Cal @ 60ml/hr (goal) TF @ goal volume provides 1728 kcal (100% energy needs), 86 gm protein (100% protein needs), 1159 ml free water. 3) Water flush 100ml Q4H if allowed, adjust PRN 4) TPN if NPO >7 days 5) Monitor NPO status, lab values, wt trend, I/O Expected Outcomes/Goals: To meet >75% estimated needs Lab values to improve Fu 2-3 days Plan discussed with: Other (nurse) JAMES CULLEN MD Dec 20, 2024 08:31
[2024-12-20] MEDS: LORazepam 2MG/ML-1ML VIAL IV PRN (08:39)
--- NOTE | 2024-12-20 10:06 | DVHPN2 ---
Progress Note Date Seen: Dec 20, 2024 Has the PT tested + for MRSA If YES, has PT been informed?: No Medical Necessity Reason Pt with a Central, PICC or Fol: Yes The following are medically ne: Clayton Catheter Reason for clayton catheter: Bladder Retention/Obstruc, Strict I&O Subjective Review of Systems: NEURO:Abnormal Other Systems: Patient seen and examined by myself today in follow-up Objective vital signs Vital Sign Date Time Temp Pulse Resp B/P (MAP) Pulse Ox O2 Delivery O2 Flow Rate FiO2 12/20/24 07:30 87 10 99/54 12/20/24 06:00 98 Nasal Cannula* 1 12/20/24 04:00 97.9 97.9 Total Intake and Output 12/19/24 12/19/24 12/20/24 15:00 23:00 07:00 Intake Total 248.98 ml 220 ml 0 ml Output Total 700 ml 650 ml Balance 248.98 ml -480 ml -650 ml medications Current Medications Medications Dose Ordered Sig/Diane Route Start Time Stop Time Status Last Admin Dose Admin Enoxaparin Sodium 40 mg DAILY SC 12/14/24 10:00 UNV Metoprolol Tartrate 2.5 mg Q6HPRN PRN IV 12/13/24 19:45 Hold Acetaminophen 650 mg Q6HP PRN PO 12/18/24 12:45 Hold Morphine Sulfate 1 mg Q1HP PRN IV 12/19/24 11:45 12/20/24 06:59 1 MG Lorazepam 0.5 mg Q6HP PRN IV 12/19/24 11:45 12/20/24 08:39 0.5 MG Examination: LUNGS:Normal, CVS:Normal, MSK:Normal laboratory and microbiology Laboratory Tests 12/19/24 04:17 Test 12/19/24 04:17 Range/Units Serum Glucose 124 H 74-106 mg/dL Microbiology Date/Time Source Procedure Growth Status 12/19/24 06:00 Nose MRSA Screen - Final Complete 12/13/24 11:30 Urine - [place] Urine Culture - Final Complete 12/13/24 11:05 Blood Blood Culture - Final NO GROWTH AFTER 5 DAYS OF INCUBATION. Complete Problem List/Assessment/Plan Problem List/Assessment/Plan Acute kidney injury superimposed Chronic Kidney Disease secondary hemodynamic mediated Dementia, encephalomalacia AFib with RVR CHF EF < 10% proteinuria bladder mass on CT elevated AST/ALT bilirubin thrombocytopenia elevated INR High Dimer V/Q neg for PE hypernatremia Hypokalemia Hyperglycemia Recommendation Son with the family decided on hospice care Kidney function is improving Increased urine output Strict I&Os KCL replacement Insulin sliding scale I will sign off this case, please reconsult as needed Thank you for the consult Plan discussed with: Other (Nurse) Dietary Evaluation Review Comments: Nutrition Recommendation: 1) [facility] + cardiac diet as medically feasible 2) If feeding tube is placed, consider TF Glucerna 1.2Cal @ 60ml/hr (goal) TF @ goal volume provides 1728 kcal (100% energy needs), 86 gm protein (100% protein needs), 1159 ml free water. 3) Water flush 100ml Q4H if allowed, adjust PRN 4) TPN if NPO >7 days 5) Monitor NPO status, lab values, wt trend, I/O Expected Outcomes/Goals: To meet >75% estimated needs Lab values to improve Fu 2-3 days TUSHAR SEGUNDO MD Dec 20, 2024 10:06
--- NOTE | 2024-12-20 14:29 | DVHDS2 ---
Discharge Summary Date of Admission Dec 13, 2024 at 19:05 Date of Discharge: Dec 18, 2024 Labs/Diagnostic Data: Laboratory Results Test 12/19/24 10:18 12/19/24 05:28 12/19/24 04:17 12/18/24 12:59 Prothrombin Time 14.5 sec (9.3-11.8) Prothrombin Time INR 1.42 (0.9-1.15) Activated Partial Thromboplast Time 137.3 SEC (24.5-34.5) POC Glucose 147 mg/dl (70-106) White Blood Count 8.7 10^3/uL (4.4-10.8) Red Blood Count 5.59 10^6/uL (4.5-5.90) Hemoglobin 16.0 g/dL (13.5-17.5) Hematocrit 49.2 % (41.0-53.0) Mean Corpuscular Volume 88.1 fL (80.0-100.0) Mean Corpuscular Hemoglobin 28.7 pg (28.0-32.0) Mean Corpuscular Hemoglobin Concent 32.6 g/dL (32.0-36.0) Red Cell Distribution Width 19.4 % (11.8-14.3) Platelet Count 70 10^3/uL (140-450) Mean Platelet Volume 10.8 fL (6.9-10.8) Neutrophils (%) (Auto) 82.7 % (37.0-80.0) Lymphocytes (%) (Auto) 5.5 % (10.0-50.0) Monocytes (%) (Auto) 11.5 % (0.0-12.0) Eosinophils (%) (Auto) 0.2 % (0.0-7.0) Basophils (%) (Auto) 0.1 % (0.0-2.0) Neutrophils # (Auto) 7.2 10 ^3/uL (1.6-8.6) Lymphocytes # (Auto) 0.5 10 ^3/uL (0.4-5.4) Monocytes # (Auto) 1.0 10 ^3/uL (0-1.3) Eosinophils # (Auto) 0 10 ^3/uL (0-0.8) Basophils # (Auto) 0 10 ^3/uL (0-0.2) Nucleated Red Blood Cells 0.1 % Sodium Level 144 mmol/L (136-145) Potassium Level 4.1 mmol/L (3.5-5.1) Chloride Level 103 mmol/L (98-107) Carbon Dioxide Level 27 mmol/L (20-31) Anion Gap 14 (5-15) Blood Urea Nitrogen 25 mg/dL (9-23) Creatinine 1.27 mg/dL (0.700-1.30) Glomerular Filtration Rate Calc 64 mL/min (>90) BUN/Creatinine Ratio 19.7 (10.0-20.0) Serum Glucose 124 mg/dL (74-106) Calcium Level 8.8 mg/dL (8.7-10.4) Magnesium Level 2.2 mg/dL (1.6-2.6) Test 12/18/24 11:30 12/18/24 05:37 12/17/24 14:56 12/17/24 04:57 Urine Color Yellow (Yellow) Urine Clarity Clear (Clear) Urine pH 5.5 (5.0-9.0) Urine Specific [place] 1.018 (1.001-1.035) Urine Protein Negative (Negative) Urine Ketones Negative (Negative) Urine Blood 2+ /uL (Negative) Urine Nitrite Negative (Negative) Urine Bilirubin Negative (Negative) Urine Urobilinogen 2 mg/dL (Negative) Urine Leukocyte Esterase Trace /uL (Negative) Urine RBC 16 /hpf (0 - 3) Urine Microscopic WBC 30 /HPF (0-3) Urine Squamous Epithelial Cells Few /hpf (<5) Urine Bacteria None seen /hpf (None Seen) Urine Mucus Few (None Seen) Urine Creatinine 46.13 mg/dL (30.0-125.0) Urine Protein/Creatinine Ratio 0.27 Urine Sodium 25 mmol/L (40-220) Urine Glucose Normal mg/dL (Normal) Urine Total Protein 12.3 mg/dL (1-14) Total Bilirubin 2.8 mg/dL (0.2-1.0) Aspartate Amino Transferase (AST) 512 U/L (13-40) Alanine Aminotransferase (ALT) 626 U/L (7-40) Alkaline Phosphatase 101 U/L (46-116) Total Protein 5.5 g/dL (5.7-8.2) Albumin 3.2 g/dL (3.2-4.8) Random Vancomycin Level 14.2 ug/mL (5-10) Ammonia < 10 umol/L (11-32) Test 12/15/24 15:15 12/15/24 13:14 12/15/24 09:10 12/15/24 04:50 Vitamin B12 Level > 2000 pg/mL (211-911) Folic Acid 20.43 ng/mL (>5.38) Free Thyroxine (T4) Calculated 0.73 ng/dL (0.89-1.76) Creatine Kinase 1448 U/L (46-171) Troponin I High Sensitivity 73 ng/L (</=54) Thyroid Stimulating Hormone (TSH) 4.34 uIU/mL (0.55-4.78) Direct Bilirubin 2.0 mg/dL (<0.3) Test 12/14/24 10:29 12/14/24 10:05 12/14/24 04:51 12/13/24 19:15 Serum Immunoglobulin G 258 mg/dL (603-1613) Immunoglobulin A 104 mg/dL (61-437) Immunoglobulin M 12 mg/dL (20-172) Serum Immunofixation Comment (.) Anti-Nuclear Antibody Comment Comment (.) Cytoplasmic ANCA (c-ANCA) Antibody <1:20 titer (Neg:<1:20) Atypical p-ANCA <1:20 titer (Neg:<1:20) Perinuclear ANCA (p-ANCA) Antibody <1:20 titer (Neg:<1:20) Anti-Parietal Cell Antibody 0.8 Units (0.0-20.0) Complement C3 16 mg/dL (82-167) Complement C4 <2 mg/dL (12-38) Blood Gas Specimen Type Arterial Blood Gas Sample Site Right radial Blood Gas Patient Temperature 37.0 Arterial Blood Date Drawn [id number] Arterial Blood pH 7.439 (7.350-7.450) Arterial Blood Partial Pressure CO2 24.5 mmHg (35.0-48.0) Arterial Blood Partial Pressure O2 79.8 mmHg (83.0-108.0) Arterial Blood HCO3 16.2 mmol/L (21.0-28.0) Arterial Blood Oxygen Saturation 94.6 % (94.0-98.0) Arterial Blood Base Excess -5.9 mmol/L (-2.0-3.0) Arterial Blood Oxyhemoglobin 93.4 % (94.0-98.0) Arterial Blood Carboxyhemoglobin 0.7 % (0.5-1.5) Arterial Blood Methemoglobin 0.6 % (0.0-1.5) Marcus Test Yes Blood Gas Total Hemoglobin 15.10 g/dL (13.5-17.5) Blood Gas Modality Room air FiO2 % 21.0 D-Dimer, Quantitative 21.40 mg/L FEU (0.0-0.49) Phosphorus Level 6.7 mg/dL (2.4-5.1) Hepatitis A IgM Antibody Negative Hepatitis B Surface Antigen Negative (Negative) Hepatitis B Core IgM Antibody Negative (Negative) Hepatitis C Antibody Negative (Negative) Test 12/13/24 13:31 12/13/24 11:30 12/13/24 11:05 Lactic Acid Level 2.5 mmol/L (0.4-2.0) Urine Hyaline Casts Mod /lpf (0 - 2) Urine Sperm Present /hpf (None Seen) Urine Opiates Screen Neg (NEGATIVE) Urine Fentanyl Screen Neg (NEGATIVE) Urine Barbiturates Screen Neg (NEGATIVE) Urine Phencyclidine Screen Neg (NEGATIVE) Urine Amphetamines Screen Neg (NEGATIVE) Urine Benzodiazepines Screen Neg (NEGATIVE) Urine Cocaine Screen Neg (NEGATIVE) Urine Cannabinoids Screen Neg (NEGATIVE) B-Type Natriuretic Peptide 2031.22 pg/mL (0-100) Other Laboratory Tests 12/19/24 04:17 Brief Hx & Hospital Course: 63-year-old male brought in by a neighbor with a past history of hypertension, CVA, type 2 diabetes, hypertension for altered level of consciousness. Patient is alert x2 upon arrival to the emergency room blood sugar read low. Patient is unable to answer any questions. Patient was admitted on 12/13/2024 for metabolic and hepatic encephalopathy. Patient was found to have cardiomyopathy with an EF of 5% and a left ventricular thrombus. Heart failure caused liver failure. Patient's platelet count is 70. Patient developed A-fib with RVR and he needed to be on a heparin drip. Patient has a baseline decreased mental status due to multiple CVAs in the past. Patient became bedbound. Has a history of Parkinson with chronic tremors to his left upper and lower extremities. Patient also developed cardiorenal syndrome. Patient's kidney function did somewhat improve however due to overall prognosis family has decided to make patient a DNR. Patient could not follow commands. Patient can only verbalize 1 or 2 words and he was not able to eat. Patient became a full DNR and he was [facility]. All medications were discontinued except for comfort meds. The patient received proper medical treatment and medications. Vital signs, Imaging and Laboratory Work was monitored daily. All consults recommendations were followed as provided. There were no complaints or new complaints upon discharge, all questions and concerns were answered. Patient was advised to return to the ER or call 911 if any headaches, dizziness, shortness of breath, chest pain, bleeding, fevers, or worsening of medical condition. Patient/Family was counseled about treatment plan, medications, possible side effects, patient verbalized understanding. All questions were answered to the best of my ability. The patient symptoms improved and they are okay to be DC. Condition at Discharge: Stable Final Diagnosis/Problems List Hepatic/metabolic encephalopathy Liver failure Cardiomyopathy Thrombocytopenia Coagulopathy PNA Parkinson's Cardiorenal syndrome JEFFERY Discharge Disposition: Hospice - Home Discharge Instruct/Medications Diet: See Comment Diet comment: Not alert enough to eat at this time Activity: Bed rest Follow Up/Referral: Hospice Unable to Obtain Active Prescriptions or Reported Meds Discharge Statement: "Patient was advised to return to the ER or call 911 if any headaches, dizziness, shortness of breath, chest pain, abdominal pain, bleeding, fevers, or worsening of medical condition. Patient was counseled about treatment plan, medications, possible side effects, patientverbalized understanding. All questions were answered to the best of my ability. This discharge took greater then 30 minutes in planning, reviewing documentation, counseling the patient, and discussing with other team members." ASSESSMENT ASSESSMENT Hospital Course 63-year-old male brought in by a neighbor with a past history of hypertension, CVA, type 2 diabetes, hypertension for altered level of consciousness. Patient is alert x2 upon arrival to the emergency room blood sugar read low. Patient is unable to answer any questions. Patient was admitted on December 13, 2024, for metabolic and hepatic encephalopathy and was found to have liver failure. He also had cardiomyopathy with an estimated EF of 510%. Patient was seen and evaluated by Cardiology, and echocardiogram revealed a left ventricular thrombus. He also had cardiorenal syndrome, though renal function was noted to be improving with Nephrology follow-up. CT imaging revealed a bladder mass, and Urology recommended outpatient cystoscopy. Neurology evaluated the patient given his history of Parkinsons disease, and no left extremity tremors were noted. Patient also had an elevated D-dimer; however, V/Q scan was negative for PE. During admission, he developed A-fib with RVR and was placed on a heparin drip. Patient was also noted to have thrombocytopenia and coagulopathy, likely secondary to liver failure, which itself was most likely caused by severe heart failure. Patient has a history of multiple strokes and has been primarily bedbound. According to his son, mentation has been very poor for the past 2 years. Given multi-organ failure and poor prognosis, the family elected for hospice care. Hospice was arranged, and the patient will be discharged home on comfort measures. There were no complaints or new complaints upon discharge, all questions and concerns were answered. Patient was advised to return to the ER or call 911 if any headaches, dizziness, shortness of breath, chest pain, bleeding, fevers, or worsening of medical condition. Patient/Family was counseled about treatment plan, medications, possible side effects, patientverbalized understanding. All questions were answered to the best of my ability. The patient symptoms improved and they are okay to be DC. Assessment Hepatic/metabolic encephalopathy Liver failure Cardiomyopathy Thrombocytopenia Coagulopathy PNA Parkinson's Cardiorenal syndrome JOHN TAI NP Dec 20, 2024 14:29
--- NOTE | 2024-12-20 23:57 | DVHPN2 ---
Progress Note - Dictate Date Seen: Dec 20, 2024 Has the PT tested + for MRSA If YES, has PT been informed?: No Medical Necessity Reason Pt with a Central, PICC or Fol: Yes The following are medically ne: Clayton Catheter Reason for clayton catheter: Bladder Retention/Obstruc, Strict I&O Subjective Patient seen and examined at bedside. Remains on supplemental oxygen Overnight events reviewed. vital signs Vital Sign Date Time Temp Pulse Resp B/P (MAP) Pulse Ox O2 Delivery O2 Flow Rate FiO2 12/20/24 17:11 93 12 89/54 12/20/24 17:00 99 12/20/24 16:00 Nasal Cannula* 1 24 12/20/24 16:00 98.4 98.4 Total Intake and Output 12/19/24 12/19/24 12/20/24 15:00 23:00 07:00 Intake Total 248.98 ml 220 ml 0 ml Output Total 700 ml 650 ml Balance 248.98 ml -480 ml -650 ml medications Current Medications Medications Dose Ordered Sig/Diane Route Start Time Stop Time Status Last Admin Dose Admin Enoxaparin Sodium 40 mg DAILY SC 12/14/24 10:00 UNV objective Gen.: Patient lying in bed in no apparent distress. On supplemental oxygen. Head: Normocephalic, atraumatic. Eyes: EOMI/PERRLA. Ears: Normal hearing. Normal anatomy. Neck/trachea: Trachea midline, supple. Nose: Normal external anatomy. Mouth: Moist mucous membranes. Chest: Decreased air entry bilaterally. No wheezing or rhonchi. Cardiovascular: Positive S1, positive S2. Regular rate and rhythm. Abdomen: Positive bowel sounds in all 4 quadrants. Soft, non-tender, non- distended. : Deferred. Rectal: Deferred. Skin: Warm, dry. Intact. Extremities: 2+ radial pulses bilaterally. No lower extremity edema. Neuro: Awake, altered. No gross motor or sensory deficits. Cranial nerves II through XII intact. Gait not assessed. laboratory and microbiology Laboratory Tests 12/19/24 04:17 Test 12/19/24 04:17 Range/Units Serum Glucose 124 H 74-106 mg/dL Assessment/Plan Impression: Pneumonia Pleural effusions Atelectasis Congestive heart failure Acute kidney injury Acute liver injury Elevated D-dimer (21) Events: Patient seen and examined at bedside. Low oxygen requirements - on 1 LPM NC Taper O2 as tolerated. Heparin drip was discontinued Remains off pressors Patient persistently altered Abnormal LFTs- on lactulose. Continue antibiotics MRSA negative, sputum cx showed normal julito Urine cultures show no growth. Monitor renal function. Monitor electrolytes. Supplement as necessary. NG tube remains in place Overall poor prognosis - family agreed for hospice/supportive measures. Continue supportive care From the pulmonary standpoint, patient is stable for discharge on hospice. Chest x-ray notable for right basilar opacity. Labs and imaging reviewed Plan: Supplemental oxygen Titrate to keep O2 sats above 92%. Antibiotics Bronchodilators PRN Head of bed elevation Aspiration precautions Echo report reviewed Severe cardiomyopathy, EF 10% F/u Cardiology recommendations Monitor renal function. Monitor electrolytes. Supplement as necessary. Monitor ins and outs. Very poor prognosis Goals of care discussed with family, agree with hospice/supportive measures. DVT prophylaxis. Prognosis: Poor given patient's multiple co-morbidities. Rest of plan per hospitalist and other consultants. Thank you, BHARAT Hartmann, for allowing me to participate in this patient's care. Further recommendations will depend on the patient's clinical course. Please do not hesitate to contact me if you have any questions or concerns. This medical document was created using an electronic medical record system with [employer] dictation system. Although these documentations are being carefully reviewed, there may still be some phonetic and typographical changes. The errors are purely typographical, due to imperfection on the software program, and do not reflect any compromise in the patient's medical care. Dietary Evaluation Review Comments: Nutrition Recommendation: 1) Advance to [facility] 60gm + cardiac diet as medically feasible 2) If feeding tube is placed, consider TF Glucerna 1.2Cal @ 60ml/hr (goal) TF @ goal volume provides 1728 kcal (100% energy needs), 86 gm protein (100% protein needs), 1159 ml free water. 3) Water flush 100ml Q4H if allowed, adjust PRN 4) TPN if NPO >7 days 5) Monitor NPO status, lab values, wt trend, I/O Expected Outcomes/Goals: To meet >75% estimated needs Lab values to improve Fu 2-3 days Plan discussed with: Other (RN) TRACEY KRAMER MD Dec 20, 2024 23:56
[2024-12-21 05:06] LABS: Albumin 2.0 g/dL (2.9-4.4); Alpha-1-Globulin 0.1 g/dL (0.0-0.4); Alpha-2-Globulin 0.2 g/dL (0.4-1.0); Gamma Globulin 0.5 g/dL (0.4-1.8)
== END 2024-12-20 17:45 | disposition hospice, home (50) ==
LOC: ER 09:51 → OVERFLOW 19:05 → ICU CENTRL 12-14 23:58
PROVIDERS: ADMIT Nurse Practitioner; ATTEND Nurse Practitioner
PROC: 4B02XSZ Measurement of Cardiac Pacemaker, External Approach (ICD-10-PCS; principal; 2024-12-15)
DX: K76.82 Hepatic encephalopathy (principal); N17.0 Acute kidney failure with tubular necrosis; J96.01 Acute respiratory failure with hypoxia; R57.1 Hypovolemic shock; J69.0 Pneumonitis due to inhalation of food and vomit; I21.9 Acute myocardial infarction, unspecified; G93.41 Metabolic encephalopathy; D68.9 Coagulation defect, unspecified; E11.649 Type 2 diabetes mellitus with hypoglycemia without coma; K72.00 Acute and subacute hepatic failure without coma; J18.9 Pneumonia, unspecified organism; E87.4 Mixed disorder of acid-base balance; I50.23 Acute on chronic systolic (congestive) heart failure; D69.6 Thrombocytopenia, unspecified; N30.01 Acute cystitis with hematuria; E87.5 Hyperkalemia; G93.89 Other specified disorders of brain; B17.9 Acute viral hepatitis, unspecified; Z66 Do not resuscitate; Z51.5 Encounter for palliative care; F01.50 Vascular dementia, unspecified severity, without behavioral disturbance, psychotic disturbance, mood disturbance, and anxiety; F02.80 Dementia in other diseases classified elsewhere, unspecified severity, without behavioral disturbance, psychotic disturbance, mood disturbance, and anxiety; G20.A1 Parkinson's disease without dyskinesia, without mention of fluctuations; I25.5 Ischemic cardiomyopathy; N30.80 Other cystitis without hematuria; I48.91 Unspecified atrial fibrillation; E11.22 Type 2 diabetes mellitus with diabetic chronic kidney disease; N18.9 Chronic kidney disease, unspecified; I08.1 Rheumatic disorders of both mitral and tricuspid valves; I50.84 End stage heart failure; K57.30 Diverticulosis of large intestine without perforation or abscess without bleeding; I25.10 Atherosclerotic heart disease of native coronary artery without angina pectoris; M71.21 Synovial cyst of popliteal space [Baker], right knee; E87.6 Hypokalemia; E87.0 Hyperosmolality and hypernatremia; I13.0 Hypertensive heart and chronic kidney disease with heart failure and stage 1 through stage 4 chronic kidney disease, or unspecified chronic kidney disease; R13.10 Dysphagia, unspecified; Z95.0 Presence of cardiac pacemaker; I69.351 Hemiplegia and hemiparesis following cerebral infarction affecting right dominant side; Z91.148 Patient's other noncompliance with medication regimen for other reason; Z74.01 Bed confinement status; Z79.899 Other long term (current) drug therapy
CPT/HCPCS: 36415; 36600; 70450; 71045; 71250; 74176; 78582; 80048; 80053; 80074; 80076; 80202; 80307; 81001; 82140; 82550; 82565; 82570; 82595; 82607; 82746; 82784; 82805; 82962; 83516; 83520; 83605; 83735; 83880; 84100; 84132; 84155; 84156; 84165; 84300; 84439; 84443; 84484; 85025; 85301; 85379; 85610; 85730; 86038; 86160; 86225; 86235; 86256; 86334; 87040; 87081; 87086; 87205; 93005; 93306; 93970; 94640; 95819; 96361; 96365; G0378; J1815; J2543; J3430; J3480; P9047